=== PATIENT | female | born 1935 | race Caucasian/White ===

== ENCOUNTER 2023-12-09 12:53 | Outpatient (OUT) | payer SELFPAY | END 2023-12-09 12:54 | disposition home or self-care (01) | LOC: PST 12:53 | PROVIDERS: Visit Provider Ophthalmology | DX: Z01.818 Encounter for other preprocedural examination (principal); H25.812 Combined forms of age-related cataract, left eye ==

== ENCOUNTER 2023-12-11 06:23 | Day surgery (SDC) | payer MEDICARE, OTHER, SELFPAY ==
--- NOTE | 2023-12-10 | HP_ITS ---
PREOPERATIVE HISTORY AND PHYSICAL Date:? 12/10/2023 HISTORY:? The patient is an 88-year-old female with complaints of declining vision out of her left eye.? She claims that this has been ongoing over the last year, described as moderate in severity and causative in nature.? She states it is worsening with headlights and street lights at night time creating glare and halos.? She also describes her distance vision as blurred and difficulty seeing road signs.? PAST OCULAR HISTORY:? 1.? History of macular degeneration bilaterally.? 2.? History of retinal detachment and repair. 3.? Status post cataract extraction with intraocular lens placement for the right eye 2015. PAST MEDICAL HISTORY: 1.? Hypertension. 2.? Chronic kidney disease. 3.? Hypercholesterolemia.? 4.? Cardiac surgery. SOCIAL HISTORY:? Denies tobacco, alcohol or recreational drug abuse.? SYSTEMIC MEDICATIONS:? Include zinc sulfate, ubiquinol, lisinopril, cholecalciferol, ascorbic acid, allopurinol, bumetanide, digoxin, amiodarone, diltiazem. ALLERGIES:? To iodine, statins, amlodipine and penicillins. REVIEW OF SYSTEMS:? No pertinent positives. PHYSICAL EXAM:? GENERAL:? She is awake, alert and oriented x3, well developed, well nourished, in no acute distress.? HEART:? Regular rate and rhythm. LUNGS:? Clear bilaterally. ABDOMEN:? Soft, non-tender, non-distended. EXTREMITIES:? No pitting edema. OPHTHALMIC EXAM:? Revealed a visual acuity of 20/40 -1 in the right eye, and < > (unclear) is at 3 feet in the left eye.?? Pupils motility, muscle balance, confrontational visual marquze within normal limits bilaterally.? Pressures were 16 bilaterally.? Slit lamp exam revealed blepharitis with a severe decrease in tear film bilaterally.? Conjunctiva, cornea, anterior chamber and iris were within normal limits bilaterally.? Lens status demonstrated well centered posterior chamber intraocular lens in the right eye, and 2+ nuclear sclerosis, 3+ cortical changes, 1+ PSC in the left eye. FUNDUS EXAM:? Revealed a good view with good dilation bilaterally.? Optic discs, vessels, periphery and vitreous were within normal limits bilaterally.? The macula demonstrated RTE mottling and geographic atrophy, much worse in the left eye than that of the right eye.? ASSESSMENT AND PLAN:? Visually significant cataract, left eye.? After risks, benefits, alternatives, as well as expectations were delivered to the patient, she elected to go forward with cataract removal.? She understands the risks include but not limited to infection, bleeding, loss of vision, loss of the eye itself.? Secondly, she understands postoperatively she is likely to require spectacle correction for best visual acuity.? Finally, a complete ophthalmic exam was performed and she shows atrophic macular degeneration, that she understands, at this time, is the predominant limiting factor to her acuity.? She understands even with cataract removal surgery, she will still be left with a substantial moderate visual decline because of this existence.? However, she understands with the benefit of the cataract removal can improve vision to some degree, and therefore, she wishes to proceed. After understanding all the risks as well as expectations, she elected to go forward with procedure as listed above and will be doing so in the near future. MARIZOL
--- NOTE | 2023-12-11 | OP_ITS ---
OP Note OPERATION DATE: ??12/11/2023 SURGEON:? Dipak Morrow M.D. PREOPERATIVE DIAGNOSIS:? Nuclear sclerotic cataract left eye POSTOPERATIVE DIAGNOSIS:? Nuclear sclerotic cataract left eye. PROCEDURE NAME:? Cataract extraction with intraocular lens placement for the left eye. ANESTHESIA:? Topical ESTIMATED BLOOD LOSS:? Zero. COMPLICATIONS:? None. PROCEDURE:? The patient was brought to the Operating Room in supine position.? After proper identification, the left eye was prepped and draped in a sterile ophthalmic fashion.? A paracentesis was created at the 5 o'clock position.? Approximately 1 cc of unpreserved Xylocaine was injected into the anterior chamber followed by Amvisc Plus.? Using a 2.6 mm Keratome blade, a clear corneal incision was created at the 3 o'clock limbus.? A cystotome was then used to begin a curvilinear capsulorrhexis that was continued for 360 degrees with the Utrata forceps.? BSS on a 26 gauge cannula was injected beneath the anterior capsule to hydrodissect as well as hydrodelineate the lens.? After ensuring mobility, phacoemulsification was performed in a [id number]-type fashion.? After all nuclear material had been removed from the eye, IA was introduced and all residual cortical material was cleaned up.? Additional Amvisc Plus was injected into the posterior bag and a lens model MX60, 17.5 diopters was injected and dialed into position.? After ensuring centration, IA was re- introduced into the anterior chamber and all residual Amvisc Plus was removed from the eye.? BSS on a 30 gauge cannula was then injected into the stroma of both the clear corneal incision as well as paracentesis to hydrate the wounds.? Additional BSS was injected into the anterior chamber to pressurize the eye at approximately 20 to 22 mmHg by finger tension.? 0.1 cc of antibiotic was used to wash out the anterior chamber, maintaining the pressure as above.? Weck-Ana sponges were used to check the wounds to be watertight.? One drop of apraclonidine and one drop of prednisolone acetate were placed into the eye and a shield was placed over top. The patient was sent to the postoperative area in satisfactory condition to follow up the following day for postoperative care. MARIZOL
--- OUTSIDE RECORDS SUMMARY | 2023-12-11 06:29 | XMS_ITS | CCD ---
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 Representative Name Role Phone DR EJ SIMON Primary Care Unavailable ALLYSON, DR JOYCE Cherry Attending Unavaila ble DEBENEDETTI, DR JOYCE Cherry Consulting Unavaila ble DEBENEDETTI, DR JOYCE Cherry Admitting Unavaila ble ElizabethloEj rojas DO Primary Care Provider ALEIDA WILKES Attending Unavailable EJ SIMON Referring Unavailable EJ SIMON Primary Care Unavailable MILLA AVENDANO Referring Unavailable EJ SIMON Primary Care Unavailable CARMEN FRASER Attending Unavailable EJ SIMON Referring Unavailable EJ SIMON Primary Care Unavailable ALEIDA WILKES Attending Unavailable ALEIDA WILKES Referring Unavailable EJ SIMON Primary Care Unavailable OBINNA BERNARD Attending Unavailable FABRIZIO NEWBY Referring Unavailable Allergies Allergy Classification Reported Allergen(s) Allergy Type Date of Onset Reaction(s) Facility (8 sources) amLODIPine; Translations: [AMLODIPINE] Drug Allergy 1 [facility] (8 sources) atorvastatin; Translations: [ATORVASTATIN] Drug Allergy 1 [facility] Work Phone: (8 sources) Contrast media; Translations: [DYE] [facility] reactions [facility] (8 sources) HMG-CoA reductase inhibitor; Translations: [TIXKGOY-NWK-BJ A REDUCTASE INHIBITORS] Propensity to adverse reactions to drug [facility] sources[facility] Iodine; Translations: [IODINE] Drug Allergy 1 [facility] (8 sources) Penicillins; Translations: [PENICILLINS] Propensity to adverse reactions to drug 1 Hives, Swelling [facility] (8 sources) rosuvastatin; Translations: [ROSUVASTATIN] [facility] (8 sources) Spironolactone; Translations: [SPIRONOLACTONE ] Drug Allergy 1 [facility] Work Phone: Medications Current Medications Medication Drug Class(es) Dates Sig (Normalized) Sig (Original) acetaminophen 500 mg / diphenhydrAMINE hydrochloride 25 mg oral tablet (6 sources) Histamine-1 Receptor Antagonist take 1 tablet by mouth once daily as needed for sleep diphenhydrAMINE-a cetaminophen (TYLENOL PM) 25-500 mg tablet Take 1 tablet by mouth nightly as needed for sleep. 0 Active allopurinol 100 mg oral tablet (6 sources) Xanthine Oxidase Inhibitor Start: 06-10-2023 take 1 tablet by mouth once daily allopurinoL (ZYLOPRIM) 100 mg tablet Take 1 tablet by mouth once daily 90 tablet 3 06/10/2023 Active amiodarone hydrochloride 200 mg oral tablet (6 sources) Antiarrhythmic Start: 02-05-2023 take 0.5 tablet by mouth in the morning amiodarone (PACERONE) 200 mg tablet Indications: Longstanding persistent atrial fibrillation (CMS-HCC) Take 0.5 tablets (100 mg total) by mouth in the morning. 45 tablet 3 02/05/2023 Active apixaban 2.5 mg oral tablet (6 sources) Factor Xa Inhibitor Start: 07-12-2022 take 1 tablet by mouth in the morning, then take 1 tablet by mouth at bedtime apixaban (ELIQUIS) 2.5 mg tablet Indications: Longstanding persistent atrial fibrillation (CMS-HCC) Take 1 tablet (2.5 mg total) by mouth in the morning and 1 tablet (2.5 mg total) before bedtime. 180 tablet 3 07/12/2022 Active ascorbic acid 250 mg chewable tablet (6 sources) Vitamin C ascorbic acid, vitamin C, 250 mg tablet,chewable Chew and swallow daily. 0 Active bempedoic acid 180 mg / ezetimibe 10 mg oral tablet (6 sources) Dietary Cholesterol Absorption Inhibitor Start: 04-03-2023 take 1 tablet by mouth once daily bempedoic acid-ezetimibe (NEXLIZET) 180-10 mg tablet TAKE 1 TABLET BY MOUTH EVERY DAY 90 tablet 3 04/03/2023 Active bumetanide 2 mg oral tablet (6 sources) Loop Diuretic Start: 04-24-2023 take 1 tablet by mouth at bedtime bumetanide (BUMEX) 2 mg tablet Indications: Heart failure with preserved left ventricular function (HFpEF) ([facility]) TAKE 1 TABLET BY MOUTH IN THE MORNING AND AT BEDTIME 180 tablet 2 04/24/2023 Active cholecalciferol 0.05 mg oral capsule (6 sources) Vitamin D take 1 capsule by mouth in the morning cholecalciferol, vitamin D3, 2,000 units capsule Take 1 capsule (2,000 Units total) by mouth in the morning. 0 Active dapagliflozin 10 mg oral tablet (6 sources) Sodium-Glucose Cotransporter 2 Inhibitor Start: 08-26-2022 take 1 tablet by mouth in the morning dapagliflozin (FARXIGA) 10 mg tablet Indications: Type 2 diabetes mellitus with stage 3b chronic kidney disease, without long-term current use of insulin ([facility] [place]) Take 1 tablet (10 mg total) by mouth in the morning. 90 tablet 3 08/26/2022 Active digoxin 0.125 mg oral tablet (7 sources) Cardiac Glycoside Start: 07-22-2022 End: 09-23-2023 take 1 tablet by mouth every other day digoxin (LANOXIN) 125 mcg tablet Indications: Longstanding persistent atrial fibrillation ([facility] [place]) Take 1 tablet (125 mcg total) by mouth every other day. 45 tablet 0 09/23/2023 Active lactobacillus acidophilus [id number] unt / pectin 100 mg oral tablet (6 sources) take 1 tablet by mouth once daily at breakfast acidophilus-pecti n, citrus 25 million cell -100 mg tablet Take 1 tablet by mouth daily with breakfast. 0 Active lisinopril 5 mg oral tablet (6 sources) Angiotensin Converting Enzyme Inhibitor Start: 04-08-2023 take 1 tablet by mouth in the morning lisinopriL (PRINIVIL,ZESTRIL ) 5 mg tablet Take 1 tablet (5 mg total) by mouth in the morning. 90 tablet 3 04/08/2023 Active 24 hr metoprolol succinate 50 mg extended release oral tablet (6 sources) beta-Adrenergic Luna Start: 05-12-2023 take 1 tablet by mouth every twenty-four hours in the morning, then take 1 tablet by mouth at bedtime metoprolol succinate XL (TOPROL XL) 50 mg 24 hr tablet Indications: Heart failure with preserved left ventricular function (HFpEF) (CMS-HCC) , Longstanding persistent atrial fibrillation (CMS-HCC) , Nonrheumatic mitral valve regurgitation , Paroxysmal atrial fibrillation (CMS-HCC) , Chronic coronary artery disease , Essential hypertension , Atrial fibrillation (CMS-HCC) Take 1 tablet (50 mg total) by mouth in the morning and 1 tablet (50 mg total) before bedtime. 180 tablet 3 05/12/2023 Active multivitamin capsule (6 sources) take 1 tablet by mouth once daily multivitamin capsule Take 1 tablet by mouth daily. 0 Active nystatin [id number] unt/ml / triamcinolone acetonide 1 mg/ml topical cream (7 sources) Polyene Antifungal, Corticosteroid Start: 10-16-2022 End: 09-29-2023 nystatin-triamcin olone (MYCOLOG II) cream Indications: Yeast vaginitis Apply 1 Application topically in the morning and 1 Application at noon and 1 Application in the evening and 1 Application before bedtime. 60 g 0 09/29/2023 Active om 3/E/linol/ala/oleic/gl a/lip (OMEGA 3-6-9 ORAL) (6 sources) take 1 capsule by mouth once daily om 3/E/linol/ala/ole ic/gla/lip (OMEGA 3-6-9 ORAL) Take 1 capsule by mouth daily. 0 Active Oxygen (6 sources) oxygen Inhale 2 L/min once daily at bedtime. Connected to C-Pap 0 Active microencapsulated potassium chloride 20 meq extended release oral tablet (6 sources) Start: 11-25-2022 take 1 tablet by mouth once daily potassium chloride (KLOR-CON M 20) 20 MEQ CR tablet Take 1 tablet by mouth once daily 90 tablet 3 11/25/2022 Active sour horner allergenic extract (6 sources) Non-Standardized Food Allergenic Extract, Non-Standardized Plant Allergenic Extract sour horner extract (TART HORNER EXTRACT ORAL) Take by mouth daily. 0 Active ubiquinol 100 mg oral capsule (6 sources) take 1 capsule by mouth once daily coQ10, ubiquinol, 100 mg capsule Take 1 capsule by mouth daily. 0 Active vit C,Q-Uz-offvm-lutein-ze axan 250-90-40-1 mg capsule (6 sources) take 1 capsule by mouth once daily vit C,H-Yh-dxyjx-lute in-zeaxan 250-90-40-1 mg capsule Take 1 capsule by mouth daily. 0 Active zinc sulfate 220 mg oral capsule (6 sources) zinc sulfate (ZINCATE) 50 mg zinc (220 mg) capsule Take by mouth daily. 0 Active Problems Active Problems Problem Classification Problem Date Documented Da te Episodic/Chronic Cardiac dysrhythmias (16 sources) Longstanding persistent atrial fibrillation; Translations: [Longstanding persistent atrial fibrillation] Onset: 09-28-2020 Resolved: 10-22-2022 10-05-2022 Chronic Cardiac dysrhythmias (1 source) Palpitations Onset: 11-17-2023 Episodic Chronic kidney disease (12 sources) Chronic kidney disease stage 4; Translations: [Chronic kidney disease, stage 4 (severe)] Onset: 09-27-2020 Resolved: 03-06-2023 11-22-2022 Chronic Chronic kidney disease (1 source) Chronic kidney disease; Translations: [Chronic kidney disease, stage 3b] Onset: 10-29-2023 Conditions associated with dizziness or vertigo (1 source) Dizziness Onset: 11-17-2023 Episodic Congestive heart failure; nonhypertensive (14 sources) Unspecified diastolic (congestive) heart failure; Translations: [Heart failure] Onset: 09-27-2020 Resolved: 08-27-2021 10-07-2022 Chronic Coronary atherosclerosis and other heart disease (13 sources) Coronary arteriosclerosis; Translations: [Atherosclerotic heart disease of [place] coronary artery without angina pectoris] Onset: 05-19-2013 10-03-2022 Chronic Diabetes mellitus with complications (6 sources) Type 2 diabetes mellitus; Translations: [Type 2 diabetes mellitus with diabetic chronic kidney disease] Onset: 05-19-2013 10-05-2022 Chronic Disorders of lipid metabolism (7 sources) Hyperlipidemia; Translations: [Hyperlipidemia, unspecified] Onset: 05-19-2013 01-15-2018 Chronic Diverticulosis and diverticulitis (12 sources) Diverticular disease; Translations: [Diverticulosis of intestine, part unspecified, without perforation or abscess without bleeding] Onset: 10-04-2022 10-03-2022 Chronic Essential hypertension (6 sources) Hypertensive disorder; Translations: [Essential (primary) hypertension] Onset: 12-05-2015 10-03-2022 Chronic Gout and other crystal arthropathies (6 sources) Gout; Translations: [Gout, unspecified] Onset: 10-12-2020 10-03-2022 Chronic Heart valve disorders (12 sources) Non-rheumatic mitral regurgitation ; Translations: [Nonrheumatic mitral (valve) insufficiency] Onset: 11-03-2020 Resolved: 08-27-2021 11-18-2022 Chronic Immunity disorders (6 sources) Sarcoidosis; Translations: [Sarcoidosis of other sites] Onset: 10-12-2020 10-03-2022 Chronic Mycoses (1 source) Candidiasis of vagina; Translations: [Yeast vaginitis] 09-29-2023 Episodic Nonspecific chest pain (1 source) Chest pain Onset: 11-17-2023 Episodic Other diseases of kidney and ureters (6 sources) Renal mass; Translations: [Other specified disorders of kidney and ureter] Onset: 10-30-2020 04-29-2022 Chronic Other lower respiratory disease (2 sources) Shortness of breath Onset: 11-03-2023 Episodic Other nervous system disorders (6 sources) Neuropathy; Translations: [Polyneuropathy, unspecified] Onset: 03-06-2023 03-06-2023 Chronic Pulmonary heart disease (6 sources) Pulmonary hypertension; Translations: [Pulmonary hypertension, unspecified] Onset: 10-13-2020 10-03-2022 Chronic Residual codes; unclassified (6 sources) Obstructive sleep apnea syndrome; Translations: [Obstructive sleep apnea (adult) (pediatric)] Onset: 10-12-2020 10-05-2022 Chronic Residual codes; unclassified (1 source) Obstructive sleep apnea (adult) (pediatric); Translations: [Obstructive sleep apnea (adult) (pediatric)] Onset: 11-03-2023 Chronic Residual codes; unclassified (1 source) Sleep apnea Onset: 11-03-2023 Chronic Respiratory failure; insufficiency; arrest (adult) (6 sources) Dependence on supplemental oxygen; Translations: [Dependence on supplemental oxygen] Onset: 10-12-2020 10-03-2022 Chronic Unclassified (1 source) Other persistent atrial fibrillation; Translations: [Other persistent atrial fibrillation] Onset: 11-03-2023 Unclassified (1 source) Longstanding persistent atrial fibrillation; Translations: [Longstanding persistent atrial fibrillation] Onset: 11-17-2023 Unclassified (1 source) Permanent atrial fibrillation; Translations: [Permanent atrial fibrillation] Onset: 11-17-2023 Past or Other Problems Problem Classification Problem Date Documented Date Episodic/Chronic Coronary atherosclerosis and other heart disease (7 sources) Aortocoronary bypass graft present; Translations: [Presence of aortocoronary bypass graft] Onset: 10-12-2020 10-03-2022 Episodic E Codes: Adverse effects of medical drugs (2 sources) Adverse effect of other antidysrhythmic drugs, initial encounter; Translations: [Adverse effect of other antidysrhythmic drugs, initial encounter] Onset: 07-24-2023 Episodic Hypertension with complications and secondary hypertension (10 sources) Hypertensive heart and chronic kidney disease with heart failure and stage 1 through stage 4 chronic kidney disease, or unspecified chronic kidney disease; Translations: [Hypertensive heart AND chronic kidney disease stage 5] Onset: 10-13-2020 Resolved: 10-16-2022 Chronic Mood disorders (6 sources) Mood disorders Onset: 03-06-2023 03-06-2023 Other aftercare (6 sources) Long-term current use of anticoagulant; 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] Onset: 10-12-2020 10-03-2022 Episodic Other lower respiratory disease (6 sources) Hypoxemia; Translations: [Hypoxemia] Onset: 09-27-2020 Resolved: 08-27-2021 08-27-2021 Episodic Other nervous system disorders (6 sources) Finding related to ability to move; Translations: [Other abnormalities of gait and mobility] Onset: 09-28-2020 10-03-2022 Episodic Other nutritional; endocrine; and metabolic disorders (6 sources) Body mass index 40+ - severely obese; Translations: [Body mass index (BMI) 45.0-49.9, adult] Onset: 10-21-2018 Resolved: 03-06-2023 03-06-2023 Chronic Other nutritional; endocrine; and metabolic disorders (6 sources) Severe obesity; Translations: [Morbid (severe) obesity due to excess calories] Onset: 07-24-2021 Resolved: 10-22-2022 10-22-2022 Chronic Residual codes; unclassified (6 sources) Localized edema; Translations: [Localized edema] Onset: 07-08-2018 07-08-2018 Episodic Residual codes; unclassified (6 sources) Other specified health status; Translations: [Other drug allergy] Onset: 10-22-2022 10-22-2022 Episodic Viral infection (6 sources) Herpes zoster; Translations: [Zoster without complications] Onset: 07-07-1986 Resolved: 10-03-2022 10-03-2022 Episodic Results Test Name Value Interpretation Reference Range Facility BASIC METABOLIC PANLon 10-28 Anion gap [Moles/Vol] 9 mmol/L Normal 5-15 [facility] Comment on above: Performed By: #### B CHELY, 76718-7, 2777-1, 2731-8, 80608-4, CBC, UPCR #### [facility] ([id number]) [address], [address] [place] [address] Calcium [Mass/Vol] 9.9 mg/dL Normal 8.5-10.5 [facility] Comment on above: Performed By: #### [place], [address]-6, 2777-1, 2731-8, 50394-3, CBC, UPCR #### [facility] ([id number]) [address], [address] [place] [address] Chloride [Moles/Vol] 97 mmol/L Low 98-109 [facility] Comment on above: Performed By: #### B CHELY, 89846-1, 2777-1, 2731-8, 89259-1, CBC, UPCR #### [facility] ([id number]) [address], [address] [place] [address] CO2 [Moles/Vol] 32 mmol/L Normal 22-32 [facility] Comment on above: Performed By: #### B CHELY, 48707-1, 2777-1, 2731-8, 59114-8, CBC, UPCR #### [facility] ([id number]) [address], [address] [place] [address] Creatinine [Mass/Vol] 1.65 mg/dL High 0.40-1.00 [facility] Comment on above: Result Comment: METH OD TRACEABLE TO IDMS STANDARD Performed By: #### B CHELY, 17326-7, 2776-1, 2731-8, 09886-6, CBC, UPCR #### [facility] ([id number]) [address], [facility] [address] [place] [address] GFR/1.73 sq M.predicted among non-blacks MDRD (S/P/Bld) [Vol rate/Area] 30 mL/min/{1.73_m2} Low >59 [facility] Comment on above: Result Comment: Reported eGFR is based on the CKD-EPI 2020 equation that does not use a race coefficient. Performed By: #### B CHELY, 69612-5, 2776-1, 2731-8, 04759-1, CBC, UPCR #### [facility] ([id number]) [address], [address] [place] [address] Glucose [Mass/Vol] 175 mg/dL High 65-99 [facility] Comment on above: Performed By: #### B CHELY, 94363-3, 2776-, 273-8, 50802-0, CBC, UPCR #### [facility] ([id number]) [address], [facility] [address] [place] [address] Potassium [Moles/Vol] 3.9 mmol/L Normal 3.5-5.0 [facility] Comment on above: Performed By: #### B CHELY, 06562-8, 2776-1, 2731-8, 53254-8, CBC, UPCR #### [facility] ([id number]) [address], [address] [place] [address] Sodium [Moles/Vol] 138 mmol/L Normal 134-146 [facility] Comment on above: Performed By: #### B CHELY, 33981-7, 2776-1, 2731-8, 50144-2, CBC, UPCR #### [facility] ([id number]) [address], [address] [place] [address] Urea nitrogen [Mass/Vol] 27 mg/dL Normal 5-27 [facility] Comment on above: Performed By: #### B CHELY, 28901-5, 2777-1, 2731-8, 11003-5, CBC, UPCR #### [facility] ([id number]) [address], [facility] [address] [place] [address] COMPLETE BLOOD COUNTon 10-28 Erythrocyte distribution width (RBC) [Ratio] 16.2 % High 11.5-15.0 [facility] Comment on above: Performed By: #### B CHELY, 41494-3, 2777-1, 2731-8, 62343-7, CBC, UPCR #### [facility] ([id number]) [address], [address] [place] [address] Hematocrit (Bld) [Volume fraction] 42.7 % Normal 35-47 [facility] Comment on above: Performed By: #### B CHELY, 12309-3, 7-1, 2731-8, 23192-0, CBC, UPCR #### [facility] ([id number]) [address] [place] [address] Hemoglobin (Bld) [Mass/Vol] 14.5 g/dL Normal 11.7-15.5 [facility] Comment on above: Performed By: #### [place], 72415-0, 2777-1, 2731-8, 43300-1, CBC, UPCR #### [facility] ([id number]) [address] [place] [address] MCH (RBC) [Entitic mass] 34.7 pg High 27-34 [facility] Comment on above: Performed By: #### B CHELY, 24569-5, 2777-1, 2731-8, 96032-5, CBC, UPCR #### [facility] ([id number]) [address], [address] [place] [address] MCHC (RBC) [Mass/Vol] 34.0 g/dL Normal 32-36 [facility] Comment on above: Performed By: #### B CHELY, 11733-2, 2777-1, 2731-8, 70750-5, CBC, UPCR #### [facility] ([id number]) [address], [facility] [address] [place] [address] MCV (RBC) [Entitic vol] 102 fL High 80-100 [facility] Comment on above: Performed By: #### B CHELY, 43974-9, 2777-1, 2731-8, 54220-7, CBC, UPCR #### [facility] ([id number]) [address], [facility] [address] [place] [address] Platelet mean volume (Bld) [Entitic vol] 9.5 fL Normal 7-12 [facility] Comment on above: Performed By: #### B CHELY, 12629-5, 2777-1, 2731-8, 77581-5, CBC, UPCR #### [facility] ([id number]) [address] [address] [place] [address] Platelets (Bld) [#/Vol] 166 10*3/uL Normal 150-450 [facility] Comment on above: Performed By: #### [place], 74246-1, 2777-1, 2731-8, 93579-3, CBC, UPCR #### [facility] ([id number]) [address], [address] [place] [address] RBC COUNT 4.18 X10E12/L Normal 3.80-5.20 [facility] Comment on above: Performed By: #### B CHELY, 59164-6, 2777-1, 2731-8, 88104-1, CBC, UPCR #### [facility] ([id number]) [address], [address] [place] [address] WBC (Bld) [#/Vol] 4.4 10*3/uL Normal 4.0-11.0 [facility] Comment on above: Performed By: #### B CHELY, 61641-8, 7-1, 1-8, 46923-4, CBC, UPCR #### [facility] ([id number]) [address], [address] [place] [address] MAGNESIUMon 10-29-2023 Magnesium [Mass/Vol] 2.4 mg/dL Normal 1.8-2.6 [facility] Comment on above: Performed By: #### B CHELY, 47280-6, 2776-1, 2730-8, 18983-6, CBC, UPCR #### [facility] ([id number]) [address], [address] [place] [address] PHOSPHORUSon 10-29-2023 Phosphate [Mass/Vol] 3.5 mg/dL Normal 2.4-4.9 [facility] Comment on above: Performed By: #### B CHELY, 78273-3, 2776-, 2730-8, 69474-9, CBC, UPCR #### [facility] ([id number]) [address], [address] [place] [address] PROTEIN CREAT RATIOon 2023 RANDOM URINE PROTEIN 4020 mg/L High <120 [facility] Comment on above: Performed By: #### B CHELY, 94284-1, 2776-1, 273-8, 20600-4, CBC, UPCR #### [facility] ([id number]) [address], [address] [place] [address] U/PRO/DIRECTOR SOFTWARE RATIO CALC 8.42 High <0.2 [facility] Comment on above: Result Comment: Neph rotic Syndrome is associated with ratios >3.5 Performed By: #### B CHELY, 76928-7, 2777-1, 2731-8, 62483-6, CBC, UPCR #### [facility] ([id number]) [address], [address] [place] [address] URINE CREATININE,RDM 47.72 mg/dL Normal [facility] Comment on above: Performed By: #### B MP, 11358-0, 2777-1, 2731-8, 64926-0, CBC, UPCR #### [facility] ([id number]) [address] [place] [address] Parathyrin.intact [Mass/Vol] on 10-29-2023 PTH INTACT 68 pg/mL Normal [facility] Comment on above: Performed By: #### B MP, 79907-3, 2777-1, 2731-8, 39937-8, CBC, UPCR #### [facility] ([id number]) [address] [place] [address] URINALYSISon 10-29-2023 Bilirubin Ql (U) Negative Normal NEG [facility] Comment on above: Performed By: #### U A #### [facility] ([id number]) [address] [place] [address] BLOOD/HGB Negative Normal NEG [facility] Comment on above: Performed By: #### U A #### [facility] ([id number]) [address] [place] [address] Color (U) YELLOW Normal YELLOW [facility] Comment on above: Performed By: #### U A #### [facility] ([id number]) [address] [place] [address] Glucose Ql (U) >1000 Abnormal NEG [facility] Comment on above: Performed By: #### U A #### [facility] ([id number]) [address] [place] [address] Ketones Ql (U) Negative Normal NEG [facility] Comment on above: Performed By: #### U A #### [facility] ([id number]) [address], [address] [place] [address] Leukocyte esterase Test strip Ql (U) Negative Normal NEG [facility] Comment on above: Result Comment: HIGH CONCENTRATIONS OF GLUCOSE MAY DECREASE THE REACTIVITY OF THE DIPSTICK LEUKOCYTE TEST PAD. Performed By: #### U A #### [facility] ([id number]) [address], [address] [place] [address] MUCOUS PRESENT Abnormal NONE [facility] Comment on above: Performed By: #### U A #### [facility] ([id number]) [address] [place] [address] Nitrite Ql (U) Negative Normal NEG [facility] Comment on above: Performed By: #### U A #### [facility] ([id number]) [address], [address] [place] [address] pH (U) 7.0 [pH] Normal 5.0-8.5 [facility] Comment on above: Performed By: #### U A #### [facility] ([id number]) [address], [address] [place] [address] Protein Ql (U) 300 mg/dL Abnormal NEG [facility] Comment on above: Performed By: #### U A #### [facility] ([id number]) [address], [address] [place] [address] R.B.CELLS 1 /hpf Normal 0-5 [facility] Comment on above: Performed By: #### U A #### [facility] ([id number]) [address], [address] [place] [address] Specific gravity (U) [Rel density] 1.019 Normal 1.003-1.035 [facility] [facility] Comment on above: Performed By: #### U A #### [facility] ([id number]) [address], [address] [place] [address] SQUAMOUS EPITHELIUM <1 Normal 0-5 [facility] Comment on above: Performed By: #### U A #### [facility] ([id number]) [address] [place] [address] TURBIDITY CLEAR Normal CLEAR [facility] Comment on above: Performed By: #### U A #### [facility] ([id number]) [address] [place] [address] Urobilinogen (U) [Mass/Vol] mg/dL Normal <1.1 [facility] Comment on above: Performed By: #### U A #### [facility] ([id number]) [address] [place] [address] W.B.CELLS 4 /hpf Normal 0-5 [facility] Comment on above: Performed By: #### U A #### [facility] ([id number]) [address] [place] [address] Vitamin D+Metabolites [Mass/ Vol]on 10-29-2023 VITAMIN D 25 HYD TOT 25.6 ng/mL Low 30-100 [facility] Comment on above: Result Comment: Vitamin D status 25 [place] Vitamin D Deficiency <20 ng/mL Insufficiency 20-29 ng/mL Sufficiency 30-100 ng/mL Toxicity >100 ng/mL NOTE: A pediatric reference range has not been established by the machine tank operator of this kit. The [place] [employer] recommends a Vitamin D level of = or >20ng/mL in infants and children. Performed By: #### [place], [address]-7, 2777-1, 2731-8, 04424-6, CBC, UPCR #### [facility] ([id number]) [address], [address] [place] [address] BNPon 10-31-2022 Natriuretic peptide B (Bld) [Mass/Vol] 2222.0 pg/mL Critically high <=1,800.0 [facility] Comment on above: Performed By: #### B MP, BNP #### [facility] [address] [place] [address] Dr. Alyson Galvez PROF CHEM 8 (BAS METB)on Anion gap [Moles/Vol] 10.5 mmol/L Normal [facility] Comment on above: Performed By: #### B MP, BNP #### [facility] [address] [place] [address] Dr. Alyson Galvez Calcium [Mass/Vol] 9.4 mg/dL Normal 8.5-10.1 [facility] Comment on above: Performed By: #### B MP, BNP #### [facility] [address] [place] [address] Dr. Alyson Galvez Chloride [Moles/Vol] 103 mmol/L Normal 98-107 [facility] Comment on above: Performed By: #### B MP, BNP #### [facility] [address] [place] [address] Dr. Alyson Gavlez CO2 [Moles/Vol] 33.2 mmol/L Critically high 21.0-32.0 [facility] Comment on above: Performed By: #### B MP, BNP #### [facility] [address] [place] [address] Dr. Alyson Galvez Creatinine [Mass/Vol] 1.46 mg/dL Critically high 0.55-1.02 [facility] Comment on above: Performed By: #### B MP, BNP #### [facility] [address] [place] [address] Dr. Alyson Galvez EGFR-AF ERITREAN 41 mL/min/1.73m2 Critically low >=60 [facility] Comment on above: Performed By: #### B MP, BNP #### [facility] [address] [address] [address] Alyson Galvez EGFR-NON AF ERITREAN 34 mL/min/1.73m2 Critically low >=60 [facility] Comment on above: Performed By: #### B MP, BNP #### [facility] [address] [address] [address] Alyson Galvez Glucose [Mass/Vol] 110 mg/dL Critically high 74-106 T [facility] Comment on above: Performed By: #### B MP, BNP #### [facility] [address] [place] [address] Dr. Alyson Galvez Potassium [Moles/Vol] 3.7 mmol/L Normal 3.5-5.1 [facility] Comment on above: Performed By: #### B MP, BNP #### [facility] [address] [place] [address] Dr. Alyson Galvez Sodium [Moles/Vol] 143 mmol/L Normal 136-145 [facility] Comment on above: Performed By: #### B MP, BNP #### [facility] [address] [address] [address] Alyson Galvez Urea nitrogen [Mass/Vol] 21.0 mg/dL Critically high 7.0-18.0 [facility] Comment on above: Performed By: #### B MP, BNP #### [facility] [address] [place] [address] Dr. Alyson Galvez Urea nitrogen/Creatinin e [Mass ratio] 14.4 mg/mg Normal [facility] Comment on above: Performed By: #### B MP, BNP #### [facility] [address] [place] [address] Dr. Alyson Galvez [facility]28[facility] ([facility] IVANA [id number]) 1935 F Date Time Provider Department 05/28/21 7:00 AM RESEARCH NURSE CARD INTERVENTION MNCATHMN During your visit today, we recorded the following information about you: Carina Ross RN 05/29/2021 5:48 PM Signed I spoke with Mrs. Hutchinson and let her know that after review by the Carmen Clasp Trial , she was a screen fail based on not meeting the inclusion/exclusion. . Dr. Velázquez spoke with her as well. Carina Ross RN Referring Provider: LEE VELÁZQUEZ [[id number]] Allergies As of Date: 05/28/2021 Noted Allergy Reaction CONTRAST DYE (IODINE) 03/15/2021 16 - Unknown Comments: Not allergy, want limited use due to CKD 3 PENICILLINS 03/15/2021 4 - Hives 7 - Swelling [id number] REDUCTASE INHIBIT*03/15/2021 17 - Myalgia Date Reviewed: 03/19/2021 Reviewed by: Yadira Palacios APRN.CLAIMS ANALYST - Fully Assessed Reason for Visit: Research [293] Cmt: IRB 19-241 [facility] II D F trial - Screen fail Primary Visit Diagnosis:IRB 19-241 [facility] IId II f Screen fail note [Z00.6] Prescriptions as of 05/29/2021 - clindamycin (CLEOCIN) 300 mg capsule Take 2 capsules (600 mg) 30-60 minutes prior to dental/GI/ procedures - allopurinol (ZYLOPRIM) 100 mg tablet Take 100 mg by mouth once daily. - PACERONE 200 mg tablet Take 200 mg by mouth once daily. - apixaban (ELIQUIS) 2.5 mg tab tab(s) Take 2.5 mg by mouth twice daily. - Ascorbic Acid 250 mg chew Take 250 mg by mouth once daily. - bumetanide (BUMEX) 2 mg tablet Take 4 mg by mouth twice daily. - Cholecalciferol, Vitamin D3, 50 mcg (2,000 unit) cap Take 2,000 Units by mouth once daily. - dapagliflozin (FARXIGA) 10 mg tablet Take 10 mg by mouth once daily. - ezetimibe (ZETIA) 10 mg tablet Take 10 mg by mouth once daily. - metoprolol succinate ER (TOPROL XL) 25 mg 24 hr tablet Take 25 mg by mouth once daily. - Multivitamin capsule Take 1 tablet by mouth once daily. - potassium chloride ER (K-DUR, KLOR-CON) 20 mEq tablet Take 20 mEq by mouth once daily. - coQ10, ubiquinol, 100 mg cap Take 1 capsule by mouth once daily. - zinc sulfate 220 (50) mg capsule Take 220 mg by mouth once daily. - vit C,S-Bq-ipvnb-lutein-ze axan (PRESERVISION AREDS-2) 250-90-40-1 mg Take 1 capsule by mouth once daily. - bempedoic acid (NEXLETOL) 180 mg tablet Take 180 mg by mouth once daily. - acetaminophen/diphenhy dramine (TYLENOL PM ORAL) Take 2 tablets by mouth as needed. - Acidophilus-Pectin, [place] 25 million cell -100 mg tab Take 1 tablet by mouth once daily. - fish oil/borage/flax/om3,6, 9 1 (OMEGA 3-6-9 ORAL) Take 1 capsule by mouth once daily. - sour horner extract (TART HORNER EXTRACT ORAL) Take 1 tablet by mouth once daily. - sodium chloride 0.9 %, flush, (BD POSIFLUSH) syringe Inject 2-10 mL intravenously as directed. For Echo procedure Facility-Administered Medications as of 05/29/2021 - sodium chloride 0.9 % (flush) 10 mL (BD POSIFLUSH) Problem List As Of Date 05/28/2021 Noted Resolved Mitral valve insufficiency [I34.0] 03/13/2021 IRB#19-241 [facility] IID Baselin [Z00.6] 05/14/2021 Visit Notes: >> Carina Ross RN FriMay 28, 2021 2:25 PM Status: Signed I spoke with Mrs. Hutchinson and let her know that after review by the Carmen Clasp Trial , she was a screen fail based on not meeting the inclusion/exclusion. . Dr. Velázquez spoke with her as well. Carina Ross RN Encounter Status:Closed by CARINA ROSS on 05/29/21 Normal [facility] APTTon 05-14-2021 aPTT Coag (Bld) [Time] 29.0 s Normal 23.0-32.4 [facility] Comment on above: Result Comment: Unfr actionated Heparin Therapeutic Ranges: Standard Heparin Nomogram: 53 to 78 seconds (anti-Xa level of 0.3 to 0.7 U/ml) Low Dose/ACS Nomogram: 49 to 67 seconds (anti-Xa level of 0.2 to 0.5 U/ml) Stroke Treatment Nomogram: 49 to 67 seconds (anti-Xa level of 0.2 to 0.5 U/ml) Note: The APTT therapeutic range has been determined for the current lot of laboratory APTT reagent in use throughout the [facility]. Performed By: #### C MP, PTT, CKCKMB, CBC #### [address] [place] [address] CBCon 05-14-2021 Absolute nRBC <0.01 Normal <0.01 [facility] Comment on above: Performed By: #### C MP, PTT, CKCKMB, CBC #### [place] [phone] Erythrocyte distribution width (RBC) [Ratio] 15.1 % High 11.5-15.0 [facility] Comment on above: Performed By: #### C MP, PTT, CKCKMB, CBC #### [place] [phone] Hematocrit (Bld) [Volume fraction] 44.1 % Normal 36.0-46.0 [facility] Comment on above: Performed By: #### C MP, PTT, CKCKMB, CBC #### [place] [phone] Hemoglobin (Bld) [Mass/Vol] 13.6 g/dL Normal 11.5-15.5 [facility] Comment on above: Performed By: #### C MP, PTT, CKCKMB, CBC #### [place] [phone] MCH 32.7 pG Normal 26.0-34.0 [facility] Comment on above: Performed By: #### C MP, PTT, CKCKMB, CBC #### [place] [address] MCHC (RBC) [Mass/Vol] 30.8 g/dL Normal 30.5-36.0 [facility] Comment on above: Performed By: #### C MP, PTT, CKCKMB, CBC #### [place] [address] MCV (RBC) [Entitic vol] 106.0 fL High 80.0-100.0 [facility] Comment on above: Performed By: #### C MP, PTT, CKCKMB, CBC #### [place] [address] Platelet mean volume (Bld) [Entitic vol] 10.7 fL Normal 9.0-12.7 [facility] Comment on above: Performed By: #### C MP, PTT, CKCKMB, CBC #### [place] [address] Platelets (Bld) [#/Vol] 236 10*3/uL Normal 150-400 [facility] Comment on above: Performed By: #### C MP, PTT, CKCKMB, CBC #### [place] [address] RBC (Bld) [#/Vol] 4.16 10*6/uL Normal 3.90-5.20 [facility] Comment on above: Performed By: #### C MP, PTT, CKCKMB, CBC #### [place] [address] WBC (Bld) [#/Vol] 6.06 10*3/uL Normal 3.70-11.00 [facility] Comment on above: Performed By: #### C MP, PTT, CKCKMB, CBC #### [address] [place], [place] [address] CK, Total and CKMBon 021 CK [Catalytic activity/Vol] 76 U/L Normal 42-196 [facility] Comment on above: Performed By: #### C MP, PTT, CKCKMB, CBC #### [facility] [address] [place], [place] [address] CK MB % CK MB % not reported with CK <100 U/L. Normal 0.0-4.0 [facility] Comment on above: Performed By: #### C MP, PTT, CKCKMB, CBC #### [facility] [address] [id number] MB 3.1 ng/mL Normal <4.4 [facility] Comment on above: Performed By: #### C MP, PTT, CKCKMB, CBC #### [facility] [address] [id number] CNNURSEon 05-14-2021 CNNURSE Nurse Visit (CATHMN) IVANA HUTCHINSON ([id number]) 1935 F Date Time Provider Department 05/14/21 1:00 PM RESEARCH NURSE CARD INTERVENTION MNCATHMN During your visit today, we recorded the following information about you: Temperature Pulse Respiration Blood pressure 98.9 degrees 120/minute 26/minute 167/75 Weight 105.8 kg Fabiola Moreno 07/23/2021 12:05 PM Addendum [id number] Carmen MAHMOOD II D PI: Scott Devine Study Visit: Baseline I met with the patient for the baseline visit for the Clasp II D Study. Reaffirmed that the patient still wishes to participate in the study and continues to consent to the study. Patient presented with the updated consent and changes reviewed regarding treatments with relation to Mitraclip and randomization arm of trial. Reconsented to the most recent version of the protocol (D.2) version date 2020. Has the patient had any changes in her health since the last study visit? No Medications and allergy lists updated and current. Has the patient had any outside hospitalizations/ER visits: No NIHSS 1a. Level of Consciousness: The fugitive investigator must choose a response if a full evaluation is prevented by such obstacles as an endotracheal tube, language barrier, orotracheal trauma/bandages. A 3 is scored only if the patient makes no movement (other than reflexive posturing) in response to noxious stimulation. 0 = Alert and Attentive 1b. LOC Questions: The patient is asked the month and his/her age. The answer must be correct - there is no partial credit for being close. Aphasic and stuporous patients who do not comprehend the questions will score 2. Patients unable to speak because of endotracheal intubation, orotracheal trauma, severe dysarthria from any cause, language barrier, or any other problem not secondary to aphasia are given a 1. It is important that only the initial answer be graded and that the examiner not help the patient with verbal or non-verbal cues. 0 = Correct age and month 1c. LOC Commands: The patient is asked to open and close the eyes and then to floral designer salesperson and release the non-paretic hand. Substitute another one step command if the hands cannot be used. Credit is given if an unequivocal attempt is made but not completed due to weakness. If the patient does not respond to command, the task should be demonstrated to him or her (pantomime), and the result scored (i.e., follows none, one or two commands). Patients with trauma, amputation, or other physical impediments should be given suitable one-step commands. Only the first attempt is scored. 0 = Alert and Attentive 2. Best Gaze: Only horizontal eye movements will be tested. Voluntary or reflexive (oculocephalic) eye movements will be scored, but caloric testing is not done. If the patient has a conjugate deviation of the eyes that can be overcome by voluntary or reflexive activity, the score will be 1. If a patient has an isolated peripheral nerve paresis (CN III, IV or ), score a 1. Gaze is testable in all aphasic patients. Patients with ocular trauma, bandages, pre-existing blindness, or other disorder of visual acuity or marquez should be tested with reflexive movements, and a choice made by the fugitive investigator. Establishing eye contact and then moving about the patient from side to side will occasionally clarify the presence of a partial gaze palsy. 0 = Normal 3. Visual: Visual marquez (upper and lower quadrants) are tested by confrontation, using finger counting or visual threat, as appropriate. Patients may be encouraged, but if they look at the side of the moving fingers appropriately, this can be scored as normal. If there is unilateral blindness or enucleation, visual marquez in the remaining eye are scored. Score 1 only if a clear-cut asymmetry, including quadrantanopia, is found. If patient is blind from any cause, score 3. Double simultaneous stimulation is performed at this point. If there is extinction, patient receives a 1, and the results are used to respond to item 11. 0 = Full 4. Facial Palsy: Ask - or use pantomime to encourage - the patient to show teeth or raise eyebrows and close eyes. Score symmetry of grimace in response to noxious stimuli in the poorly responsive or non-comprehending patient. If facial trauma/bandages, orotracheal tube, tape or other physical barriers obscure the face, these should be removed to the extent possible. 0 = Normal 5a. Motor Arm, Left: The limb is placed in the appropriate position: extend the arms (palms down) 90 degrees (if sitting) or 45 degrees (if supine). Drift is scored if the arm falls before 10 seconds. The aphasic patient is encouraged using urgency in the voice and pantomime, but not noxious stimulation. Each limb is tested in turn, beginning with the non-paretic arm. Only in the case of amputation or joint fusion at (more content not included)... Normal [facility] Comp Metabolic Panelon 05-14 Albumin [Mass/Vol] 3.9 g/dL Normal 3.9-4.9 [facility] Comment on above: Performed By: #### C MP, PTT, CKCKMB, CBC #### [facility] [address] [place], [place] [address] ALP [Catalytic activity/Vol] 88 U/L Normal 34-123 [facility] Comment on above: Performed By: #### C MP, PTT, CKCKMB, CBC #### [facility] [address] [place], [place] [address] ALT [Catalytic activity/Vol] 16 U/L Normal 7-38 [facility] Comment on above: Performed By: #### C MP, PTT, CKCKMB, CBC #### [facility] [address] [place], [place] [address] Anion gap [Moles/Vol] 9 mmol/L Normal 9-18 [facility] Comment on above: Performed By: #### C MP, PTT, CKCKMB, CBC #### [address] [address] [place] [address] AST [Catalytic activity/Vol] 26 U/L Normal 13-35 [facility] Comment on above: Performed By: #### C MP, PTT, CKCKMB, CBC #### [place] [address] Bilirubin [Mass/Vol] 0.3 mg/dL Normal 0.2-1.3 [facility] Comment on above: Performed By: #### C MP, PTT, CKCKMB, CBC #### [address] [place], [place] [address] Calcium [Mass/Vol] 9.8 mg/dL Normal 8.5-10.2 [facility] Comment on above: Performed By: #### C MP, PTT, CKCKMB, CBC #### [facility] [address] [place], [place] [address] Chloride [Moles/Vol] 101 mmol/L Normal 97-105 [facility] Comment on above: Performed By: #### C MP, PTT, CKCKMB, CBC #### [facility] [address] [place], [place] [address] CO2 [Moles/Vol] 31 mmol/L High 22-30 [facility] Comment on above: Performed By: #### C MP, PTT, CKCKMB, CBC #### [facility] [address] [place] [address] Creatinine [Mass/Vol] 1.59 mg/dL High 0.58-0.96 [facility] Comment on above: Performed By: #### C MP, PTT, CKCKMB, CBC #### [facility] [address] [place] [address] eGFR- Amer. 38 [facility] Comment on above: Performed By: #### C MP, PTT, CKCKMB, CBC #### [facility] [address] [place] [address] eGFR-All Other Races 31 . Normal [facility] Comment on above: Result Comment: eGFR (Estimated GFR) Units of measure: mL/min/1.73 meters squared eGFR is derived from the reexpressed MDRD Study equation using the following parameters: serum creatinine, age, gender and race. The creatinine assay has been calibrated to be traceable to IDMS. An eGFR <60 mL/min/1.73m2 for >3 months is consistent with chronic kidney disease. Refer to KDOQI guidelines for clinical interpretation. In patients with unstable renal function, e.g. those with acute kidney injury, the eGFR may not accurately reflect actual GFR. Performed By: #### C MP, PTT, CKCKMB, CBC #### [facility] [address] [place] [address] Glucose [Mass/Vol] 120 mg/dL High 74-99 [facility] Comment on above: Result Comment: The [place] [employer] (ADA) provides guidance for cutoff values for fasting glucose and random glucose. The ADA defines fasting as no caloric intake for at least 8 hours. Fasting plasma glucose results between 100 to 125 mg/dL indicate increased risk for diabetes (prediabetes). Fasting plasma glucose results greater than or equal to 126 mg/dL meet the criteria for diagnosis of diabetes. In the absence of unequivocal hyperglycemia, results should be confirmed by repeat testing. In a patient with classic symptoms of hyperglycemia or hyperglycemic crisis, random plasma glucose results greater than or equal to 200 mg/dL meet the criteria for diagnosis of diabetes. Reference: Standards of Medical Care in Diabetes 2016, [place] [employer]. Diabetes Care. 2016.39(Suppl 1). Performed By: #### C MP, PTT, CKCKMB, CBC #### [facility] [address] [place], [place] [address] Potassium [Moles/Vol] 4.3 mmol/L Normal 3.7-5.1 [facility] Comment on above: Performed By: #### C MP, PTT, CKCKMB, CBC #### [facility] [address] [place], [place] [address] Protein [Mass/Vol] 7.1 g/dL Normal 6.3-8.0 [facility] Comment on above: Performed By: #### C MP, PTT, CKCKMB, CBC #### [address] [place], [place] [address] Sodium [Moles/Vol] 141 mmol/L Normal 136-144 [facility] Comment on above: Performed By: #### C MP, PTT, CKCKMB, CBC #### [address] [place], [place] [address] Urea nitrogen [Mass/Vol] 22 mg/dL High 7-21 [facility] Comment on above: Performed By: #### C MP, PTT, CKCKMB, CBC #### [facility] [address] [place], [place] [address] COMPREHENSIVE METABOLIC PANE [facility] 05-11-2021 Albumin [Mass/Vol] 4.1 g/dL Normal 3.6-5.1 [facility] Comment on above: Performed By: #### 1 2241, 7850 #### [facility] [address], [address] [place] [phone] Senior Analyst Developer: Mil Singh MD Albumin/Globulin [Mass ratio] 1.5 {ratio} Normal 1.0-2.5 [facility] Comment on above: Performed By: #### 1 0231, 7600 #### [facility] of [address], [address] [place] [address] Senior Analyst Developer: Mil Singh MD ALP [Catalytic activity/Vol] 87 U/L Normal 37-153 [facility] Comment on above: Performed By: #### 1 0231, 7600 #### [facility] of [place] [address] Senior Analyst Developer: Mil Singh MD ALT [Catalytic activity/Vol] 12 U/L Normal 6-29 [facility] Comment on above: Performed By: #### 1 0231, 7600 #### [facility] of [place] [address] Senior Analyst Developer: Mil Singh MD AST [Catalytic activity/Vol] 19 U/L Normal 10-35 [facility] Comment on above: Performed By: #### 1 023, 7600 #### [facility] of [place] [address] Senior Analyst Developer: Mil Singh MD Bilirubin [Mass/Vol] 0.5 mg/dL Normal 0.2-1.2 [facility] Comment on above: Performed By: #### 1 023, 7600 #### [facility] of [place] [address] Senior Analyst Developer: Mil Singh MD Calcium [Mass/Vol] 9.4 mg/dL Normal 8.6-10.4 [facility] Comment on above: Performed By: #### 1 0231, 7600 #### [facility] of [place] [address] Senior Analyst Developer: Mil Singh MD Chloride [Moles/Vol] 98 mmol/L Normal 98-110 [facility] Comment on above: Performed By: #### 1 0231, 7600 #### [facility] of [place] [address] Senior Analyst Developer: Mil Singh MD CO2 [Moles/Vol] 34 mmol/L High 20-32 [facility] Comment on above: Performed By: #### 1 230, 7600 #### [facility] [place] [address] Senior Analyst Developer: Mil Singh MD Creatinine [Mass/Vol] 1.53 mg/dL High 0.60-0.88 [facility] Comment on above: Result Comment: For patients >49 years of age, the reference limit for Creatinine is approximately 13% higher for people identified as -Sudanese. Performed By: #### 1 230, 7600 #### [facility] [address], [address] [place] [address] Senior Analyst Developer: Mil Singh MD eGFR NON-AFR. ERITREAN 31 mL/min/1.73m2 Low > OR = 60 [facility] Comment on above: Performed By: #### 1 230, 7600 #### [facility] [place] [address] Senior Analyst Developer: Mil Singh MD GFR/1.73 sq M.predicted among blacks MDRD (S/P/Bld) [Vol rate/Area] 36 mL/min/{1.73_m2} Low > OR = 60 [facility] Comment on above: Performed By: #### 1 230, 7600 #### [facility] [place] [address] Senior Analyst Developer: Mil Singh MD Globulin (S) [Mass/Vol] 2.8 g/dL Normal 1.9-3.7 [facility] Comment on above: Performed By: #### 1 230, 7600 #### [facility] [place] [address] Senior Analyst Developer: Mil Singh MD Glucose [Mass/Vol] 126 mg/dL Normal 65-139 [facility] Comment on above: Result Comment: Non-fasting reference interval For someone without known diabetes, a glucose value >125 mg/dL indicates that they may have diabetes and this should be confirmed with a follow-up test. Performed By: #### 1 230, 7600 #### [facility] of [address], [address] [place] [address] Senior Analyst Developer: Mil Singh MD Potassium [Moles/Vol] 3.9 mmol/L Normal 3.5-5.3 [facility] Comment on above: Performed By: #### 1 0231, 7600 #### [facility] [address], [address] [place] [address] Senior Analyst Developer: Mil Singh MD Protein [Mass/Vol] 6.9 g/dL Normal 6.1-8.1 [facility] Comment on above: Performed By: #### 1 0231, 7600 #### [facility] [address], [address] [place] [address] Senior Analyst Developer: Mil Singh MD Sodium [Moles/Vol] 142 mmol/L Normal 135-146 [facility] Comment on above: Performed By: #### 1 0231, 7600 #### [facility] [address], [address] [place] [address] Senior Analyst Developer: Mil Singh MD Urea nitrogen [Mass/Vol] 19 mg/dL Normal 7-25 [facility] Comment on above: Performed By: #### 1 0231, 7600 #### [facility] of [place] [address] Senior Analyst Developer: Mil Singh MD Urea nitrogen/Creatinin e [Mass ratio] 12 mg/mg Normal 6-22 [facility] Comment on above: Performed By: #### 1 0231, 7600 #### [facility] of [place] [address] Senior Analyst Developer: Mil Singh MD LIPID PANEL, [facility] [place] 0 Cholesterol [Mass/Vol] 215 mg/dL High <200 [facility] Comment on above: Order Comment: FASTI NG:NO FASTING: NO Performed By: #### 1 0231, 7600 #### [facility] of [address], [address] [place] [address] Senior Analyst Developer: Mil Singh MD Cholesterol in HDL [Mass/Vol] 37 mg/dL Low > OR = 50 [facility] Comment on above: Order Comment: FASTI NG:NO FASTING: NO Performed By: #### 1 023, 7600 #### [facility] [address], [address] [place] [address] Senior Analyst Developer: Mil Singh MD Cholesterol.total/ Cholesterol in HDL [Mass ratio] 5.8 {ratio} High <5.0 [facility] Comment on above: Order Comment: FASTI NG:NO FASTING: NO Performed By: #### 1 023, 7600 #### [facility] [address], [address] [place] [address] Senior Analyst Developer: Mil Singh MD LDL-CHOLESTEROL Normal [facility] Comment on above: Order Comment: FASTI NG:NO FASTING: NO Result Comment: LDL cholesterol not calculated. Triglyceride levels greater than 400 mg/dL invalidate calculated LDL results. Reference range: <100 Desirable range <100 mg/dL for primary prevention; <70 mg/dL for patients with CHD or diabetic patients with > or = 2 CHD risk factors. LDL-C is now calculated using the Justo-Gabrielle calculation, which is a validated novel method providing better accuracy than the Friedewald equation in the estimation of LDL-C. Justo SS et al. GELY. 2013;310(19): 6476-3904 (http://education.[employer].CleanScapes/faq/PJJ792) Performed By: #### 1 230, 7599 #### [facility] [address], [address] [place] [address] Senior Analyst Developer: Mil Singh MD NON HDL CHOLESTEROL 178 mg/dL (calc) High <130 [facility] Comment on above: Order Comment: FASTI NG:NO FASTING: NO Result Comment: For patients with diabetes plus 1 major ASCVD risk factor, treating to a non-HDL-C goal of <100 mg/dL (LDL-C of <70 mg/dL) is considered a therapeutic option. Performed By: #### 1 023, 0 #### [facility] [address], [address] [place] [address] Senior Analyst Developer: Mil Singh MD Triglyceride [Mass/Vol] 780 mg/dL High <150 [facility] Comment on above: Order Comment: FASTI NG:NO FASTING: NO Result Comment: If a non-fasting specimen was collected, consider repeat triglyceride testing on a fasting specimen if clinically indicated. Olga et al. J. of Clin. Lipidol. 2015;9:129-169. There is increased risk of pancreatitis when the triglyceride concentration is very high (> or = 500 mg/dL, especially if > or = 1000 mg/dL). Olga et al. J. of Clin. Lipidol. 2015;9:129-169. Performed By: #### 1 0231, 7600 #### [facility] [address], [address] [place] [address] Senior Analyst Developer: Mil Singh MD CNNURSEon 04-25-2021 CNNURSE Nurse Visit (CATHMN) IVANA HUTCHINSON ([id number]) 1935 F Date Time Provider Department 04/25/21 7:00 AM RESEARCH NURSE CARD INTERVENTION MNCATHMN During your visit today, we recorded the following information about you: Carina Ross RN 04/26/2021 11:49 AM Signed I spoke with Ms Hutchinson and discussed the IRB 19-241 [facility] II D F research trial and any questions she had. She will call me in a few days after reviewing the trial with her family. Referring Provider: SCOTT DEVINE [953] Allergies As of Date: 04/25/2021 Noted Allergy Reaction CONTRAST DYE (IODINE) 03/15/2021 16 - Unknown Comments: Not allergy, want limited use due to CKD 3 PENICILLINS 03/15/2021 4 - Hives 7 - Swelling [id number] REDUCTASE INHIBIT*03/15/2021 17 - Myalgia Date Reviewed: 03/19/2021 Reviewed by: Yadira Palacios APRN.CLAIMS ANALYST - Fully Assessed Reason for Visit: Informed Consent [920] Cmt: IRB 19-241 [facility] II D consent process Primary Visit Diagnosis:Examination of participant in clinical trial [Z00.6] Prescriptions as of 04/26/2021 - clindamycin (CLEOCIN) 300 mg capsule Take 2 capsules (600 mg) 30-60 minutes prior to dental/GI/ procedures - allopurinol (ZYLOPRIM) 100 mg tablet Take 100 mg by mouth once daily. - PACERONE 200 mg tablet Take 200 mg by mouth once daily. - apixaban (ELIQUIS) 2.5 mg tab tab(s) Take 2.5 mg by mouth twice daily. - Ascorbic Acid 250 mg chew Take 250 mg by mouth once daily. - bumetanide (BUMEX) 2 mg tablet Take 4 mg by mouth twice daily. - Cholecalciferol, Vitamin D3, 50 mcg (2,000 unit) cap Take 2,000 Units by mouth once daily. - dapagliflozin (FARXIGA) 10 mg tablet Take 10 mg by mouth once daily. - ezetimibe (ZETIA) 10 mg tablet Take 10 mg by mouth once daily. - metoprolol succinate ER (TOPROL XL) 25 mg 24 hr tablet Take 25 mg by mouth once daily. - Multivitamin capsule Take 1 tablet by mouth once daily. - potassium chloride ER (K-DUR, KLOR-CON) 20 mEq tablet Take 20 mEq by mouth once daily. - coQ10, ubiquinol, 100 mg cap Take 1 capsule by mouth once daily. - zinc sulfate 220 (50) mg capsule Take 220 mg by mouth once daily. - vit C,B-Jm-vweeg-lutein-ze axan (PRESERVISION AREDS-2) 250-90-40-1 mg Take 1 capsule by mouth once daily. - bempedoic acid (NEXLETOL) 180 mg tablet Take 180 mg by mouth once daily. - acetaminophen/diphenhy dramine (TYLENOL PM ORAL) Take 2 tablets by mouth as needed. - Acidophilus-Pectin, [place] 25 million cell -100 mg tab Take 1 tablet by mouth once daily. - fish oil/borage/flax/om3,6, 9 1 (OMEGA 3-6-9 ORAL) Take 1 capsule by mouth once daily. - sour horner extract (TART HORNER EXTRACT ORAL) Take 1 tablet by mouth once daily. - sodium chloride 0.9 %, flush, (BD POSIFLUSH) syringe Inject 2-10 mL intravenously as directed. For Echo procedure Facility-Administered Medications as of 04/26/2021 - sodium chloride 0.9 % (flush) 10 mL (BD POSIFLUSH) Problem List As Of Date 04/25/2021 Noted Resolved Mitral valve insufficiency [I34.0] 03/13/2021 Visit Notes: >> Carina Ross RN FriApr 25, 2021 11:47 AM Status: Signed I spoke with Ms Hutchinson and discussed the IRB 37-677 [facility] II D F research trial and any questions she had. She will call me in a few days after reviewing the trial with her family. Encounter Status:Closed by CARINA ROSS on 04/26/21 [facility] 04-18-2021 CNPN Telephone (CATHMN) IVANA HUTCHINSON ([id number]) 1935 F Date Time Provider Department 04/18/21 LEE VELÁZQUEZ During your visit today, we recorded the following information about you: ZEUS Colmenares 04/18/2021 3:27 PM Signed Pt will be having dental work done and needs antibiotics before hand needs to have Augmentin XR sent to her pharmacy. Pt is having a couple teeth extracted. Allergies As of Date: 04/18/2021 Noted Allergy Reaction CONTRAST DYE (IODINE) 03/15/2021 16 - Unknown Comments: Not allergy, want limited use due to CKD 3 PENICILLINS 03/15/2021 4 - Hives 7 - Swelling [id number] REDUCTASE INHIBIT*03/15/2021 17 - Myalgia Date Reviewed: 03/19/2021 Reviewed by: Yadira Palacios APRN.CLAIMS ANALYST - Fully Assessed Reason for Visit: Patient Update [1234] Order(s):clindamycin (CLEOCIN) 300 mg capsuleTake 2 capsules (600 mg) 30-60 minutes prior to dental/GI/ proceduresDisp: 2 capsuleRfl: 3 Prescriptions as of 04/18/2021 - clindamycin (CLEOCIN) 300 mg capsule Take 2 capsules (600 mg) 30-60 minutes prior to dental/GI/ procedures - allopurinol (ZYLOPRIM) 100 mg tablet Take 100 mg by mouth once daily. - PACERONE 200 mg tablet Take 200 mg by mouth once daily. - apixaban (ELIQUIS) 2.5 mg tab tab(s) Take 2.5 mg by mouth twice daily. - Ascorbic Acid 250 mg chew Take 250 mg by mouth once daily. - bumetanide (BUMEX) 2 mg tablet Take 4 mg by mouth twice daily. - Cholecalciferol, Vitamin D3, 50 mcg (2,000 unit) cap Take 2,000 Units by mouth once daily. - dapagliflozin (FARXIGA) 10 mg tablet Take 10 mg by mouth once daily. - ezetimibe (ZETIA) 10 mg tablet Take 10 mg by mouth once daily. - metoprolol succinate ER (TOPROL XL) 25 mg 24 hr tablet Take 25 mg by mouth once daily. - Multivitamin capsule Take 1 tablet by mouth once daily. - potassium chloride ER (K-DUR, KLOR-CON) 20 mEq tablet Take 20 mEq by mouth once daily. - coQ10, ubiquinol, 100 mg cap Take 1 capsule by mouth once daily. - zinc sulfate 220 (50) mg capsule Take 220 mg by mouth once daily. - vit C,Q-Qw-vrive-lutein-ze axan (PRESERVISION AREDS-2) 250-90-40-1 mg Take 1 capsule by mouth once daily. - bempedoic acid (NEXLETOL) 180 mg tablet Take 180 mg by mouth once daily. - acetaminophen/diphenhy dramine (TYLENOL PM ORAL) Take 2 tablets by mouth as needed. - Acidophilus-Pectin, [place] 25 million cell -100 mg tab Take 1 tablet by mouth once daily. - fish oil/borage/flax/om3,6, 9 1 (OMEGA 3-6-9 ORAL) Take 1 capsule by mouth once daily. - sour horner extract (TART HORNER EXTRACT ORAL) Take 1 tablet by mouth once daily. - sodium chloride 0.9 %, flush, (BD POSIFLUSH) syringe Inject 2-10 mL intravenously as directed. For Echo procedure Facility-Administered Medications as of 04/18/2021 - sodium chloride 0.9 % (flush) 10 mL (BD POSIFLUSH) Problem List As Of Date 04/18/2021 Noted Resolved Mitral valve insufficiency [I34.0] 03/13/2021 Prescriptions ordered this encounter Disp Refills Start End CLINDAMYCIN HCL 300 MG CAPSULE 2 ca* 3 04/18/2021 Sig: Take 2 capsules (600 mg) 30-60 minutes prior to dental/GI/ procedures Encounter Status:Closed by SANTI MASSEY on 04/18/21 [facility] Brenda 04-12-2021 MELISSAN Telephone (KATHLEEN) IVANA HUTCHINSON ([id number]) 1935 F Date Time Provider Department 04/12/21 LEE VELÁZQUEZ During your visit today, we recorded the following information about you: ZEUS Colmenares 04/12/2021 4:32 PM Signed Pt called to check the status of the mitral clip procedure. Will forward clinic team Allergies As of Date: 04/12/2021 Noted Allergy Reaction CONTRAST DYE (IODINE) 03/15/2021 16 - Unknown Comments: Not allergy, want limited use due to CKD 3 PENICILLINS 03/15/2021 4 - Hives 7 - Swelling [id number]-[id number]-QQO REDUCTASE INHIBIT*03/15/2021 17 - Myalgia Date Reviewed: 03/19/2021 Reviewed by: Yadira Palacios APRN.CLAIMS ANALYST - Fully Assessed Reason for Visit: Patient Update [2494] Patient Question [9467] Prescriptions as of 04/12/2021 - allopurinol (ZYLOPRIM) 100 mg tablet Take 100 mg by mouth once daily. - PACERONE 200 mg tablet Take 200 mg by mouth once daily. - apixaban (ELIQUIS) 2.5 mg tab tab(s) Take 2.5 mg by mouth twice daily. - Ascorbic Acid 250 mg chew Take 250 mg by mouth once daily. - bumetanide (BUMEX) 2 mg tablet Take 4 mg by mouth twice daily. - Cholecalciferol, Vitamin D3, 50 mcg (2,000 unit) cap Take 2,000 Units by mouth once daily. - dapagliflozin (FARXIGA) 10 mg tablet Take 10 mg by mouth once daily. - ezetimibe (ZETIA) 10 mg tablet Take 10 mg by mouth once daily. - metoprolol succinate ER (TOPROL XL) 25 mg 24 hr tablet Take 25 mg by mouth once daily. - Multivitamin capsule Take 1 tablet by mouth once daily. - potassium chloride ER (K-DUR, KLOR-CON) 20 mEq tablet Take 20 mEq by mouth once daily. - coQ10, ubiquinol, 100 mg cap Take 1 capsule by mouth once daily. - zinc sulfate 220 (50) mg capsule Take 220 mg by mouth once daily. - vit C,Q-Dv-jujtn-lutein-ze axan (PRESERVISION AREDS-2) 250-90-40-1 mg Take 1 capsule by mouth once daily. - bempedoic acid (NEXLETOL) 180 mg tablet Take 180 mg by mouth once daily. - acetaminophen/diphenhy dramine (TYLENOL PM ORAL) Take 2 tablets by mouth as needed. - Acidophilus-Pectin, [place] 25 million cell -100 mg tab Take 1 tablet by mouth once daily. - fish oil/borage/flax/om3,6, 9 1 (OMEGA 3-6-9 ORAL) Take 1 capsule by mouth once daily. - sour horner extract (TART HORNER EXTRACT ORAL) Take 1 tablet by mouth once daily. - sodium chloride 0.9 %, flush, (BD POSIFLUSH) syringe Inject 2-10 mL intravenously as directed. For Echo procedure Facility-Administered Medications as of 04/12/2021 - sodium chloride 0.9 % (flush) 10 mL (BD POSIFLUSH) Problem List As Of Date 04/12/2021 Noted Resolved Mitral valve insufficiency [I34.0] 03/13/2021 Encounter Status:Closed by JOSHUA FERMIN on 04/12/21 Normal [facility] Type and Screenon 04-02-2021 ABO/RH(D) Negative Normal [facility] Comment on above: Performed By: #### C MP, PTT, CKCKMB, CBC #### [facility] [address] [place], [place] [address] Brenda 04-01-2021 MELISSAN Telephone (CATLMN) IVANA HUTCHINSON ([id number]) 1935 F Date Time Provider Department 04/01/21 BILL KONG During your visit today, we recorded the following information about you: Kassi Whitehead RN 04/01/2021 11:36 AM Signed CARDIOVASCULAR LAB INSTRUCTIONS: Readiness to Learn: Cognitive Ability: Alert and oriented Motivation To Learn: Interested Family/Significant Other Support: Unable to assess - Family not present Instruction Provided To: Patient Patient Learns Best By: Verbal Instruction Factors Affecting Learning: None Physical Limitations Affecting Learning: None Learning Response: Procedure: Left Heart Diagnostic Pre procedure education topics: Arrival time/NPO Status/Medications/Tra paulino Instructions/Restricti ons/Covid 19 precautions. Patient/Family Response Evaluation: Verbalizes understanding Follow Up Plan and Medication: As directed by physician Instruction/Supplement al Material Given: Cardiac catheterization instructions, procedure information, hospital information, hotel information. Instructed By Kassi Whitehead RN. In Department of CARDIOLOGY. Allergies As of Date: 04/01/2021 Noted Allergy Reaction CONTRAST DYE (IODINE) 03/15/2021 16 - Unknown Comments: Not allergy, want limited use due to CKD 3 PENICILLINS 03/15/2021 4 - Hives 7 - Swelling [id number]-TIE-[id number] REDUCTASE INHIBIT*03/15/2021 17 - Myalgia Date Reviewed: 03/19/2021 Reviewed by: Yadira Palacios APRN.CLAIMS ANALYST - Fully Assessed Reason for Visit: Patient Education [91] Prescriptions as of 04/01/2021 - allopurinol (ZYLOPRIM) 100 mg tablet Take 100 mg by mouth once daily. - PACERONE 200 mg tablet Take 200 mg by mouth once daily. - apixaban (ELIQUIS) 2.5 mg tab tab(s) Take 2.5 mg by mouth twice daily. - Ascorbic Acid 250 mg chew Take 250 mg by mouth once daily. - bumetanide (BUMEX) 2 mg tablet Take 4 mg by mouth twice daily. - Cholecalciferol, Vitamin D3, 50 mcg (2,000 unit) cap Take 2,000 Units by mouth once daily. - dapagliflozin (FARXIGA) 10 mg tablet Take 10 mg by mouth once daily. - ezetimibe (ZETIA) 10 mg tablet Take 10 mg by mouth once daily. - metoprolol succinate ER (TOPROL XL) 25 mg 24 hr tablet Take 25 mg by mouth once daily. - Multivitamin capsule Take 1 tablet by mouth once daily. - potassium chloride ER (K-DUR, KLOR-CON) 20 mEq tablet Take 20 mEq by mouth once daily. - coQ10, ubiquinol, 100 mg cap Take 1 capsule by mouth once daily. - zinc sulfate 220 (50) mg capsule Take 220 mg by mouth once daily. - vit C,P-Bq-blzfq-lutein-ze axan (PRESERVISION AREDS-2) 250-90-40-1 mg Take 1 capsule by mouth once daily. - bempedoic acid (NEXLETOL) 180 mg tablet Take 180 mg by mouth once daily. - acetaminophen/diphenhy dramine (TYLENOL PM ORAL) Take 2 tablets by mouth as needed. - Acidophilus-Pectin, [place] 25 million cell -100 mg tab Take 1 tablet by mouth once daily. - fish oil/borage/flax/om3,6, 9 1 (OMEGA 3-6-9 ORAL) Take 1 capsule by mouth once daily. - sour horner extract (TART HORNER EXTRACT ORAL) Take 1 tablet by mouth once daily. - sodium chloride 0.9 %, flush, (BD POSIFLUSH) syringe Inject 2-10 mL intravenously as directed. For Echo procedure Facility-Administered Medications as of 04/01/2021 - sodium chloride 0.9 % (flush) 10 mL (BD POSIFLUSH) Problem List As Of Date 04/01/2021 Noted Resolved Mitral valve insufficiency [I34.0] 03/13/2021 Encounter Status:Closed by KASSI WHITEHEAD RN on 04/01/21 [facility] CNOVon 03-20-2021 CNOV Office Visit (CATHMN ) IVANA HUTCHINSON ([id number]) 1935 F Date Time Provider Department 03/20/21 1:00 PM [facility] CATHMN During your visit today, we recorded the following information about you: Thony Fowler APRN.CNP 03/20/2021 3:38 PM Signed [facility] Department of Cardiovascular Medicine SECTION OF INTERVENTIONAL CARDIOLOGY OUTPATIENT VISIT DATE March 20, 2021 OUTPATIENT VISIT TYPE ESTABLISHED PRIMARY CARE PHYSICIAN: Ej Simon MD ([facility]) [address] [place] [address] REFERRING PHYSICIAN: Thony Fowler [address] [address] CHIEF COMPLAINT: Patient presents with: Valvular Heart Disease HISTORY OF PRESENT ILLNESS: Ms. Hutchinson is an 85 F from [place], [place] who presents today for evaluation related to TMVR and consideration for [facility] (Tendyne) or [facility] (M3) trials. PMH significant for MVP, severe MR, CAD (s/p CABG x 2012), DM II, CKD III, HTN, HLD, chronic diastolic heart failure, long-standing persistent afib (eliquis), and RA. Per Dr. Velázquez's evaluation: Based on the above anatomy, we are unable to clip both origins of MR as this would result in significant mitral valve stenosis and is prohibitive. As such, I would like to analyze her anatomically for a transcatheter mitral valve replacement using either the Tendyne or M3 prosthetics, as this would certainly be a better result overall for the valve. If these are not anatomically feasible, we can discuss further whether she would like to proceed with a MitraClip just to try to fix the lateral leak in the hopes that this would provide some functional benefit. She endorses [place] and fatigue. She denies chest pain, PND, orthopnea, palpitations, edema, light headedness and syncope. PAST CARDIAC HISTORY: See HPI PAST MEDICAL HISTORY Diagnosis Date - A-fib ([facility]) - Arthritis - CAD (coronary artery disease) - CHF (congestive heart failure) ([facility]) - CKD (chronic kidney disease) stage 3, GFR 30-59 ml/min ([facility]) - DM2 (diabetes mellitus, type 2) ([facility]) - HLD (hyperlipidemia) 1979 - HTN (hypertension) 1979 - Mitral regurgitation - Renal mass - Rheumatoid arthritis ([facility]) - Sarcoidosis 1986 Pulmonary - Sleep apnea CPAP PAST SURGICAL HISTORY Procedure Laterality Date - APPENDECTOMY 1967 with tubal ligation - CABG (4) VEIN GRAFTS AND ARTERIAL GRAFT(S) 2012 - LIGATE FALLOPIAN TUBE 1967 - PAST SURGICAL HISTORY OF Heel spur surgery - TONGUE SURGERY HX - TONSILLECTOMY HX SOCIAL HISTORY Social History Tobacco Use - Smoking status: Never Smoker - Smokeless tobacco: Never Used Substance Use Topics - Alcohol use: Not Currently - Drug use: Never FAMILY HISTORY Problem Relation Age of Onset - Hypertension Mother - Cancer Mother - Hypertension Father - Heart Attack Father 60 - Cancer Father - Cancer Sister - Hypertension Sister - COPD Sister - Hypertension Sister - other (liver cirrhosis) Brother ALLERGIES: ALLERGIES Allergen Reactions - Contrast Dye [Iodin* Unknown Not allergy, want limited use due to CKD 3 - Penicillins Hives, Swelling - Bekdmhi-Lok-Vek Red* Myalgia MEDICATIONS: iv contrast (will be provided with radiology test) CT Cardiac - No IV access, insert saline lock prior to the sedation, infusion, injection for imaging exam. Discontinue saline lock post exam. If Pt. has a central line or IVAD, may access for administration according to line specific nursing protocol. Once exam is complete flush line and de-access according to line specific nursing protocol in the CT contrast administration guidelines link. allopurinol (ZYLOPRIM) 100 mg tablet Take 100 mg by mouth once daily. PACERONE 200 mg tablet Take 200 mg by mouth once daily. apixaban (ELIQUIS) 2.5 mg tab tab(s) Take 2.5 mg by mouth twice daily. Ascorbic Acid 250 mg chew Take 250 mg by mouth once daily. bumetanide (BUMEX) 2 mg tablet Take 4 mg by mouth twice daily. Cholecalciferol, Vitamin D3, 50 mcg (2,000 unit) cap Take 2,000 Units by mouth once daily. dapagliflozin (FARXIGA) 10 mg tablet Take 10 mg by mouth once daily. ezetimibe (ZETIA) 10 mg tablet Take 10 mg by mouth once daily. metoprolol succinate ER (TOPROL XL) 25 mg 24 hr tablet Take 25 mg by mouth once daily. Multivitamin capsule Take 1 tablet by mouth once daily. potassium chloride ER (K-DUR, KLOR-CON) 20 mEq tablet Take 20 mEq by mouth once daily. coQ10, ubiquinol, 100 mg cap Take 1 capsule by mouth once daily. zinc sulfate 220 (50) mg capsule Take 220 mg by mouth once daily. vit C,V-Eo-gjvtr-lutein-ze axan (PRESERVISION AREDS-2) 250-90-40-1 mg Take 1 capsule by mouth once daily. bempedoic acid (NEXLETOL) 180 mg tablet Take 180 mg by mouth once daily. acetaminophen/diphenhy joshua (more content not included)... Normal [facility] CT CHEST CARDIAC WO IVCONon 03-20-2021 CT CHEST CARDIAC WO IVCON * * *Final Report* * * DATE OF EXAM: Mar 20 2021 1:57PM [facility] 2055 - CT CHEST CARDIAC WO IVCON / PROCEDURE REASON: Nonrheumatic mitral valve regurgitation * * * * Physician Interpretation * * * * Examination: CT of the chest dated 03/20/2021 1:57 PM Comparison: None History: 85 years old Female with mitral regurgitation, congestive heart failure, atrial fibrillation, and prior history of CABG, who is here for evaluation of percutaneous mitral valve versus cardiothoracic surgery. Technique: Multi-detector CT technology was employed (Siemens Definition Flash dual source scanner ). Axial, sequential imaging with prospective gating was performed of the chest without intravenous administration of contrast material at the request of the referring physician. CT Dose-Length Product (DLP): [address] Dose Reduction Employed: Automated exposure control(AEC) and iterative recon For optimization of anatomic evaluation, advanced off-line postprocessing (including thin and thick MIPs, thin and thick MPRs, and curved MPRs) were performed on a dedicated stand-alone workstation under the direct supervision of the interpreting physician. RESULT: Potential study limitations: None. CHEST: The chest wall is remarkable for prior median sternotomy. There is no significant adenopathy noted in the axillae, mediastinum, and helen. The main pulmonary artery is dilated, measuring 4.1 cm, suggestive of the presence of pulmonary hypertension. The pericardium is normal.. Lung windows reveal no acute abnormalities. There is a 4 mm noncalcified pulmonary nodule in the right upper lobe (series 3, image 102). There is a 6 mm noncalcified pulmonary nodule in the major fissure on the left (image 131), likely representing intrafissural lymph node. There is a calcified pulmonary nodule in left lower lobe There is no pulmonary parenchymal mass, infiltrate, or pleural effusion. The cardiac chamber sizes appear normal, except for mild left atrial enlargement. There is mild posterior mitral annular calcification. The coronary arteries have normal origins and courses. There are moderate coronary calcifications identified, though this study was not optimized for coronary artery evaluation. There is an aortocoronary bypass graft to the right coronary artery, an aortocoronary bypass graft to the diagonal branch and OM branch. There is a SANCHEZ- LAD bypass graft. Aortic valve morphology cannot be assessed on this noncontrast examination. There are mild leaflet calcifications. The thoracic aorta is normal in course, caliber, and contour, except for mild ectasia of the mid ascending aorta, measuring 3.8 cm.. There is no definite acute aortic pathology, such as dissection, intramural hematoma, or contained rupture, though assessment is limited without intravenous contrast administration. The arch vessel branching pattern is normal. There is mild calcification of the aortic arch and descending thoracic aorta. PROXIMITY OF THE CARDIOVASCULAR STRUCTURES TO THE STERNUM: The left brachiocephalic vein lies in 6 mm to the posterior aspect of the manubrium at the level of the superior most sternal suture wire The SANCHEZ-LAD bypass graft lies 8mm from the left lateral aspect of the sternum. The remainder of the cardiac and vascular structures lie a safe distance from the sternum. The limited images of the upper abdomen reveal no abnormalities of the visualized organs, except for focal calcifications spleen.. IMPRESSION: 1. The thoracic aorta is normal, except for mild ectasia of the mid ascending aorta, measuring 3.8 cm.. There is no definite acute aortic pathology. 2. Proximity of the cardiovascular structures to the sternum: As outlined below 3. S/p CABG 4. Mild left atrial enlargement. 5. Dilated main pulmonary artery, measuring 4.1 cm. 6. Small pulmonary nodules. Acuity: Incidental Finding: Solid: <6 mm (solitary or multiple) Routing Code: N/A Recommendation: No imaging follow-up is recommended Time Frame: N/A Comments: If there are risk factors for lung malignancy, a follow-up chest CT exam could be obtained in 12 months Jet Mechanic: SHAMAR Transcribe Date/Time: Mar 20 2021 4:18P Dictated by : TIM LEAHY MD This examination was interpreted and the report reviewed and electronically signed by: TIM LEAHY MD on Mar 20 2021 4:57PM EST [id number] Normal [facility] Comp Metabolic Panelon 03-20 Albumin [Mass/Vol] 3.9 g/dL Normal 3.9-4.9 [facility] Comment on above: Performed By: #### C BC, CMP, NTBNP, PT #### [facility] [employer] [address] [place], [place] [address] ALP [Catalytic activity/Vol] 88 U/L Normal 34-123 [facility] Comment on above: Performed By: #### C BC, CMP, NTBNP, PT #### [facility] [employer] [address] [place], [place] [address] ALT [Catalytic activity/Vol] 15 U/L Normal 7-38 [facility] Comment on above: Performed By: #### C BC, CMP, NTBNP, PT #### [facility] [employer] [address] [place], [place] [address] Anion gap [Moles/Vol] 12 mmol/L Normal 9-18 [facility] Comment on above: Performed By: #### C BC, CMP, NTBNP, PT #### [facility] [employer] [address] [place], [place] [address] AST [Catalytic activity/Vol] 31 U/L Normal 13-35 [facility] Comment on above: Performed By: #### C BC, CMP, NTBNP, PT #### [facility] [address] [place], [place] [address] Bilirubin [Mass/Vol] 0.3 mg/dL Normal 0.2-1.3 [facility] Comment on above: Performed By: #### C BC, CMP, NTBNP, PT #### [facility] [address] [place], [place] [address] Calcium [Mass/Vol] 10.2 mg/dL Normal 8.5-10.2 [facility] Comment on above: Performed By: #### C BC, CMP, NTBNP, PT #### [address] [place], [place] [address] Chloride [Moles/Vol] 99 mmol/L Normal 97-105 [facility] Comment on above: Performed By: #### C BC, CMP, NTBNP, PT #### [address] [place], [place] [address] CO2 [Moles/Vol] 32 mmol/L High 22-30 [facility] Comment on above: Performed By: #### C BC, CMP, NTBNP, PT #### [facility] [address] [place], [place] [address] Creatinine [Mass/Vol] 1.72 mg/dL High 0.58-0.96 [facility] Comment on above: Performed By: #### C BC, CMP, NTBNP, PT #### [facility] [address] [place], [place] [address] eGFR- Amer. 34 Normal [facility] Comment on above: Performed By: #### C BC, CMP, NTBNP, PT #### [facility] [address] [place], [place] [address] eGFR-All Other Races 28 . Normal [facility] Comment on above: Result Comment: eGFR (Estimated GFR) Units of measure: mL/min/1.73 meters squared eGFR is derived from the reexpressed MDRD Study equation using the following parameters: serum creatinine, age, gender and race. The creatinine assay has been calibrated to be traceable to IDMS. An eGFR <60 mL/min/1.73m2 for >3 months is consistent with chronic kidney disease. Refer to KDOQI guidelines for clinical interpretation. In patients with unstable renal function, e.g. those with acute kidney injury, the eGFR may not accurately reflect actual GFR. Performed By: #### C GALINA GIL, NTBNP, PT #### [facility] [employer] [address] [place], [place] [id number] Glucose [Mass/Vol] 115 mg/dL High 74-99 [facility] Comment on above: Result Comment: The [place] [employer] (ADA) provides guidance for cutoff values for fasting glucose and random glucose. The ADA defines fasting as no caloric intake for at least 8 hours. Fasting plasma glucose results between 100 to 125 mg/dL indicate increased risk for diabetes (prediabetes). Fasting plasma glucose results greater than or equal to 126 mg/dL meet the criteria for diagnosis of diabetes. In the absence of unequivocal hyperglycemia, results should be confirmed by repeat testing. In a patient with classic symptoms of hyperglycemia or hyperglycemic crisis, random plasma glucose results greater than or equal to 200 mg/dL meet the criteria for diagnosis of diabetes. Reference: Standards of Medical Care in Diabetes 2016, [place] [employer]. Diabetes Care. 2016.39(Suppl 1). Performed By: #### C GALINA GIL, NTBNP, PT #### [facility] [employer] [address] [place], [place] [address] Potassium [Moles/Vol] 4.1 mmol/L Normal 3.7-5.1 [facility] Comment on above: Performed By: #### C GALINA GIL, NTBNP, PT #### [facility] [employer] [address] [place], [place] [address] Protein [Mass/Vol] 7.0 g/dL Normal 6.3-8.0 [facility] Comment on above: Performed By: #### C GALINA GIL, NTBNP, PT #### [facility] [address] [place], [place] [id number] Sodium [Moles/Vol] 143 mmol/L Normal 136-144 [facility] Comment on above: Performed By: #### C BC, CMP, NTBNP, PT #### [facility] [address] [place], [place] [id number] Urea nitrogen [Mass/Vol] 26 mg/dL High 7-21 [facility] Comment on above: Performed By: #### C BC, CMP, NTBNP, PT #### [facility] [address] [place], [place] [id number] MRI CARD MORPH FUNC WO IVCON on 03-20-2021 MRI CARD MORPH FUNC WO IVCON * * *Final Report* * * DATE OF EXAM: Mar 20 2021 10:56AM [facility] 0702 - MRI CARD MORPH FUNC WO IVCON / PROCEDURE REASON: multiple diagnoses * * * * Physician Interpretation * * * * Cardiovascular MRI: 03/20/2021 10:56 AM Comparison: None Clinical History: 85 years old Female with history of coronary artery disease status post four-vessel CABG, presenting with mitral regurgitation. Indication: This study is performed to assess for myocardial viability and damage, as well as to quantitate left ventricular and valvular function. Technique: [employer] 3.0 Tati MRI scanner. * Turbo spin echo and gradient echo imaging for anatomic definition. * Dynamic cine imaging (SSFP) for cardiac chamber, wall-motion, and valvular analysis. * Flow quantification sequences for hemodynamics. Potential study limitations: None RESULT: The chest wall is remarkable for prior median sternotomy. The mediastinum appears normal. Shotty mediastinal adenopathies. This study was not optimized to assess the lungs however, limited imaging reveals no gross abnormalities. The pericardium is unremarkable. Aortocoronary bypass grafts are not visualized in the study. The pulmonary arteries appear ectatic (main PA: 4.0 cm), which can represent pulmonary hypertension. The thoracic aorta appears normal in course, caliber, and contour. There is no acute aortic pathology. The arch vessel branching pattern is normal . All of the arch branch vessels appear widely patent in their proximal portions. CARDIAC CHAMBERS: The cardiac chambers demonstrate normal atrioventricular and ventriculoarterial concordance, as well as normal systemic and pulmonary venous return. The cardiac chamber sizes are normal, aside from mild biatrial enlargement. Left Ventricle: The left ventricle is normal in size and shape, and has normal function. Quantitative left ventricular functional values are as follows: EDV = 110 cc (normal 88-168 cc); EDVi = 57 cc/m2 (normal 57-92 cc/m2). ESV = 52 cc (normal 23-60 cc); ESVi = 26 cc/m2 (normal 15-34 cc/m2). Stroke volume = 60 cc (normal 58-114 cc); SVi = 30 cc/m2 (normal 38-63 cc/m2). LVEF = 54 % (normal 55-75%). Cardiac Output = 4.5 l/min.; Cardiac Index = 2.3 l/min/m2. LV mass = 92 gm (normal 72-144 cc); LVMi = 47 gm/m2 (normal 48-77 gm/m2). Right Ventricle: The right ventricle is normal in size and shape, and has normal function. Quantitative right ventricular functional values are as follows: EDV = 102 cc (normal 113-213 cc); EDVi = 52 cc/m2 (normal 60-106 cc/m2). ESV = 49 cc (normal 27-86 cc); ESVi = 25 cc/m2 (normal 14-43 cc/m2). Stroke volume = 54 cc (normal 72-140 cc); SVi = 27 cc/m2 (normal 38-70 cc/m2). RVEF = 53 % (normal 53-78%). VALVES: The aortic valve is trileaflet with restricted opening. There is trace aortic regurgitation . Flow quantification through the ascending aorta: Forward volume: 51 cc/beat Reverse volume: 3 cc/beat Net forward volume: 48 cc/beat Aortic regurgitant fraction: 5% Trileaflet pulmonic valve with unrestricted opening. Flow quantification through the pulmonary artery: Forward volume: 55 cc/beat Reverse volume: 1 cc/beat Net forward volume: 54 cc/beat Pulmonic regurgitant fraction: 1% The mitral valve has unrestricted opening. There is mild mitral regurgitation . Integrating LV volumetric and aortic flow quantification data reveals: Quantitative mitral regurgitant volume: 9 cc/beat Quantitative mitral regurgitant fraction: 15% The tricuspid valve is structurally unremarkable. There is trace tricuspid regurgitation on qualitative assessment. Limited imaging through the upper abdomen reveals no abnormalities of the visualized organs. . IMPRESSION: 1. Normal left ventricular size (LVEDVi 57 mL/m2) and normal systolic function (LVEF 54%). 2. Normal right ventricular size (RVEDVi 52 mL/m2) and normal systolic function (RVEF 53%). 3. Mild mitral regurgitation (RF 15%). 4. Mild biatrial dilation. The pulmonary arteries appear ectatic (main PA: 4.0 cm), which can represent pulmonary hypertension. Jet Mechanic: PSCB Transcribe Date/Time: Mar 20 2021 1:15P Dictated by : JESU KU MD This examination was interpreted and the report reviewed and electronically signed by: AFUA RAMON MD on Mar 20 2021 6:13PM EST [id number] Normal [facility] MRI CARDIAC VELOCITY FLOW MA Sascha 03-20-2021 MRI CARDIAC VELOCITY FLOW MAP * * *Final Report* * * DATE OF EXAM: Mar 20 2021 10:56AM [facility] 0704 - MRI CARDIAC VELOCITY FLOW MAP / PROCEDURE REASON: multiple diagnoses * * * * Physician Interpretation * * * * Cardiovascular MRI: 03/20/2021 10:56 AM Comparison: None Clinical History: 85 years old Female with history of coronary artery disease status post four-vessel CABG, presenting with mitral regurgitation. Indication: This study is performed to assess for myocardial viability and damage, as well as to quantitate left ventricular and valvular function. Technique: [employer] 3.0 Tati MRI scanner. * Turbo spin echo and gradient echo imaging for anatomic definition. * Dynamic cine imaging (SSFP) for cardiac chamber, wall-motion, and valvular analysis. * Flow quantification sequences for hemodynamics. Potential study limitations: None RESULT: The chest wall is remarkable for prior median sternotomy. The mediastinum appears normal. Shotty mediastinal adenopathies. This study was not optimized to assess the lungs however, limited imaging reveals no gross abnormalities. The pericardium is unremarkable. Aortocoronary bypass grafts are not visualized in the study. The pulmonary arteries appear ectatic (main PA: 4.0 cm), which can represent pulmonary hypertension. The thoracic aorta appears normal in course, caliber, and contour. There is no acute aortic pathology. The arch vessel branching pattern is normal . All of the arch branch vessels appear widely patent in their proximal portions. CARDIAC CHAMBERS: The cardiac chambers demonstrate normal atrioventricular and ventriculoarterial concordance, as well as normal systemic and pulmonary venous return. The cardiac chamber sizes are normal, aside from mild biatrial enlargement. Left Ventricle: The left ventricle is normal in size and shape, and has normal function. Quantitative left ventricular functional values are as follows: EDV = 110 cc (normal 88-168 cc); EDVi = 57 cc/m2 (normal 57-92 cc/m2). ESV = 52 cc (normal 23-60 cc); ESVi = 26 cc/m2 (normal 15-34 cc/m2). Stroke volume = 60 cc (normal 58-114 cc); SVi = 30 cc/m2 (normal 38-63 cc/m2). LVEF = 54 % (normal 55-75%). Cardiac Output = 4.5 l/min.; Cardiac Index = 2.3 l/min/m2. LV mass = 92 gm (normal 72-144 cc); LVMi = 47 gm/m2 (normal 48-77 gm/m2). Right Ventricle: The right ventricle is normal in size and shape, and has normal function. Quantitative right ventricular functional values are as follows: EDV = 102 cc (normal 113-213 cc); EDVi = 52 cc/m2 (normal 60-106 cc/m2). ESV = 49 cc (normal 27-86 cc); ESVi = 25 cc/m2 (normal 14-43 cc/m2). Stroke volume = 54 cc (normal 72-140 cc); SVi = 27 cc/m2 (normal 38-70 cc/m2). RVEF = 53 % (normal 53-78%). VALVES: The aortic valve is trileaflet with restricted opening. There is trace aortic regurgitation . Flow quantification through the ascending aorta: Forward volume: 51 cc/beat Reverse volume: 3 cc/beat Net forward volume: 48 cc/beat Aortic regurgitant fraction: 5% Trileaflet pulmonic valve with unrestricted opening. Flow quantification through the pulmonary artery: Forward volume: 55 cc/beat Reverse volume: 1 cc/beat Net forward volume: 54 cc/beat Pulmonic regurgitant fraction: 1% The mitral valve has unrestricted opening. There is mild mitral regurgitation . Integrating LV volumetric and aortic flow quantification data reveals: Quantitative mitral regurgitant volume: 9 cc/beat Quantitative mitral regurgitant fraction: 15% The tricuspid valve is structurally unremarkable. There is trace tricuspid regurgitation on qualitative assessment. Limited imaging through the upper abdomen reveals no abnormalities of the visualized organs. . IMPRESSION: 1. Normal left ventricular size (LVEDVi 57 mL/m2) and normal systolic function (LVEF 54%). 2. Normal right ventricular size (RVEDVi 52 mL/m2) and normal systolic function (RVEF 53%). 3. Mild mitral regurgitation (RF 15%). 4. Mild biatrial dilation. The pulmonary arteries appear ectatic (main PA: 4.0 cm), which can represent pulmonary hypertension. Jet Mechanic: SHAMAR Transcribe Date/Time: Mar 20 2021 1:15P Dictated by : JESU KU MD This examination was interpreted and the report reviewed and electronically signed by: AFUA RAMON MD on Mar 20 2021 6:13PM EST [id number] Normal [facility] CBCon 03-15-2021 Absolute nRBC <0.01 Normal <0.01 [facility] Comment on above: Performed By: #### C JEFFERY CMP, NTBNP, PT #### [facility] [employer] [address] [place], [place] [address] Erythrocyte distribution width (RBC) [Ratio] 15.0 % Normal 11.5-15.0 [facility] Comment on above: Performed By: #### C JEFFERY, CMP, NTBNP, PT #### [facility] [employer] [address] [place], [place] [address] Hematocrit (Bld) [Volume fraction] 43.9 % Normal 36.0-46.0 [facility] Comment on above: Performed By: #### C BC, CMP, NTBNP, PT #### [facility] [employer] [address] [place], [place] [address] Hemoglobin (Bld) [Mass/Vol] 14.3 g/dL Normal 11.5-15.5 [facility] Comment on above: Performed By: #### C BC, CMP, NTBNP, PT #### [address] [place] [address] MCH 34.3 pG High 26.0-34.0 [facility] Comment on above: Performed By: #### C BC, CMP, NTBNP, PT #### [address] [place] [address] MCHC (RBC) [Mass/Vol] 32.6 g/dL Normal 30.5-36.0 [facility] Comment on above: Performed By: #### C BC, CMP, NTBNP, PT #### [place] [phone] MCV (RBC) [Entitic vol] 105.3 fL High 80.0-100.0 [facility] Comment on above: Performed By: #### C BC, CMP, NTBNP, PT #### [place] [address] Platelet mean volume (Bld) [Entitic vol] 10.4 fL Normal 9.0-12.7 [facility] Comment on above: Performed By: #### C BC, CMP, NTBNP, PT #### [place] [address] Platelets (Bld) [#/Vol] 239 10*3/uL Normal 150-400 [facility] Comment on above: Performed By: #### C BC, CMP, NTBNP, PT #### [place] [address] RBC (Bld) [#/Vol] 4.17 10*6/uL Normal 3.90-5.20 [facility] Comment on above: Performed By: #### C BC, CMP, NTBNP, PT #### [place] [address] WBC (Bld) [#/Vol] 5.90 10*3/uL Normal 3.70-11.00 [facility] Comment on above: Performed By: #### C BC, CMP, NTBNP, PT #### [facility] [address] [place], [place] [id number] CNOVon 03-15-2021 CNOV Office Visit (CAFLMN ) IVANA HUTCHINSON ([id number]) 1935 F Date Time Provider Department 03/15/21 2:30 PM TRANSESOPHAGEAL ECHO CARD MAINCAFLMN During your visit today, we recorded the following information about you: Cornel Felix RN 03/15/2021 5:10 PM Signed AMBULATORY PATIENT EDUCATION TOPIC: FUAD Procedure READINESS TO LEARN COGNITIVE ABILITY: Alert and oriented MOTIVATION TO LEARN: Interested FAMILY SUPPORT: High - Very involved in pt care INSTRUCTION PROVIDED TO: Patient PATIENT LEARNS BEST BY: Individual Instruction Verbal Instruction FACTORS AFFECTING LEARNING: None PHYSICAL LIMITATIONS AFFECTING LEARNING: None LEARNING RESPONSE DIAGNOSIS: Mitral Regurgitation METHOD OF INSTRUCTION: Individual instruction Verbal instruction PATIENT / FAMILY RESPONSE: Verbalizes understanding of: POST-OPERATIVE INSTRUCTIONS-Correct actions to take to reduce postoperative complications PRE-OPERATIVE INSTRUCTIONS-Correct action to take to follow pre-operative instructions FOLLOW-UP PLAN: Complete - No need for follow-up SUPPLEMENTAL MATERIAL: Post FUAD instructions given REFERRAL (RECOMMENDATION): None Electronically Signed By Cornel Felix RN In Department: CARDIOLOGY Referring Provider: THONY FOWLER [[id number]] Allergies As of Date: 03/15/2021 Noted Allergy Reaction CONTRAST DYE (IODINE) 03/15/2021 16 - Unknown Comments: Not allergy, want limited use due to CKD 3 PENICILLINS 03/15/2021 4 - Hives 7 - Swelling [id number] REDUCTASE INHIBIT*03/15/2021 17 - Myalgia Date Reviewed: 03/15/2021 Reviewed by: Tyra Ely RN - Fully Assessed Reason for Visit: Patient Education [91] Cmt: Transesophageal Echocardiogram Visit Diagnoses:Nonrheumatic mitral valve regurgitation [I34.0] Shortness of breath [R06.02] Order(s):ECHO TRANSESOPHAGEAL [[id number]] Order #: [id number]: 1 Prescriptions as of 03/15/2021 - allopurinol (ZYLOPRIM) 100 mg tablet Take 100 mg by mouth once daily. - PACERONE 200 mg tablet Take 200 mg by mouth once daily. - apixaban (ELIQUIS) 2.5 mg tab tab(s) Take 2.5 mg by mouth twice daily. - Ascorbic Acid 250 mg chew Take 250 mg by mouth once daily. - bumetanide (BUMEX) 2 mg tablet Take 4 mg by mouth twice daily. - Cholecalciferol, Vitamin D3, 50 mcg (2,000 unit) cap Take 2,000 Units by mouth once daily. - dapagliflozin (FARXIGA) 10 mg tablet Take 10 mg by mouth once daily. - ezetimibe (ZETIA) 10 mg tablet Take 10 mg by mouth once daily. - metoprolol succinate ER (TOPROL XL) 25 mg 24 hr tablet Take 25 mg by mouth once daily. - Multivitamin capsule Take 1 tablet by mouth once daily. - potassium chloride ER (K-DUR, KLOR-CON) 20 mEq tablet Take 20 mEq by mouth once daily. - coQ10, ubiquinol, 100 mg cap Take 1 capsule by mouth once daily. - zinc sulfate 220 (50) mg capsule Take 220 mg by mouth once daily. - vit C,T-Ui-qynzy-lutein-ze axan (PRESERVISION AREDS-2) 250-90-40-1 mg Take 1 capsule by mouth once daily. - bempedoic acid (NEXLETOL) 180 mg tablet Take 180 mg by mouth once daily. - acetaminophen/diphenhy dramine (TYLENOL PM ORAL) Take 2 tablets by mouth as needed. - Acidophilus-Pectin, [place] 25 million cell -100 mg tab Take 1 tablet by mouth once daily. - fish oil/borage/flax/om3,6, 9 1 (OMEGA 3-6-9 ORAL) Take 1 capsule by mouth once daily. - sour horner extract (TART HORNER EXTRACT ORAL) Take 1 tablet by mouth once daily. - sodium chloride 0.9 %, flush, (BD POSIFLUSH) syringe Inject 2-10 mL intravenously as directed. For Echo procedure Facility-Administered Medications as of 03/15/2021 - sodium chloride 0.9 % (flush) 10 mL (BD POSIFLUSH) Problem List As Of Date 03/15/2021 Noted Resolved Mitral valve insufficiency [I34.0] 03/13/2021 Encounter Status:Closed by CORNEL FELIX on 03/15/21 Normal [facility] CNOV Office Visit (PERVMN ) IVANA HUTCHINSON ([id number]) 1935 F Date Time Provider Department 03/15/21 12:30 PM [employer] ADD ONS PERVMN During your visit today, we recorded the following information about you: Referring Provider: THONY FOWLER [[id number]] Allergies As of Date: 03/15/2021 Noted Allergy Reaction CONTRAST DYE (IODINE) 03/15/2021 16 - Unknown Comments: Not allergy, want limited use due to CKD 3 PENICILLINS 03/15/2021 4 - Hives 7 - Swelling [id number] REDUCTASE INHIBIT*03/15/2021 17 - Myalgia Date Reviewed: 03/15/2021 Reviewed by: Tyra Ely RN - Fully Assessed Reason for Visit: IV Medication Administration [149] Cmt: ECHO with definity Visit Diagnoses:Nonrheumatic mitral valve regurgitation [I34.0] Shortness of breath [R06.02] Order(s):ECHO [[id number]] Order #: [id number]. #:[id number] ty: 1 LVEF TRANSTHORACIC ECHO [[id number]] Order #: [id number]. #:[id number] CFQty: 1 Prescriptions as of 03/16/2021 - allopurinol (ZYLOPRIM) 100 mg tablet Take 100 mg by mouth once daily. - PACERONE 200 mg tablet Take 200 mg by mouth once daily. - apixaban (ELIQUIS) 2.5 mg tab tab(s) Take 2.5 mg by mouth twice daily. - Ascorbic Acid 250 mg chew Take 250 mg by mouth once daily. - bumetanide (BUMEX) 2 mg tablet Take 4 mg by mouth twice daily. - Cholecalciferol, Vitamin D3, 50 mcg (2,000 unit) cap Take 2,000 Units by mouth once daily. - dapagliflozin (FARXIGA) 10 mg tablet Take 10 mg by mouth once daily. - ezetimibe (ZETIA) 10 mg tablet Take 10 mg by mouth once daily. - metoprolol succinate ER (TOPROL XL) 25 mg 24 hr tablet Take 25 mg by mouth once daily. - Multivitamin capsule Take 1 tablet by mouth once daily. - potassium chloride ER (K-DUR, KLOR-CON) 20 mEq tablet Take 20 mEq by mouth once daily. - coQ10, ubiquinol, 100 mg cap Take 1 capsule by mouth once daily. - zinc sulfate 220 (50) mg capsule Take 220 mg by mouth once daily. - vit C,N-It-pmjqp-lutein-ze axan (PRESERVISION AREDS-2) 250-90-40-1 mg Take 1 capsule by mouth once daily. - bempedoic acid (NEXLETOL) 180 mg tablet Take 180 mg by mouth once daily. - acetaminophen/diphenhy dramine (TYLENOL PM ORAL) Take 2 tablets by mouth as needed. - Acidophilus-Pectin, [place] 25 million cell -100 mg tab Take 1 tablet by mouth once daily. - fish oil/borage/flax/om3,6, 9 1 (OMEGA 3-6-9 ORAL) Take 1 capsule by mouth once daily. - sour horner extract (TART HORNER EXTRACT ORAL) Take 1 tablet by mouth once daily. - sodium chloride 0.9 %, flush, (BD POSIFLUSH) syringe Inject 2-10 mL intravenously as directed. For Echo procedure Facility-Administered Medications as of 03/16/2021 - sodium chloride 0.9 % (flush) 10 mL (BD POSIFLUSH) Problem List As Of Date 03/15/2021 Noted Resolved Mitral valve insufficiency [I34.0] 03/13/2021 Encounter Status:Closed by QUANG LEARY on 03/16/21 [facility] CNOV Office Visit (CATHMN ) IVANA HUTCHINSON ([id number]) 1935 F Date Time Provider Department 03/15/21 9:45 AM LEE VELÁZQUEZ CATHMN During your visit today, we recorded the following information about you: Pulse Respiration Blood pressure Weight 91/minute 16/minute 144/92 105 kg Height 1.524 m Valentine Escobedo 03/16/2021 3:51 PM Signed [facility] Hicsk Department of Cardiovascular Medicine SECTION OF INTERVENTIONAL CARDIOLOGY OUTPATIENT VISIT DATE March 13, 2021 OUTPATIENT VISIT TYPE NEW PRIMARY CARE PHYSICIAN: To use this Smartlink, specify the provider ID whose address you want to display, e.g., .PROVADDR[1 (where 1 is the provider ID). REFERRING PHYSICIAN: SELF CHIEF COMPLAINT: No chief complaint on file. HISTORY OF PRESENT ILLNESS: Ms. Hutchinson is a 85 year old female who presents today re severe MR. NURSING INTAKE: PMHx: Mitral regurgitation AFib Renal mass CHF CKD 3 HTN HLD CAD s/p CABG DM2 Ms. Hutchinson is a 85 year old female [place], [place] who presents today for a TMVR evaluation. She is scheduled for a coronary angiogram on 03/16/2021. She states that she was recently hospitalized in October newly diagnosed with CHF and atrial fibrillation. She stated that during this hospitalization, she was diagnosed with severe mitral regurgitation. She stated that she has had symptoms of exertional dyspnea that started about 2 years ago and has progressed. She states she experiences SOB with minimal exertion and walking short distances. She denies chest pain and discomfort. She states she experiences palpations. She stats that she has been experiencing lower extremity edema, with the L leg more severe. 03/03/2020 OSH Echo (Syngo): - ?Left Ventricle: There is mild concentric increased wall thickness/hypertrophy. - ?Left Ventricle: Systolic function is normal with an ejection fraction of 60-65%. - ?Left Ventricle: No segmental wall motion abnormalities. - ?Left Atrium: Left atrium is moderately dilated. Left atrium volume index is moderately increased. The left atrial volume index is 47.8 mL/m2. - ?Right Ventricle: Normal systolic excursion velocity by TDI (>9.5 cm/s). - ?Right Atrium: Right atrium is mildly dilated. The?right atrial area is 23.4 cm2. - ?Aortic Valve: There is mild regurgitation. There is no evidence of aortic valve stenosis. 09/28/2020 OSH Echo (Syngo): - ?Atrial fibrillation/flutter rhythm with controlled ventricular response. - ?Normal LV size with marked concentric hypertrophy and normal systolic function and no segmental wall motion abnormalities - ?Biatrial enlargement - ?Aortic sclerosis with mild stenosis - ?Mitral regurgitation, krwf-fr-vwvlalia - ?Tricuspid regurgitation, moderate - ?Pulmonary hypertension, moderate - ?Dilated IVC 2020 OSH FUAD (Syngo): - ?Left Ventricle: There is mild concentric increased wall thickness/hypertrophy. - ?Left Ventricle: Systolic function is normal with an ejection fraction of 55-60%. - ?Left Atrium: Left atrial appendage is enlarged and multi lobed, however no clot is present. - ?Left Atrium: The left atrial appendage emptying velocity is decreased. - ?Right Ventricle: Systolic function is severely reduced. - ?Aortic Valve: The aortic valve is trileaflet. The leaflets exhibit normal excursion. There is sclerosis. - ?Mitral Valve: The lateral segment (A1) of the anterior leaflet is prolapsed. - ?Mitral Valve: There is moderate to severe regurgitation with a posteriorly directed jet. There is no evidence of mitral valve stenosis. - ?Tricuspid Valve: There is moderate regurgitation. There is no evidence of tricuspid valve stenosis. 12/12/2020 OSH FUAD (Syngo): - ?Left?Ventricle: Systolic function is normal. - ?Mitral?Valve: There is severe regurgitation. There is no evidence of mitral valve stenosis. Peak and mean gradients are 6.0 mmHg and 3.0 mmHg. MR VTI ?cm 239.00 MV mean gradient ?mmHg 3.00 MV mean gradient ?mmHg 3.00 MV mean gradient ?mmHg 2.00 MV mean gradient ?mmHg 3.00 MR max paulino ?cm/s 700.00 MV Peak E Paulino ?cm/s 116.00 MV peak gradient ?mmHg 5.00 MV regurgitant volume ?cm3 17.00 MV VTI ?cm 22.00 MR PISRosalinda EROA ?cm2 0.07 09/28/2020 Lipid Panel Chol 227 Trig 200 HDL 34 vLDL 40 LDL 153 10/03/2020 BNP 85 11/01/2020 OSH Labs: PAST MEDICAL HISTORY Diagnosis Date - A-fib (HCC) - Arthritis - CAD (coronary artery disease) - CHF (congestive heart failure) (HCC) - CKD (chronic kidney disease) stage 3, GFR 30-59 ml/min (HCC) - DM2 (diabetes mellitus, type 2) (HCC) - HLD (hyperlipidemia) 1979 - HTN (hypertension) 1979 - Mitral regurgitation - Renal mass - Rheumatoid arthritis (HCC) - Sarcoidosis 1986 Pulmonary - Sleep apnea CPAP PAST SURGICAL HISTORY Procedure Laterality Date - APPENDECTOMY 1967 with tu (more content not included)... Normal [facility] Comp Metabolic Panelon 03-15 Albumin [Mass/Vol] 4.1 g/dL Normal 3.9-4.9 [facility] Comment on above: Performed By: #### C BC, CMP, NTBNP, PT #### [facility] [employer] [address] [place], [place] [address] ALP [Catalytic activity/Vol] 90 U/L Normal 34-123 [facility] Comment on above: Performed By: #### C BC, CMP, NTBNP, PT #### [facility] [employer] [address] [place], [place] [id number] ALT [Catalytic activity/Vol] 16 U/L Normal 7-38 [facility] Comment on above: Performed By: #### C BC, CMP, NTBNP, PT #### [facility] [employer] [address] [place], [place] [address] Anion gap [Moles/Vol] 13 mmol/L Normal 9-18 [facility] Comment on above: Performed By: #### C BC, CMP, NTBNP, PT #### [facility] [address] [place] [address] AST [Catalytic activity/Vol] 27 U/L Normal 13-35 [facility] Comment on above: Performed By: #### C BC, CMP, NTBNP, PT #### [facility] [address] [place] [address] Bilirubin [Mass/Vol] 0.4 mg/dL Normal 0.2-1.3 [facility] Comment on above: Performed By: #### C BC, CMP, NTBNP, PT #### [facility] [address] [place] [address] Calcium [Mass/Vol] 10.2 mg/dL Normal 8.5-10.2 [facility] Comment on above: Performed By: #### C BC, CMP, NTBNP, PT #### [facility] [address] [place] [address] Chloride [Moles/Vol] 100 mmol/L Normal 97-105 [facility] Comment on above: Performed By: #### C BC, CMP, NTBNP, PT #### [facility] [address] [place], [place] [address] CO2 [Moles/Vol] 30 mmol/L Normal 22-30 [facility] Comment on above: Performed By: #### C BC, CMP, NTBNP, PT #### [facility] [address] [place], [place] [address] Creatinine [Mass/Vol] 1.82 mg/dL High 0.58-0.96 [facility] Comment on above: Performed By: #### C BC, CMP, NTBNP, PT #### [facility] [address] [place], [place] [address] eGFR- Amer. 32 Normal [facility] Comment on above: Performed By: #### C GALINA GIL NTBNP, PT #### [facility] [employer] [address] [place] [id number] eGFR-All Other Races 27 . Normal [facility] Comment on above: Result Comment: eGFR (Estimated GFR) Units of measure: mL/min/1.73 meters squared eGFR is derived from the reexpressed MDRD Study equation using the following parameters: serum creatinine, age, gender and race. The creatinine assay has been calibrated to be traceable to IDMS. An eGFR <60 mL/min/1.73m2 for >3 months is consistent with chronic kidney disease. Refer to KDOQI guidelines for clinical interpretation. In patients with unstable renal function, e.g. those with acute kidney injury, the eGFR may not accurately reflect actual GFR. Performed By: #### C GALINA GIL NTBNP, PT #### [facility] [address] [place] [id number] Glucose [Mass/Vol] 113 mg/dL High 74-99 [facility] Comment on above: Result Comment: The [place] [employer] (ADA) provides guidance for cutoff values for fasting glucose and random glucose. The ADA defines fasting as no caloric intake for at least 8 hours. Fasting plasma glucose results between 100 to 125 mg/dL indicate increased risk for diabetes (prediabetes). Fasting plasma glucose results greater than or equal to 126 mg/dL meet the criteria for diagnosis of diabetes. In the absence of unequivocal hyperglycemia, results should be confirmed by repeat testing. In a patient with classic symptoms of hyperglycemia or hyperglycemic crisis, random plasma glucose results greater than or equal to 200 mg/dL meet the criteria for diagnosis of diabetes. Reference: Standards of Medical Care in Diabetes 2016, [place] [employer]. Diabetes Care. 2016.39(Suppl 1). Performed By: #### C GALINA GIL NTBNP, PT #### [facility] [address] [place], [place] [address] Potassium [Moles/Vol] 4.0 mmol/L Normal 3.7-5.1 [facility] Comment on above: Performed By: #### C GALINA GIL NTBNP, PT #### [facility] [address] [place], [place] [phone] Protein [Mass/Vol] 7.4 g/dL Normal 6.3-8.0 [facility] Comment on above: Performed By: #### C BC, CMP, NTBNP, PT #### [facility] [address] [place], [place] [address] Sodium [Moles/Vol] 143 mmol/L Normal 136-144 [facility] Comment on above: Performed By: #### C BC, CMP, NTBNP, PT #### [place] [address] [place] [address] Urea nitrogen [Mass/Vol] 25 mg/dL High 7-21 [facility] Comment on above: Performed By: #### C BC, CMP, NTBNP, PT #### [place] [address] [place] [address] NT Pro BNPon 03-15-2021 PRO B Natr Peptide 711 pg/mL High <450 [facility] Comment on above: Performed By: #### C BC, CMP, NTBNP, PT #### [facility] [address] [place] [id number] Protimeon 03-15-2021 PT INR 1.1 Normal 0.9-1.3 [facility] Comment on above: Result Comment: Kacie min K Antagonist (VKA) Therapeutic Range: INR 2 to 3 (Target INR of 2.5) Note: For patients treated with VKA drugs, such as warfarin, the [place] [employer] 2012 Guideline recommends a therapeutic INR range of 2 to 3 (target INR of 2.5). This recommendation includes high-risk patients with antiphospholipid syndrome with previous arterial or venous thromboembolism, current-generation mechanical or bioprosthetic aortic heart valve replacement. Note: Patients with mechanical aortic valve replacement and additional risk factors for thromboembolic events (atrial fibrillation, previous thromboembolism, LV dysfunction, hypercoagulable conditions) or an older generation mechanical AVR (i.e., ball in-Cage) or any mechanical MVR should have a INR therapeutic range of 2.5 to 3.5 (target INR of 3). Olesya GH, et al. Chest 2012, 141:7S-47S Thiago RA, et al. [facility] 2017, 70: 252-289 Performed By: #### C BC, CMP, NTBNP, PT #### [facility] [employer] [address] [place], [place] [address] PT Sec 11.3 sec Normal 9.7-13.0 [facility] Comment on above: Performed By: #### C BC, CMP, NTBNP, PT #### [facility] [employer] [address] [place], [place] [address] XR CHEST 2V FRONTAL/LATon XR CHEST 2V FRONTAL/LAT * * *Final Report* * * DATE OF EXAM: Mar 15 2021 12:24PM JIX [id number] - XR CHEST 2V FRONTAL/LAT / PROCEDURE REASON: multiple diagnoses * * * * Physician Interpretation * * * * EXAMINATION: CHEST RADIOGRAPH (2 VIEW FRONTAL and LATERAL) CLINICAL HISTORY: Nonrheumatic mitral valve regurgitation Shortness of breath MQ: [id number] EXAM DATE/TIME: 03/15/2021 12:24 PM COMPARISON: No relevant prior studies available. RESULT: Lines, tubes, and devices: None. Lungs and pleura: No consolidation. No lung mass. Linear atelectasis in both lung bases. No pleural effusion. No pneumothorax. Cardiomediastinal silhouette: The cardiomediastinal silhouette is mildly enlarged. Multiple mediastinal surgical clips, which could be from prior cardiovascular surgery such as CABG. Bones and soft tissues: Status post median sternotomy with normally aligned sternal wires. Degenerative changes in the spine. IMPRESSION: No acute radiographic abnormality. Jet Mechanic: PSCB Transcribe Date/Time: Mar 15 2021 1:47P Dictated by : DESTINY FOOTE MD This examination was interpreted and the report reviewed and electronically signed by: DESTINY FOOTE MD on Mar 15 2021 1:48PM EST [id number] Normal [facility] CNPNon 01-22-2021 CNPN Telephone (CATHMN) IVANA HUTCHINSON ([id number]) 1935 F Date Time Provider Department 01/22/21 INTERVENTIONAL CLINICIAN CATHSHEELA During your visit today, we recorded the following information about you: Hill Arguello 01/22/2021 10:33 AM Signed 2020 FUAD 03/02/2020 Echocardiogram 10/04/2020 Venous ultrasound Studies downloaded in [employer] ([employer]And) As of Date: 01/22/2021 (Not on File) Date Reviewed: Never Reviewed Reason for Visit: Received Outside Medical Records [[id number]] Cmt: 12/12/2020 FUAD and 09/27/2020 Echocardiogram in [employer] Problem List As Of Date: 01/22/2021 (None) Encounter Status:Closed by HILL TAYLOR on 01/22/21 Normal [facility] CNCOon 01-19-2021 CNCO Letter Text [facility] CNPNon 01-17-2021 CNPN Telephone (CATHMN) IVANA HUTCHINSON ([id number]) 1935 F Date Time Provider Department 01/17/21 INTERVENTIONAL CLINICIAN CATHSHEELA During your visit today, we recorded the following information about you: Allergies As of Date: 01/17/2021 (Not on File) Date Reviewed: Never Reviewed Reason for Visit: Received Outside Medical Records [[id number]] Cmt: Records scanned in [employer] Problem List As Of Date: 01/17/2021 (None) Encounter Status:Closed by HILL TAYLOR on 01/17/21 Normal [facility] CNPN Telephone (CATHMN) IVANA HUTCHINSON ([id number]) 1935 F Date Time Provider Department 01/17/21 INTERVENTIONAL CLINICIAN CATHMN During your visit today, we recorded the following information about you: Allergies As of Date: 01/17/2021 (Not on File) Date Reviewed: Never Reviewed Reason for Visit: Request Outside Medical Records [[id number]] Cmt: Records available in Care Everywhere Problem List As Of Date: 01/17/2021 (None) Encounter Status:Closed by HILL TAYLOR on 01/17/21 Normal [facility] US-ECHO FUAD W/ 3D RECON INDE PENDENT WORKSTATION IMPORTon 12-12-2020 US-ECHO FUAD W/ 3D RECON INDEPENDENT WORKSTATION IMPORT Images were obtained outside of [facility] [id number] Normal [facility] US-ECHO FUAD W/ 3D RECON INDE PENDENT WORKSTATION IMPORTon 2020 US-ECHO FUAD W/ 3D RECON INDEPENDENT WORKSTATION IMPORT Images were obtained outside of [facility] [id number] Normal [facility] US-VASC VENOUS DUPLEX LOWER BILATERAL IMPORTon 10-04-2020 US-VASC VENOUS DUPLEX LOWER BILATERAL IMPORT Images were obtained outside of [facility] [id number] Normal [facility] US-ECHO COMPLETE WO CONTRAST IMPORTon 09-27-2020 US-ECHO COMPLETE WO CONTRAST IMPORT Images were obtained outside of [facility] [id number] Normal [facility] Encounters Encounter Date Encounter Type Care Provider Facility Start: 11-24-2023 End: 11-24-2023 ambulatory OBINNA BERNARD Not Available Start: 11-17-2023 End: 11-17-2023 ambulatory CARMEN FRASER [facility] Start: 11-03-2023 End: 11-03-2023 ambulatory ALEIDA WILKES [facility] Start: 10-29-2023 End: 10-30-2023 ambulatory MILLA AVENDANO [facility] Start: 09-29-2023 Refill Yumiko Hasmukh [facility] - [facility] Comment on above: Yeast vaginitis Start: 09-25-2023 Telephone encounter Louise Wallace REPAIR CLERK [facility] Start: 09-23-2023 Refill [facility] Comment on above: Med Refill Start: 09-03-2023 Orders Only Ej rojas DO Work Phone: [facility] - [facility] Start: 08-12-2023 Telephone encounter Kaleb Torres PHN [facility] Start: 07-24-2023 End: 07-25-2023 ambulatory ALEIDA WILKES [facility] Start: 07-02-2023 Orders Only Ej rojas DO Work Phone: [facility] - [facility] Start: 10-31-2022 End: 10-31-[address] EJ SIMON Facility:H1 Procedures Date Procedure Procedure Detail Performing Clinician Start: 11-17-2023 Follow-up visit Follow-up CARMEN FRASER Start: 11-03-2023 Follow-up visit Follow-up ALEIDA WILKES Start: 03-06-2023 Adult depression screening assessment Ej Simon DO Work Phone: Start: 04-02-2021 Antibody screen Comment on above: Performed By: #### C MP, PTT, CKCKMB, CBC #### [facility] [address] [place], [place] [address] Start: 05-19-2013 History of coronary artery bypass grafting History of coronary artery bypass surgery Ej Simon DO Work Phone: Plan of Treatment Date Care Activity Detail Author Start: 12-26-2024 DTaP,Tdap and Td Vac cines (2 - Td or Tdap) DTaP,Tdap and Td Vaccines (2 - Td or Tdap) [facility] Start: 05-12-2024 Adult BMI Screening Adult BMI Screen ing [facility] Start: 05-12-2024 Tobacco Screening Tobacco Screening [facility] Start: 03-06-2024 Depression Screening Depression Scre ening [facility] Start: 03-06-2024 Fall Risk Screening Fall Risk Screen ing [facility] Start: 12-03-2023 Administration of varicella zoster vaccine Zoster (Shingles) Vaccine (2 of 3) [facility] Comment on above: Postponed from 06/29 (Insurance / Financial) Start: 11-17-2023 End: 11-17-2023 Patient encounter procedure 11/17/2023 2:45 PM EDT Office Visit [facility] [address] [place] [phone] Krishna Murphy MD [address] [place] [address] [facility] Start: 11-06-2023 End: 11-06-2023 Patient encounter procedure 11/06/2023 4:00 PM EDT Office Visit N [facility] [address] [place] [phone] Milla Avendano MD [address] [place] [phone] PHN [facility] Start: 11-03-2023 End: 11-03-2023 Patient encounter procedure 11/03/2023 11:30 AM EDT Office Visit [facility] [address] [place] [phone] Aleida Wilkes MD [address] [place] [address] [facility] Start: 10-11-1953 Adult BMI Follow Up Plan Adult BMI Follow Up Plan [facility] Start: 1935 Medicare Annual Well ness Visit Medicare Annual Wellness Visit [facility] Immunizations Immunization Date Immunization Notes Care Provider Fa cility 06-07-2022 Influenza, High-dose , Quadrivalent Ej Furlong DO Work Phone: [facility] 04-25-2021 Influenza, High-dose , Quadrivalent Ej Furlong DO Work Phone: [facility] 08-25-2020 COVID-19, mRNA, LNP- S, PF, 30mcg/0.3mL Dose Ej Furlong DO Work Phone: [facility] 08-22-2020 COVID-19, mRNA, LNP- S, PF, 30mcg/0.3mL Dose Ej Furlong DO Work Phone: [facility] 08-01-2020 COVID-19, mRNA, LNP- S, PF, 30mcg/0.3mL Dose Ej Furlong DO Work Phone: [facility] 04-23-2019 Seasonal, quadrivale nt, recombinant, injectable influenza vaccine, preservative free Ej Furlong DO Work Phone: [facility] 04-07-2019 influenza, injectabl e, quadrivalent, contains preservative Ej Furlong DO Work Phone: [facility] 05-14-2016 influenza, high dose seasonal, preservative-free Ej Furlong DO Work Phone: [facility] 06-05-2015 pneumococcal conjuga te vaccine, 13 valent Ej Furlong DO Work Phone: [facility] 12-26-2014 tetanus toxoid, redu dyan diphtheria toxoid, and acellular pertussis vaccine, adsorbed Ej Furlong DO Work Phone: [facility] 05-04-2012 zoster vaccine, live Ej Simon DO Work Phone: [facility] 05-04-2012 zoster vaccine, unspecified formulation Ej Simon DO Work Phone: [facility] 01-29-2005 pneumococcal polysaccharide vaccine, 23 valent Ej Simon DO Work Phone: [facility] Payers Date Payer Category Payer Unknown [employer] [place] [employer] - GENERIC [id number] 2018-Present [phone] [address] [place] [address] [id number] 2002 Medicare MEDICARE MEDICAR E PART A & B [id number] 2002-Present [phone] [address] [place] [address] [id number] 1959 Medicare [id number] 1959 Unknown [id number] 1935 Unknown [id number] 1935 Unknown [id number] 1935 Unknown [id number] 1935 Unknown [id number] 1935 Unknown [id number] 1935 Unknown [id number] Social History Date Type Detail Facility Start: 06-14-2022 Tobacco smoking stat us NHIS Never smoked tobacco [facility] Start: 06-14-2022 Tobacco use and exposure Smoke less tobacco non-user [facility] Start: 05-12-2023 Alcohol intake 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 No [facility] Are you now , , , , never or living with a partner? [facility] How often to you hav e a drink containing alcohol? Never [facility] How many standard dr inks containing alcohol do you have on a typical day? Patient does not drink [facility] Do you feel stress - tense, restless, nervous, or anxious, or unable to sleep at night because your mind is troubled all the time - these days [OSQ] Not at all [facility] Start: 1935 Sex Assigned At Not on file P [facility] Goals Date Patient Goal Desired Activity /State Personal health goal Comment on above: Formatting of this n ote might be different from the original. Evaluation of progress towards goal: Home with family support and HHC with possible new O2 order. Clinical Notes 01-29-2021 to 09-29-2023 Telephone Encounter - Yumiok Noe CMA - 09/29/2023 1:21 PM EDTTelephone Encounter - Yumiko Noe CMA - 09/29/2023 1:21 PM EDTTelephone Encounter - Louise Wallace CMA - 09/25/2023 1:19 PM EDT Note Date & Type Note Facility 09-29-2023 Miscellaneous Notes Pt is at daughters so she needs it sent over there documented in this encounter [facility] 09-29-2023 Telephone encounter Note Pt is at daughters so she needs it sent [facility] [facility] 09-25-2023 Miscellaneous Notes Pt called and was wondering if it is okay to cut the ElIQUIS 5 MG TAB that she had left over from along time ago to use just in case she runs out of the current script. Yes I called her and let her know. documented in this encounter [facility] 09-25-2023 Telephone encounter Note Pt called and was wondering if it is okay to cut the ElIQUIS 5 MG TAB that she had left over from along time ago to use just in case she runs out of the current script. [facility] 09-25-2023 Telephone encounter Note Yes [facility] 09-25-2023 Telephone encounter Note I called her and let her know. [facility] 08-12-2023 Miscellaneous Notes Pt called to schedule f/u with [facility] in [place]. Scheduled first available and pt reminded to get labs 10 days prior to appt. documented in this encounter [facility] 08-12-2023 Telephone encounter Note Pt called to schedule f/u with [facility] in [place]. Scheduled first available and pt reminded to get labs 10 days prior to appt. [facility] 05-25-2021 Note HNO ID: [id number] Author: Thony Fowler APRN.CNP Service: ? Author Type: Nurse Practitioner Type: Progress Notes Filed: 05/25/2021 10:10 AM Note Text: Multidisciplinary Cardiac Team Review TRANSCATHETER MITRAL and TRICUSPID THERAPIES (TMTT) The below documentation is based on a mitral / tricuspid valve team discussion amongst the multidisciplinary team Members present: Attendees: Dr. Devine, Dr. Velázquez, Dr. Amaral, Dr. Denis, Dr. Parsons, Dr. Winchester, Dr. Moseley, Dr. Barrera, Dr. Edward, Dr. Morgan, Dr. Whaley, Dr. Krause, Dr. Tarango, Dr. Arriaga, Dr. Nuno, Dr. Renteria, Roverto Fowler CNP, Dale Ross RN. PATIENT NAME: Ivana Hutchinson DATE: May 25, 2021 Presenting Physician: Dr. Velázquez Evaluated by CTS: Dr. Gamble (04/03/2021) Primary Reason for Presentation: MR Discussion / recommendations: After review and discussion of patient presentation, the following thoughts / recommendations were made. 1. FUAD reviewed. 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 MRI reviewed, 2-3 + MR per Joao. Patient turned down for CLASP. 2. Medical manage/GDMT. This abstract and interpretation of the conversations amongst the mitral / tricuspid MDT members has been completed by: Thony Fowler APRN.CNP [facility] 05-14-2021 Note HNO ID: [id number] Author: Fabiola Moreno Service: ? Author Type: ? Type: Progress Notes Filed: 07/23/2021 12:05 PM Note Text: [id number] Carmen CLASP II D PI: Scott Devine Study Visit: Baseline I met with the patient for the baseline visit for the Clasp II D Study. Reaffirmed that the patient still wishes to participate in the study and continues to consent to the study. Patient presented with the updated consent and changes reviewed regarding treatments with relation to Mitraclip and randomization arm of trial. Reconsented to the most recent version of the protocol (D.2) version date 2020. Has the patient had any changes in her health since the last study visit? No Medications and allergy lists updated and current. Has the patient had any outside hospitalizations/ER visits: No NIHSS 1a. Level of Consciousness: The fugitive investigator must choose a response if a full evaluation is prevented by such obstacles as an endotracheal tube, language barrier, orotracheal trauma/bandages. A 3 is scored only if the patient makes no movement (other than reflexive posturing) in response to noxious stimulation. 0 = Alert and Attentive 1b. LOC Questions: The patient is asked the month and his/her age. The answer must be correct - there is no partial credit for being close. Aphasic and stuporous patients who do not comprehend the questions will score 2. Patients unable to speak because of endotracheal intubation, orotracheal trauma, severe dysarthria from any cause, language barrier, or any other problem not secondary to aphasia are given a 1. It is important that only the initial answer be graded and that the examiner not help the patient with verbal or non-verbal cues. 0 = Correct age and month 1c. LOC Commands: The patient is asked to open and close the eyes and then to floral designer salesperson and release the non-paretic hand. Substitute another one step command if the hands cannot be used. Credit is given if an unequivocal attempt is made but not completed due to weakness. If the patient does not respond to command, the task should be demonstrated to him or her (pantomime), and the result scored (i.e., follows none, one or two commands). Patients with trauma, amputation, or other physical impediments should be given suitable one-step commands. Only the first attempt is scored. 0 = Alert and Attentive 2. Best Gaze: Only horizontal eye movements will be tested. Voluntary or reflexive (oculocephalic) eye movements will be scored, but caloric testing is not done. If the patient has a conjugate deviation of the eyes that can be overcome by voluntary or reflexive activity, the score will be 1. If a patient has an isolated peripheral nerve paresis (CN III, IV or ), score a 1. Gaze is testable in all aphasic patients. Patients with ocular trauma, bandages, pre-existing blindness, or other disorder of visual acuity or marquez should be tested with reflexive movements, and a choice made by the fugitive investigator. Establishing eye contact and then moving about the patient from side to side will occasionally clarify the presence of a partial gaze palsy. 0 = Normal 3. Visual: Visual marquez (upper and lower quadrants) are tested by confrontation, using finger counting or visual threat, as appropriate. Patients may be encouraged, but if they look at the side of the moving fingers appropriately, this can be scored as normal. If there is unilateral blindness or enucleation, visual marquez in the remaining eye are scored. Score 1 only if a clear-cut asymmetry, including quadrantanopia, is found. If patient is blind from any cause, score 3. Double simultaneous stimulation is performed at this point. If there is extinction, patient receives a 1, and the results are used to respond to item 11. 0 = Full 4. Facial Palsy: Ask - or use pantomime to encourage - the patient to show teeth or raise eyebrows and close eyes. Score symmetry of grimace in response to noxious stimuli in the poorly responsive or non-comprehending patient. If facial trauma/bandages, orotracheal tube, tape or other physical barriers obscure the face, these should be removed to the extent possible. 0 = Normal 5a. Motor Arm, Left: The limb is placed in the appropriate position: extend the arms (palms down) 90 degrees (if sitting) or 45 degrees (if supine). Drift is scored if the arm falls before 10 seconds. The aphasic patient is encouraged using urgency in the voice and pantomime, but not noxious stimulation. Each limb is tested in turn, beginning with the non-paretic arm. Only in the case of amputation or joint fusion at the shoulder, the examiner should record the score as untestable (UN), and clearly write the explanation for this choice. 0 = No drift (10 sec) 5b. Motor Arm, Right: The limb is placed in the appropriate position: extend the arms (palms down) 90 degrees (if sitting) or 45 degrees (if supine). Drift is sco (more content not included)... [facility] 04-05-2021 Note HNO ID: [id number] Author: Kavin Gamble MD Service: ? Author Type: Physician Type: Progress Notes Filed: 04/05/2021 5:26 AM Note Text: CHART COPY DO NOT DISCARD Patient Type: Consult Visit to determine Surgery: Yes PCP: Ej Simon MD ([facility]) [address] [place] [address] Referring Physician:: Lee Velázquez [address] [facility] [address] HPI: Ms. Ivana Hutchinson is a 85 year old female seen in consultation at the request of Lee Velázquez for opinion regarding treatment options for mitral regurgitation, s/p CABG. She is currently symptomatic and complains of shortness of breath The Echocardiogram reveals severe MR, 2+TR. Cath shows patent SANCHEZ. Based on my evaluation she is a high risk for cardiac surgery. Impression: Mitral regurgitation. Plan:would recommend catheter based treatment of MR. I spent 30 minutes in this visit, with more than 50% of the time devoted to patient counseling. These findings will be communicated back to the requesting physician via electronic medical record Kavin Gamble MD [facility] 03-23-2021 Note HNO ID: [id number] Author: Kerri Gonzalez APRN.CNP Service: ? Author Type: Nurse Practitioner Type: Progress Notes Filed: 03/23/2021 8:56 AM Note Text: Multidisciplinary Cardiac Team Review TRANSCATHETER MITRAL and TRICUSPID THERAPIES (TMTT) The below documentation is based on a mitral / tricuspid valve team discussion amongst the multidisciplinary team Members present: Dr. Devine, Dr. Velázquez, Dr. Gamble, Dr. Bassett, Dr. Parsons, Dr. Denis, Dr. Barrera, Dr. Amaral, Dr. Arriaga, Dr. Ramon, Dr. Winchester, Dr. Roberts, Dr Tarango, Dr. Edward, Dr. Edmond, Rizwana Gonzalez CNP, Roverto Ann CNP, Juana Angeles RN, Raegan Eubanks RN, Raegan Evans RN., Delmi Moreno PATIENT NAME: Ivana Hutchinson DATE: March 23, [address] Velázquez Evaluated by CTS: Dr. Gamble Primary Reason for Presentation: MR Discussion / recommendations: After review and discussion of patient presentation, the following thoughts / recommendations were made. 1. FUAD images were reviewed. 2. [facility] This abstract and interpretation of the conversations amongst the mitral / tricuspid MDT members has been completed by: Kerri Gonzalez APRN.CNP [facility] 03-20-2021 Note HNO ID: [id number] Author: FELISA Rush Service: ? Author Type: Clinical Auto Appraiser Type: Progress Notes Filed: 03/20/2021 2:02 PM Note Text: Radiology Service Progress Note PATIENT NAME: Ivana Hutchinson DATE OF SERVICE: March 20, 2021 TIME: 2:02 PM PATIENT IDENTITY VERIFICATION COMPLETED USING TWO (2) IDENTIFIERS: Name and Date of confirmed by patient verbally. FALL SCREENING: Has the patient had 2 falls in the last year or 1 fall with injury or currently using an Ambulatory Assistive Device (Walker, Cane, Wheelchair, Crutches, etc.)? No PATIENT GENDER DATA: Female. status: : No status: NO. PATIENT RELEVANT IMPLANT DATA REVIEWED: Yes RADIOLOGY DEPARTMENT: CT; Exam(s) Completed: Cardiac PERIPHERAL IV DATA: Not applicable SIGNED BY: FELISA Rush March 20, 2021 2:02 PM [facility] 03-20-2021 Note HNO ID: [id number] Author: Thony Fowler APRN.CNP Service: ? Author Type: Nurse Practitioner Type: Progress Notes Filed: 03/20/2021 3:38 PM Note Text: [facility] Department of Cardiovascular Medicine SECTION OF INTERVENTIONAL CARDIOLOGY OUTPATIENT VISIT DATE March 20, 2021 OUTPATIENT VISIT TYPE ESTABLISHED PRIMARY CARE PHYSICIAN: Ej Simon MD ([facility]) [address] [place] [address] REFERRING PHYSICIAN: Thony Fowler [address] [facility] [address] CHIEF COMPLAINT: Patient presents with: Valvular Heart Disease HISTORY OF PRESENT ILLNESS: Ms. Hutchinson is an 85 F from [place], [place] who presents today for evaluation related to TMVR and consideration for [facility] (Tendyne) or ENCIRCLE (M3) trials. PMH significant for MVP, severe MR, CAD (s/p CABG x 4 2012), DM II, CKD III, HTN, HLD, chronic diastolic heart failure, long-standing persistent afib (eliquis), and RA. Per Dr. Velázquez's evaluation: Based on the above anatomy, we are unable to clip both origins of MR as this would result in significant mitral valve stenosis and is prohibitive. As such, I would like to analyze her anatomically for a transcatheter mitral valve replacement using either the Tendyne or M3 prosthetics, as this would certainly be a better result overall for the valve. If these are not anatomically feasible, we can discuss further whether she would like to proceed with a MitraClip just to try to fix the lateral leak in the hopes that this would provide some functional benefit. She endorses [place] and fatigue. She denies chest pain, PND, orthopnea, palpitations, edema, light headedness and syncope. PAST CARDIAC HISTORY: See HPI PAST MEDICAL HISTORY Diagnosis Date - A-fib ([facility]) - Arthritis - CAD (coronary artery disease) - CHF (congestive heart failure) ([facility]) - CKD (chronic kidney disease) stage 3, GFR 30-59 ml/min ([facility]) - DM2 (diabetes mellitus, type 2) ([facility]) - HLD (hyperlipidemia) 1979 - HTN (hypertension) 1979 - Mitral regurgitation - Renal mass - Rheumatoid arthritis ([facility]) - Sarcoidosis 1986 Pulmonary - Sleep apnea CPAP PAST SURGICAL HISTORY Procedure Laterality Date - APPENDECTOMY 1967 with tubal ligation - CABG (4) VEIN GRAFTS AND ARTERIAL GRAFT(S) 2012 - LIGATE FALLOPIAN TUBE 1967 - PAST SURGICAL HISTORY OF Heel spur surgery - TONGUE SURGERY HX - TONSILLECTOMY HX SOCIAL HISTORY Social History Tobacco Use - Smoking status: Never Smoker - Smokeless tobacco: Never Used Substance Use Topics - Alcohol use: Not Currently - Drug use: Never FAMILY HISTORY Problem Relation Age of Onset - Hypertension Mother - Cancer Mother - Hypertension Father - Heart Attack Father 60 - Cancer Father - Cancer Sister - Hypertension Sister - COPD Sister - Hypertension Sister - other (liver cirrhosis) Brother ALLERGIES: ALLERGIES Allergen Reactions - Contrast Dye [Iodin* Unknown Not allergy, want limited use due to CKD 3 - Penicillins Hives, Swelling - Kzexqsn-Hhg-Pyt Red* Myalgia MEDICATIONS: iv contrast (will be provided with radiology test) CT Cardiac - No IV access, insert saline lock prior to the sedation, infusion, injection for imaging exam. Discontinue saline lock post exam. If Pt. has a central line or IVAD, may access for administration according to line specific nursing protocol. Once exam is complete flush line and de-access according to line specific nursing protocol in the CT contrast administration guidelines link. allopurinol (ZYLOPRIM) 100 mg tablet Take 100 mg by mouth once daily. PACERONE 200 mg tablet Take 200 mg by mouth once daily. apixaban (ELIQUIS) 2.5 mg tab tab(s) Take 2.5 mg by mouth twice daily. Ascorbic Acid 250 mg chew Take 250 mg by mouth once daily. bumetanide (BUMEX) 2 mg tablet Take 4 mg by mouth twice daily. Cholecalciferol, Vitamin D3, 50 mcg (2,000 unit) cap Take 2,000 Units by mouth once daily. dapagliflozin (FARXIGA) 10 mg tablet Take 10 mg by mouth once daily. ezetimibe (ZETIA) 10 mg tablet Take 10 mg by mouth once daily. metoprolol succinate ER (TOPROL XL) 25 mg 24 hr tablet Take 25 mg by mouth once daily. Multivitamin capsule Take 1 tablet by mouth once daily. potassium chloride ER (K-DUR, KLOR-CON) 20 mEq tablet Take 20 mEq by mouth once daily. coQ10, ubiquinol, 100 mg cap Take 1 capsule by mouth once daily. zinc sulfate 220 (50) mg capsule Take 220 mg by mouth once daily. vit C,E-La-vcwmi-lutein-zeaxan (PRESERVISION AREDS-2) 250-90-40-1 mg Take 1 capsule by mouth once daily. bempedoic acid (NEXLETOL) 180 mg tablet Take 180 mg by mouth once daily. acetaminophen/diphenhydramine (TYLENOL PM ORAL) Take 2 tablets by mouth as needed. Acidophilus-Pectin, [place] 25 million cell -100 mg tab Take 1 tablet by mouth once daily. fish oil/borage/flax/om3,6,9 (more content not included)... [facility] 03-20-2021 Note HNO ID: [id number] Author: Tiki Knowles RRT Service: ? Author Type: Registered Resp Therapist Type: Procedures Filed: 03/20/2021 1:00 PM Note Text: RESPIRATORY THERAPY SIX MINUTE WALK TEST OXIMETRY REPORT Six Minute Walk Test for This Encounter Oxygen Device Liters FIO2 SpO2% HR Activity Feet Speed (MPH) Flag R/A 95 73 Resting R/A 91 125 Six Minute Walk 780 1.5 R/A 98 95 Recovery 1 minute post R/A 99 90 Recovery 2 minute post R/A 99 82 Recovery 3 minute post General Information Height Weight Smoking Status Pulse Oximetry Site Oximeter Pre Blood Pressure Post Blood Pressure Total Time Spent (min) 150.4 cm (4' 11.21 ) 104.8 kg (231 lb) Never Forehead Masimo 160/85 182/77 30 _ Distance Walked (meters) Distance Walked (feet) Female Predicted Walk Distance (feet) Female Lower Limit of Normal (feet) Female % Predicted Total Duration Of The Stops (seconds) 237.74 780 868.44 412.44 89.8 41 _ Lowest SpO2 During 6 Minute Walk Pre-Cassia Dyspnea Rating Pre-Cassia Fatigue Rating Post Cassia Dyspnea Rating Post Cassia Fatigue Rating O2 Supply Carrier Walking Assistance/Device 90 % 0 0 5 3 3 Wheel Walker Six Minute Walk Trend (Previous Encounters) None SIGNATURE: Tiki Knowles RRT PATIENT NAME: Ivana Hutchinson DATE: March 20, 2021 TIME: 12:23 PM _ Comments: Repeat BP: 164/84 The patient completed the six minute walk test with 4 stops. Total Duration Of The Stops (seconds): 41. The patient required Room Air to complete the test. The distance the patient walked in six minutes is within the predicted normal range. This is the first time patient takes the six minute walk test. The patient perceived their dyspnea during the six minute walk test to be 5-Severe on the modified Cassia scale. The patient perceived their fatigue during the six minute walk test to be 3-Moderate on the modified Cassia scale. I have reviewed the findings and made appropriate revisions as needed. SIGNATURE: Gary Mao MD PATIENT NAME: Ivana Hutchinson DATE: March 20, 2021 TIME: 1:00 PM [facility] 03-20-2021 Note Procedure ([facility]) IVANA HUTCHINSON ([id number]) 1935 F Date Time Provider Department 03/20/21 12:15 PM PULM [facility] J-1 [facility] During your visit today, we recorded the following information about you: Weight Height 104.8 kg 1.504 m Tiki Knowles RRT 03/20/2021 12:24 PM Cosign Needed RESPIRATORY THERAPY SIX MINUTE WALK TEST OXIMETRY REPORT Six Minute Walk Test for This Encounter Oxygen Device Liters FIO2 SpO2% HR Activity Feet Speed (MPH) Flag R/A 95 73 Resting R/A 91 125 Six Minute Walk 780 1.5 R/A 98 95 Recovery 1 minute post R/A 99 90 Recovery 2 minute post R/A 99 82 Recovery 3 minute post General Information Height Weight Smoking Status Pulse Oximetry Site Oximeter Pre Blood Pressure Post Blood Pressure Total Time Spent (min) 150.4 cm (4' 11.21 ) 104.8 kg (231 lb) Never Forehead Masimo 160/85 182/77 30 _ Distance Walked (meters) Distance Walked (feet) Female Predicted Walk Distance (feet) Female Lower Limit of Normal (feet) Female % Predicted Total Duration Of The Stops (seconds) 237.74 780 868.44 412.44 89.8 41 _ Lowest SpO2 During 6 Minute Walk Pre-Cassia Dyspnea Rating Pre-Cassia Fatigue Rating Post Cassia Dyspnea Rating Post Casisa Fatigue Rating O2 Supply Carrier Walking Assistance/Device 90 % 0 0 5 3 ? 3 Wheel Walker Six Minute Walk Trend (Previous Encounters) None SIGNATURE: Tiki Knowles RRT PATIENT NAME: Ivana Hutchinson DATE: March 20, 2021 TIME: 12:23 PM _ Comments: Repeat BP: 164/84 Referring Provider: THONY FOWLER [[id number]] Allergies As of Date: 03/20/2021 Noted Allergy Reaction CONTRAST DYE (IODINE) 03/15/2021 16 - Unknown Comments: Not allergy, want limited use due to CKD 3 PENICILLINS 03/15/2021 4 - Hives 7 - Swelling [id number] REDUCTASE INHIBIT*03/15/2021 17 - Myalgia Date Reviewed: 03/19/2021 Reviewed by: Yadira Palacios APRN.CLAIMS ANALYST - Fully Assessed Reason for Visit: Spirometry [191] Primary Visit Diagnosis:Nonrheumatic mitral valve regurgitation [I34.0] Other Visit Diagnosis:Shortness of breath [R06.02] Order(s):SIX MINUTE WALK [[id number]] Order #: [id number]: 1 Prescriptions as of 03/20/2021 - iv contrast (will be provided with radiology test) CT Cardiac - No IV access, insert saline lock prior to the sedation, infusion, injection for imaging exam. Discontinue saline lock post exam. If Pt. has a central line or IVAD, may access for administration according to line specific nursing protocol. Once exam is complete flush line and de-access according to line specific nursing protocol in the CT contrast administration guidelines link. - allopurinol (ZYLOPRIM) 100 mg tablet Take 100 mg by mouth once daily. - PACERONE 200 mg tablet Take 200 mg by mouth once daily. - apixaban (ELIQUIS) 2.5 mg tab tab(s) Take 2.5 mg by mouth twice daily. - Ascorbic Acid 250 mg chew Take 250 mg by mouth once daily. - bumetanide (BUMEX) 2 mg tablet Take 4 mg by mouth twice daily. - Cholecalciferol, Vitamin D3, 50 mcg (2,000 unit) cap Take 2,000 Units by mouth once daily. - dapagliflozin (FARXIGA) 10 mg tablet Take 10 mg by mouth once daily. - ezetimibe (ZETIA) 10 mg tablet Take 10 mg by mouth once daily. - metoprolol succinate ER (TOPROL XL) 25 mg 24 hr tablet Take 25 mg by mouth once daily. - Multivitamin capsule Take 1 tablet by mouth once daily. - potassium chloride ER (K-DUR, KLOR-CON) 20 mEq tablet Take 20 mEq by mouth once daily. - coQ10, ubiquinol, 100 mg cap Take 1 capsule by mouth once daily. - zinc sulfate 220 (50) mg capsule Take 220 mg by mouth once daily. - vit C,B-Ys-wudef-lutein-zeaxan (PRESERVISION AREDS-2) 250-90-40-1 mg Take 1 capsule by mouth once daily. - bempedoic acid (NEXLETOL) 180 mg tablet Take 180 mg by mouth once daily. - acetaminophen/diphenhydramine (TYLENOL PM ORAL) Take 2 tablets by mouth as needed. - Acidophilus-Pectin, [place] 25 million cell -100 mg tab Take 1 tablet by mouth once daily. - fish oil/borage/flax/om3,6,9 1 (OMEGA 3-6-9 ORAL) Take 1 capsule by mouth once daily. - sour horner extract (TART HORNER EXTRACT ORAL) Take 1 tablet by mouth once daily. - sodium chloride 0.9 %, flush, (BD POSIFLUSH) syringe Inject 2-10 mL intravenously as directed. For Echo procedure Facility-Administered Medications as of 03/20/2021 - sodium chloride 0.9 % (flush) 10 mL (BD POSIFLUSH) Problem List As Of Date 03/20/2021 Noted Resolved Mitral valve insufficiency [I34.0] 03/13/2021 Encounter Status:Closed by TIKI KNOWLES on 03/20/21 [facility] 03-20-2021 Note HNO ID: [id number] Author: Ladonna Curran RT(R) Service: Radiology Author Type: Technologist Type: Progress Notes Filed: 03/20/2021 10:57 AM Note Text: Radiology Service Progress Note PATIENT NAME: Ivana Hutchinson DATE OF SERVICE: March 20, 2021 TIME: 10:57 AM PATIENT IDENTITY VERIFICATION COMPLETED USING TWO (2) IDENTIFIERS: Name and Date of confirmed by patient verbally and Name and Date of confirmed by identification band. FALL SCREENING: Has the patient had 2 falls in the last year or 1 fall with injury or currently using an Ambulatory Assistive Device (Walker, Cane, Wheelchair, Crutches, etc.)? No PATIENT GENDER DATA: Female. status: : No status: NO. PATIENT RELEVANT IMPLANT DATA REVIEWED: Yes RADIOLOGY DEPARTMENT: MR; Exam(s) Completed: Cardiac: Cardiac PERIPHERAL IV DATA: Not applicable. No contrast given. SIGNED BY: Ladonna Curran, RT(R) March 20, 2021 10:57 AM [facility] 03-16-2021 Note HNO ID: [id number] Author: Thony Ann RN Service: ? Author Type: Registered Nurse Type: Progress Notes Filed: 03/16/2021 4:18 PM Note Text: Per Dr. juarez's email: She is functionally limited by the mitral valve but also by significant obesity. The degree to which mitral therapy will help is unclear based on these two different factors, but is likely to help somewhat.As below, mitraclip is not anatomically ideal. She?s having a CT scan later today that we can analyze for tendyne and M3.She is currently scheduled for a coronary angiogram with me tomorrow. Given our CKD as well as history of bypass grafts, I?d like to postpone this for at least two weeks and we should also get the operative report from her bypass so that we know what grafts she has (surgery was at [facility]). Also, she is hoping it is possible to coordinate the MRI and PFTs for when she comes back for the cath. If it is possible to do those in the morning and then the cath in the afternoon with me, or someone else, I am fine with that. PFTs ordered, operative note obtained, will coordinated with scheduling to arrange tests. Thony Ann, SWAPNIL Hand Bobbin Cleaner [facility] 03-16-2021 Note Patient Outreach ([place] [facility]) IVANA HUTCHINSON ([id number]) 1935 F Date Time Provider Department 03/16/21 THONY ANN During your visit today, we recorded the following information about you: Thony Ann RN 03/16/2021 4:[address] juarez's email: She is functionally limited by the mitral valve but also by significant obesity. The degree to which mitral therapy will help is unclear based on these two different factors, but is likely to help somewhat.As below, mitraclip is not anatomically ideal. She?s having a CT scan later today that we can analyze for tendyne and M3.She is currently scheduled for a coronary angiogram with me tomorrow. Given our CKD as well as history of bypass grafts, I?d like to postpone this for at least two weeks and we should also get the operative report from her bypass so that we know what grafts she has (surgery was at [facility]). Also, she is hoping it is possible to coordinate the MRI and PFTs for when she comes back for the cath. If it is possible to do those in the morning and then the cath in the afternoon with me, or someone else, I am fine with that. PFTs ordered, operative note obtained, will coordinated with scheduling to arrange tests. Thony Ann, SWAPNIL Hand Bobbin Cleaner Allergies As of Date: 03/16/2021 Noted Allergy Reaction CONTRAST DYE (IODINE) 03/15/2021 16 - Unknown Comments: Not allergy, want limited use due to CKD 3 PENICILLINS 03/15/2021 4 - Hives 7 - Swelling [id number] REDUCTASE INHIBIT*03/15/2021 17 - Myalgia Date Reviewed: 03/15/2021 Reviewed by: Tyra Ely RN - Fully Assessed Primary Visit Diagnosis:Severe mitral regurgitation [I34.0] Order(s):SPIROMETRY BASELINE ONLY [] Order #: [id number]: 1 FUTURE LUNG DIFFUSION CAPACITY (DLCO) [[id number]] Order #: [id number]: 1 FUTURE Prescriptions as of 03/16/2021 - allopurinol (ZYLOPRIM) 100 mg tablet Take 100 mg by mouth once daily. - PACERONE 200 mg tablet Take 200 mg by mouth once daily. - apixaban (ELIQUIS) 2.5 mg tab tab(s) Take 2.5 mg by mouth twice daily. - Ascorbic Acid 250 mg chew Take 250 mg by mouth once daily. - bumetanide (BUMEX) 2 mg tablet Take 4 mg by mouth twice daily. - Cholecalciferol, Vitamin D3, 50 mcg (2,000 unit) cap Take 2,000 Units by mouth once daily. - dapagliflozin (FARXIGA) 10 mg tablet Take 10 mg by mouth once daily. - ezetimibe (ZETIA) 10 mg tablet Take 10 mg by mouth once daily. - metoprolol succinate ER (TOPROL XL) 25 mg 24 hr tablet Take 25 mg by mouth once daily. - Multivitamin capsule Take 1 tablet by mouth once daily. - potassium chloride ER (K-DUR, KLOR-CON) 20 mEq tablet Take 20 mEq by mouth once daily. - coQ10, ubiquinol, 100 mg cap Take 1 capsule by mouth once daily. - zinc sulfate 220 (50) mg capsule Take 220 mg by mouth once daily. - vit C,O-Xk-yoizm-lutein-zeaxan (PRESERVISION AREDS-2) 250-90-40-1 mg Take 1 capsule by mouth once daily. - bempedoic acid (NEXLETOL) 180 mg tablet Take 180 mg by mouth once daily. - acetaminophen/diphenhydramine (TYLENOL PM ORAL) Take 2 tablets by mouth as needed. - Acidophilus-Pectin, [place] 25 million cell -100 mg tab Take 1 tablet by mouth once daily. - fish oil/borage/flax/om3,6,9 1 (OMEGA 3-6-9 ORAL) Take 1 capsule by mouth once daily. - sour horner extract (TART HORNER EXTRACT ORAL) Take 1 tablet by mouth once daily. - sodium chloride 0.9 %, flush, (BD POSIFLUSH) syringe Inject 2-10 mL intravenously as directed. For Echo procedure Facility-Administered Medications as of 03/16/2021 - sodium chloride 0.9 % (flush) 10 mL (BD POSIFLUSH) Problem List As Of Date 03/16/2021 Noted Resolved Mitral valve insufficiency [I34.0] 03/13/2021 Encounter Status:Closed by THONY ANN on 03/16/21 [facility] 03-15-2021 Note HNO ID: [id number] Author: Cornel Felix RN Service: ? Author Type: Registered Nurse Type: Progress Notes Filed: 03/15/2021 5:10 PM Note Text: AMBULATORY PATIENT EDUCATION TOPIC: FUAD Procedure READINESS TO LEARN COGNITIVE ABILITY: Alert and oriented MOTIVATION TO LEARN: Interested FAMILY SUPPORT: High - Very involved in pt care INSTRUCTION PROVIDED TO: Patient PATIENT LEARNS BEST BY: Individual Instruction Verbal Instruction FACTORS AFFECTING LEARNING: None PHYSICAL LIMITATIONS AFFECTING LEARNING: None LEARNING RESPONSE DIAGNOSIS: Mitral Regurgitation METHOD OF INSTRUCTION: Individual instruction Verbal instruction PATIENT / FAMILY RESPONSE: Verbalizes understanding of: POST-OPERATIVE INSTRUCTIONS-Correct actions to take to reduce postoperative complications PRE-OPERATIVE INSTRUCTIONS-Correct action to take to follow pre-operative instructions FOLLOW-UP PLAN: Complete - No need for follow-up SUPPLEMENTAL MATERIAL: Post FUAD instructions given REFERRAL (RECOMMENDATION): None Electronically Signed By Cornel Felix RN In Department: CARDIOLOGY [facility] 03-15-2021 Note HNO ID: [id number] Author: Tyra Ely RN Service: ? Author Type: Registered Nurse Type: Progress Notes Filed: 03/15/2021 2:32 PM Note Text: Radiology Service Progress Note DATE OF SERVICE: March 15, 2021 TIME: 2:16 PM PATIENT WEIGHT: 231LBS PATIENT IDENTITY VERIFICATION COMPLETED USING TWO (2) STANDARD IDENTIFIERS: Name and Date of confirmed by patient verbally and Name and Date of confirmed by identification band. FALL SCREENING: Has the patient had 2 falls in the last year or 1 fall with injury or currently using an Ambulatory Assistive Device (Walker, Cane, Wheelchair, Crutches, etc.)? No PATIENT GENDER DATA: Female. status: : No status: NO. ALLERGIES: Reviewed and unchanged CONTRAST ALLERGY: No EXAM: CT -CONTRAST INDUCED NEPHROPATHY RISK FACTORS: Patient age > 60 years, Diabetic: Yes. Current medication(s): None. Patient currently has insulin pump?: No., Known Chronic Kidney Disease (CKD) and Congestive Heart Failure (CHF) CREATININE: No results found for: CREAT, EGFROTH, EGFRAA P.O.C.T. RESULTS: POC done: Yes, See Lab Tab March 15, 2021 TREATMENT: Dr. Amaral notified. and GFR 27, test canceled, IV left in for FUAD IV SITE: Ambulatory: A peripheral IV was started in the Left antecubital site with a Angio cath: 20 gauge. and A Saline lock was inserted per protocol IV SITE APPEARANCE: Clean,Dry and Intact SIGNATURE: Tyra Ely RN PATIENT NAME: Ivana Hutchinson DATE: March 15, 2021 TIME: 2:16 PM [facility] 03-15-2021 Note HNO ID: [id number] Author: RT Jack(Shira) Service: Radiology Author Type: Technologist Type: Progress Notes Filed: 03/15/2021 12:27 PM Note Text: Radiology Service Progress Note PATIENT NAME: Ivana Hutchinson DATE OF SERVICE: March 15, 2021 TIME: 12:27 PM PATIENT IDENTITY VERIFICATION COMPLETED USING TWO (2) IDENTIFIERS: Name and Date of confirmed by patient verbally. FALL SCREENING: Has the patient had 2 falls in the last year or 1 fall with injury or currently using an Ambulatory Assistive Device (Walker, Cane, Wheelchair, Crutches, etc.)? No PATIENT GENDER DATA: Female. status: : No status: NO. PATIENT RELEVANT IMPLANT DATA REVIEWED: Not Applicable RADIOLOGY DEPARTMENT: General X-ray: Exam(s) Completed: Chest X-Ray PERIPHERAL IV DATA: Not applicable SIGNED BY: RT Jack(R) March 15, 2021 12:27 PM [facility] 03-15-2021 Note HNO ID: [id number] Author: Valentine Escobedo Service: ? Author Type: ? Type: Progress Notes Filed: 03/16/2021 3:51 PM Note Text: [facility] Department of Cardiovascular Medicine SECTION OF INTERVENTIONAL CARDIOLOGY OUTPATIENT VISIT DATE March 13, 2021 OUTPATIENT VISIT TYPE NEW PRIMARY CARE PHYSICIAN: To use this Smartlink, specify the provider ID whose address you want to display, e.g., .PROVADDR[1 (where 1 is the provider ID). REFERRING PHYSICIAN: SELF CHIEF COMPLAINT: No chief complaint on file. HISTORY OF PRESENT ILLNESS: Ms. Hutchinson is a 85 year old female who presents today re severe MR. NURSING INTAKE: PMHx: Mitral regurgitation AFib Renal mass CHF CKD 3 HTN HLD CAD s/p CABG DM2 Ms. Hutchinson is a 85 year old female [place], [place] who presents today for a TMVR evaluation. She is scheduled for a coronary angiogram on 03/16/2021. She states that she was recently hospitalized in October newly diagnosed with CHF and atrial fibrillation. She stated that during this hospitalization, she was diagnosed with severe mitral regurgitation. She stated that she has had symptoms of exertional dyspnea that started about 2 years ago and has progressed. She states she experiences SOB with minimal exertion and walking short distances. She denies chest pain and discomfort. She states she experiences palpations. She stats that she has been experiencing lower extremity edema, with the L leg more severe. 03/03/2020 OSH Echo (Syngo): - ?Left Ventricle: There is mild concentric increased wall thickness/hypertrophy. - ?Left Ventricle: Systolic function is normal with an ejection fraction of 60-65%. - ?Left Ventricle: No segmental wall motion abnormalities. - ?Left Atrium: Left atrium is moderately dilated. Left atrium volume index is moderately increased. The left atrial volume index is 47.8 mL/m2. - ?Right Ventricle: Normal systolic excursion velocity by TDI (>9.5 cm/s). - ?Right Atrium: Right atrium is mildly dilated. The?right atrial area is 23.4 cm2. - ?Aortic Valve: There is mild regurgitation. There is no evidence of aortic valve stenosis. 09/28/2020 OSH Echo (Syngo): - ?Atrial fibrillation/flutter rhythm with controlled ventricular response. - ?Normal LV size with marked concentric hypertrophy and normal systolic function and no segmental wall motion abnormalities - ?Biatrial enlargement - ?Aortic sclerosis with mild stenosis - ?Mitral regurgitation, [id number] - ?Tricuspid regurgitation, moderate - ?Pulmonary hypertension, moderate - ?Dilated IVC 2020 OSH FUAD (Syngo): - ?Left Ventricle: There is mild concentric increased wall thickness/hypertrophy. - ?Left Ventricle: Systolic function is normal with an ejection fraction of 55-60%. - ?Left Atrium: Left atrial appendage is enlarged and multi lobed, however no clot is present. - ?Left Atrium: The left atrial appendage emptying velocity is decreased. - ?Right Ventricle: Systolic function is severely reduced. - ?Aortic Valve: The aortic valve is trileaflet. The leaflets exhibit normal excursion. There is sclerosis. - ?Mitral Valve: The lateral segment (A1) of the anterior leaflet is prolapsed. - ?Mitral Valve: There is moderate to severe regurgitation with a posteriorly directed jet. There is no evidence of mitral valve stenosis. - ?Tricuspid Valve: There is moderate regurgitation. There is no evidence of tricuspid valve stenosis. 12/12/2020 OSH FUAD (Syngo): - ?Left?Ventricle: Systolic function is normal. - ?Mitral?Valve: There is severe regurgitation. There is no evidence of mitral valve stenosis. Peak and mean gradients are 6.0 mmHg and 3.0 mmHg. MR VTI ?cm 239.00 MV mean gradient ?mmHg 3.00 MV mean gradient ?mmHg 3.00 MV mean gradient ?mmHg 2.00 MV mean gradient ?mmHg 3.00 MR max paulino ?cm/s 700.00 MV Peak E Paulino ?cm/s 116.00 MV peak gradient ?mmHg 5.00 MV regurgitant volume ?cm3 17.00 MV VTI ?cm 22.00 MR PISA EROA ?cm2 0.07 09/28/2020 Lipid Panel Chol 227 Trig 200 HDL 34 vLDL 40 LDL 153 10/03/2020 BNP 85 11/01/2020 OSH Labs: PAST MEDICAL HISTORY Diagnosis Date - A-fib ([facility]) - Arthritis - CAD (coronary artery disease) - CHF (congestive heart failure) ([facility]) - CKD (chronic kidney disease) stage 3, GFR 30-59 ml/min ([facility]) - DM2 (diabetes mellitus, type 2) ([facility]) - HLD (hyperlipidemia) 1979 - HTN (hypertension) 1979 - Mitral regurgitation - Renal mass - Rheumatoid arthritis ([facility]) - Sarcoidosis 1986 Pulmonary - Sleep apnea CPAP PAST SURGICAL HISTORY Procedure Laterality Date - APPENDECTOMY 1967 with tubal ligation - CABG (4) VEIN GRAFTS AND ARTERIAL GRAFT(S) 2012 - LIGATE FALLOPIAN TUBE 1967 - PAST SURGICAL HISTORY OF Heel spur surgery - TONGUE SURGERY HX - TONSILLECTOMY HX SOCIAL HISTORY Social History Tobacco Use - Smoking status: Never Smoker - Smokeless tobacco: Never (more content not included)... [facility] 03-13-2021 Note HNO ID: [id number] Author: Marivel Loyola APRN.HEAD SULFIDE OPERATOR Service: ? Author Type: Nurse Specialist Type: Progress Notes Filed: 03/13/2021 10:43 AM Note Text: [facility] 01-29-2021 Note HNO ID: [id number] Author: Thony Fowler APRN.CLAIMS ANALYST Service: ? Author Type: Nurse Practitioner Type: Progress Notes Filed: 01/29/2021 4:49 PM Note Text: STRUCTURAL REVIEW FORM Pt. Name: Ivana Hutchinson Referred by: Self referral [facility] in [facility] have been reviewed. Severe MR. Request has been sent to the data visualization developer who will arrange an appointment schedule. A transcatheter therapies packet and schedule will be mailed to patient's home address in ~ 2-4 weeks. PLEASE NOTE: Appointment schedule being sent to the patient will be for CONSULTATION AND TESTING.All studies will be reviewed by the multidisciplinary valve team members and any recommended transcatheter therapies will be schedule at a later date. Scheduling Notes: 85 F from [facility] significant for MVP, severe MR, CAD (s/p CABG x 4 2012), DM II, CKD III, HTN, HLD, chronic diastolic heart failure, long-standing persistent afib (eliquis), and RA. Ms. Hutchinson has been evaluated by [facility]'s structural team who felt that her posterior leaflet is too short for MitraClip and are recommending redo OHS. The patient is hesitant to move forward with surgery, so she is being referred to [facility] for a second opinion. Per Dr. Velázquez's email She has 2 MR jets, both of which are reasonably significant. One is on the lateral side of A2/P2 (larger one) and the other is on the medial side of A2/P2 (smaller one). Clipping both effectively will likely give her MS and this is prohibitive. Whether we can clip just the lateral one and have a decent result is unclear from this FUAD. She also has a creatinine of 1.37, so could be okay for TMVR. Should come here for repeat FUAD and CT and go from there. GFR: 37 Contrast Allergy: N/A (not allergic, listed as an allergy in places because local career information specialist wants her to avoid IV dye whenever possible) A/C: Eliquis. Instructed to stop taking three days prior to [facility]. OS ECHO 2020: Left Ventricle: There is mild concentric increased wall thickness/hypertrophy. - Left Ventricle: Systolic function is normal with an ejection fraction of 55-60%. - Left Atrium: Left atrial appendage is enlarged and multi lobed, however no clot is present. - Left Atrium: The left atrial appendage emptying velocity is decreased. - Right Ventricle: Systolic function is severely reduced. - Aortic Valve: The aortic valve is trileaflet. The leaflets exhibit normal excursion. There is sclerosis. - Mitral Valve: The lateral segment (A1) of the anterior leaflet is prolapsed. - Mitral Valve: There is moderate to severe regurgitation with a posteriorly directed jet. There is no evidence of mitral valve stenosis. - Tricuspid Valve: There is moderate regurgitation. There is no evidence of tricuspid valve stenosis. OSH FUAD 12/12/2020: Left?Ventricle: Systolic function is normal. - Mitral?Valve: There is severe regurgitation. There is no evidence of mitral valve stenosis. Peak and mean gradients are 6.0 mmHg and 3.0 mmHg. Diagnosis: Mitral Regurg / TMVR/ MV Clip DAY ONE: Please schedule NEW consult with Dr. Velázquez March 15 at 10:30 a.m The following testing on same day as appointment with physician: LAB/CXR/EKG ECHO desk J3-5 FUAD CTA chest DAY TWO: Please schedule cardiac catheterization with an 6Th Grade Teacher ONLY (Dr. Donis, Dr. Parsons, Dr. Kong, Dr. Velázquez, Dr. Devine, Dr. Luna, Dr. Cunningham, Dr. Colin, Dr. Abdul, and Dr. Perkins) On [facility] instructed to stop taking three days prior to [facility]. DAY THREE: Please schedule in-person or virtual visit with cardiac surgeon: Dr. Prescott / Dr. Gamble / Dr. Reeves / Dr. Bassett / Dr. Lopez Appt Note: SMVR vs TMVR Eval Please schedule 6 MWT at Desk J3-5 Cardiac MRI [facility] Please communicate appointment schedule to patient / patient family member Please include dental clearance form with the appointment packet Thank You Thony Fowler APRN.CLAIMS ANALYST [facility] Evaluation note Diagnosis Longstanding persistent atrial fibrillation ([facility]) [facility] Yeast vaginitis [facility] in [facility] filedocumented in this encounter [facility] filedocumented in this encounter [facility] filedocumented in this encounter [facility] filedocumented in this encounter [facility] Summary Purpose Family History No Family History Records FoundNo Family History Records FoundNo Family History Records FoundNo Family History Records FoundNo Family History Records FoundNo Family History Records Found Advance Directives No Advanced Directives Records FoundLatest Code Status on File Code Status Date Activated Date Inactivated Comments Full Code 10/05/2022 12:29 PM 10/08/2022 8:27 PM Code Status History Code Status Date Activated Date Inactivated Comments Full Code 09/28/2020 11:03 AM 10/12/2020 7:47 PM Full Code 09/26/2020 3:13 PM 09/28/2020 10:16 AM Additional Source Comments INFORMATION SOURCE (unrecogn ized section and content) DATE CREATED AUTHOR 05/12/2021 [facility] DATE CREATED AUTHOR AUTHOR'S ORGANIZ ATION 08/09/2021 [facility] DATE CREATED AUTHOR AUTHOR'S ORGANIZ ATION 11/03/2022 [facility] DATE CREATED AUTHOR AUTHOR'S ORGANIZ ATION 11/04/2023 [facility] DATE CREATED AUTHOR AUTHOR'S ORGANIZ ATION 11/19/[address] [facility] DATE CREATED AUTHOR AUTHOR'S ORGANIZ ATION 11/26/2023 [facility] dical Specialists EPIC Care Teams (unrecognized sec tion and content) [employer] Sales Representative Relationship Specialty Start Date End Date Ej Simon DO [address] [place] [address] PCP - General Family Medicine 10/04/22 [employer] Sales Representative Relationship Specialty Start Date End Date Ej Simon DO [address], [address] [place] [address] PCP - General Family Medicine 10/04/22 [employer] Sales Representative Relationship Specialty Start Date End Date Ej Simon DO [address], [address] [address] PCP - General Family Medicine 10/04/22 [employer] Sales Representative Relationship Specialty Start Date End Date Ej Simon DO [address], [place] [address] PCP - General Family Medicine 10/04/22 [employer] Sales Representative Relationship Specialty Start Date End Date Ej Simon DO [address] [place] [address] PCP - General Family Medicine 10/04/22 [employer] Sales Representative Relationship Specialty Start Date End Date Ej Simon DO [address], [place] [address] PCP - General Family Medicine 10/04/22 Reason for Visit (unrecogniz ed section and content) Reason Onset Date Comments Med Refill 09/23/2023 Reason Onset Date Comments Med Refill 09/29/2023 FOR RECORDS PERTAINING TO PATIENTS WHO ARE OR HAVE BEEN ENROLLED IN A CHEMICAL DEPENDENCY/SUBSTANCEABUSE PROGRAM, SOME INFORMATION MAY BE OMITTED. This clinical summary was aggregated from multiple sources. Caution should be exercised in using it in the provision of clinical care. This summary normalizes information from multiple sources, and as a consequence, information in this document may materially change the coding, format and clinical context of patient data. In addition, data may be omitted in some cases. CLINICAL DECISIONS SHOULD BE BASED ON THE PRIMARY CLINICAL RECORDS. [employer] [facility]. provides no warranty or guarantee of the accuracy or completeness of information in this document.
[2023-12-11 06:49] VITALS: BP 147/77; PULSE 81; TEMP 36.6; O2SAT 91
[2023-12-11] MEDS: TROPICAMIDE 1% OP SOL 300 DROP/15 ML BOTTLE OP ×4 (06:53→07:28)
[2023-12-11] MEDS: PHENYLEPHRINE HCL 2.5% OP SOL 40 DROP/2 ML BOTTLE OP ×4 (06:53→07:27)
[2023-12-11] MEDS: CYCLOPENTOLATE HCL 1% OP SOL 40 DROP/2 ML BOTTLE OP ×4 (06:53→07:27)
[2023-12-11] MEDS: BESIFLOXACIN HCL 100 DROP DROPS.SUSP OP ×4 (06:54→07:28)
[2023-12-11] MEDS: DIAZEPAM 5 MG TABLET PO (07:00)
[2023-12-11 08:08] VITALS: BP 163/72; PULSE 60; O2SAT 91
[2023-12-11] MEDS: APRACLONIDINE HCL 0.5% SOL 100 DROP/5 ML BOTTLE OP (08:10)
[2023-12-11] MEDS: HYALURONATE SODIUM 16 MG/ML SYRINGE OP (08:10)
[2023-12-11] MEDS: LIDOCAINE HCL 1% PF 20 MG/2 ML VIAL INJ (08:11)
[2023-12-11] MEDS: PHENYLEPHRINE/KETOROLAC 1-0.3% ML VIAL 4 ML IRR (08:11)
[2023-12-11] MEDS: BETADINE POVIDONE-IODINE 5% OP SOL 30 ML BOTTLE OP (08:11)
[2023-12-11] MEDS: LIDOCAINE 2% JELLY 10 ML TOPICAL (08:11)
[2023-12-11] MEDS: PREDNISOLONE ACETATE OP 1% SUSP 100 DROPS/5 ML 1 DROP OP (08:12)
[2023-12-11] MEDS: PROPARACAINE HCL 0.5% 300 DROP/15 ML BOTTLE OP (08:12)
[2023-12-11] MEDS: TETRACAINE HCL 0.5% OP SOL 80 DROP/4 ML BOTTLE OP (08:12)
[2023-12-11 08:13] VITALS: BP 177/84; PULSE 75; O2SAT 95
== END 2023-12-11 08:29 | disposition home or self-care (01) ==
LOC: SURGOUT 06:27
PROVIDERS: PCP Family Medicine; Visit Provider Ophthalmology
PROC: (CPT 66984; principal; 2023-12-11 07:55)
DX: H25.12 Age-related nuclear cataract, left eye (principal)
CPT/HCPCS: 66984; V2630

== ENCOUNTER 2024-11-25 17:32 | Emergency (ER) | payer MEDICARE, OTHER, SELFPAY ==
--- OUTSIDE RECORDS SUMMARY | 2024-11-15 13:20 | XMS_ITS ---
Author Organization OHIP Care Team Providers Care Hygiene Assistant Name Role Phone MILLA AVENDANO Referring Unavailable FURLONG, ARACELI G Primary Care Unavailable CHRISTOPH EASLEY Attending Unavailable FURLONG, ARACELI G Referring Unavailable FURLONG, ARACELI G Primary Care Unavailable FURLONG, ARACELI G Attending Unavailable FURLONG, ARACELI G Referring Unavailable FURLONG, ARACELI G Primary Care Unavailable FURLONG, ARACELI G Referring Unavailable FURLONG, ARACELI G Primary Care Unavailable MICI, JENNIFER Attending Unavailable FURLONG, ARACELI G Referring Unavailable FURLONG, ARACELI G Primary Care Unavailable KIRBY DUTTA Referring Unavailable FURLONG, ARACELI G Primary Care Unavailable MICI, JENNIFER Attending Unavailable MICI, JENNIFER Referring Unavailable FURLONG, ARACELI G Primary Care Unavailable BRENNA WILKES Attending Unavailable BRENNA WILKES Referring Unavailable FURLONG, ARACELI G Primary Care Unavailable FURLONG, ARACELI G Attending Unavailable FURLONG, ARACELI G Referring Unavailable FURLONG, ARACELI G Primary Care Unavailable BRENNA WILKES Attending Unavailable FURLONG, ARACELI G Referring Unavailable FURLONG, ARACELI G Primary Care Unavailable Purpose PROBLEMS DATE TYPE CONDITION / CODE ATTENDING STATUS [facility] Unknown Obstructive slee p apnea (adult) (pediatric) / G47.33(ICD-10) [facility]/15/2024 Unknown Sleep Apnea / FREETEXT(AOF) BRENNA WILKES [facility] 11/11/2024 Unknown Diabetes / FREETEXT(AOF) SO SIMON [facility] 11/11/2024 Unknown Other persistent atrial fibrillation / I48.19(ICD-10) BRENNA WILKES [facility] 11/11/2024 Unknown Adverse effect o f other antidysrhythmic drugs, initial encounter / T46.2X5A(ICD-10) BRENNA WILKES [facility] 11/22/2022 Unknown Chronic kidney d isease, stage 4 (severe) / N18.4(ICD-10) ALFRED ARACELI Chad [facility] 10/05/2022 Unknown 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) CHRISTOPH EASLEY [facility] 02/24/2024 Unknown Follow-up / FREETEXT(AOF) CHRISTOPH EASLEY [facility] 02/24/2024 Unknown Coronary Artery Disease / FREETEXT(AOF) TRACEE CHRISTOPH Theo [facility] 02/24/2024 Unknown Atrial Fibrillat ion / FREETEXT(AOF) CHRISTOPH EASLEY [facility] 02/24/2024 Unknown Dizziness / FREETEXT(AOF) CHRISTOPH EASLEY Active [facility] 02/24/2024 Unknown Shortness of Merari ath / FREETEXT(AOF) CHRISTOPH EASLEY Active [facility] 02/24/2024 Unknown Palpitations / FREETEXT(AOF) CHRISTOPH EASLEY Active [facility] 02/02/2024 Unknown Chronic kidney d juice, stage 3b / N18.32(ICD-10) NA Active [facility] PROCEDURES No Procedure Records Found VITAL SIGNS No Vital Signs Records Found RESULTS COMPLETE BLOOD COUNT Collected: 10/28/2024 2:00 PM Status: COMPLETED Source: [facility] TYPE CODE TESTS RESULT OUT OF RANGE REFERENCE UNITS LAB WBC(LOINC) WBC COUNT 4.6 4.0-11.0 X10E9/L LAB RBC(LOINC) RBC COUNT 4.16 3.80-5.20 X10E12/L LAB HGB(LOINC) HEMOGLOBIN 13.8 11.7-15.5 g/dL LAB HCT(LOINC) HEMATOCRIT 41.4 35-47 % LAB MCV(LOINC) MCV 99 80-100 fL LAB MCH(LOINC) MCH 33.2 27-34 pg LAB MCHC(LOINC) MCHC 33.4 32-36 g/dL LAB RDW(LOINC) RDW 16.3 High 11.5-15.0 % LAB PLTC(LOINC) PLATELET COUNT 168 150-450 X10E9 /L LAB MPV(LOINC) MPV 9.0 7-12 fL Performed By: #### 35574-9, 73156-4, UPCR, BMP, CBC, 2731-8, 2777-1 #### [facility] ([id number]) [address] [address] [facility], [address] [place] [address] BASIC METABOLIC PANL Collected: 10/28/2024 2:00 PM Status: COMPLETED Source: [facility] TYPE CODE TESTS RESULT OUT OF RANGE REFERENCE UNITS LAB NA(LOINC) SODIUM 142 134-146 mmol/L LAB K(LOINC) POTASSIUM 4.2 3.5-5.0 mmol/L LAB CL(LOINC) CHLORIDE 101 98-109 mmol/L LAB CO2(LOINC) CARBON DIOXIDE 30 22-32 mmol/L LAB AGAP(LOINC) ANION GAP 11 5-15 mmol/L LAB BUN(LOINC) BLOOD UREA NITROGEN 36 High 5-27 mg/dL LAB CRET(LOINC) CREATININE 1.52 High 0.40-1.00 mg/dL Result Comment: METHOD TRACE ABLE TO IDMS STANDARD LAB GLU(LOINC) GLUCOSE 173 High 65-99 mg/dL LAB CA(LOINC) CALCIUM 10.0 8.5-10.5 mg/dL LAB EGFR(LOINC) eGFR (CKD-EPI) NON-RACE DEPENDENT 33 Low >59 ml/min/1. 73sq.m Result Comment: Reported eGFR is based on the CKD-EPI 2020 equation that does not use a race coefficient. Performed By: #### 97438-6, 21919-5, UPCR, BMP, CBC, 2731-8, 2777-1 #### [facility] ([id number]) [address] [place] [address], [address] [address] MAGNESIUM Collected: 10/28/2024 2:00 PM S tatus: COMPLETED Source: [facility] TYPE CODE TESTS RESULT OUT OF RANGE REFERENCE UNITS LAB MG(LOINC) MAGNESIUM 2.3 1.8-2.6 mg/dL Performed By: #### 08421-8, 88128-9, UPCR, BMP, CBC, 2731-8, 2777-1 #### [facility] ([id number]) [address] [place] [address], [address] [address] PHOSPHORUS Collected: 10/28/2024 2:00 PM S tatus: COMPLETED Source: [facility] TYPE CODE TESTS RESULT OUT OF RANGE REFERENCE UNITS LAB PHOS(LOINC) PHOSPHORUS 3.1 2.4-4.9 mg/dL Performed By: #### 60136-9, 74109-9, UPCR, BMP, CBC, 2731-8, 2777-1 #### [facility] ([id number]) [address] [place] [address], [address] [address] PROTEIN CREAT RATIO Collected: 10/28/2024 2:00 PM Status: COMPLETED Source: [facility] TYPE CODE TESTS RESULT OUT OF RANGE REFERENCE UNITS LAB UCRR(LOINC) URINE CREATININE,RDM 38.40 mg/dL LAB UTPR(LOINC) RANDOM URINE PROTEIN 1640 High <120 mg/L LAB UPCRC(LOINC) U/PRO/DEVELOPMENT EXPERT RATIO CALC 4.27 High <0.2 Result Comment: Nephrotic Sy ndrome is associated with ratios >3.5 Performed By: #### 21423-2, 60727-4, UPCR, BMP, CBC, 2731-8, 2777-1 #### [facility] ([id number]) [address], [address] [place] [address] PTH INTACT Collected: 10/28/2024 2:00 PM S tatus: COMPLETED Source: [facility] TYPE CODE TESTS RESULT OUT OF RANGE REFERENCE UNITS LAB PTH(LOINC) PTH INTACT 76 12-88 pg/mL Performed By: #### 44462-7, 79715-0, UPCR, BMP, CBC, 2731-8, 2777-1 #### [facility] ([id number]) [address], [address] [place] [address] VITAMIN D 25 HYD TOT Collected: 10/28/2024 2:00 PM Status: COMPLETED Source: [facility] TYPE CODE TESTS RESULT OUT OF RANGE REFERENCE UNITS LAB VITD(LOINC) VITAMIN D 25 HYD TOT 41.8 30-100 ng/mL Result Comment: Vitamin D status 25 [place] Vitamin D Deficiency <20 ng/mL Insufficiency 20-29 ng/mL Sufficiency 30-100 ng/mL Toxicity >100 ng/mL NOTE: A pediatric reference range has not been established by the can vacuum tester of this kit. The [place] recommends a Vitamin D level of = or >20ng/mL in infants and children. Performed By: #### 73618-4, 62783-8, UPCR, BMP, CBC, 2731-8, 2777-1 #### [facility] ([id number]) [address] [place] [address], [address] [place] [address] URINALYSIS Collected: 2:00 PM Status: COMPLETED Source: [facility] TYPE CODE TESTS RESULT OUT OF RANGE REFERENCE UNITS LAB COLP(LOINC) COLOR YELLOW YELLOW LAB TURB(LOINC) TURBIDITY CLEAR CLEAR LAB SPGR(LOINC) SPECIFIC GRAVITY 1.013 1.003-1.035 LAB NITR(LOINC) NITRITE Negative (qualifier value) NEG LAB PHUR(LOINC) PH,URINE 6.5 5.0-8.5 LAB LEST(LOINC) LEUKOCYTE ESTERASE Negative (qualifier value) NEG Result Comment: HIGH CONCENT RATIONS OF GLUCOSE MAY DECREASE THE REACTIVITY OF THE DIPSTICK LEUKOCYTE TEST PAD. LAB PRU(LOINC) PROTEIN 200 Abnormal NEG mg/dL LAB GLUR(LOINC) GLUCOSE (URINE) >1000 Abnormal NEG mg/ dL LAB KET(LOINC) KETONES (URINE) Negative (qualifier value) NEG mg/dL LAB UROB(LOINC) UROBILINOGEN <1.1 <1.1 eu/dL LAB BILEU(LOINC) BILIRUBIN (URINE) Negative (qualifier value) NEG LAB BLUR(LOINC) BLOOD/HGB Negative (qualifier value) NEG LAB RBCU(LOINC) R.B.CELLS 1 0-5 /hpf LAB WBCU(LOINC) W.B.CELLS 4 0-5 /hpf Performed By: #### UA #### [facility] ([id number]) [address] [place] [address], [facility] [address] [place] [address] COMPREHENSIVE METABOLIC PANEL Collected: 2023 5:40 PM Status: COMPLETED Source: [facility] TYPE CODE TESTS RESULT OUT OF RANGE REFERENCE UNITS LAB NA(LOINC) SODIUM 141 134-146 mmol/L LAB K(LOINC) POTASSIUM 4.1 3.5-5.0 mmol/L LAB CL(LOINC) CHLORIDE 101 98-109 mmol/L LAB CO2(LOINC) CARBON DIOXIDE 31 22-32 mmol/L LAB AGAP(LOINC) ANION GAP 9 5-15 mmol/L LAB BUN(LOINC) BLOOD UREA NITROGEN 31 High 5-27 mg/dL LAB CRET(LOINC) CREATININE 1.61 High 0.40-1.00 mg/dL Result Comment: METHOD TRACE ABLE TO IDMS STANDARD LAB GLU(LOINC) GLUCOSE 168 High 65-99 mg/dL LAB CA(LOINC) CALCIUM 10.2 8.5-10.5 mg/dL LAB TP(LOINC) TOTAL PROTEIN 7.1 6.0-8.0 g/dL LAB ALB(LOINC) ALBUMIN 4.0 3.2-5.3 g/dL LAB ALK(LOINC) ALKALINE PHOSPHATASE 51 39-130 U/L LAB AST(LOINC) AST 22 0-41 U/L LAB ALT1(LOINC) ALT 10 0-31 U/L LAB TBIL(LOINC) BILIRUBIN,TOTAL 0.6 0.3-1.2 mg/d L LAB EGFR(LOINC) eGFR (CKD-EPI) NON-RACE DEPENDENT 31 Low >59 ml/min/1 .73sq.m Result Comment: Reported eGFR is based on the CKD-EPI 2020 equation that does not use a race coefficient. Performed By: #### CMP, 2433 1-1, HA1C #### [facility] ([id number]) [address] [place] [address], [address] [place] [address] LIPID PROFILE Collected: 06/15/2024 5:40 PM Status: COMPLETED Source: [facility] TYPE CODE TESTS RESULT OUT OF RANGE REFERENCE UNITS LAB CHOL(LOINC) CHOLESTEROL 203 High 150-200 mg/dL LAB TRIG(LOINC) TRIGLYCERIDE 384 High 27-150 mg/dL LAB HDL(LOINC) HDL CHOLESTEROL 31 Low >39 mg/dL Result Comment: HDL <40 mg/dL - High Risk HDL > or = 40mg/dL- Desirable HDL >60 mg/dL - Negative Risk LAB VLDL(LOINC) VERY LOW LIPOPROTEIN 77 High 0-30 mg/dL LAB LDL(LOINC) LDL (CALC) 95 <130 mg/dL Result Comment: LDL <100 mg/dL - Desirable LDL >160 mg/dL - High Risk LAB CHDL(LOINC) CHOLESTEROL:HDL 6.5 High 1.0-5.0 Performed By: #### GALINA, 2433 1-1, MARZENA1C #### [facility] ([id number]) [address] [place] [address], [address] [place] [address] HGB A1C (GLYCO-HGB) Collected: 06/15/2024 5:40 PM Status: COMPLETED Source: [facility] TYPE CODE TESTS RESULT OUT OF RANGE REFERENCE UNITS LAB HBA1C(LOINC) HEMOGLOBIN A1C 9.7 High 4.4-5.6 % Result Comment: NOTE ADA Guidelines Result HgbA1c Normal : less than 5.7 % Prediabetes : 5.7 % to 6.4 % Diabetes : > 6.4 % Use with caution in patients with abnormal hemoglobin variants as the half-life of red blood cells and in vivo glycation rates are affected. LAB EAG(LOINC) AVERAGE GLUCOSE 232 mg/dL Performed By: #### GALINA, 2433 1-1, MARZENA1C #### [facility] ([id number]) [address] [place] [address], [address] [place] [address] URINALYSIS Collected: 5:49 PM Status: COMPLETED Source: [facility] TYPE CODE TESTS RESULT OUT OF RANGE REFERENCE UNITS LAB COLP(LOINC) COLOR YELLOW YELLOW LAB TURB(LOINC) TURBIDITY CLEAR CLEAR LAB SPGR(LOINC) SPECIFIC GRAVITY 1.007 1.003-1.035 LAB NITR(LOINC) NITRITE Negative (qualifier value) NEG LAB PHUR(LOINC) PH,URINE 6.0 5.0-8.5 LAB LEST(LOINC) LEUKOCYTE ESTERASE Negative (qualifier value) NEG Result Comment: HIGH CONCENT RATIONS OF GLUCOSE MAY DECREASE THE REACTIVITY OF THE DIPSTICK LEUKOCYTE TEST PAD. LAB PRU(LOINC) PROTEIN 50 Abnormal NEG mg/dL LAB GLUR(LOINC) GLUCOSE (URINE) >1000 Abnormal NEG mg/ dL LAB KET(LOINC) KETONES (URINE) Negative (qualifier value) NEG mg/dL LAB UROB(LOINC) UROBILINOGEN <1.1 <1.1 eu/dL LAB BILEU(LOINC) BILIRUBIN (URINE) Negative (qualifier value) NEG LAB BLUR(LOINC) BLOOD/HGB Negative (qualifier value) NEG LAB MUCU(LOINC) MUCOUS PRESENT Abnormal NONE LAB RBCU(LOINC) R.B.CELLS <1 0-5 /hpf LAB WBCU(LOINC) W.B.CELLS 0 0-5 /hpf Performed By: #### UA #### [facility] ([id number]) [address] [place] [address], [address] [place] [address] PROTEIN CREAT RATIO Collected: 02/02/2024 5:49 PM Status: COMPLETED Source: [facility] TYPE CODE TESTS RESULT OUT OF RANGE REFERENCE UNITS LAB UCRR(LOINC) URINE CREATININE,RDM 14.39 mg/dL LAB UTPR(LOINC) RANDOM URINE PROTEIN 620 High <120 mg/L LAB UPCRC(LOINC) U/PRO/DEVELOPMENT EXPERT RATIO CALC 4.31 High <0.2 Result Comment: Nephrotic Sy ndrome is associated with ratios >3.5 Performed By: #### UPCR #### [facility] ([id number]) [address] [place] [address], [address] [place] [address] COMPLETE BLOOD COUNT Collected: 02/02/2024 5:41 PM Status: COMPLETED Source: [facility] TYPE CODE TESTS RESULT OUT OF RANGE REFERENCE UNITS LAB WBC(LOINC) WBC COUNT 4.2 4.0-11.0 X10E9/L LAB RBC(LOINC) RBC COUNT 4.15 3.80-5.20 X10E12/L LAB HGB(LOINC) HEMOGLOBIN 14.1 11.7-15.5 g/dL LAB HCT(LOINC) HEMATOCRIT 41.7 35-47 % LAB MCV(LOINC) MCV 101 High 80-100 fL LAB MCH(LOINC) MCH 34.1 High 27-34 pg LAB MCHC(LOINC) MCHC 33.9 32-36 g/dL LAB RDW(LOINC) RDW 15.6 High 11.5-15.0 % LAB PLTC(LOINC) PLATELET COUNT 186 150-450 X10E9 /L LAB MPV(LOINC) MPV 9.3 7-12 fL Performed By: #### RAJWINDER, 2777 -1, 83054-6, KAREN, 8 #### [facility] ([id number]) [address], [address] [place] [address] BASIC METABOLIC PANL Collected: 02/02/2024 5:41 PM Status: COMPLETED Source: [facility] TYPE CODE TESTS RESULT OUT OF RANGE REFERENCE UNITS LAB NA(LOINC) SODIUM 141 134-146 mmol/L LAB K(LOINC) POTASSIUM 4.1 3.5-5.0 mmol/L LAB CL(LOINC) CHLORIDE 100 98-109 mmol/L LAB CO2(LOINC) CARBON DIOXIDE 29 22-32 mmol/L LAB AGAP(LOINC) ANION GAP 12 5-15 mmol/L LAB BUN(LOINC) BLOOD UREA NITROGEN 26 5-27 mg/dL LAB CRET(LOINC) CREATININE 1.58 High 0.40-1.00 mg/dL Result Comment: METHOD TRACE ABLE TO IDMS STANDARD LAB GLU(LOINC) GLUCOSE 220 High 65-99 mg/dL LAB CA(LOINC) CALCIUM 9.9 8.5-10.5 mg/dL LAB EGFR(LOINC) eGFR (CKD-EPI) NON-RACE DEPENDENT 32 Low >59 ml/min/1. 73sq.m Result Comment: Reported eGFR is based on the CKD-EPI 2020 equation that does not use a race coefficient. Performed By: #### RAJWINDER, 2777 -1, 43603-4, KAREN, 8 #### [facility] ([id number]) [address] [facility], [address] [place] [address] MAGNESIUM Collected: 02/02/2024 5:41 PM S tatus: COMPLETED Source: [facility] TYPE CODE TESTS RESULT OUT OF RANGE REFERENCE UNITS LAB MG(LOINC) MAGNESIUM 2.3 1.8-2.6 mg/dL Performed By: #### RAJWINDER, 2777 -1, 02790-7, KAREN, 2731-02 #### [facility] ([id number]) [address] [place] [address], [address] [place] [address] PHOSPHORUS Collected: 02/02/2024 5:41 PM S tatus: COMPLETED Source: [facility] TYPE CODE TESTS RESULT OUT OF RANGE REFERENCE UNITS LAB PHOS(LOINC) PHOSPHORUS 3.4 2.4-4.9 mg/dL Performed By: #### RAJWINDER, 2777 -1, 77126-8, BMP, 2731-8 #### [facility] ([id number]) [address] [place] [address], [address] [place] [address] PTH INTACT Collected: 02/02/2024 5:41 PM S tatus: COMPLETED Source: [facility] TYPE CODE TESTS RESULT OUT OF RANGE REFERENCE UNITS LAB PTH(LOINC) PTH INTACT 108 High 12-88 pg/mL Performed By: #### RAJWINDER, 2777 -1, 77263-9, BMP, 2731-8 #### [facility] ([id number]) [address] [place] [address], [address] [place] [address] ALLERGIES DATE TYPE / CODE NAME / CODE REACTION SEVERITY SOURCE 03/15/2021 Drug Class/657866 003(SNOMED CT) PENICILLINS Hives [facility] 03/15/2021 DRUG INGREDI~Food /361118846(S NOMED CT) IODINE [facility] 03/15/2021 Drug Class~NON-CB ORD/81835421 3(SNOMED CT) PENICILLINS Hives~Swelling [facility] 09/28/2020 DRUG INGREDI~NON- CBORD/059109 003(SNOMED CT) ATORVASTATIN [facility] 09/28/2020 DRUG INGREDI~NON- CBORD/186564 003(SNOMED CT) ROSUVASTATIN [facility] 09/27/2020 Drug Class~NON-CB ORD/15460848 3(SNOMED CT) [id number] REDUCTASE INHIBITORS [facility] 09/27/2020 DRUG INGREDI~NON- CBORD/331547 003(SNOMED CT) SPIRONOLACTONE [facility] 09/27/2020 DRUG INGREDI~NON- CBORD/988178 003(SNOMED CT) AMLODIPINE [facility] 04/15/2018 DRUG INGREDI~Envi michael~NON-CBOR D/670410949( SNOMED CT) DYE [facility] ENCOUNTERS ADMIT/DISCHARGE ACCOUNT NUMBER ADMITTING ENCOUNTER CLASS LOCATION SOURCE 11/15/2024/ 5 [id number] Ambulatory Buildin A [facility] 11/11/2024/ 5 [id number] Ambulatory Buildin 91 [facility] 11/11/2024/ 5 [id number] Ambulatory Building:PFM _PF [facility] 11/04/2024/ 5 [id number] Ambulatory Building:PFM _CV [facility] 10/28/2024/ 5 [id number] Ambulatory Building:PFM _LAB [facility] 09/13/2024/ 5 [id number] Ambulatory Buildin 4 [facility] 06/15/2024/ 4 [id number] Ambulatory Building:PTH _PML [facility] 06/15/2024/ 4 [id number] Ambulatory Buildin 91 [facility] 02/24/2024/ 4 [id number] Ambulatory Buildin 4 [facility] 02/02/2024/ 4 [id number] Ambulatory Building:PF _LAB [facility] FUNCTIONAL STATUS No Functional Status Records Found EQUIPMENT No Equipment Records Found PAYERS ENCOUNTER GUARANTOR PAYER SUBSCRIBER SOURCE 11/15/2024 SILVINO NAVARRETE: [id number] [address]Krg: () Primary Insurance:MEDICARE PART A & BPolicy Number: [id number] Date:2002-10-05 SILVINO NAVARRETE: [id number] [address] [place] [address] [facility] 11/15/2024 Secondary Insurance:[employer]ANS[employer] CLAIMS PROCCESSINGPolicy Number: [id number] Date:2018-07-07 SILVINO NAVARRETE: [id number] [address] [place] [address] [facility] 11/11/2024 SILVINO NAVARRETE: [address], [place] [address]Skh: (HP) Primary Insurance:MEDICARE PART A & BPolicy Number: [id number] Date:2002-10-05 SILVINO NAVARRETE: [id number] [address] [place] [address] [facility] 11/11/2024 Secondary Insurance:[employer] CLAIMS PROCCESSINGPolicy Number: [id number] Date:2018-07-07 SILVINO NAVARRETE: [id number] [address] [place] [address] [facility] 11/11/2024 SILVINO NAVARRETE: [address], [place] [address]Lcy: (HP) Primary Insurance:MEDICARE PART A & BPolicy Number: [id number] Date:2002-10-05 SILVINO NAVARRETE: [id number] [address] [place] [address] [facility] 11/11/2024 Secondary Insurance:[employer] CLAIMS PROCCESSINGPolicy Number: [id number] Date:2018-07-07 SILVINO NAVARRETE: [id number] [address] [place] [address] [facility] 11/04/2024 SILVINO NAVARRETE: [address], [place] [address]Msb: (HP) Primary Insurance:MEDICARE PART A & BPolicy Number: [id number] Date:2002-10-05 SILVINO DOWB: [id number] [address] [place] [address] [facility] 11/04/2024 Secondary Insurance:[employer] CLAIMS PROCCESSINGPolicy Number: [id number] Date:2018-07-07 SILVINO DOWB: [id number] [address] [place] [address] [facility] 10/28/2024 SILVINO JOHNSONDOB: [address], [place] [address]Pxf: (HP) Primary Insurance:MEDICARE PART A & BPolicy Number: [id number] Date:2002-10-05 SILVINO DOWB: [id number] [address] [place] [address] [facility] 10/28/2024 Secondary Insurance:[employer] CLAIMS PROCCESSINGPolicy Number: [id number] Date:2018-07-07 SILVINO DOWB: [id number] [address] [place] [address] [facility] 09/13/2024 SILVINO DOWB: [address], [place] [address]Sjf: (HP) Primary Insurance:MEDICARE PART A & BPolicy Number: [id number] Date:2002-10-05 SILVINO DOWB: [id number] [address] [place] [address] [facility] 09/13/2024 Secondary Insurance:[employer] CLAIMS PROCCESSINGPolicy Number: [id number] Date:2018-07-07 SILVINO DOWB: [id number] [address] [place] [address] [facility] 06/15/2024 SILVINO DOWB: [address], [place] [address]Mlq: (HP) Primary Insurance:MEDICARE PART A & BPolicy Number: [id number] Date:2002-10-05 SILVINO NAVARRETE: [id number] [address] [place] [address] [facility] 06/15/2024 Secondary Insurance:TRANSAMERICAPo licy Number: [id number] Date:2018-07-07 SILVINO NAVARRETE: [id number] [address] [place] [address] [facility] 06/15/2024 SILVINO DOWB: [address], [place] [address]Qox: (HP) Primary Insurance:MEDICARE PART A & BPolicy Number: [id number] Date:2002-10-05 SILVINO NAVARRETE: [id number] [address] [place] [address] [facility] Ambulatory [facility] 06/15/2024 Secondary Insurance:TRANSAMERICAPo licy Number: [id number] Date:2018-07-07 SILVINO DOWB: [id number] [address] [place] [address] [facility] 02/24/2024 SILVINO NAVARRETE: [address], [place] [address]Qvd: (HP) Primary Insurance:MEDICARE PART A & BPolicy Number: [id number] Date:2002-10-05 SILVINO NAVARRETE: [id number] [address] [place] [address] [facility] 02/24/2024 Secondary Insurance:TRANSAMERICAPo licy Number: [id number] Date:2018-07-07 SILVINO NAVARRETE: [id number] [address] [place] [address] [facility] 02/02/2024 SILVINO NAVARRETE: [address] [address]Bhf: () Primary Insurance:MEDICARE PART A & BPolicy Number: [id number] Date:2002-10-05 SILVINO AUSTIN LANDON: [id number] [address] [address]Arp: () [facility] 02/02/2024 Secondary Insurance:TRANSAMERICAPo licy Number: [id number] Date:2018-07-07 SILVINO DOWB: [id number] [address] [address]Tkv: () [facility] SOCIAL HISTORY No Social History Records Found FAMILY HISTORY No Family History Records Found ADVANCE DIRECTIVES No Advanced Directives Records Found INFORMATION SOURCE DATE CREATED AUTHOR AUTHOR'S STIVEN ENGLISH 11/25/2024 MANI
[2024-11-25 17:47] VITALS: BP 177/96; PULSE 64; TEMP 36.6; O2SAT 90; BMI 39.3
--- NOTE | 2024-11-25 17:50 | XR_ITS ---
[address] [address] Patient Name: SILVINO JOHNSON MRN: [id number] date: 1935 Sex: F Assigned Patient Location: ER Current Patient Location: ER Accession/Order Number: [id number] Exam Date: 11/25/2024 18:39 Report Date: 11/25/2024 18:40 At the request of: SEHRI SCOTT Procedure: XR foot LT min 3V 3 views left foot plain film COMPARISON:None HISTORY: Left foot pain for one day ACUTE FINDINGS: None DEGENERATIVE CHANGE: Calcaneal spur. Mild degeneration. SOFT TISSUE FINDINGS: Soft tissue swelling. No subcutaneous air. No radiodense foreign body. JOINT EFFUSION: None POSTOP CHANGES: None BONE MINERALIZATION: Adequate XR/XR foot LT min 3V IMPRESSION: Diffuse soft tissue swelling. No subcutaneous air. Degenerative change. Impression dictated by: Adolfo Zimmer M.D. 11/25/2024 6:40 PM Dictation Location: [place] [employer] Electronically authenticated by: [id number] Y Date: 11/25/2024 18:40
--- NOTE | 2024-11-25 17:50 | US_ITS ---
The [place] [id number] Patient Name: SILVINO JOHNSON MRN: [id number] date: 1935 Sex: F Assigned Patient Location: ER Current Patient Location: ER Accession/Order Number: [id number] Exam Date: 11/25/2024 19:17 Report Date: 11/25/2024 19:19 At the request of: SHERI SCOTT Procedure: US venous doppler LE LT Venous Doppler ultrasound of the left lower extremity HISTORY: Left lower leg pain for one day. Pain and swelling. Patient on blood thinner. No DVT identified. Normal compressibility identified. Normal waveform the venous structures present. Ankle edema present. Evaluate limited by edema and patient body habitus. US/US venous doppler LE LT IMPRESSION: No DVT of the left lower extremity. Impression dictated by: Adolfo Zimmer M.D. 11/25/2024 7:19 PM Dictation Location: [place] [address] Electronically authenticated by: [id number] Y Date: 11/25/2024 19:19
--- NOTE | 2024-11-25 17:55 | ED.GENADUL1 ---
HPI HPI - General Adult General Chief complaint: Extremity Problem, Nontraumatic Stated complaint: LEFT LOWER EXTREMITY PAIN Time Seen by Provider: 11/25/24 17:49 Source: patient Mode of arrival: Wheelchair Limitations: no limitations History of Present Illness HPI narrative: 89 year old female presents to the ED for left foot swelling, pain, erythema. Onset was this morning. The discomfort and erythema extend to her medial ankle, lower leg. Denies fever, chills, injury. She has peripheral neuropathy, a-fib. States she has chronic SOB that is unchanged. Denies pain when sitting. The pain is worse with ambulation and palpation. Most of the pain is to the top of the foot. Related Data Home Medications ?Medication ?Instructions ?Recorded ?Confirmed allopurinol 100 mg tablet 100 mg PO DAILY 12/09/23 12/11/23 apixaban 2.5 mg tablet (Eliquis) 2.5 mg PO BID 12/09/23 12/11/23 ascorbic acid (vitamin C) 250 mg 250 mg PO DAILY 12/09/23 12/11/23 tablet (Vitamin C) bempedoic acid 180 mg-ezetimibe 10 1 tab PO DAILY 12/09/23 12/11/23 mg tablet (Nexlizet) bumetanide 2 mg tablet 2 mg PO BID 12/09/23 12/09/23 cholecalciferol (vitamin D3) 50 2,000 unit PO DAILY 12/09/23 12/11/23 mcg (2,000 unit) tablet coenzyme Q10 100 mg capsule 100 mg PO DAILY 12/09/23 12/11/23 (CoQ-10) dapagliflozin propanediol 10 mg 10 mg PO QAM 12/09/23 12/11/23 tablet (Farxiga) digoxin 125 mcg (0.125 mg) tablet 125 mcg PO .every other day afib 12/09/23 12/11/23 (Digitek) diltiazem HCl 180 mg 180 mg PO QAM 12/09/23 12/11/23 capsule,extended release 24 hr (Cardizem CD) lisinopril 10 mg tablet 10 mg PO DAILY 12/09/23 12/11/23 metoprolol tartrate 50 mg tablet 50 mg PO BID 12/09/23 12/11/23 (Lopressor) mlpzomqq-jks-xmvq-FA-Ca carb-vit K 1 tab PO DAILY 12/09/23 12/11/23 18 mg iron-400 mcg-500 mg tablet (One-A-Day Womens Formula) omega 0-lpt-qoc-fish oil 1,000 mg 1 cap PO BID 12/09/23 12/11/23 (120 mg-180 mg) capsule (Fish Oil) potassium chloride 20 mEq 20 meq PO DAILY 12/09/23 12/11/23 tablet,extended release (K-Tab) vit cap PO BID 12/09/23 C,E,zinc,Ir-ztstu-5-lutein-zeaxanthin 250 mg-2.5 mg-0.5 mg capsule zinc 50 mg tablet 50 mg PO DAILY 12/09/23 12/11/23 Previous Rx's ?Medication ?Instructions ?Recorded doxycycline monohydrate 100 mg 100 mg PO BID 10 days #20 caps 11/25/24 capsule Allergies Allergy/AdvReac Type Severity Reaction Status Date / Time amlodipine Allergy Unknown Unknown Verified 11/25/24 17:54 iodine Allergy Unknown Unknown Verified 11/25/24 17:54 Penicillins Allergy Unknown Rash Verified 12/11/23 07:24 Isptjsk-SID-IpK Reductase Allergy Unknown Muscle Pain Verified 11/25/24 17:54 Inhibitor Opioid HPI Opioid Management Most Recent Opioid Data: Last Pain Scale 6 Today, 17:54 Review of Systems ROS Constitutional Denies: fever or chills Ears, nose, mouth, and throat Denies: neck pain Cardiovascular Denies: chest pain Respiratory Reports: shortness of breath (chronic) Musculoskeletal Reports: extremity pain and extremity swelling; Denies: back pain Integumentary/Breast Reports: redness and skin tenderness Neurological Reports: numbness in extremities (chronic); Denies: headache, weakness in extremities or dizziness [facility] Medical History (Updated 11/25/24 @ 19:29 by Mer Monge) Coronary atherosclerosis of bypass graft ?I25.810 - Atherosclerosis of coronary artery bypass graft(s) without angina pectoris (ICD-10) Heel spur ?M77.30 - Calcaneal spur, unspecified foot (ICD-10) Hyperlipemia ?E78.5 - Hyperlipidemia, unspecified (ICD-10) Congestive heart failure ?I50.9 - Heart failure, unspecified (ICD-10) Gout ?M10.9 - Gout, unspecified (ICD-10) Afib ?I48.91 - Unspecified atrial fibrillation (ICD-10) Hypertension ?I10 - Essential (primary) hypertension (ICD-10) Surgical History (Updated 12/11/23 @ 07:20 by Renee Trimble) Hx of foot surgery ?Z98.890 - Other specified postprocedural states (ICD-10) History of right cataract extraction ?Z98.41 - Cataract extraction status, right eye (ICD-10) History of quadruple bypass ?Z95.1 - Presence of aortocoronary bypass graft (ICD-10) History of appendectomy ?Z90.49 - Acquired absence of other specified parts of digestive tract (ICD-10) H/O tubal ligation ?Z98.51 - Tubal ligation status (ICD-10) Family History (Updated 12/09/23 @ 11:21 by Val Luo) Father Family history of CHF (congestive heart failure) Family history of cancer Mother Family history of CHF (congestive heart failure) Family history of diabetes mellitus Family history of cancer Leukemia Breast cancer Skin cancer Sister Breast cancer Social History (Updated 12/09/23 @ 11:42 by Val Luo) Within the past year, how often did you have a drink containing alcohol: never Score interpretation: A score less than 3 is consistent with normal alcohol consumption. 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 Highest level of school completed/degree received: Bachelor's degree Little interest or pleasure in doing things: not at all Feeling down, depressed, or hopeless: not at all Exam Constitutional Vital Signs, click to edit/add: Last Vital Signs Temp 98 F 11/25/24 17:47 Pulse 71 11/25/24 19:37 Resp 20 11/25/24 19:37 BP 169/90 H 11/25/24 19:37 Pulse Ox 97 11/25/24 19:37 O2 Del Method Nasal Cannula 11/25/24 19:37 O2 Flow Rate 2 11/25/24 19:37 Common normals: no apparent distress and oriented x3 General appearance: cooperative; not ill appearing HENMT Common normals: external ears normal and moist oral mucous membranes Eye Common normals: conjunctivae normal and no scleral icterus Neck & C-Spine Common normals: supple Chest Chest: symmetrical chest wall rise Respiratory Common normals: normal respiratory effort Effort & inspection: able to speak in complete sentences and symmetric chest movement Cardio Common normals: regular rate Rhythm: abnormal rhythm Extremity Other: Tenderness to left distal foot. Mild erythema and swelling to the top of the foot. Mild erythema to left medial ankle and lower leg. Pedal pulses palpable. No obvious deformity. No wound noted. Neuro Common normals: oriented x3 and moves all extremities Sensorium/orientation: awake and alert Speech: speech normal Course Vital Signs Vital signs: Vital Signs Temperature 98 F 11/25/24 17:47 Pulse Rate 64 11/25/24 17:47 Respiratory Rate 18 11/25/24 17:47 Blood Pressure 177/96 H 11/25/24 17:47 Pulse Oximetry 90 L 11/25/24 17:47 Oxygen Delivery Method Room Air 11/25/24 17:47 Temperature 98 F 11/25/24 17:47 Pulse Rate 71 11/25/24 19:37 Respiratory Rate 20 11/25/24 19:37 Blood Pressure 169/90 H 11/25/24 19:37 Pulse Oximetry 97 11/25/24 19:37 Oxygen Delivery Method Nasal Cannula 11/25/24 19:37 Oxygen Delivery Flow Rate 2 11/25/24 19:37 Medical Decision Making MDM Narrative Medical decision making narrative: WBC count was unremarkable. Venous Doppler was negative for DVT. X-ray of the foot was negative for acute findings. Findings were discussed with the patient and her family. She will be treated for cellulitis. A prescription was provided for doxycycline. Follow up with pcp for a recheck, further evaluation and treatment. Return precautions were discussed. Medical Records Medical records reviewed: Yes I reviewed the patient's medical records Lab Data Lab results reviewed: Yes I reviewed the patient's lab results Labs: Lab Results 11/25/24 Range/Units 18:04 WBC 6.3 (4.0-11.0) 10^3/uL RBC 4.13 L (4.20-5.40) 10^6/uL Hgb 13.8 (12.0-16.0) g/dL Hct 42.5 (36.0-48.0) % MCV 102.9 H (81.0-99.0) fL MCH 33.4 (26.7-34.0) pg MCHC 32.5 (29.9-35.2) g/dL RDW 15.1 H (11.0-15.0) % Plt Count 188 (150-450) 10^3/uL MPV 10.3 (9.5-13.5) fL Neut % (Auto) 61.4 (43.0-75.0) % Lymph % (Auto) 24.8 (20.5-60.0) % [place] % (Auto) 10.1 (1.7-12.0) % Eos % (Auto) 2.6 (0.9-7.0) % Baso % (Auto) 0.5 (0.2-2.0) % Neut # (Auto) 3.9 (1.4-6.5) 10^3/uL Lymph # (Auto) 1.6 (1.2-3.8) 10^3/uL [place] # (Auto) 0.6 (0.3-0.8) 10^3/uL Eos # (Auto) 0.2 (0.0-0.7) 10^3/uL Baso # (Auto) 0.0 (0.0-0.1) 10^3/uL Abs Immat Gran (auto) 0.04 H (0.00-0.03) 10^3/uL Imm/Tot Granulo (auto) 0.6 H (0.0-0.5) % ESR 72 H (<=30) mm/hr Sodium 144 (136-145) mmol/L Potassium 4.2 (3.5-5.1) mmol/L Chloride 104 (98-107) mmol/L Carbon Dioxide 32.5 H (21.0-32.0) mmol/L Anion Gap 11.7 BUN 31.0 H (7.0-18.0) mg/dL Creatinine 1.56 H (0.55-1.02) mg/dL Est GFR ( Amer) 38 L (>=60 mL/min/1.73m^2) Est GFR (Non-Af Amer) 31 L (>=60 mL/min/1.73m^2) BUN/Creatinine Ratio 19.9 Glucose 188 H (74-106) mg/dL Calcium 9.5 (8.5-10.1) mg/dL Imaging Data XR: Attestation: I have reviewed the pertinent imaging results. Radiologist's impression: ITS Impressions Foot X-Ray 11/25/24 17:50 IMPRESSION: Diffuse soft tissue swelling. No subcutaneous air. Degenerative change. Impression dictated by: Adolfo Zimmer M.D. 11/25/2024 6:40 PM Dictation Location: [place] Electronically authenticated by: [id number] Y Date: 11/25/2024 18:40 Venous Doppler Study 11/25/24 17:50 IMPRESSION: No DVT of the left lower extremity. Impression dictated by: Adolfo Zimmer M.D. 11/25/2024 7:19 PM Dictation Location: [place] Electronically authenticated by: [id number] Y Date: 11/25/2024 19:19 Discharge Plan Discharge Chief Complaint: Extremity Problem, Nontraumatic Clinical Impression: Cellulitis, Foot pain, left Patient Disposition: Home, Self-Care Time of Disposition Decision: 19:29 Condition: Good Mode of Transportation: Private Vehicle Prescriptions / Home Meds: New doxycycline monohydrate 100 mg capsule 100 mg PO BID 10 Days Qty: 20 0RF No Action allopurinol 100 mg tablet 100 mg PO DAILY Eliquis 2.5 mg tablet 2.5 mg PO BID ascorbic acid (vitamin C) [Vitamin C] 250 mg tablet 250 mg PO DAILY bumetanide 2 mg tablet 2 mg PO BID cholecalciferol (vitamin D3) 50 mcg (2,000 unit) tablet 2,000 unit PO DAILY coenzyme Q10 [CoQ-10] 100 mg capsule 100 mg PO DAILY dapagliflozin propanediol [Farxiga] 10 mg tablet 10 mg PO QAM digoxin [Digitek] 125 mcg (0.125 mg) tablet 125 mcg PO .every other day lisinopril 10 mg tablet 10 mg PO DAILY metoprolol tartrate [Lopressor] 50 mg tablet 50 mg PO BID One-A-Day Womens Formula 18 mg iron-400 mcg-500 mg tablet 1 tab PO DAILY Nexlizet 180-10 mg tablet 1 tab PO DAILY omega 5-fmq-ihg-fish oil [Fish Oil] 1,000 mg (120 mg-180 mg) capsule 1 cap PO BID potassium chloride [K-Tab] 20 mEq tablet extended release 20 meq PO DAILY vit C,E,Zn,Vr-tvevg5-vsd-zeax 250-2.5-0.5 mg capsule PO BID zinc 50 mg tablet 50 mg PO DAILY diltiazem HCl [Cardizem CD] 180 mg capsule,extended release 24hr 180 mg PO QAM Print Language: Thai Instructions: Cellulitis (ED), Arthralgia (ED) Additional Instructions: Return to the ER for worsening symptoms. Referrals: ARACELI SIMON [Primary Care Provider, Family Practice] - 1 week Discharge Date/Time: 11/25/24 20:11
[2024-11-25 17:56] VITALS: O2SAT 90
[2024-11-25 18:12] LABS: Basophils Percent Auto 0.5 % (0.2-2.0); Eosinophils Absolute Auto 0.2 10^3/uL (0.0-0.7); Eosinophils Percent Auto 2.6 % (0.9-7.0); Hematocrit 42.5 % (36.0-48.0); Hemoglobin 13.8 g/dL (12.0-16.0); Immature Granulocytes Abs Auto 0.04 10^3/uL (0.00-0.03); Immature Granulocytes Pct Auto 0.6 % (0.0-0.5); Lymphocytes Absolute Auto 1.6 10^3/uL (1.2-3.8); Lymphocytes Percent Auto 24.8 % (20.5-60.0); Mean Corpuscular HGB Conc 32.5 g/dL (29.9-35.2); Mean Corpuscular Hemoglobin 33.4 pg (26.7-34.0); Mean Corpuscular Volume 102.9 fL (81.0-99.0); Mean Platelet Volume 10.3 fL (9.5-13.5); Monocytes Absolute Auto 0.6 10^3/uL (0.3-0.8); Monocytes Percent Auto 10.1 % (1.7-12.0); Neutrophils Absolute Auto 3.9 10^3/uL (1.4-6.5); Neutrophils Percent Auto 61.4 % (43.0-75.0); Platelet Count 188 10^3/uL (150-450); Red Blood Count 4.13 10^6/uL (4.20-5.40); Red Cell Distribution Width 15.1 % (11.0-15.0); White Blood Count 6.3 10^3/uL (4.0-11.0)
[2024-11-25 18:17] LABS: Erythrocyte Sedimentation Rate 72 mm/hr (<=30)
[2024-11-25 18:19] LABS: Anion Gap 11.7; BUN Creatinine Ratio 19.9; Calcium 9.5 mg/dL (8.5-10.1); Carbon Dioxide 32.5 mmol/L (21.0-32.0); Chloride 104 mmol/L (98-107); Estimated GFR (African America 38 (>=60 mL/min/1.73m^2); Estimated GFR (Non-African Ame 31 (>=60 mL/min/1.73m^2); Glucose 188 mg/dL (74-106); Potassium 4.2 mmol/L (3.5-5.1); Sodium 144 mmol/L (136-145)
[2024-11-25 18:23] VITALS: O2SAT 94
[2024-11-25 19:37] VITALS: BP 169/90; PULSE 71; O2SAT 97
[2024-11-25] MEDS: DOXYCYCLINE MONOHYDRATE 100 MG CAPSULE PO ×2 (19:50→20:06)
== END 2024-11-25 20:11 | disposition home or self-care (01) ==
PROVIDERS: Nurse Practitioner Family; Emergency Provider Emergency Medicine; PCP Family Medicine
DX: L03.116 Cellulitis of left lower limb (principal); M79.672 Pain in left foot; I48.91 Unspecified atrial fibrillation; G62.9 Polyneuropathy, unspecified; R06.02 Shortness of breath; Z95.1 Presence of aortocoronary bypass graft; Z98.51 Tubal ligation status; Z90.49 Acquired absence of other specified parts of digestive tract
CPT/HCPCS: 36415; 73630; 80048; 85025; 85652; 93971; 99285

== ENCOUNTER 2025-06-05 11:01 | Emergency (ER) | payer MEDICARE, OTHER, SELFPAY ==
[2025-06-05] VITALS (22 sets, daily range): BP systolic 185–241; BP diastolic 101–131; PULSE 70–97; TEMP 36.7; O2SAT 91–97; BMI 38.7
--- NOTE | 2025-06-05 11:12 | ECG_ITS ---
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 Measurements Intervals [place] Rate: 72 P: -[id number] TN: -[id number] QRS: 55 QRSD: 88 T: 56 QT: 362 QTc: 386 Interpretive Statements 1210 Atrial fibrillation 9140 abnormal rhythm ECG No previous ECG available for comparison Electronically Signed On 06-05-2025 11:17:46 EST by RONALDO ESPINOZA M.D.
--- NOTE | 2025-06-05 11:12 | CT_ITS ---
The [address] [address] Patient Name: SILVINO JOHNSON MRN: [id number] date: 1935 Sex: F Assigned Patient Location: ED.MAIN Current Patient Location: Accession/Order Number: [id number] Exam Date: 06/05/2025 13:03 Report Date: 06/05/2025 13:26 At the request of: ANUPAMA ENG MD Procedure: CT cervical spine wo con CT cervical spine wo con 06/05/2025 1:10 PM SIGN AND SYMPTOMS: ^Atraumatic pain TECHNIQUE: Multi detector CT axial slices of the cervical spine were obtained without IV contrast. Volumetric acquisition sagittal, coronal, and 3-D reconstructions were performed and reviewed. CT was performed with one or more of the following dose reduction techniques: Automated exposure control, adjustment of the mA and/or kV according to patient size, or use of iterative reconstruction technique. COMPARISON: None. FINDINGS: There is preservation of the vertebral body heights. There is mild disc height loss at C6-C7.. No fractures or dislocations are seen. 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 There is 2 mm of anterolisthesis of C4 upon C5. There is 3 mm of retrolisthesis of C5 upon C6. There is 3 mm of retrolisthesis of C6 upon C7. There is 4 mm of anterolisthesis of C7 upon T1 Facet hypertrophy is present throughout. The craniocervical junction is within normal limits. Degenerative changes are noted in the atlantoaxial joint. There is facet hypertrophy throughout. The prevertebral soft tissues are within normal limits. The paraspinous soft tissues are within normal limits. The lung apices are unremarkable. Calcified plaque is noted in the carotid bifurcations. Calcified plaque is noted in the aortic arch. CT/CT cervical spine wo con IMPRESSION: No acute bony injury. 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 There is 2 mm of anterolisthesis of C4 upon C5. There is 3 mm of retrolisthesis of C5 upon C6. There is 3 mm of retrolisthesis of C6 upon C7. There is 4 mm of anterolisthesis of C7 upon T1. Facet hypertrophy is present throughout. Impression dictated by: Shaquille Gonsales M.D. 06/05/2025 1:26 PM Dictation Location: [place] [address] Electronically authenticated by: [id number] Y Date: 06/05/2025 13:26
--- NOTE | 2025-06-05 11:13 | ED.GENADUL1 ---
HPI HPI - General Adult General Chief complaint: Neck Pain/Injury Stated complaint: SOB Time Seen by Provider: 06/05/25 11:08 History of Present Illness HPI narrative: 89-year-old female presents for neck pain. It was this way when she woke today. She had no pain in her neck yesterday and did not do anything out of the ordinary. There was no injury or unusual activity. It hurts more to turn her head. No chest pain or shortness of breath. She states she has a history of arthritis. Related Data Home Medications ?Medication ?Instructions ?Recorded ?Confirmed allopurinol 100 mg tablet 100 mg PO DAILY 12/09/23 06/05/25 apixaban 2.5 mg tablet (Eliquis) 2.5 mg PO BID 12/09/23 06/05/25 ascorbic acid (vitamin C) 250 mg 250 mg PO DAILY 12/09/23 12/11/23 tablet (Vitamin C) bumetanide 2 mg tablet 2 mg PO BID 12/09/23 06/05/25 cholecalciferol (vitamin D3) 50 2,000 unit PO DAILY 12/09/23 06/05/25 mcg (2,000 unit) tablet coenzyme Q10 100 mg capsule 100 mg PO DAILY 12/09/23 06/05/25 (CoQ-10) dapagliflozin propanediol 10 mg 10 mg PO QAM 12/09/23 06/05/25 tablet (Farxiga) digoxin 125 mcg (0.125 mg) tablet 125 mcg PO .every other day afib 12/09/23 06/05/25 (Digitek) diltiazem HCl 180 mg 180 mg PO QAM 12/09/23 06/05/25 capsule,extended release 24 hr (Cardizem CD) lisinopril 10 mg tablet 10 mg PO DAILY 12/09/23 06/05/25 metoprolol tartrate 50 mg tablet 50 mg PO BID 12/09/23 06/05/25 (Lopressor) lvusgykx-fsv-tvwj-FA-Ca carb-vit K 1 tab PO DAILY 12/09/23 06/05/25 18 mg iron-400 mcg-500 mg tablet (One-A-Day Womens Formula) potassium chloride 20 mEq 20 meq PO DAILY 12/09/23 06/05/25 tablet,extended release (K-Tab) vit cap PO BID 12/09/23 C,E,zinc,Ah-uusjg-2-lutein-zeaxanthin 250 mg-2.5 mg-0.5 mg capsule zinc 50 mg tablet 50 mg PO DAILY 12/09/23 06/05/25 Previous Rx's ?Medication ?Instructions ?Recorded acetaminophen 300 mg-codeine 30 mg 1 tab PO Q6H PRN pain 5 days #20 06/05/25 tablet tabs methocarbamol 500 mg tablet 500 mg PO Q8H PRN pain #20 tabs 06/05/25 Allergies Allergy/AdvReac Type Severity Reaction Status Date / Time amlodipine Allergy Unknown Unknown Verified 06/05/25 11:17 iodine Allergy Unknown Unknown Verified 06/05/25 11:17 Penicillins Allergy Unknown Rash Verified 06/05/25 11:17 Gajjgzh-NUN-HxW Reductase Allergy Unknown Muscle Pain Verified 06/05/25 11:17 Inhibitor Opioid HPI Opioid Management Most Recent Opioid Data: Last Pain Scale 10 Today, 12:35 Last MAR Pain Assessment Today, 12:35 Review of Systems ROS Narrative A ten point review of systems is negative except as noted above. [facility] Medical History (Updated 06/05/25 @ 14:05 by Vivek Delgado MD) Neck pain ?M54.2 - Cervicalgia (ICD-10) Atrial fibrillation ?I48.91 - Unspecified atrial fibrillation (ICD-10) Coronary atherosclerosis of bypass graft ?I25.810 - Atherosclerosis of coronary artery bypass graft(s) without angina pectoris (ICD-10) Heel spur ?M77.30 - Calcaneal spur, unspecified foot (ICD-10) Hyperlipemia ?E78.5 - Hyperlipidemia, unspecified (ICD-10) Congestive heart failure ?I50.9 - Heart failure, unspecified (ICD-10) Gout ?M10.9 - Gout, unspecified (ICD-10) Afib ?I48.91 - Unspecified atrial fibrillation (ICD-10) Hypertension ?I10 - Essential (primary) hypertension (ICD-10) Surgical History (Updated 12/11/23 @ 07:20 by Renee Trimble) Hx of foot surgery ?Z98.890 - Other specified postprocedural states (ICD-10) History of right cataract extraction ?Z98.41 - Cataract extraction status, right eye (ICD-10) History of quadruple bypass ?Z95.1 - Presence of aortocoronary bypass graft (ICD-10) History of appendectomy ?Z90.49 - Acquired absence of other specified parts of digestive tract (ICD-10) H/O tubal ligation ?Z98.51 - Tubal ligation status (ICD-10) Family History (Updated 12/09/23 @ 11:21 by Val Luo) Father Family history of CHF (congestive heart failure) Family history of cancer Mother Family history of CHF (congestive heart failure) Family history of diabetes mellitus Family history of cancer Leukemia Breast cancer Skin cancer Sister Breast cancer Social History (Updated 12/09/23 @ 11:42 by Val Luo) Within the past year, how often did you have a drink containing alcohol: never Score interpretation: A score less than 3 is consistent with normal alcohol consumption. 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 Head:Normocephalic, atraumatic Eye: Normal conjunctiva, no drainage Ears, Nose, Mouth, and Throat: oral mucosa is moist. Nares patent. Cardiovascular: Irregularly irregular Respiratory:Patient is in no distress, no accessory muscle use, lungs are clear to auscultation, no wheezing, rales or rhonchi Back: Examination shows no erythema bruise or rash. She has no focal area of tenderness to palpation GI: Soft and nontender Musculoskeletal: The patient has no evidence of calf tenderness, no pitting edema, symmetrical pulses noted bilaterally Neurological:A&O, normal speech Psychiatric:Cooperative Constitutional Vital Signs, click to edit/add: Last Vital Signs Temp 98.0 F 06/05/25 11:20 Pulse 73 06/05/25 13:30 Resp 32 H 06/05/25 13:30 BP 198/111 H 06/05/25 13:30 Pulse Ox 96 06/05/25 13:30 O2 Del Method Room Air 06/05/25 11:27 Course Vital Signs Vital signs: Vital Signs Pulse Rate 73 06/05/25 11:14 Respiratory Rate 15 06/05/25 11:14 Pulse Oximetry 95 06/05/25 11:14 Temperature 98.0 F 06/05/25 11:20 Pulse Rate 73 06/05/25 13:30 Respiratory Rate 32 H 06/05/25 13:30 Blood Pressure 198/111 H 06/05/25 13:30 Pulse Oximetry 96 06/05/25 13:30 Oxygen Delivery Method Room Air 06/05/25 11:27 Medical Decision Making MDM Narrative Medical decision making narrative: CT scan shows significant arthritis. She was given IV morphine and Robaxin and is able to be discharged home. She was also given IV hydralazine because of elevated blood pressure. She had not taken her blood pressure medications yet today. Findings are discussed thoroughly with the patient and her family and the patient is discharged home. Treatment diagnosis and follow-up were discussed thoroughly. Differential Diagnosis Differential Diagnosis: Cervical arthritis, herniated disc, muscle strain, torticollis Imaging Data CT C-spine: Radiologist's impression: ITS Impressions Cervical Spine CT 06/05/25 11:12 IMPRESSION: No acute bony injury. 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 There is 2 mm of anterolisthesis of C4 upon C5. There is 3 mm of retrolisthesis of C5 upon C6. There is 3 mm of retrolisthesis of C6 upon C7. There is 4 mm of anterolisthesis of C7 upon T1. Facet hypertrophy is present throughout. Impression dictated by: Shaquille Gonsales M.D. 06/05/2025 1:26 PM Dictation Location: [place] [address] Electronically authenticated by: [id number] Y Date: 06/05/2025 13:26 ECG Data Attestation: I personally reviewed and interpreted this ECG as follows: (EKG my interpretation shows atrial fibrillation with a rate of 72 and no acute change) Discharge Plan Discharge Chief Complaint: Neck Pain/Injury Clinical Impression: Neck pain, Cervical arthritis Patient Disposition: Home, Self-Care Time of Disposition Decision: 14:05 Condition: Good Mode of Transportation: Private Vehicle Prescriptions / Home Meds: New acetaminophen-codeine 300-30 mg tablet 1 tab PO Q6H PRN (Reason: pain) 5 Days Qty: 20 0RF methocarbamol 500 mg tablet 500 mg PO Q8H PRN (Reason: pain) Qty: 20 0RF No Action allopurinol 100 mg tablet 100 mg PO DAILY Eliquis 2.5 mg tablet 2.5 mg PO BID ascorbic acid (vitamin C) [Vitamin C] 250 mg tablet 250 mg PO DAILY bumetanide 2 mg tablet 2 mg PO BID cholecalciferol (vitamin D3) 50 mcg (2,000 unit) tablet 2,000 unit PO DAILY coenzyme Q10 [CoQ-10] 100 mg capsule 100 mg PO DAILY dapagliflozin propanediol [Farxiga] 10 mg tablet 10 mg PO QAM digoxin [Digitek] 125 mcg (0.125 mg) tablet 125 mcg PO .every other day lisinopril 10 mg tablet 10 mg PO DAILY metoprolol tartrate [Lopressor] 50 mg tablet 50 mg PO BID One-A-Day Womens Formula 18 mg iron-400 mcg-500 mg tablet 1 tab PO DAILY potassium chloride [K-Tab] 20 mEq tablet extended release 20 meq PO DAILY vit C,E,Zn,Av-zmqly8-met-zeax 250-2.5-0.5 mg capsule PO BID zinc 50 mg tablet 50 mg PO DAILY diltiazem HCl [Cardizem CD] 180 mg capsule,extended release 24hr 180 mg PO QAM Print Language: Kinyarwanda Instructions: Osteoarthritis (ED), Acute Neck Pain (ED) Referrals: ARACELI SIMON [Primary Care Provider, Family Practice] - 1 week
--- OUTSIDE RECORDS SUMMARY | 2025-06-05 11:23 | XMS_ITS | CCD ---
Author Organization [facility] Inform ion Partnership [facility] CliniSyde Care Team Providers Care Quality Control Representative Name Role Phone DR EJ SIMON Primary Care Unavailable ALLYSON, DR JOYCE Cherry Attending Unavaila ble DEBENEDETTI, DR JOYCE Cherry Consulting Unavaila ble DEBENEDETTI, DR JOYCE Cherry Admitting Unavaila ble FurloEj rojas DO Primary Care Provider [phone] Ej Simon DO Primary Care Provider EJ SIMON Referring Unavailable ELIZABETHLONG, EJ Bonilla Primary Care Unavailable ELIZABETHLONG, EJ Bonilla Referring Unavailable FURLONG, EJ Bonilla Primary Care Unavailable Elizabethlong Ej LUCAS Primary Care Provider JOE MILLS Attending Unavailable JOE MILLS Attending Unavailable MICIJENNIFER Attending Unavailable ELIZABETHLONGEJ Referring Unavailable FURLONG, EJ Bonilla Primary Care Unavailable ALESHA DUTTA Referring Unavailable ELIZABETHLONG, EJ Bonilla Primary Care Unavailable MICJENNIFER [place] Attending Unavailable MICIJENNIFER Referring Unavailable FURLONG, EJ Bonilla Primary Care Unavailable ALEIDA WILKES Attending Unavailable ALEIDA WILKES Referring Unavailable FURLONG, EJ Bonilla Primary Care Unavailable MANSOOR TORO Attending Unavailable ELIZABETHLONG, EJ Bonilla Referring Unavailable FURLONG, EJ Bonilla Primary Care Unavailable Furlong Ej MONTES Primary Care Provider Renee Hills APRN Attending Provider EJ SIMON Attending Unavailable ELIZABETHLOBOB, EJ Bonilla Referring Unavailable FURLONG, EJ Bonilla Primary Care Unavailable ELIZABETHLONG, EJ Bonilla Attending Unavailable FURLONG, EJ Bonilla Referring Unavailable FURLONG, EJ Bonilla Primary Care Unavailable KATRIN, ALEIDA E Attending Unavailable FURLONG, EJ G Referring Unavailable FURLONG, EJ G Primary Care Unavailable FURLONG, EJ G Attending Unavailable FURLONG, EJ G Referring Unavailable FURLONG, EJ G Primary Care Unavailable FURLONG, EJ G Attending Unavailable FURLONG, EJ G Referring Unavailable FURLONG, EJ G Primary Care Unavailable Furlong DOEj Primary Care Provider [phone] Allergies Allergy ClassificationReported Allergen(s)Allergy TypeDate of OnsetReaction(s) Facility (20 sources)amLODIPine; Translations: [AMLODIPINE]Drug Nadbpdg89-88-0208 [facility] (20 sources)atorvastatin; Translations: [ATORVASTATIN]Drug Cmtvful21-84-3830 [facility] Work Phone: (20 sources)Contrast media; Translations: [DYE]Propensity to adverse reactions to ouey81-07-2846[facility]hyUh[facility]rm [facility] (20 sources)HMG-CoA reductase inhibitor; Translations: [AHTWHIS-NCF-FMK REDUCTASE INHIBITORS]Propensity to adverse reactions to khtj23-01-2390ZxtNxozld[address] [place] [address] (20 sources)Iodine; Translations: [IODINE]Drug Yabdicf37-74-0327JiycofnTgjPokmyp Health System (14 sources)Penicillins; Translations: [PENICILLINS]Propensity to adverse reactions to gdee43-96-8720[facility]ntSent[facility] (20 sources)rosuvastatin; Translations: [ROSUVASTATIN]Drug Efbvzjh83-77-1347 [facility] (20 sources)Spironolactone; Translations: [SPIRONOLACTONE]Drug Yyjgsnl49-13-8472 [facility] Work Phone: (20 sources)PenicillinsPropensity to adverse reactions to dqwz55-67-8448TknunSentara Leigh Hospital (5 sources)HMG-CoA reductase inhibitorDrug Skhxpwsqisf89-49-5539[facility] (5 sources)PenicillinsDrug Eqnvzoezsch39-34-7090CaqqbGundersen [facility] Medications Current Medications MedicationDrug Class(es)DatesSig (Normalized)Sig (Original)acetaminophen 500 mg / diphenhydrAMINE hydrochloride 25 mg oral tablet (20 sources)Histamine-1 Receptor Antagonisttake 1 tablet by mouth once daily as needed for sleepdiphenhydrAMINE-acetaminophen (TYLENOL PM) 25-500 mg tablet Take 1 tablet by mouth nightly as needed for sleep. Activetake 25-500 mg by mouth once as neededdiphenhydrAMINE-acetaminophen (Tylenol PM) 25-500 MG per tablet Take 1 tablet by mouth as needed atbedtime Activeallopurinol 100 mg oral tablet (20 sources)Xanthine Oxidase InhibitorStart: 22-53-6651bsqd 1 tablet by mouth once dailyallopurinoL (ZYLOPRIM) 100 mg tablet Take 1 tablet by mouth once daily 90 tablet 3 05/12/2025 ActiveStart: 06-10-2023 End: 10-95-6443dmzp 1 tablet by mouth once dailyallopurinoL (ZYLOPRIM) 100 mg tablet Take 1 tablet by mouth once daily 90 tablet 3 05/24/2024 05/12/2025 Discontinuedapixaban 2.5 mg oral tablet (20 sources)Factor Xa InhibitorStart: 02-21-2025 End: 66-12-5265imue 1 tablet by mouth in the morning, then take 1 tablet by mouth at bedtimeapixaban (ELIQUIS) 2.5 mg tablet Indications: Longstanding persistent atrial fibrillation (CMS-HCC)Take 1 tablet (2.5 mg total) by mouth in the morning and 1 tablet (2.5 mg total) before bedtime. 180 tablet 3 05/02/2025 ActiveStart: 11-14-2024 End: 87-12-7882inps 0.5 tablet by mouth in the morning, then take 0.5 tablet by mouth at bedtimeapixaban (ELIQUIS) 5 mg tablet Take 0.5 tablets (2.5 mg total) by mouth in the morning and 0.5 tablets (2.5 mg total) before bedtime. 56 tablet 12/03/2024 02/21/2025 Discontinued (Dose adjustment)Start: 05-11-2024 End: 26-04-1478fmfr 1 tablet by mouth in the morning, then take 1 tablet by mouth at bedtimeapixaban (ELIQUIS) 2.5 mg tablet Indications: Longstanding persistent atrial fibrillation (CMS-HCC)Take 1 tablet (2.5 mg total) by mouth in the morning and 1 tablet (2.5 mg total) before bedtime. 180 tablet 3 05/11/2024 02/18/2025 Discontinued (Reorder)ascorbic acid 250 mg chewable tablet (20 sources)Vitamin Cascorbic acid, vitamin C, 250 mg tablet,chewable Chew 1 tablet and swallow in the morning. Activeascorbic acid 113 mg / copper gluconate 0.4 mg / docosahexaenoic acid 87.5 mg / eicosapentaenoic acid 163 mg / lutein 2.5 mg / tocopherol acetate 100 unt / zeaxanthin 0.5 mg / zinc oxide 17.4 mg oralcapsule (5 sources)Vitamin Ctake 1 capsule by mouth in the morningMultiple Vitamins- Minerals (PreserVision AREDS 2) capsule Take 1 capsule by mouth in the morning. Activebempedoic acid 180 mg / ezetimibe 10 mg oral tablet (20 sources)Dietary Cholesterol Absorption InhibitorStart: 04-03-2023 End: 58-04-1438smye 1 tablet by mouth once dailyNexlizet 180-10 MG tablet Take 1 tablet by mouth Daily 04/03/2023 Activebumetanide 1 mg oral tablet (20 sources)Loop DiureticStart: 06-15-2024 End: 09-00-9727woyp 2 tablets by mouth twice dailybumetanide (BUMEX) 1 mg tablet Take 2 tablets (2 mg total) by mouth 2 (two) times a day. 360 tablet3 10/29/2024 ActiveStart: 77-41-4390ehalgxsnhd (Bumex) 2 MG tablet 04/24/2023 Activecholecalciferol 0.05 mg oral capsule (20 sources)Vitamin Dtake 1 capsule by mouth in the morningcholecalciferol, vitamin D3, 2,000 units capsule Take 1 capsule (2,000 Units total) by mouth in themorning. Activedapagliflozin 10 mg oral tablet (20 sources)Sodium-Glucose Cotransporter 2 InhibitorStart: 77-79-7278uyzf 1 tablet by mouth in the morningdapagliflozin propanediol (FARXIGA) 10 mg tablet Indications: Type 2 diabetes mellitus with stage 3b chronic kidney disease, without long-term current use of insulin ([facility]) Take 1 tablet (10 mg total) by mouth in the morning. 90 tablet 3 04/05/2025 ActiveStart: 04-05-2025 End: 87-06-0429mtol 2 tablets by mouth in the morningdapagliflozin propanediol (FARXIGA) 5 mg tablet Take 2 tablets (10 mg total) by mouth in the morning for 7 days. 14 tablet 04/05/2025 04/12/2025 ActiveStart: 07-19-2024 End: 79-24-1846ptsy 1 tablet by mouth in the morningdapagliflozin propanediol (FARXIGA) 10 mg tablet Indications: Type 2 diabetes mellitus with stage 3b chronic kidney disease, without long-term current use of insulin (CMS-HCC) Take 1 tablet (10 mg total) by mouth in the morning. 90 tablet 3 03/23/2025 Active Start: 54-87-3277vnvf 1 tablet by mouth in the morningdapagliflozin (FARXIGA) 10 mg tablet Indications: Type 2 diabetes mellitus with stage 3b chronic kidney disease, without long-term current use of insulin (CMS-HCC) Take 1 tablet (10 mg total) by mouth in the morning. 90 tablet 3 08/26/2022 ActiveDapagliflozin Propanediol (FARXIGA PO) Take by mouth Activedigoxin 0.125 mg oral tablet (20 sources)Cardiac GlycosideStart: 06-90-5706Eazyuvh 125 mcg (0.125 mg) tablet Active PO March 24, 2025 12:00am Complies with drug therapyStart: 09-23-2023 End: 52-66-4540axik 1 tablet by mouth every other daydigoxin (LANOXIN) 125 mcg tablet Indications: Longstanding persistent atrial fibrillation (CMS-HCC)TAKE 1 TABLET BY MOUTH EVERY OTHER DAY 45 tablet 2 01/14/2025 Uzbvnl25 hr dilTIAZem hydrochloride 180 mg extended release oral capsule (20 sources)Calcium Channel BlockerStart: 11-17-2023 End: 81-66-4194oodj 1 capsule by mouth every twenty-four hours in the morning dilTIAZem CD (CARDIZEM CD) 180 mg 24 hr capsule Indications: Permanent atrial fibrillation (CMS-HCC) Take 1 capsule by mouth in the morning 90 capsule 3 11/05/2024 Activedoxycycline monohydrate 100 mg oral capsule (15 sources)Tetracycline-class DrugStart: 14-33-9403sbki 1 capsule by mouth twice dailydoxycycline (MONODOX) 100 mg capsule TAKE 1 CAPSULE BY MOUTH TWICE DAILY FOR 10 DAYS 11/26/2024 Active1 ml evolocumab 140 mg/ml auto-injector (20 sources)PCSK9 InhibitorStart: 50-31-5564Aimhehjxry (Repatha Sureclick) 140 mg/mL pen injector Active MG SUBCUT March 24, 2025 12:00amComplies with drug therapyStart: 27-35-3300mhprshoraa (REPATHA SURECLICK) 140 mg/mL pen injector Indications: Coronary artery disease involving [place] coronary artery of [place] heart without angina pectoris , Statin intolerance , Mixed hyperli pidemia Inject 140 mg under the skin every 14 (fourteen) days. 2 mL 5 01/13/2025 ActiveStart: 10-27-2024 End: 92-24-5000elofxnldvc (REPATHA SURECLICK) 140 mg/mL pen injector Inject 140 mg under the skin every 14 (fourteen) days. 2 mL 5 10/27/2024 12/03/2024 Discontinued (Cost of medication)Start: 07-22-2024 End: 16-28-2428hrzjhaviae (REPATHA SURECLICK) 140 mg/mL pen injector Indications: Atherosclerosis of [place] coronary artery of [place] heart without angina pectoris , Mixed hyperlipidemia , Type 2 diabetes mellitus with stage 3b chronic kidney disease, without long-term current use of insulin ([facility] Inject 140 mg under the skin every 14 (fourteen) days for 2 doses. 2 mL 5 07/22/2024 08/06/2024 Activehydrocortisone 25 mg/ml topical cream (1 source)CorticosteroidStart: 36-73-0506Qsugaxhunxkrvt 2.5 % cream Active APPLIC TOPICAL March 24, 2025 12:00am Complies with drug therapy ketoconazole 20 mg/ml topical cream (1 source)Azole AntifungalStart: 33-23-9972Sikgkoyesniz 2 % cream Active APPLIC TOPICAL March 24, 2025 12:00am Complies with drug therapylactobacillus acidophilus [id number] unt / pectin 100 mg oral tablet (20 sources)take 1 tablet by mouth once daily at breakfastacidophilus-pectin, citrus 25 million cell -100 mg tablet Take 1 tablet by mouth daily with breakfas t. Activelisinopril 10 mg oral tablet (20 sources)Angiotensin Converting Enzyme InhibitorStart: 11-25-2023 End: 54-27-3955vvmk 1 tablet by mouth in the morninglisinopriL (PRINIVIL,ZESTRIL) 10 mg tablet TAKE 1 TABLET BY MOUTH IN THE MORNING 90 tablet 2 11/05/2024 Activemeclizine hydrochloride 12.5 mg oral tablet (20 sources)AntiemeticStart: 27-44-8895npyr 1 tablet by mouth three times daily as needed for dizzinessmeclizine (ANTIVERT) 12.5 mg tablet Take 1 tablet (12.5 mg total) by mouth 3 (three) times a day asneeded for dizziness. 90 tablet 1 06/15/2024 Imipvw59 hr metoprolol succinate 50 mg extended release oral tablet (20 sources)beta-Adrenergic BlockerStart: 67-29-8222ohjc 1 tablet by mouth twice daily at bedtimemetoprolol succinate XL (TOPROL XL) 50 mg 24 hr tablet Indications: Heart failure with preserved left ventricular function (HFpEF) (CMS-HCC) , Longstanding persistent atrial fibrillation (CMS-HCC) , Nonrheumatic mitral valve regurgitation , Paroxysmal atrial fibrillation (CMS-HCC) , Chronic coronary artery disease , Essential hypertension , Atrial fibrillation (CMS- HCC) TAKE 1 TABLET BY MOUTH TWICE DAILY (IN THE MORNING AND AT BEDTIME) 180 tablet 3 04/01/2025 ActiveStart: 04-14-2024 End: 32-49-0765tvwb 1 tablet by mouth every twenty-four hours in the morning, then take 1 tablet by mouth at bedtimemetoprolol succinate XL (TOPROL XL) 50 mg 24 hr tablet Indications: Heart failure with preserved left ventricular function (HFpEF) (CMS-HCC) , Longstanding persistent atrial fibrillation (CMS-HCC) , N onrheumatic mitral valve regurgitation , Paroxysmal atrial fibrillation (CMS- HCC) , Chronic coronary artery disease , Essential hypertension , Atrial fibrillation (CMS-HCC) TAKE 1 TABLET BY MOUTH IN THE MORNING AND 1 AT BEDTIME 180 tablet 2 04/14/2024 04/01/2025 DiscontinuedMultiple Vitamin (multivitamin) capsule (5 sources)take 1 tablet by mouth in the morningMultiple Vitamin (multivitamin) capsule Take 1 tablet by mouth in the morning. Activemultivitamin capsule (20 sources)take 1 tablet by mouth in the morningmultivitamin capsule Take 1 tablet by mouth in the morning. Activetake 1 tablet by mouth once daily multivitamin capsule Take 1 tablet by mouth daily. Activenystatin 071116 unt/ml / triamcinolone acetonide 1 mg/ml topical cream (20 sources)Polyene Antifungal, CorticosteroidStart: 27-91-7060obbopyyj- triamcinolone (Mycolog II) cream Apply 1 Application topically in the morning and 1 Application at noon and 1 Application in the evening and 1 Application before bedtime. 09/29/2023 ActiveStart: 09-29-2023 End: 22-51-9126mowaozui-triamcinolone (MYCOLOG II) cream Indications: Yeast vaginitis Apply 1 Application topically in the morning and 1 Application at noon and 1 Application in the evening and 1 Application beforebedtime. 60 g 09/29/2023 12/03/2024 Discontinued (Therapy completed)om 3/E/linol/ala/oleic/gla/lip (OMEGA 3-6-9 ORAL) (20 sources)take 1 capsule by mouth once daily in the morningom 3/E/linol/ala/oleic/gla/lip (OMEGA 3-6-9 ORAL) Take 1 capsule by mouth in the morning. Activetake 1 capsule by mouth once dailyom 3/E/linol/ala/oleic/gla/lip (OMEGA 3-6-9 ORAL) Take 1 capsule by mouth daily. ActiveOmega 3-6-9 Fatty Acids (OMEGA 3-6-9 COMPLEX PO) (4 sources)[place] 3-6-9 Fatty Acids (OMEGA 3-6-9 COMPLEX PO) Take by mouth Active Oxygen (20 sources)oxygen Inhale 2 L/min once daily at bedtime. Connected to C-Pap Activemicroencapsulated potassium chloride 20 meq extended release oral tablet (20 sources)Start: 23-51-3400ihsl 1 tablet by mouth in the morningpotassium chloride (KLOR-CON M 20) 20 MEQ CR tablet Take 1 tablet (20 mEq total) by mouth in the morning. 90 tablet 3 05/12/2025 ActiveStart: 95-33-3299nntf 1 tablet by mouth in the morningpotassium chloride (KLOR-CON M 20) 20 MEQ CR tablet Take 1 tablet (20 mEq total) by mouth in the morning. 90 tablet 3 05/12/2025 Active Start: 63-87-6883Yakkvrqam Chloride 20 mEq tablet,ER particles/crystals Active MEQ PO March 24, 2025 12:00am Complies with drug therapyStart: 11-07-2023 End: 72-33-3717ttwj 1 tablet by mouth once dailypotassium chloride (KLOR-CON M20) 20 MEQ CR tablet Take 1 tablet by mouth once daily 90 tablet 3 04/13/2024 05/12/2025 Discontinuedsour horner allergenic extract (20 sources)Non-Standardized Food Allergenic Extract, Non-Standardized Plant Allergenic Extracttake 1 tablet by mouth in the morningsour horner extract (TART HORNER EXTRACT ORAL) Take 1 tablet by mouth in the morning. ActiveTART HORNER PO (4 sources)TART HORNER PO Take by mouth Activeubiquinol 100 mg oral capsule (20 sources)take 1 capsule by mouth in the bytsktprfN01, ubiquinol, 100 mg capsule Take 1 capsule by mouth in the morning. Activevit C,G-Jh-qfnmv-lutein-zeaxan 250-90-40-1 mg capsule (20 sources)take 1 capsule by mouth in the morningvit C,Y-Ap-yntla-lutein-zeaxan 250-90-40-1 mg capsule Take 1 capsule by mouth in the morning. Activetake 1 capsule by mouth once dailyvit C,V-Ss-lfcrt-lutein-zeaxan 250-90-40-1 mg capsule Take 1 capsule by mouth daily. Activezinc sulfate 220 mg oral capsule (20 sources)take 1 capsule by mouth in the morningzinc sulfate (ZINCATE) 50 mg zinc (220 mg) capsule Take 1 capsule (50 mg total) by mouth in the morning. Activetake 1 capsule by mouth in the morningzinc sulfate (Zincate) 220 (50 Zn) MG capsule Take by mouth in the morning. Activezinc sulfate (Zincate) 220 (50 Zn) MG capsule Take by mouth Daily Active Completed/Discontinued Medications MedicationDrug Class(es)DatesSig (Normalized)Sig (Original)amiodarone hydrochloride 200 mg oral tablet (3 sources)AntiarrhythmicStart: 10-07-2023 End: 31-77-6555zwgg 0.5 tablet by mouth in the morningamiodarone (Pacerone) 200 MG tablet TAKE 1/2 (ONE-HALF) TABLET BY MOUTH IN THE MORNING 10/07/2023 Discontinued (Discontinued by another clinician)semaglutide (OZEMPIC) 0.25 mg or 0.5 mg (2 mg/3 mL) pen injector (20 sources)Start: 11-11-2024 End: 45-46-7376avuacgpjbaz (OZEMPIC) 0.25 mg or 0.5 mg (2 mg/3 mL) pen injector Indications: Type 2 diabetes mellitus with stage 4 chronic kidney disease, without long-term current use of insulin ([facility]) Inject 0.5 mg under the skin once a week. 3 mL 2 11/11/2024 12/03/2024 Discontinued (Cost of medication) Start: 32-68-5845lewlasadqep (OZEMPIC) 0.25 mg or 0.5 mg (2 mg/3 mL) pen injector Indications: Type 2 diabetes mellitus with stage 4 chronic kidney disease, without long-term current use of insulin ([facility]) Inject 0.5 mg under the skin once a week. 3 mL 2 11/11/2024 ActiveStart: 07-13-2024 End: 87-11-4866hyxxsj 0.5 mg by subcutaneous injection every weeksemaglutide (OZEMPIC) 0.25 mg or 0.5 mg (2 mg/3 mL) pen injector Inject 0.5 mg under the skin once a week. 3 mL 2 07/13/2024 11/11/2024 Discontinued (Reorder)Start: 75-69-7701qnchrh 0.5 mg by subcutaneous injection every weeksemaglutide (OZEMPIC) 0.25 mg or 0.5 mg (2 mg/3 mL) pen injector Inject 0.5 mg under the skin once a week. 3 mL 2 07/13/2024 ActiveStart: 07-12-2024 End: 04-84-2843xgidxt 0.5 mg by subcutaneous injection every weeksemaglutide (OZEMPIC) 0.25 mg or 0.5 mg (2 mg/3 mL) pen injector Inject 0.5 mg under the skin once a week. 3 mL 2 07/12/2024 07/13/2024 Discontinued (Reorder)Start: 65-90-5564heoivr 0.5 mg by subcutaneous injection every weeksemaglutide (OZEMPIC) 0.25 mg or 0.5 mg (2 mg/3 mL) pen injector Inject 0.5 mg under the skin once a week. 3 mL 2 07/12/2024 Active Problems Active Problems Problem ClassificationProblemDateDocumented DateEpisodic/ChronicCardiac dysrhythmias (20 sources)Permanent atrial fibrillation; Translations: [Permanent atrial fibrillation]Onset: 09-28-2020 Resolved: 256233-27-5811OryulviEoasomqv (5 sources)Age-related nuclear cataract of left eye; Translations: [Age-related nuclear cataract, left eye]Onset: 923005-19-9568YydlrfpAhtatqd kidney disease (20 sources)Chronic kidney disease stage 4; Translations: [Chronic kidney disease, stage 4 (severe)]Onset: 09-27-2020 Resolved: 290028-11-2724AsgogrhJbiakbe kidney disease (1 source)Chronic kidney disease; Translations: [Chronic kidney disease, stage 3b]Onset: 19-26-2014Qctbvhsdgi heart failure; nonhypertensive (20 sources)Unspecified diastolic (congestive) heart failure; Translations: [Heart failure]Onset: 09-27-2020 Resolved: 460665-02-0285FologdsEbfyqpqt atherosclerosis and other heart disease (20 sources)Coronary arteriosclerosis; Translations: [Atherosclerotic heart disease of [place] coronary artery without angina pectoris]Onset: 05-19-2013 44-00-2636EonfvxfFqmibjrt mellitus with complications (20 sources)Chronic kidney disease due to type 2 diabetes mellitus; Translations: [Type 2 diabetes mellitus with diabetic chronic kidney disease] Onset: 841385-70-1557VpuitvsDwgkntmk mellitus without complication (2 sources)Type 2 diabetes mellitus; Translations: [Diabetes mellitus]Onset: 030501-78-9547KkgiscpKghihjavy of lipid metabolism (20 sources)Hyperlipidemia; Translations: [Hyperlipidemia, unspecified]Onset: 603786-30-6158UuvxeuoMqschlplqwxrmp and diverticulitis (20 sources)Diverticular disease; Translations: [Diverticulosis of intestine, part unspecified, without perforation or abscess without bleeding]Onset: 297732-07-7670DdffqnuOgypdoeib hypertension (20 sources)Hypertensive disorder; Translations: [Essential (primary) hypertension]Onset: 294480-09-8930VxnsczmZfis and other crystal arthropathies (20 sources)Gout; Translations: [Gout, unspecified]Onset: ChronicHeart valve disorders (20 sources)Non-rheumatic mitral regurgitation ; Translations: [Nonrheumatic mitral (valve) insufficiency]Onset: 11-03-2020 Resolved: 653864-14-9429OkjtaplOndpaiwo disorders (20 sources)Sarcoidosis; Translations: [Sarcoidosis of other sites]Onset: 855533-10-6175TbitovuRgubsup (3 sources)Onychomycosis; Translations: [Tinea unguium]39-15-3620FrbhnhqfQkfg wounds of extremities (1 source)Laceration of finger of left hand; Translations: [Laceration without foreign body of unspecified finger without damage to nail, initial encounter] 73-12-3384XtrpthdeImta wounds of head; neck; and trunk (2 sources)Laceration - injury; Translations: [Open wound(s) (multiple) of unspecified site(s), without mention of complication]50-16-7271BhjiydlwGsrdt diseases of kidney and ureters (20 sources)Renal mass; Translations: [Other specified disorders of kidney and ureter]Onset: 858246-99-9052KrfmiwnHocxv nervous system disorders (20 sources)Neuropathy; Translations: [Polyneuropathy, unspecified]Onset: 220998-74-2754TzbpavgGbvjs nutritional; endocrine; and metabolic disorders (20 sources)Morbid obesity; Translations: [Morbid (severe) obesity due to excess calories]Onset: 827740-68-8918ClhfycmEoffu nutritional; endocrine; and metabolic disorders (1 source)Morbid (severe) obesity due to excess calories; Translations: [Morbid (severe) obesity due to excess calories]Onset: 83-98-7269FnjucfoMdway skin disorders (3 sources)Dystrophia unguium; Translations: [Nail dystrophy]30-92-6311Izskvowx Pulmonary heart disease (20 sources)Pulmonary hypertension; Translations: [Pulmonary hypertension, unspecified]Onset: 969187-77-1404RiwqrmhSankwasc codes; unclassified (20 sources)Obstructive sleep apnea syndrome; Translations: [Obstructive sleep apnea (adult) (pediatric)]Onset: 759893-84-2822OpbraizRncgsitu codes; unclassified (2 sources)Obstructive sleep apnea (adult) (pediatric); Translations: [Obstructive sleep apnea (adult) (pediatric)]Onset: 79-24-6287SxeeummMqwdjmbv codes; unclassified (1 source)Sleep apneaOnset: 75-08-5288XlfckiyOhfbgklpnqk failure; insufficiency; arrest (adult) (20 sources)Dependence on supplemental oxygen; Translations: [Dependence on supplemental oxygen]Onset: 662362-36-5544WohkykqGjmmsem detachments; defects; vascular occlusion; and retinopathy (5 sources)Nonexudative age-related macular degeneration; Translations: [Nonexudative age-related macular degeneration, bilateral, advanced atrophic with subfoveal involvement]Onset: 068473-59-9018TjlericSqjt and subcutaneous tissue infections (1 source)Cellulitis of left foot; Translations: [Cellulitis of left lower limb] 71-73-9859JcjtiiilEkpccxmxjpk injury; contusion (1 source)Contusion of left lesser toe; Translations: [Contusion of left lesser toe(s) without damage to nail, initial encounter]60-82-0965OswzmzcqCartjicrmakt (1 source)Other persistent atrial fibrillation; Translations: [Other persistent atrial fibrillation]Onset: 50-73-3484Qjeztsvaisst (1 source)Permanent atrial fibrillation; Translations: [Permanent atrial fibrillation]Onset: 13-85-9102Qovgzxowmgcz (1 source)sugar?Onset: 06-15-2024 Past or Other Problems Problem ClassificationProblemDateDocumented DateEpisodic/ChronicCardiac dysrhythmias (1 source)PalpitationsOnset: 10-22-4351MbcdclemBhqjvlnlgt associated with dizziness or vertigo (1 source)DizzinessOnset: 37-44-6346PsygeowdCmtoqoqt atherosclerosis and other heart disease (20 sources)Aortocoronary bypass graft present; Translations: [Presence of aortocoronary bypass graft]Onset: 013960-88-5780AfcgbgdzV Codes: Adverse effects of medical drugs (1 source)Adverse effect of other antidysrhythmic drugs, initial encounter; Translations: [Adverse effect of other antidysrhythmic drugs, initial encounter] Onset: 39-19-9375YzcitopxPrmbkaubjdwh with complications and secondary hypertension (20 sources)Hypertensive heart and chronic kidney disease with heart failure and stage 1 through stage 4 chronic kidney disease, or unspecified chronic kidney disease; Translations: [Hypertensive heart AND chronic kidney disease stage 5] Onset: 10-13-2020 Resolved: 16-22-3863NxaknxjUtmd disorders (20 sources)Mood disordersOnset: 03-06-2023 Resolved: Other aftercare (20 sources)Long-term current use of anticoagulant; Translations: [FPC (current) use of anticoagulants]Onset: 593913-87-5929SrxhaahuEjnlg lower respiratory disease (20 sources)Hypoxemia; Translations: [Hypoxemia]Onset: 09-27-2020 Resolved: 624557-30-1994EragappuJucdi lower respiratory disease (2 sources)Shortness of breathOnset: 79-36-8939XywkkjdqDwrbc nervous system disorders (20 sources)Finding related to ability to move; Translations: [Other abnormalities of gait and mobility]Onset: 562040-44-5096IrohwhulBnkzo nutritional; endocrine; and metabolic disorders (20 sources)Body mass index 40+ - severely obese; Translations: [Body mass index (BMI) 45.0-49.9, adult]Onset: 10-21-2018 Resolved: 008634-09-9312UfbybhuRfxci nutritional; endocrine; and metabolic disorders (20 sources)Severe obesity; Translations: [Class 3 severe obesity due to excess calories without serious comorbidity in adult]Onset: 07-24-2021 Resolved: 980348-03-8759XmyeckfJldtwhxb codes; unclassified (20 sources)Localized edema; Translations: [Localized edema]Onset: 07-08-2018 17-59-2683ZvmkoxwoAjdwglkq codes; unclassified (20 sources)Other specified health status; Translations: [Other drug allergy] Onset: 369096-73-1476JyflfnszRdcdh infection (20 sources)Herpes zoster; Translations: [Zoster without complications]Onset: 07-07-1986 Resolved: 258330-80-9561Tnscojfj Results Test NameValueInterpretationReference RangeFacilityPOMA Hemoglobin A1con 60-67-5408FcF9k (Bld) [Mass fraction]7.9 %Abnormal4 - 7 %[facility] Interpretation and review of laboratory resultsAbnoalSSM Health St. Mary's Hospital SystemPOCT EKGon 72-58-3221DuiNiaqsrUniversity Hospitals Geneva Medical CenterPOMA Hemoglobin A1con 89-78-2410UvX1i (Bld) [Mass fraction]8 %Abnormal4 - 7 % [facility] SystemInterpretation and review of laboratory resultsAbnoSt. Clair HospitalBASIC METABOLIC PANLon 10-28-2024 Anion gap [Moles/Vol]11 mmol/LNormal5-15Sum[facility] CampusComment on above:Performed By: #### KAREN PURDY, , 2776-, UPCR, 2731-8, 33225-6 #### [facility] ([id number]) [address], [address] [place], [place] [address]Dgorynv [Mass/Vol]10.0 mg/dLNormal8.5-10.5PMorrow County HospitalComment on above:Performed By: #### CBC, BMP, 19252-5, 2776-, UPCR, 2731-8, 29850-2 #### [facility] ([id number]) [address] [facility], [address] [place], [place] [address]Lflrqfhz [Moles/Vol]101 mmol/ORtqreh25-059XuuKysijtSumma Health Akron CampusComment on above:Performed By: #### CBC, BMP, , 2776-07, UPCR, 2731-8, 35513-2 #### [facility] ([id number]) [address], [address] [place], [place] [address]KP4 [Moles/Vol]30 mmol/MVjswko81-09JxtIkvkcxMorrow County Hospital Comment on above:Performed By: #### RAJWINDER, BMP, , 2776-07, UPCR, 2730-8, 25959-8 #### [facility] ([id number]) [address] [place], [place] [address]Wgvjlejqem [Mass/Vol]1.52 mg/dLHigh0.40-1.00Sum[facility] CampusComment on above:Result Comment: METHOD TRACEABLE TO IDMS STANDARD Performed By: #### RAJWINDER, KAREN, , 2776-07, UPCR, 2731-8, 49753-0 #### [facility] ([id number]) [address] [address] [place], [place] [address]KPN/1.73 sq M.predicted among non-blacks MDRD (S/P/Bld) [Vol rate/Area]33 mL/min/{1.73_m2}Low>59Sum[facility] CampusComment on above: Result Comment: Reported eGFR is based on the CKD-EPI 2020 equation that does not use a race coefficient.Performed By: #### RAJWINDER, KAREN, , 2776-07, UPCR, 273-8, 94844-8 #### [facility] ([id number]) [address], [address] [place], [place] [address]Hduiimm [Mass/Vol]173 mg/uTXlzh15-14YezEuxcxvSumma Health Akron Campus Comment on above:Performed By: #### RAJWINDER, BMP, , 2776-, UPCR, 2731-8, 31390-7 #### [facility] ([id number]) [address] [address] [place], [place] [address]Lqfzwjrwe [Moles/Vol]4.2 mmol/LNormal3.5-5.0ProBaptist Saint Anthony'S HospitalComment on above:Performed By: #### CBC, BMP, , 2776-, UPCR, 2731-8, 83236-7 #### [facility] ([id number]) [address], [facility] [address] [place] [address]Bagdot [Moles/Vol]142 mmol/LVxmrsz120-832VgxTmcpup [facility]remont HospitalComment on above:Performed By: #### CBC, BMP, , 2776-, UPCR, 2731-8, 43468-5 #### [facility] ([id number]) [address], [facility] [address] [place] [address]Gqhc nitrogen [Mass/Vol]36 mg/dLHigh5-27Sum[facility] CampusComment on above:Performed By: #### CBC, BMP, , 2776-07, UPCR, 273-8, 85206-0 #### [facility] ([id number]) [address] [address] [place] [address]WPQZBSAR BLOOD COUNTon 60-28-4275Xlfbaxfiely distribution width (RBC) [Ratio]16.3 %High11.5-15.0Sum[facility] CampusComment on above: Performed By: #### CBC, BMP, , 2776-07, UPCR, 273-8, 73146-8 #### [facility] ([id number]) [address], [facility] [address] [place] [address]Rvluxmzgcp (Bld) [Volume fraction]41.4 %Kevpvz39-05MyhUtndwnBaptist Saint Anthony'S HospitalComment on above:Performed By: #### CBC, BMP, , 2776-, UPCR, 2731-8, 04821-5 #### [facility] ([id number]) [address], [facility] [address] [place] [address]Rrniiaqnay (Bld) [Mass/Vol]13.8 g/vFHlqhva05.7-15.5PMorrow County HospitalComment on above:Performed By: #### CBC, BMP, 77883-2, 2777-1, UPCR, 2731-8, 41475-2 #### [facility] ([id number]) [address], [address] [place], [place] [address]IFD (RBC) [Entitic mass]33.2 yuGcvmhq07-35LjaRqlkueBaptist Saint Anthony'S HospitalComment on above:Performed By: #### CBC, BMP, 39697-8, 7-1, UPCR, 2731-8, 87866-1 #### [facility] ([id number]) [address], [address] [place], [place] [address]WBUB (RBC) [Mass/Vol]33.4 g/kCZjluyt53-02CcfBbtfflBaptist Saint Anthony'S HospitalComment on above:Performed By: #### CBC, BMP, 35391-6, 2776-1, UPCR, 2731-8, 15165-8 #### [facility] ([id number]) [address], [address] [place], [place] [address]LOJ (RBC) [Entitic vol]99 pNVpqbyb47-104EkwSaipam [facility]ont HospitalComment on above:Performed By: #### CBC, BMP, 80271-1, 7-1, UPCR, 2731-8, 38808-6 #### [facility] ([id number]) [address], [address] [place], [place] [address]Eerposct mean volume (Bld) [Entitic vol]9.0 fLNormal7-12 [facility] CampusComment on above:Performed By: #### CBC, BMP, 86735-4, 2777-1, UPCR, 2731-8, 03414-0 #### [facility] ([id number]) [address], [address] [place], [place] [address]Biqabbdus (Bld) [#/Vol]168 10*3/iETlgyud914-318FmqCymrxs [facility] HospitalComment on above:Performed By: #### CBC, BMP, 50288-7, 2777-1, UPCR, 2731-8, 55832-8 #### [facility] ([id number]) [address], [address] [place] [address]ISK COUNT4.16 X10E12/LNormal3.80-5.20ProBaptist Saint Anthony'S Hospital Comment on above:Performed By: #### CBC, BMP, 84985-1, 2777-1, UPCR, 2731-8, 38866-0 #### [facility] ([id number]) [address], [address] [place] [address]ZKG (Bld) [#/Vol]4.6 10*3/uLNormal4.0-11.0ProBaptist Saint Anthony'S HospitalComment on above:Performed By: #### CBC, BMP, 62045-0, 2777-1, UPCR, 2731-8, 00302-7 #### [facility] ([id number]) [address], [address] [place], [place] [address]SGDWWRBZEnd 00-25-1158Fytxdkyvs [Mass/Vol]2.3 mg/dLNormal1.8-2.6 ProMSharp [facility]ula Vista Medical CenterComment on above:Performed By: #### CBC, BMP, 24865-7, 2777-1, UPCR, 2731-8, 74716-6 #### [facility] ([id number]) [address], [address] [place], [place] [address]WATRSKULBFsu 38-05-8976Bfglsoigs [Mass/Vol]3.1 mg/dLNormal 2.4-4.9ProBaptist Saint Anthony'S HospitalComment on above:Performed By: #### CBC, BMP, 86285-1, 2777-1, UPCR, 2731-8, 60431-9 #### [facility] ([id number]) [address], [address] [place], [place] [address]GRTKZHR CREAT RATIOon 33-90-2159IECQDA URINE UAEOQOP0485 mg/L High<120ProBaptist Saint Anthony'S HospitalComment on above:Performed By: #### CBC, BMP, 80296-7, 2777-1, UPCR, 2731-8, 99122-8 #### [facility] ([id number]) [address], [address] [place], [place] [address]P/PRO/PNEUMATIC JACKETER RATIO CALC4.27High<0.2PMorrow County Hospital Comment on above:Result Comment: Nephrotic Syndrome is associated with ratios >3.5Performed By: #### CBC, BMP, 07898-6, 2777-1, UPCR, 2731-8, 10673-6 #### [facility] ([id number]) [address] [address]VLZYE CREATININE,RDM38.40 mg/dLNormalSumma Health Akron Campus Comment on above:Performed By: #### CBC, BMP, 91262-4, 2777-1, UPCR, 2731-8, 36613-3 #### [facility] ([id number]) [address] [facility] [address] [place] [address]Oraaijjnah.intact [Mass/Vol]on 51-99-9432KLU IKEYCT34 pg/mL Grgwao35-77EdiQvxohqSumma Health Akron CampusComment on above:Performed By: #### CBC, BMP, 84429-0, 2777-1, UPCR, 2731-8, 44536-7 #### [facility] ([id number]) [address] [address]HJSBULQXHHxp 43-81-9349Livkmtdyj Ql (U)NegativeNormalNEG ProMSharp [facility] Vista Medical CenterComment on above:Performed By: #### UA #### [facility] ([id number]) [address] [place], [place] [address]UXEJQ/HGBNegativeNormalNEGSumma Health Akron CampusComdeckerville community hospital on above:Performed By: #### UA #### [facility] ([id number]) [address], [address] [place], [place] [address]Xpseu (U)YELLOWNormalYELLOWProBaptist Saint Anthony'S HospitalComment on above:Performed By: #### UA #### [facility] ([id number]) [address], [address] [place], [place] [address]Mridais Ql (U)>1000AbnormalNEGSumma Health Akron CampusComdeckerville community hospital on above:Performed By: #### UA #### [facility] ([id number]) [address], [address] [place], [place] [address]Rgualpg Ql (U)NegativeNoformerly vidant duplin hospitalNEGSumma Health [facility] CampusComdeckerville community hospital on above:Performed By: #### UA #### [facility] ([id number]) [address], [address] [place], [place] [address]Qcmhjxwuh esterase Test strip Ql (U)NegativeNormalNEGSumma Health Akron CampusComdeckerville community hospital on above:Result Comment: HIGH CONCENTRATIONS OF GLUCOSE MAY DECREASE THE REACTIVITY OF THE DIPSTICK LEUKOCYTE TEST PAD.Performed By: #### UA #### [facility] ([id number]) [address], [address] [place], [place] [address]Ojctcmm Ql (U)NegativeNormalNEGProBaptist Saint Anthony'S HospitalComdeckerville community hospital on above:Performed By: #### UA #### [facility] ([id number]) [address], [address] [place], [place] [address]iK (U)6.5 [pH]Normal5.0-8.5PMorrow County HospitalComdeckerville community hospital on above:Performed By: #### UA #### [facility] ([id number]) [address], [address] [place], [place] [address]Lfvfvww Ql (U)200 mg/dLAbnormalNEGSumma Health [facility]ron Campus Comment on above:Performed By: #### UA #### [facility] ([id number]) [address], [address] [place], [place] [address]T.B.CELLS1 /hpfNormal0-5PMorrow County HospitalComment on above:Performed By: #### UA #### [facility] ([id number]) [address], [address] [place], [place] [address]Bchnqvpt gravity (U) [Rel density]1.337Kjybjg0.003-1.035 [facility] Medical CenterComment on above:Performed By: #### UA #### [facility] ([id number]) [address], [address] [place], [place] [address]GWGKFJKNJKPGJOGdcxewKMMSBIdrJmdqec [facility] HospitalComment on above:Performed By: #### UA #### [facility] ([id number]) [address], [address] [place], [place] [address]Iyidahaeamtx (U) [Mass/Vol]mg/dLNormal<1.1PMorrow County HospitalComment on above:Performed By: #### UA #### [facility] ([id number]) [address], [address] [place], [place] [address]C.B.CELLS4 /hpfNormal0-5PMorrow County HospitalComment on above:Performed By: #### UA #### [facility] ([id number]) [address], [address] [place], [place] [address]Xcupiae D+Metabolites [Mass/Vol]on 41-00-5215NEQPZMS D 25 HYD TOT41.8 ng/dSGaprpt43-051XzmWkmjzdSumma Health Akron CampusComment on above:Result Comment: Vitamin D status 25 [place] Vitamin D Deficiency <20 ng/mL Insufficiency 20-29 ng/mL Sufficiency 30-100 ng/mL Toxicity >100 ng/mL NOTE: A pediatric reference range has not been established by the chocolate temperer of this kit. The [place] [employer] recommends a Vitamin D level of = or >20ng/mL in infants and children.Performed By: #### CBC, BMP, 89956-5, 2777-1, UPCR, 2731-8, 99348-4 #### [facility] ([id number]) [address], [address] [place], [place] [address]QXRKOHYQQRUJK METABOLIC PANELon 59-90-3097Kdegkvk [Mass/Vol]4.0 g/dLNormal3.2-5.3ProMedica [facility] HospitalComment on above:Performed By: #### GALINA, 88865-0, HA1C #### [facility] ([id number]) [address], [address] [place], [place] [address]ZFF [Catalytic activity/Vol]51 U/ZQycjyl59-151QufMrxkso [place] HospitalComment on above:Performed By: #### GALINA, 47720-5, HA1C #### [facility] ([id number]) [address], [address] [place], [place] [address]MAX [Catalytic activity/Vol]10 U/LNormal0-31ProMedBaylor Scott & White Medical Center – Budaedo HospitalComment on above:Performed By: #### GALINA, 24725-3, HA1C #### [facility] ([id number]) [address], [address] [place], [place] [address]Mjepo gap [Moles/Vol]9 mmol/LNormal5-15ProCleveland Clinic South Pointe Hospitalca [place] [facility] Comment on above:Performed By: #### GALINA, 53418-0, HA1C #### [facility] ([id number]) [address], [address] [place], [place] [address]IBL [Catalytic activity/Vol]22 U/LNormal0-41ProMedica [place] HospitalComment on above:Performed By: #### GALINA, 44475-0, HA1C #### [facility] ([id number]) [address], [address] [place], [place] [address]Dxyhptdgt [Mass/Vol]0.6 mg/dLNormal0.3-1.2ProMedica [place] HospitalComment on above:Performed By: #### GALINA, 42981-1, HA1C #### [facility] ([id number]) [address], [address] [place], [place] [address]Tnjesdm [Mass/Vol]10.2 mg/dLNormal8.5-10.5PWadsworth-Rittman Hospital HospitalComment on above:Performed By: #### GALINA, 20110-8, HA1C #### [facility] ([id number]) [address], [address] [place], [place] [address]Yblejdcc [Moles/Vol]101 mmol/ISdnyzh13-986ZefPcalqc [place] HospitalComment on above:Performed By: #### GALINA, 43577-2, HA1C #### [facility] ([id number]) [address], [address] [place], [place] [address]MK5 [Moles/Vol]31 mmol/NWunesz72-09VqoPhteia [facility] Comment on above:Performed By: #### GALINA, 21838-4, HA1C #### [facility] ([id number]) [address] [place], [place] [address]Twjmzqweuq [Mass/Vol]1.61 mg/dLHigh0.40-1.00ProEast [facility] Walker HospitalComment on above:Result Comment: METHOD TRACEABLE TO IDMS STANDARD Performed By: #### GALINA, 59776-7, HA1C #### [facility] ([id number]) [address], [address] [place], [place] [address]BPS/1.73 sq M.predicted among non-blacks MDRD (S/P/Bld) [Vol rate/Area]31 mL/min/{1.73_m2}Low>59ProNorwalk Memorial Hospital HospitalComment on above: Result Comment: Reported eGFR is based on the CKD-EPI 1 equation that does not use a race coefficient.Performed By: #### GALINA, 58044-6, MARZENA1C #### [facility] ([id number]) [address], [address] [place], [place] [address]Xqjmosw [Mass/Vol]168 mg/eASwqj14-94BzvOwyyijMercy Health Clermont Hospital Comment on above:Performed By: #### GALINA, 48095-7, HA1C #### [facility] ([id number]) [address], [address] [place], [place] [address]Mjgeokdkc [Moles/Vol]4.1 mmol/LNormal3.5-5.0ProMercy Health Clermont HospitalComment on above:Performed By: #### GALINA, 48539-3, MARZENA1C #### [facility] ([id number]) [address], [address] [place], [place] [address]Cercbqq [Mass/Vol]7.1 g/dLNormal6.0-8.0[facility] Comment on above:Performed By: #### GALNIA, 36484-0, HA1C #### [facility] ([id number]) [address], [address] [place], [place] [address]Sktrvg [Moles/Vol]141 mmol/PEnjvsg273-047RfmEbpsbf [place] HospitalComment on above:Performed By: #### GALINA, 60726-0, HA1C #### [facility] ([id number]) [address], [address] [place], [place] [address]Pzjz nitrogen [Mass/Vol]31 mg/dLHigh5-27ProMercy Health Clermont HospitalComment on above:Performed By: #### GALINA, 93801-3, HA1C #### [facility] ([id number]) [address], [address] [place], [place] [address]ASB A1C (GLYCO-HGB)on 62-30-0486Bchkntb [Mass/Vol]232 mg/dL NormalProMercy Health Clermont HospitalComment on above:Performed By: ###Emanuel MOJICA, 42293-5, ROSIE #### [facility] ([id number]) [address], [address] [place], [place] [address]NgZ9g (Bld) [Mass fraction]9.7 %High4.4-5.6ProNorwalk Memorial Hospital HospitalComment on above:Result Comment: NOTE ADA Guidelines Result HgbA1c Normal : less than 5.7 % Prediabetes : 5.7 % to 6.4 % Diabetes : > 6.4 % Use with caution in patients with abnormal hemoglobin variants as the half-life of red blood cells and in vivo glycation rates are affected.Performed By: #### GALINA, 45723-8, ROSIE #### [facility] ([id number]) [address], [address] [place], [place] [address]Lpuyy 1996 panelon 28-11-7747Arhfluuzbjl [Mass/Vol]203 mg/dLHigh 150-200ProMercy Health Clermont HospitalComment on above:Performed By: #### GALINA, 79654- 1, ROSIE #### [facility] ([id number]) [address], [facility] [address] [place], [place] [address]Nhnmnffiglz in HDL [Mass/Vol]31 mg/dLLow>39ProNorwalk [facility] Hospital HospitalComment on above:Result Comment: HDL <40 mg/dL - High Risk HDL > or = 40mg/dL- Desirable HDL >60 mg/dL - Negative Risk Performed By: #### GALINA, 42615-7, ROSIE #### [facility] ([id number]) [address], [facility] [address] [place], [place] [address]Dpkhaxbzvhu in LDL [Mass/Vol]95 mg/dLNormal<130ProMercy Health Clermont HospitalComment on above:Result Comment: LDL <100 mg/dL - Desirable LDL >160 mg/dL - High Risk Performed By: #### GALINA, 84709-1, HA1C #### [facility] ([id number]) [address], [address] [place], [place] [address]Pudhwbzwcco in VLDL [Mass/Vol]77 mg/dLHigh0-30ProMercy Health Clermont HospitalComment on above:Performed By: #### GALINA, 65436-5, HA1C #### [facility] ([id number]) [address], [address] [place], [place] [address]IEKHTRASFUG:HDL6.5High1.0-5.0ProNor[facility] HospitalComment on above:Performed By: #### GALINA, 45881-6, HA1C #### [facility] ([id number]) [address], [address] [place], [place] [address]Vtfdcgfhanfg [Mass/Vol]384 mg/bUUscr29-700EazRntidxMercy Health Clermont HospitalComment on above:Performed By: #### GALINA, 38356-8, HA1C #### [facility] ([id number]) [address], [address] [place], [place] [address]YPOro 96-23-7926Hvgxpugicnl peptide B (Bld) [Mass/Vol]2222.0 pg/mLCritically high<=1,800.0The [facility] HospitalComment on above:Performed By: #### BMP, BNP #### [facility] [address] [place] [address] Dr. Alyson GalvezPROF CHEM 8 (BAS METB)on 04-73-7674Kxaay gap [Moles/Vol]10.5 mmol/LNormalThe [facility] HospitalComment on above:Performed By: #### BMP, BNP #### [facility] [address] [place] [address] Dr. Alyson GalvezCalcium [Mass/Vol]9.4 mg/dLNormal8.5-10.1[facility] Comment on above:Performed By: #### BMP, BNP #### [facility] [address] [place] [address] Dr. Alyson GalvezChloride [Moles/Vol]103 mmol/NVkeexf19-448Lsu [facility] Comment on above:Performed By: #### BMP, BNP #### [facility] [address] [place] [address] Dr. Alyson GalvezCO2 [Moles/Vol]33.2 mmol/LCritically high21.0-32.0The [facility] HospitalComment on above:Performed By: #### BMP, BNP #### [facility] [address] [place] [address] Dr. Alyson GalvezCreatinine [Mass/Vol]1.46 mg/dLCritically high0.55-1.02The [facility] HospitalComment on above:Performed By: #### BMP, BNP #### [facility] [address] [place] [address] Dr. Alyson CavanaughGFR-AF SGTRHWHK49 mL/min/1.17n2Wwephrpnyq low>=60The [facility]Comment on above:Performed By: #### BMP, BNP #### [facility] [address] [place] [address] Dr. Alyson CavanaughGFR-NON AF [id number] mL/min/1.40i3Wjogbvavtx low>=60The [facility]Comment on above:Performed By: #### BMP, BNP #### [facility] [address] [place] [address] Dr. Alyson GalvezGlucose [Mass/Vol]110 mg/dLCritically aleq49-332Cmx [facility] HospitalComment on above:Performed By: #### BMP, BNP #### [facility] [address] [place] [address] Dr. Alyson GalvezPotassium [Moles/Vol]3.7 mmol/LNormal3.5-5.1[facility] Comment on above:Performed By: #### BMP, BNP #### [facility] [address] [address] [address] Alyson GalvezSodium [Moles/Vol]143 mmol/SKobung071-806Nut [facility] Comment on above:Performed By: #### BMP, BNP #### [facility] [address] [address] [address] Alyson GalvezUrea nitrogen [Mass/Vol]21.0 mg/dLCritically high7.0-18.0The [facility] HospitalComment on above:Performed By: #### BMP, BNP #### [facility] [address] [place] [address] Dr. Alyson Davis nitrogen/Creatinine [Mass ratio]14.4 mg/mgNormalThe [facility] HospitalComment on above:Performed By: #### BMP, BNP #### [facility] [address] [place] [address] Dr. Alyson Hernandez [id number] Visit (CATHMN) IVANA HUTCHINSON ([id number]) 1935 F Date Time Provider Department 05/28/21 [...] Carina Ross RN Referring Provider: LEE VELÁZQUEZ [[id number]] Allergies As of Date: 05/28/2021 Noted Allergy Reaction CONTRAST DYE (IODINE) 03/15/2021 16 - Unknown Comments: Not allergy, want limited use due to CKD 3 PENICILLINS 03/15/2021 4 - Hives 7 - Swelling [id number] REDUCTASE INHIBIT*03/15/2021 17 - Myalgia Date Reviewed: 03/19/2021 Reviewed by: Yadira Palacios APRN.HEARING THERAPY DIRECTOR - Fully Assessed Reason for Visit: Research [[id number]] Cmt: [facility] II D F trial - Screen fail Primary Visit [facility] [Z00.6] [...] mg by mouth once daily. - vit C,A-Nk-oqkkj-lutein-zeaxan (PRESERVISION AREDS-2) 250-90-40-1 mg Take 1 capsule by mouth once daily. - bempedoic acid (NEXLETOL) 180 mg tablet Take 180 mg by mouth once daily. - acetaminophen/diphenhydramine (TYLENOL PM ORAL) Take 2 tablets by mouth as needed. - Acidophilus-Pectin, [place] 25 million cell -100 mg tab Take [...] 05/14/2021 Visit Notes: >> Carina Ross RN Mon May 28, 2021 2:25 PM Status: Signed I spoke with Mrs. Hutchinson and let her know that after review by the Carmen Clasp Trial , she was a screen fail based on not meeting the inclusion/exclusion. . Dr. Velázquez spoke with her as well. Carina Ross RN Encounter Status:Closed by CARINA ROSS on 05/29/21NormalCParkview Health Bryan Hospital [id number] Coag (Bld) [Time]29.0 fKlmysa44.0-32.4CChildren's Hospital of [facility] on above:Result Comment: Unfractionated Heparin Therapeutic Ranges: Standard Heparin Nomogram: 53 to 78 seconds (anti-Xa level of 0.3 to 0.7 U/ml) Low Dose/ACS Nomogram: 49 to 67 seconds (anti-Xa level of 0.2 to 0.5 U/ml) Stroke Treatment Nomogram: 49 to 67 seconds (anti-Xa level of 0.2 to 0.5 U/ml) Note: The APTT therapeutic range has been determined for the current lot of laboratory APTT reagentin use throughout the [facility]. Performed By: #### CMP, PTT, CKCKMB, CBC #### [place] [address] [place] [address] WXXrh 89-99-3723Rusjvxzz nRBC<0.01Normal<0.01[facility] on above:Performed By: #### CMP, PTT, CKCKMB, CBC #### [place] [phone] distribution width (RBC) [Ratio]15.1 %High11.5-15.0 [facility] on above:Performed By: #### CMP, PTT, CKCKMB, CBC #### [place] [phone] (Bld) [Volume fraction]44.1 %Aisssq37.0-46.0[facility] on above:Performed By: #### CMP, PTT, CKCKMB, CBC #### [place] [phone] (Bld) [Mass/Vol]13.6 g/qVRomldk16.5-15.5CChildren's Hospital of [facility] on above:Performed By: #### CMP, PTT, CKCKMB, CBC #### [place] [phone] pNZrgnol56.0-34.0[facility] on above: Performed By: #### CMP, PTT, CKCKMB, CBC #### [place] [phone] (RBC) [Mass/Vol]30.8 g/fRIamwbj56.5-36.0[facility] on above:Performed By: #### CMP, PTT, CKCKMB, CBC #### [place] [phone] (RBC) [Entitic vol]106.0 xJNlqn86.0-100.0[facility] on above:Performed By: #### CMP, PTT, CKCKMB, CBC #### [place] [address] Kcgsnero mean volume (Bld) [Entitic vol]10.7 fLNormal9.0-12.7 [facility] on above:Performed By: #### CMP, PTT, CKCKMB, CBC #### [place] [address] Yrfcomgej (Bld) [#/Vol]236 10*3/zGDzxjta521-647FvqzbojqcKeenan Private Hospital on above:Performed By: #### CMP, PTT, CKCKMB, CBC #### [place] [address] MMH (Bld) [#/Vol]4.16 10*6/uLNormal3.90-5.20[facility] on above:Performed By: #### CMP, PTT, CKCKMB, CBC #### [place] [address] THS (Bld) [#/Vol]6.06 10*3/uLNormal3.70-11.00[facility] on above:Performed By: #### CMP, PTT, CKCKMB, CBC #### [place] [address] GG, Total and CKMBon 67-83-9159LV [Catalytic activity/Vol]76 U/L Afojrj61-781JldlncmrqKeenan Private Hospital on above:Performed By: #### CMP, PTT, CKCKMB, CBC #### [place] [address] SK MB %CK MB % not reported with CK <100 U/L.Normal0.0-4.0[facility] on above:Performed By: #### CMP, PTT, CKCKMB, CBC #### [facility] [address] [place], [place] [address] XS2.1 ng/mLNormal<4.4CChildren's Hospital of Columbus on above: Performed By: #### CMP, PTT, CKCKMB, CBC #### [facility] [address] [place], [place] [address] SRFMCFMys 74-41-3461OLOSOOHYfnpa Visit (CATHMN) IVANA HUTCHINSON ([id number]) 1935 F Date Time Provider Department 05/14/21 1:00 PM RESEARCH NURSE CARD INTERVENTION MNCATHMN During your visit today, we recorded the following information about you: Temperature Pulse Respiration Blood pressure 98.9 degrees 120/minute 26/minute 167/75 Weight 105.8 kg Fabiola Trevinovert 07/23/2021 12:05 PM Addendum [id number] Carmen CLASP II D PI: Scott Devine [...] No NIHSS 1a. Level of Consciousness: The vice investigator must choose a response if a [...] and close the eyes and then to camp coordinator and release the non-paretic hand. Substitute another [...] movements, and a choice made by the vice investigator. Establishing eye contact and then moving [...] or joint fusion at (more content not included)...NormalMercy Health St. [facility] Metabolic Panelon 97-07-1934Gmuaqvk [Mass/Vol]3.9 g/dLNormal3.9-4.9CChildren's Hospital of [facility] on above:Performed By: #### CMP, PTT, CKCKMB, CBC #### [facility] [employer] [address] [place], [place] [address] DXR [Catalytic activity/Vol]88 U/KXdylxt36-606VwwbzsctzKeenan Private Hospital on above:Performed By: #### CMP, PTT, CKCKMB, CBC #### [facility] [employer] [address] [place], [place] [address] DLT [Catalytic activity/Vol]16 U/LNormal7-38[facility] on above:Performed By: #### CMP, PTT, CKCKMB, CBC #### [facility] [employer] [address] [place] [address] Uuoeb gap [Moles/Vol]9 mmol/LNormal9-18[facility] Comment on above:Performed By: #### CMP, PTT, CKCKMB, CBC #### [place] [address] [place] [address] ZLD [Catalytic activity/Vol]26 U/IFcbdpv45-01YlimpezffOhiohealth Grove City Methodist HospitalComment on above:Performed By: #### CMP, PTT, CKCKMB, CBC #### [place] [address] [place] [address] Ffbxtixjm [Mass/Vol]0.3 mg/dLNormal0.2-1.3CTuscarawas Hospital Comment on above:Performed By: #### CMP, PTT, CKCKMB, CBC #### [place] [address] Xrsvuho [Mass/Vol]9.8 mg/dLNormal8.5-10.2CTuscarawas Hospital Comment on above:Performed By: #### CMP, PTT, CKCKMB, CBC #### [place] [address] Wvorawkz [Moles/Vol]101 mmol/TAtaymr65-379SpvpkqchsOhiohealth Grove City Methodist Hospital Comment on above:Performed By: #### CMP, PTT, CKCKMB, CBC #### [place] [address] VW9 [Moles/Vol]31 mmol/IWwqz63-95FrgrbacdjOhiohealth Grove City Methodist HospitalComdeckerville community hospital on above:Performed By: #### CMP, PTT, CKCKMB, CBC #### [place] [address] Qwzezjgdnw [Mass/Vol]1.59 mg/dLHigh0.58-0.96[facility] HospitalComdeckerville community hospital on above:Performed By: #### CMP, PTT, CKCKMB, CBC #### [address], [place] [address] [phone]- Amer.38NormalCTuscarawas HospitalComment on above:Performed By: #### CMP, PTT, CKCKMB, CBC #### [facility] [address] [place], [place] [address] [phone]-All Other Races31 .NormalOhiohealth Grove City Methodist HospitalComdeckerville community hospital on above:Result Comment: eGFR (Estimated GFR) Units of measure: [...] the eGFR may not accurately reflect actual GFR.Performed By: #### CMP, PTT, CKCKMB, CBC #### [facility] [address] [place], [place] [id number] [phone] [Mass/Vol]120 mg/eHSqfh72-36IuavqbafbOhiohealth Grove City Methodist Hospital Comment on above:Result Comment: The [place] Diabetes Association (ADA) provides guidance for cutoff [...] Standards of Medical Care in Diabetes 2016, [place] [employer] Association. Diabetes Care. 2016.39(Suppl 1).Performed By: #### CMP, PTT, CKCKMB, CBC #### [facility] [address] [place], [place] [address] [phone] [Moles/Vol]4.3 mmol/LNormal3.7-5.1CTuscarawas HospitalComment on above:Performed By: #### CMP, PTT, CKCKMB, CBC #### [facility] [address] [place], [place] [address] Rvxmrti [Mass/Vol]7.1 g/dLNormal6.3-8.0[facility] Comment on above:Performed By: #### CMP, PTT, CKCKMB, CBC #### [place] [address] [place], [place] [address] Cenkci [Moles/Vol]141 mmol/JWlcncs365-138CljpbpwonOhiohealth Grove City Methodist Hospital Comment on above:Performed By: #### CMP, PTT, CKCKMB, CBC #### [place] [address] [place], [place] [address] Dizt nitrogen [Mass/Vol]22 mg/dLHigh7-21[facility] Comment on above:Performed By: #### CMP, PTT, CKCKMB, CBC #### [place] [address] [place], [place] [address] QZVKUSVTMSPHU METABOLIC PANELon 32-27-3187Yvldozf [Mass/Vol]4.1 g/dL Normal3.6-5.1Quest DiagnosticsComment on above:Performed By: #### 64181, 7600 #### [facility] [address] [address] Pants Presser Automatic: Mil Singh MDAlbumin/Globulin [Mass ratio]1.5 {ratio}Normal 1.0-2.5Quest DiagnosticsComment on above:Performed By: #### 45174, 7600 #### [facility] [address] [address] Pants Press[employer] Automatic: Mil Singh MDALP [Catalytic activity/Vol]87 U/PMahvkf98-461 [facility] DiagnosticsComment on above:Performed By: #### 84841, 7600 #### [facility] [place] [id number] Pants Press[employer] Automatic: Mil Singh MDALT [Catalytic activity/Vol]12 U/LNormal6-29 [facility] DiagnosticsComment on above:Performed By: #### 79188, 7600 #### [facility] of [place] [address] Pants Presser Automatic: Mil Singh MDAST [Catalytic activity/Vol]19 U/CIsagmc21-47 [facility] DiagnosticsComment on above:Performed By: #### 09282, 7600 #### [facility] of [place] [address] Pants Presser Automatic: Mil Singh MDBilirubin [Mass/Vol]0.5 mg/dLNormal0.2-1.2 [facility] DiagnosticsComment on above:Performed By: #### 45636, 7600 #### [facility] of [place] [address] Pants Presser Automatic: Mil Singh MDCalcium [Mass/Vol]9.4 mg/dLNormal8.6-10.4Quest DiagnosticsComment on above:Performed By: #### 36833, 7600 #### [facility] of [place] [address] Pants Presser Automatic: Mil Singh MDChloride [Moles/Vol]98 mmol/PQyvwmf90-574Trwyg DiagnosticsComment on above:Performed By: #### 04664, 7600 #### [facility] of [place] [address] Pants Presser Automatic: Mil Singh MDCO2 [Moles/Vol]34 mmol/NIzvl22-15Xluln DiagnosticsComment on above:Performed By: #### 23111, 7600 #### [facility] of [place] [address] Pants Presser Automatic: Mil Singh MDCreatinine [Mass/Vol]1.53 mg/dLHigh0.60-0.88 [facility] DiagnosticsComment on above:Result Comment: For patients >49 years of age, the reference limit for Creatinine is approximately 13% higher for people identified as -Grenadian.Performed By: #### 36857, 7600 #### [facility] [place] [address] Pants Presser Automatic: Mil Singh MDeGFR NON-AFR. PLUQEUVL74 mL/min/1.20l5Gko> OR = 60Quest DiagnosticsComment on above:Performed By: #### 19486, 7600 #### [facility] [address], [address] [place] [address] Pants Presser Automatic: Mil Singh MDGFR/1.73 sq M.predicted among blacks MDRD (S/P/Bld) [Vol rate/Area]36 mL/min/{1.73_m2}Low> OR = 60Quest DiagnosticsComment on above:Performed By: #### 62308, 7600 #### [facility] [address], [address] [place] [address] Pants Presser Automatic: Mil Singh MDGlobulin (S) [Mass/Vol]2.8 g/dLNormal1.9-3.7 [facility] DiagnosticsComment on above:Performed By: #### 56447, 7600 #### [facility] [place] [address] Pants Presser Automatic: Mil Singh MDGlucose [Mass/Vol]126 mg/sVEsvfin34-511Lezbl DiagnosticsComment on above:Result Comment: Non-fasting reference interval For someone without known diabetes, a glucose value >125 mg/dL indicates that they may have diabetes and this should be confirmed with a follow-up test.Performed By: #### 15438, 7600 #### [facility] [place] [address] Pants Presser Automatic: Mil Singh MDPotassium [Moles/Vol]3.9 mmol/LNormal3.5-5.3 Quest DiagnosticsComment on above:Performed By: #### 49054, 7600 #### [facility] of [address], [address] [place] [address] Pants Presser Automatic: Mil Singh MDProtein [Mass/Vol]6.9 g/dLNormal6.1-8.1Quest DiagnosticsComment on above:Performed By: #### 71579, 7600 #### [facility] of [address], [address] [place] [address] Pants Presser Automatic: Mil Singh MDSodium [Moles/Vol]142 mmol/UTxcozp016-468Nvqzj DiagnosticsComment on above:Performed By: #### 33685, 7600 #### [facility] of [address], [address] [place] [address] Pants Presser Automatic: Mil Singh MDUrea nitrogen [Mass/Vol]19 mg/dLNormal7-25 [facility] DiagnosticsComment on above:Performed By: #### 59751, 7600 #### [facility] of [address], [address] [place] [address] Pants Presser Automatic: Mil Singh MDUrea nitrogen/Creatinine [Mass ratio]12 mg/mg Normal6-22Quest DiagnosticsComment on above:Performed By: #### 58247, 7600 #### [facility] of [address], [address] [place] [address] Pants Presser Automatic: Mil Singh MDLIPID PANEL, STANDARD 27-40-4416Hhevfuowbzb [Mass/Vol]215 mg/dLHigh<200Quest DiagnosticsComment on above:Order Comment: FASTING:NO FASTING: NOPerformed By: #### 13212, 7600 #### [facility] of [address], [address] [place] [address] Pants Presser Automatic: Mil Singh MDCholesterol in HDL [Mass/Vol]37 mg/dLLow> OR = 50Quest DiagnosticsComment on above:Order Comment: FASTING:NO FASTING: NOPerformed By: #### 57568, 7600 #### [facility] of [address], [address] [place] [address] Pants Presser Automatic: Mil Beltransterol.total/Cholesterol in HDL [Mass ratio]5.8 {ratio}High<5.0Quest DiagnosticsComment on above:Order Comment: FASTING:NO FASTING: NOPerformed By: #### 52825, 7600 #### [facility] [address], [address] Pants Presser Automatic: Mil Singh MDLDL-CHOLESTEROLNormalQuest DiagnosticsComment on above:Order Comment: FASTING:NO FASTING: NOResult Comment: LDL cholesterol not calculated. Triglyceride levels greater than 400 mg/dL invalidate calculated LDL results. Reference range: <100 Desirable range <100 mg/dL for primary prevention; <70 mg/dL for patients with CHD or diabetic patients with > or = 2 CHD risk factors. LDL-C is now calculated using the Giuliana calculation, which is a validated novel method providing better accuracy than the Friedewald equation in the estimation of LDL-C. Justo SS et al. GELY. 2013;310(19): 1697-2193 (http://education.Zebit/faq/SWF156)Performed By: #### 06914, 1850 #### [facility] [address], [address] [place], [place] [address] Pants Presser Automatic: Mil BYRD HDL MQJZCFOMEBB866 mg/dL (calc)High<130 Quest DiagnosticsComment on above:Order Comment: FASTING:NO FASTING: NOResult Comment: For patients with diabetes plus 1 major ASCVD risk factor, treating to a non-HDL-C goal of <100 mg/dL (LDL-C of <70 mg/dL) is considered a therapeutic option.Performed By: #### 60502, 4850 #### [facility] [address], [address] [place], [place] [address] Pants Presser Automatic: Mil Singh MDTriglyceride [Mass/Vol]780 mg/dLHigh<150Quest DiagnosticsComment on above:Order Comment: FASTING:NO FASTING: NOResult Comment: If a non-fasting specimen was collected, consider repeat triglyceride testing on a fasting specimen if clinically indicated. Olga et al. J. of Clin. Lipidol. 2015;9:129-169. There is increased risk of pancreatitis when the triglyceride concentration is very high (> or = 500 mg/dL, especially if > or = 1000 mg/dL). Olga beyer al. J. of Clin. Lipidol. 2015;9:129-169.Performed By: #### 31990, 7600 #### [facility] [address], [address] [place] [address] Pants Presser Automatic: Mil Singh [facility] – GUYMONNARENDRACox [place] 29-33-4142PPNUBQTEuvkc Visit (CATHMN) IVANA HUTCHINSON ([id number]) 1935 F Date Time Provider Department 04/25/21 7:00 AM RESEARCH NURSE CARD INTERVENTION MNCATHMN During your visit today, we recorded the following information about you: Carina Ross RN 04/26/2021 11:49 AM Signed I spoke with Ms Hutchinson and discussed the IRB [facility] II D F research trial and any questions she had. She will call me in a few days after reviewing the trial with her family. Referring Provider: SCOTT DEVINE [[id number]] Allergies As of Date: 04/25/2021 Noted Allergy Reaction CONTRAST DYE (IODINE) 03/15/2021 16 - Unknown Comments: Not allergy, want limited use due to CKD 3 PENICILLINS 03/15/2021 4 - Hives 7 - Swelling PAYKTRM-PZE-TWA REDUCTASE INHIBIT*03/15/2021 17 - Myalgia Date Reviewed: 03/19/2021 Reviewed by: Yadira Palacios APRN.HEARING THERAPY DIRECTOR - Fully Assessed Reason for Visit: Informed Consent [920] Cmt: [facility] Primary Visit Diagnosis:Examination [...] mg by mouth once daily. - vit C,S-Px-ibcwi-lutein-zeaxan (PRESERVISION AREDS-2) 250-90-40-1 mg Take 1 capsule by mouth once daily. - bempedoic acid (NEXLETOL) 180 mg tablet Take 180 mg by mouth once daily. - acetaminophen/diphenhydramine (TYLENOL PM ORAL) Take 2 tablets by mouth as needed. - Acidophilus-Pectin, [place] 25 million cell -100 mg tab Take [...] with Ms Hutchinson and discussed the IRB 19-[facility] Clasp II D F research trial and any questions she had. She will call me in a few days after reviewing the trial with her family. Encounter Status:Closed by CARINA ROSS on 04/26/21NoMetroHealth Main Campus Medical Centeron [id number] (CATHMN) IVANA HUTCHINSON ([id number]) 1935 F Date Time Provider Department 04/18/21 [...] 03/15/2021 4 - Hives 7 - Swelling QXCEFPB-OWD-ZDF REDUCTASE INHIBIT*03/15/2021 17 - Myalgia Date Reviewed: 03/19/2021 Reviewed by: Yadira Palacios APRN.HEARING THERAPY DIRECTOR - Fully Assessed Reason for Visit: Patient [...] mg by mouth once daily. - vit C,D-Iu-dchvb-lutein-zeaxan (PRESERVISION AREDS-2) 250-90-40-1 mg Take 1 capsule by mouth once daily. - bempedoic acid (NEXLETOL) 180 mg tablet Take 180 mg by mouth once daily. - acetaminophen/diphenhydramine (TYLENOL PM ORAL) Take 2 tablets by mouth as needed. - Acidophilus-Pectin, [place] 25 million cell -100 mg tab Take [...] procedures Encounter Status:Closed by SANTI MASSEY on 04/18/21NoMetroHealth Main Campus Medical Centerdeonte [id number] (CATHMN) IVANA HUTCHINSON ([id number]) 1935 F Date Time Provider Department 04/12/21 [...] 03/15/2021 4 - Hives 7 - Swelling MZXXDQI-JJX-UAM REDUCTASE INHIBIT*03/15/2021 17 - Myalgia Date Reviewed: 03/19/2021 Reviewed by: Yadira Palacios APRN.HEARING THERAPY DIRECTOR - Fully Assessed Reason for Visit: Patient Update [4104] Patient Question [9526] Prescriptions as of 04/12/2021 - allopurinol (ZYLOPRIM) [...] mg by mouth once daily. - vit C,G-Tr-qfkpz-lutein-zeaxan (PRESERVISION AREDS-2) 250-90-40-1 mg Take 1 capsule by mouth once daily. - bempedoic acid (NEXLETOL) 180 mg tablet Take 180 mg by mouth once daily. - acetaminophen/diphenhydramine (TYLENOL PM ORAL) Take 2 tablets by mouth as needed. - Acidophilus-Pectin, [place] 25 million cell -100 mg tab Take [...] 03/13/2021 Encounter Status:Closed by JOSHUA FERMIN on 04/12/21NormalCleveland Ecu HealthType and Screenon 41-03-0962QWT/RH(D)NegativeNormalCTuscarawas HospitalComment on above:Performed By: #### CMP, PTT, CKCKMB, CBC #### [facility] [address] [place], [place] [address] OBRPfn [id number] (JAGDISH) IVANA HUTCHINSON ([id number]) 1935 F Date Time Provider Department 04/01/21 BILL KONG During your visit today, we recorded the following information about you: aKssi Whitehead RN 04/01/2021 11:36 AM Signed CARDIOVASCULAR LAB INSTRUCTIONS: Readiness to Learn: Cognitive Ability: Alert and oriented Motivation To Learn: Interested Family/Significant Other Support: Unable to assess - Family not present Instruction Provided To: Patient Patient Learns Best By: Verbal Instruction Factors Affecting Learning: None Physical Limitations Affecting Learning: None Learning Response: Procedure: Left Heart Diagnostic Pre procedure education topics: Arrival time/NPO Status/Medications/Travel Instructions/Restrictions/Covid 19 precautions. Patient/Family Response Evaluation: Verbalizes understanding Follow Up Plan and Medication: As directed by physician Instruction/Supplemental Material Given: Cardiac catheterization instructions, procedure information, hospital information, hotel information. Instructed By Kassi Whitehead RN. In Department of CARDIOLOGY. Allergies As of Date: 04/01/2021 Noted Allergy Reaction CONTRAST DYE (IODINE) 03/15/2021 16 - Unknown Comments: Not allergy, want limited use due to CKD 3 PENICILLINS 03/15/2021 4 - Hives 7 - Swelling IIATSZW-CGH-RBG REDUCTASE INHIBIT*03/15/2021 17 - Myalgia Date Reviewed: 03/19/2021 Reviewed by: Yadira Palacios APRN.HEARING THERAPY DIRECTOR - Fully Assessed Reason for Visit: Patient [...] mg by mouth once daily. - vit C,Y-Hp-nyvox-lutein-zeaxan (PRESERVISION AREDS-2) 250-90-40-1 mg Take 1 capsule by mouth once daily. - bempedoic acid (NEXLETOL) 180 mg tablet Take 180 mg by mouth once daily. - acetaminophen/diphenhydramine (TYLENOL PM ORAL) Take 2 tablets by mouth as needed. - Acidophilus-Pectin, [place] 25 million cell -100 mg tab Take [...] Encounter Status:Closed by KASSI WHITEHEAD RN on 04/01/21[facility] [id number] Visit (CATHMN) IVANA HUTCHINSON ([id number]) 1935 F Date Time Provider Department 03/20/21 1:00 PM [facility] CATHMN During your visit today, we recorded the following information about you: Thony Fowler APRN.HEARING THERAPY DIRECTOR 03/20/2021 3:38 PM Signed [facility] Department of Cardiovascular Medicine SECTION OF INTERVENTIONAL CARDIOLOGY OUTPATIENT VISIT DATE March 20, 2021 OUTPATIENT VISIT TYPE ESTABLISHED PRIMARY CARE PHYSICIAN: Ej Simon MD ([facility]) [address] [place] [address] REFERRING PHYSICIAN: Thony Fowler [address] Desk [address] [facility] [address] CHIEF COMPLAINT: Patient presents with: Valvular Heart Disease HISTORY OF PRESENT ILLNESS: Ms. Hutchinson is an 85 F from [place], [place] who presents today for evaluation related [...] PAST MEDICAL HISTORY Diagnosis Date - A-fib ([facility]) - Arthritis - CAD (coronary artery disease) - CHF (congestive heart failure) ([facility]) - CKD (chronic kidney disease) stage 3, GFR 30-59 ml/min ([facility]) - DM2 (diabetes mellitus, type 2) ([facility]) - HLD (hyperlipidemia) 1979 - HTN (hypertension) 1979 - Mitral regurgitation - Renal mass - Rheumatoid arthritis ([facility]) - Sarcoidosis 1986 Pulmonary - Sleep apnea [...] CKD 3 - Penicillins Hives, Swelling - Chgftdq-Dsj-Gsi Red* Myalgia MEDICATIONS: iv contrast (will be [...] 220 mg by mouth once daily. vit C,V-Jj-hxwug-lutein-zeaxan (PRESERVISION AREDS-2) 250-90-40-1 mg Take 1 capsule by mouth once daily. bempedoic acid (NEXLETOL) 180 mg tablet Take 180 mg by mouth once daily. acetaminophen/diphenhydra (more content not included)...NormalToledo [facility] CHEST CARDIAC WO IVCONon [id number] CHEST CARDIAC WO IVCON* * *Final Report* * * DATE OF EXAM: Mar 20 2021 1:57PM [facility] [facility] [place] CHEST CARDIAC WO IVCON [...] exam could be obtained in 12 months Datastage Developer: SHAMAR Transcribe Date/Time: Mar 20 2021 4:18P Dictated by : TIM LEAHY MD This examination was interpreted and the report reviewed and electronically signed by: TIM LEAHY MD on Mar 20 2021 4:57PM EST [id number] Health St. Anne Hospital Metabolic Panelon [id number] [Mass/Vol]3.9 g/dLNormal3.9-4.9CTuscarawas Hospital Comment on above:Performed By: #### CBC, CMP, NTBNP, PT #### [facility] [employer] [address] [place] [address] DZI [Catalytic activity/Vol]88 U/NJjjcqk28-607ZdmamsamhKeenan Private Hospital on above:Performed By: #### CBC, CMP, NTBNP, PT #### [facility] [employer] [address] [place] [phone] [Catalytic activity/Vol]15 U/LNormal7-38[facility] on above:Performed By: #### CBC, CMP, NTBNP, PT #### [facility] [employer] [address] [place] [address] Tvgvm gap [Moles/Vol]12 mmol/LNormal9-18[facility] Comment on above:Performed By: #### CBC, CMP, NTBNP, PT #### [facility] [employer] [address] [place] [place] [address] GJH [Catalytic activity/Vol]31 U/TRsolbq16-04TdgpzwaooKeenan Private Hospital on above:Performed By: #### CBC, CMP, NTBNP, PT #### [facility] [employer] [address] [place] [address] Moxuufzsc [Mass/Vol]0.3 mg/dLNormal0.2-1.3CTuscarawas Hospital Comment on above:Performed By: #### CBC, CMP, NTBNP, PT #### [place] [address] [place] [address] Zzvbvjz [Mass/Vol]10.2 mg/dLNormal8.5-10.2CTuscarawas Hospital Comment on above:Performed By: #### CBC, CMP, NTBNP, PT #### [place] [address] [place] [address] Qchnypfu [Moles/Vol]99 mmol/UPzeqow05-078EexjisnigOhiohealth Grove City Methodist Hospital Comment on above:Performed By: #### CBC, CMP, NTBNP, PT #### [place] [address] NP6 [Moles/Vol]32 mmol/ZPjic02-55QizetbgxtOhiohealth Grove City Methodist HospitalComment on above:Performed By: #### CBC, CMP, NTBNP, PT #### [place] [address] Rnozolltsr [Mass/Vol]1.72 mg/dLHigh0.58-0.96Ohiohealth Grove City Methodist HospitalComment on above:Performed By: #### CBC, CMP, NTBNP, PT #### [place] [address] zWWU- Amer.34NormalCTuscarawas HospitalComment on above:Performed By: #### CBC, CMP, NTBNP, PT #### [place] [address] kGMB-All Other Races28 .NormalOhiohealth Grove City Methodist HospitalComment on above:Result Comment: eGFR (Estimated GFR) Units of measure: [...] the eGFR may not accurately reflect actual GFR.Performed By: #### CBC, CMP, NTBNP, PT #### [facility] [employer] [address] [place], [place] [address] Hwzwgjz [Mass/Vol]115 mg/yJNvpj91-65UlrgnkbmrOhiohealth Grove City Methodist Hospital Comment on above:Result Comment: The [place] Diabetes Association (ADA) provides guidance for cutoff [...] Standards of Medical Care in Diabetes 2016, [place] [employer]. Diabetes Care. 2016.39(Suppl 1).Performed By: #### CBC, CMP, NTBNP, PT #### [facility] [employer] [address] [address] Rkhnxavkt [Moles/Vol]4.1 mmol/LNormal3.7-5.1CTuscarawas HospitalComment on above:Performed By: #### CBC, CMP, NTBNP, PT #### [facility] [employer] [address] [place], [place] [address] Tekgknt [Mass/Vol]7.0 g/dLNormal6.3-8.0[facility] Comment on above:Performed By: #### CBC, CMP, NTBNP, PT #### [facility] [employer] [address] [place], [place] [address] Pxpgck [Moles/Vol]143 mmol/RQtqtaw469-810KtncwhqstOhiohealth Grove City Methodist Hospital Comment on above:Performed By: #### CBC, CMP, NTBNP, PT #### [facility] [address] [place], [place] [address] Veio nitrogen [Mass/Vol]26 mg/dLHigh7-21[facility] Comment on above:Performed By: #### CBC, CMP, NTBNP, PT #### [facility] [address] [place], [place] [address] QQB CARD MORPH FUNC WO IVCONon 63-71-3838HTL CARD MORPH FUNC WO IVCON* * *Final Report* * * DATE OF EXAM: Mar 20 2021 10:56AM [facility] 0702 - MRI CARD MORPH JANNAC WO IVCON / PROCEDURE REASON: multiple diagnoses [...] left ventricular and valvular function. Technique: Niranjan Ingenia 3.0 Tati MRI scanner. * Turbo spin [...] 4.0 cm), which can represent pulmonary hypertension. Datastage Developer: PSCSumi Transcribe Date/Time: Mar 20 2021 1:15P Dictated by : JESU KU MD This examination was interpreted and the report reviewed and electronically signed by: AFUA RAMON MD on Mar 20 2021 6:13PM EST [id number] Grove City Methodist HospitalMR CARDIAC VELOCITY FLOW MAPon [id number] CARDIAC VELOCITY FLOW MAP* * *Final Report* * * DATE OF EXAM: Mar 20 2021 10:56AM [facility] 0704 - MRI CARDIAC VELOCITY FLOW MAP [...] left ventricular and valvular function. Technique: Niranjan EventBuilderia 3.0 Tati MRI scanner. * Turbo spin [...] 4.0 cm), which can represent pulmonary hypertension. Datastage Developer: SHAMAR Transcribe Date/Time: Mar 20 2021 1:15P Dictated by : JESU KU MD This examination was interpreted and the report reviewed and electronically signed by: AFUA RAMON MD on Mar 20 2021 6:13PM EST [id number] Grove City Methodist HospitalCBCon [id number] nRBC<0.01Normal<0.01[facility] on above:Performed By: #### CBC, CMP, NTBNP, PT #### [facility] [employer] [address] [address] Hrsmvfcwata distribution width (RBC) [Ratio]15.0 %Eruely28.5-15.0 [facility] on above:Performed By: #### CBC, CMP, NTBNP, PT #### [facility] [employer] [address] [address] Yzhuobnuqi (Bld) [Volume fraction]43.9 %Gitpyu60.0-46.0[facility] on above:Performed By: #### CBC, CMP, NTBNP, PT #### [facility] [employer] [address] [address] Vceyyayhdp (Bld) [Mass/Vol]14.3 g/mOXhshog54.5-15.5CChildren's Hospital of [facility] on above:Performed By: #### CBC, CMP, NTBNP, PT #### [place] [address] [place] [address] ADT56.3 dJZcsq39.0-34.0[facility] on above: Performed By: #### CBC, CMP, NTBNP, PT #### [place] [address] NXMV (RBC) [Mass/Vol]32.6 g/jLBhbuqm97.5-36.0[facility] on above:Performed By: #### CBC, CMP, NTBNP, PT #### [place] [address] KKO (RBC) [Entitic vol]105.3 aXLwzb79.0-100.0[facility] on above:Performed By: #### CBC, CMP, NTBNP, PT #### [place] [address] Cmlouchg mean volume (Bld) [Entitic vol]10.4 fLNormal9.0-12.7 [facility] on above:Performed By: #### CBC, CMP, NTBNP, PT #### [place] [address] Iaghfgolk (Bld) [#/Vol]239 10*3/vTGruwoc558-539LattrvwehKeenan Private Hospital on above:Performed By: #### CBC, CMP, NTBNP, PT #### [place] [address] CXS (Bld) [#/Vol]4.17 10*6/uLNormal3.90-5.20[facility] on above:Performed By: #### CBC, CMP, NTBNP, PT #### [place] [address] WMU (Bld) [#/Vol]5.90 10*3/uLNormal3.70-11.00Ohio[facility] Grove City Methodist HospitalComment on above:Performed By: #### CBC, CMP, NTBNP, PT #### [facility] [address] [place], [place] [address] EQMTew [id number] Visit (CAFLMN) IVANA HUTCHINSON ([id number]) 1935 F Date Time Provider Department 03/15/21 [...] In Department: CARDIOLOGY Referring Provider: THONY FOWLER [[id number]] Allergies As of Date: 03/15/2021 Noted Allergy Reaction CONTRAST DYE (IODINE) 03/15/2021 16 - Unknown Comments: Not allergy, want limited use due to CKD 3 PENICILLINS 03/15/2021 4 - Hives 7 - Swelling MLCNUTO-NXU-QBG REDUCTASE INHIBIT*03/15/2021 17 - Myalgia Date Reviewed: 03/15/2021 Reviewed by: Tyra Ely RN - Fully Assessed Reason for Visit: Patient Education [91] Cmt: Transesophageal Echocardiogram Visit Diagnoses:Nonrheumatic mitral valve regurgitation [I34.0] Shortness of breath [R06.02] Order(s):ECHO TRANSESOPHAGEAL [[id number]] Order #: [id number]: 1 Prescriptions as of 03/15/2021 - allopurinol [...] mg by mouth once daily. - vit C,T-Gl-hinik-lutein-zeaxan (PRESERVISION AREDS-2) 250-90-40-1 mg Take 1 capsule by mouth once daily. - bempedoic acid (NEXLETOL) 180 mg tablet Take 180 mg by mouth once daily. - acetaminophen/diphenhydramine (TYLENOL PM ORAL) Take 2 tablets by mouth as needed. - Acidophilus-Pectin, [place] 25 million cell -100 mg tab Take [...] 03/13/2021 Encounter Status:Closed by CORNEL FELIX on 03/15/21NoTwin City HospitalOVTanner Medical Center Carrolltonice Visit (PERVMN) IVANA HUTCHINSON ([id number]) 1935 F Date Time Provider Department 03/15/21 12:30 PM [employer] ADD ONS PERVMN During your visit today, we recorded the following information about you: Referring Provider: THONY FOWLER [[id number]] Allergies As of Date: 03/15/2021 Noted Allergy Reaction CONTRAST DYE (IODINE) 03/15/2021 16 - Unknown Comments: Not allergy, want limited use due to CKD 3 PENICILLINS 03/15/2021 4 - Hives 7 - Swelling ERBTFRT-MOE-TRH REDUCTASE INHIBIT*03/15/2021 17 - Myalgia Date Reviewed: 03/15/2021 Reviewed by: Tyra Ely RN - Fully Assessed Reason for Visit: IV Medication Administration [149] Cmt: ECHO with definity Visit Diagnoses:Nonrheumatic mitral valve regurgitation [I34.0] Shortness of breath [R06.02] Order(s):ECHO [[id number]] Order #: [id number]. #:[id number]: 1 LVEF TRANSTHORACIC ECHO [[id number]] Order #: [id number]. #:[id number]: 1 Prescriptions as of 03/16/2021 - allopurinol [...] mg by mouth once daily. - vit C,B-Pj-biics-lutein-zeaxan (PRESERVISION AREDS-2) 250-90-40-1 mg Take 1 capsule by mouth once daily. - bempedoic acid (NEXLETOL) 180 mg tablet Take 180 mg by mouth once daily. - acetaminophen/diphenhydramine (TYLENOL PM ORAL) Take 2 tablets by mouth as needed. - Acidophilus-Pectin, [place] 25 million cell -100 mg tab Take [...] 03/13/2021 Encounter Status:Closed by QUANG LEARY on 03/16/21[facility]ATH[facility] IVANA HUTCHINSON ([id number]) 1935 F Date Time Provider Department 03/15/21 9:45 AM LEE VELÁZQUEZ CATHMN During your visit today, we recorded the following information about you: Pulse Respiration Blood pressure Weight 91/minute 16/minute 144/92 105 kg Height 1.524 m Valnetine Escobedo 03/16/2021 3:51 PM Signed [facility] Department of Cardiovascular Medicine SECTION [...] Hutchinson is a 85 year old female rom [place], [place] who presents today for a TMVR [...] sclerosis with mild stenosis - ?Mitral regurgitation, ociv-zs-hmpwsixs - ?Tricuspid regurgitation, moderate - ?Pulmonary hypertension, [...] ?cm3 17.00 MV VTI ?cm 22.00 MR LINDA EROA ?cm2 0.07 09/28/2020 Lipid Panel Chol [...] APPENDECTOMY 1967 with tu (more content not included)...NormalMer[facility] Health [facility] Metabolic Panelon 50-54-9112Yxbcyle [Mass/Vol]4.1 g/dLNormal3.9-4.9CDayton Osteopathic Hospitalment on above:Performed By: #### CBC, CMP, NTBNP, PT #### [facility] [address] [place], [place] [address] IGH [Catalytic activity/Vol]90 U/NQowunc86-620PyjdetndqKeenan Private Hospital on above:Performed By: #### CBC, CMP, NTBNP, PT #### [facility] [address] [place], [place] [address] BTK [Catalytic activity/Vol]16 U/LNormal7-38[facility] on above:Performed By: #### CBC, CMP, NTBNP, PT #### [facility] [address] [place], [place] [address] Rluck gap [Moles/Vol]13 mmol/LNormal9-18[facility] Comment on above:Performed By: #### CBC, CMP, NTBNP, PT #### [place] [address] [place], [place] [address] YDQ [Catalytic activity/Vol]27 U/RXsyant17-12WlmdkksolOhiohealth Grove City Methodist HospitalComdeckerville community hospital on above:Performed By: #### CBC, CMP, NTBNP, PT #### [place] [address] [place] [address] Ymskfaddd [Mass/Vol]0.4 mg/dLNormal0.2-1.3CTuscarawas Hospital Comment on above:Performed By: #### CBC, CMP, NTBNP, PT #### [place] [address] Jcbifdg [Mass/Vol]10.2 mg/dLNormal8.5-10.2CTuscarawas Hospital Comment on above:Performed By: #### CBC, CMP, NTBNP, PT #### [place] [address] Gfnjzkro [Moles/Vol]100 mmol/BSirukw78-109DqbxsyizhOhiohealth Grove City Methodist Hospital Comment on above:Performed By: #### CBC, CMP, NTBNP, PT #### [place] [address] [place], [place] [address] ZF6 [Moles/Vol]30 mmol/VQkgnfg53-08EarutchmbOhiohealth Grove City Methodist HospitalComment on above:Performed By: #### CBC, CMP, NTBNP, PT #### [place] [address] [place], [place] [address] Ypbwhhlkvk [Mass/Vol]1.82 mg/dLHigh0.58-0.96[facility] HospitalComdeckerville community hospital on above:Performed By: #### CBC, CMP, NTBNP, PT #### [place] [address] [place], [place] [address] aCDI- Amer.32NormalCChildren's Hospital of Columbus on above:Performed By: #### CBC, CMP, NTBNP, PT #### [facility] [employer] [address] [place] [address] [phone]-All Other Races27 .NormalKeenan Private Hospital on above:Result Comment: eGFR (Estimated GFR) Units of measure: [...] the eGFR may not accurately reflect actual GFR.Performed By: #### CBC CMP, NTBNP, PT #### [facility] [employer] [address] [place], [place] [address] [phone] [Mass/Vol]113 mg/bNVluo91-91YadccaxbgOhiohealth Grove City Methodist Hospital Comment on above:Result Comment: The [place] Diabetes Association (ADA) provides guidance for cutoff [...] Standards of Medical Care in Diabetes 2016, [place] [employer]. Diabetes Care. 2016.39(Suppl 1).Performed By: #### CBC, CMP, NTBNP, PT #### [facility] [employer] [address] [place], [place] [address] [phone] [Moles/Vol]4.0 mmol/LNormal3.7-5.1CChildren's Hospital of Columbus on above:Performed By: #### CBC, CMP, NTBNP, PT #### [place] [address] [place] [address] Uctbndq [Mass/Vol]7.4 g/dLNormal6.3-8.0[facility] Comment on above:Performed By: #### CBC, CMP, NTBNP, PT #### [place] [address] Bxgxhl [Moles/Vol]143 mmol/DTukzkr060-808KbfhdfcmcOhiohealth Grove City Methodist Hospital Comment on above:Performed By: #### CBC, CMP, NTBNP, PT #### [place] [address] Ejcr nitrogen [Mass/Vol]25 mg/dLHigh7-21[facility] Comment on above:Performed By: #### CBC, CMP, NTBNP, PT #### [place] [address] MK Pro BNPon 67-13-0694YZC B Natr Ciowcmb103 pg/mLHigh<450Ohio[facility] Grove City Methodist HospitalComment on above:Performed By: #### CBC, CMP, NTBNP, PT #### [place] [address] Kptiwjhhv 74-98-8902SI INR1.9Cqptat7.9-1.3CTuscarawas Hospital Comment on above:Result Comment: Vitamin K Antagonist (VKA) Therapeutic Range: INR 2 to 3 (Target INR of 2.5) Note: For patients treated with VKA drugs, such as warfarin, the [place] [employer]icians 2012 Guideline recommends [...] Chest 2012, 141:7S-47S Thiago RA, et al. [facility] 2017, 70: 252-289Performed By: #### CBC, CMP, NTBNP, PT #### [facility] [address] [place], [place] [address] VB Sec11.3 secNormal9.7-13.0[facility] Methodist HospitalComment on above:Performed By: #### CBC, CMP, NTBNP, PT #### [facility] [employer] [address] [place], [place] [address] CR CHEST 2V FRONTAL/LATon 38-63-1183HQ CHEST 2V FRONTAL/LAT* * *Final Report* * * DATE OF [...] the spine. IMPRESSION: No acute radiographic abnormality. Datastage Developer: PSCB Transcribe Date/Time: Mar 15 2021 1:47P Dictated by : DESTINY FOOTE MD This examination was interpreted and the report reviewed and electronically signed by: DESTINY FOOTE MD on Mar 15 2021 1:48PM EST [id number] Grove City Methodist HospitalCNPNon 14-16-3823IYOP Telephone (CATHMN) IVANA HUTCHINSON ([id number]) 1935 F Date Time Provider Department 01/22/21 INTERVENTIONAL CLINICIAN CATHSHEELA During your visit today, we recorded the following information about you: Hill [place] [facility] 01/22/2021 10:33 AM Signed 2020 FUAD 03/02/2020 Echocardiogram 10/04/2020 Venous ultrasound Studies downloaded in [employer] As of Date: 01/22/2021 (Not on File) Date Reviewed: Never Reviewed Reason for Visit: Received Outside Medical Records [[id number]] Cmt: 12/12/2020 FUAD and 09/27/2020 Echocardiogram in [employer] Problem List As Of Date: 01/22/2021 (None) Encounter Status:Closed by KAMALJIT LalaHILL on 01/22/21[facility] HealthCNCOon 28-87-0086LLOBVixszv TextSumma Health CNPNon 48-20-2004WRMPBlwmoyhxy (CATHMN) IVANA HUTCHINSON ([id number]) 1935 F Date Time Provider Department 01/17/21 INTERVENTIONAL CLINICIAN KATHLEEN During your visit today, we recorded the following information about you: Allergies As of Date: 01/17/2021 (Not on File) Date Reviewed: Never Reviewed Reason for Visit: Received Outside Medical Records [3576] Cmt: Records scanned in [employer] Problem List As Of Date: 01/17/2021 (None) Encounter Status:Closed by HILL TAYLOR on 01/17/21[facility] HealthCNPNTelephone (CATHMN) IVANA HUTCHINSON ([id number]) 1935 F Date Time Provider Department 01/17/21 INTERVENTIONAL CLINICIAN KATHLEEN During your visit today, we recorded the following information about you: Allergies As of Date: 01/17/2021 (Not on File) Date Reviewed: Never Reviewed Reason for Visit: Request Outside Medical Records [[id number]] Cmt: Records available in Care Everywhere Problem List As Of Date: 01/17/2021 (None) Encounter Status:Closed by HILL TAYLOR on 01/17/21[facility] HealthUS-ECHO FUAD W/ 3D RECON INDEPENDENT WORKSTATION IMPORTon 60-49-7300LC-ECHO FUAD W/ 3D RECON INDEPENDENT WORKSTATION IMPORTImages were obtained outside of [facility] [id number] Children's Hospital [facility] hamiltonUS-ECHO FUAD W/ 3D RECON INDEPENDENT WORKSTATION IMPORTon 16-81-8882VF-ECHO FUAD W/ 3D RECON INDEPENDENT WORKSTATION IMPORTImages were obtained outside of [facility] [id number] Memorial HospitalUS-VASC VENOUS DUPLEX LOWER BILATERAL IMPORTon 71-77-2048ZE-VASC VENOUS DUPLEX LOWER BILATERAL IMPORT Images were obtained outside of [facility] [id number] Private HospitalvelandUS-ECHO COMPLETE WO CONTRAST IMPORTon 35-07-6525DA-ECHO COMPLETE WO CONTRAST IMPORTImages were obtained outside of [facility] [id number] Memorial Hospital Vital Signs Date TimeVital SignValuePerforming HaifjcnmvYdvkkfod58-02-5563 13:38-0400Body posors873.4 cmDennis Furlong DO Work Phone: [facility]09-30-2025 13:38-0400Body mass index (BMI) [Ratio]39.68 kg/a5Ivgwum Furlong DO Work Phone: [facility]09-30-2025 13:38-0400Body igeloyxoalk09.2 [degF]Ej Furlong DO Work Phone: [facility]09-30-2025 13:38-0400Body .17 kgDennis Furlong DO Work Phone: [facility]09-30-2025 13:38-0400Diastolic blood jnnagcjb75 mm[Hg]Ej Furlong DO Work Phone: [facility]09-30-2025 13:38-0400Heart rate 79 /minDrikis Elizabethlong DO Work Phone: [facility]09-30-2025 13:38-0400 Respiratory rate20 /minDrikis Elizabethlong DO Work Phone: [facility]09-30-2025 13:38-5254LoL4% (BldA) [Mass fraction]96 %Ej Johnsonlong DO Work Phone: [facility]09-30-2025 13:38-0400Systolic blood mfpfiatw291 mm[Hg]Ej Furlong DO Work Phone: [facility]09-18-2025 13:39-0400Body qqrfom364.4 cmDennis Elizabethlong DO Work Phone: [facility]09-18-2025 13:39-0400 Body mass index (BMI) [Ratio]39.8 kg/m3Mliquu Elizabethlong DO Work Phone: [facility]09-18-2025 13:39-0400 Body fmofdklqbrk13.8 [degF]Ej Furlong DO Work Phone: [facility]09-18-2025 13:39-0400 Body .53 kgDenpayam Furlong DO Work Phone: [facility]09-18-2025 13:39-0400 Diastolic blood vzobmwjb62 mm[Hg]Ej Furlong DO Work Phone: [facility]09-18-2025 13:39-0400 Heart rate78 /minDrikis Furlong DO Work Phone: [facility]09-18-2025 13:39-0400 Respiratory rate19 /minDennis Furlong DO Work Phone: [facility]09-18-2025 13:39-0400 SaO2% (BldA) [Mass fraction]98 %Ej Johnsonlong DO Work Phone: [facility]09-18-2025 13:39-0400 Systolic blood riscbsna344 mm[Hg]Ej Johnsonlong DO Work Phone: [facility]09-15-2025 14:17-0400 Body zgysqk866.4 cmMansoor Toro MD Work Phone: [facility]09-15-2025 14:17-0400Body mass index (BMI) [Ratio]40.04 kg/a2BoqsiMansoor Toro MD Work Phone: [facility] [employer] Vlzqch27-13-5302 14:17-0400Body ynqjtj18.99 kgMansoor Toro MD Work Phone: [facility]09-15-2025 14:17-0400Diastolic blood mm[Hg]Mansoor Toro MD Work Phone: [facility]09-15-2025 14:17-0400Heart rate 55 /minMansoor Toor MD Work Phone: [facility]09-15-2025 14:17-2385ZaY0% (BldA) [Mass fraction]94 %Mansoor Toro MD Work Phone: [facility]09-15-2025 14:17-0400Systolic blood jlewpltv543 mm[Hg]Mansoor Toro MD Work Phone: [facility]09-10-2025 14:37-0400Body xapvdz926.4 cmAnthony Rusher DPM Work Phone: [phone]09-10-2025 14:37-0400Body mass index (BMI) [Ratio]38.86 kg/d5Xuawoxb Rusher DPM Work Phone: [phone]09-10-2025 14:37-0400Body dgnhuh24.27 kgAnthony Rusher DPM Work Phone: [phone]06-10-2025 16:05-0400Body .4 cmAnthony Rusher DPM Work Phone: [phone] [address]06-10-2025 16:05-0400Body mass index (BMI) [Ratio]38.86 kg/j2Mhhezhj Rusher DPM Work Phone: [phone]06-10-2025 16:05-0400Body neyqyt49.27 kgAnthony Rusher DPM Work Phone: [phone])[address]58 [address]05-30-2025 09:46-0400Body arkbzf389.4 cmDennis Furlong DO Work Phone: [facility]05-30-2025 09:46-0400Body mass index (BMI) [Ratio]42.18 kg/o3Jweepy Furlong DO Work Phone: [facility]05-30-2025 09:46-0400Body mqpeikhwxkk00.39 [degF]Ej Furlong DO Work Phone: [facility]05-30-2025 09:46-0400Body osqtkh80.98 kgDennis Furlong DO Work Phone: [facility]05-30-2025 09:46-0400Diastolic blood sihofanz49 mm[Hg]Ej Furlong DO Work Phone: [facility]05-30-2025 09:46-0400Heart rate 72 /Justinais Furlong DO Work Phone: [facility]05-30-2025 09:46-0400 Respiratory rate20 /minDennis Furlong DO Work Phone: [facility]05-30-2025 09:46-5662GtK4% (BldA) [Mass fraction]95 %Ej Furlong DO Work Phone: [facility]05-30-2025 09:46-0400Systolic blood mm[Hg]Ej Leongng DO Work Phone: [facility]05-12-2025 13:31-0400Body ympvro022.4 cmAleida Wilkes MD Work Phone: [phone]05-12-2025 13:31-0400Body mass index (BMI) [Ratio]42.18 kg/d0AgbkkvaAleida Wilkes MD Work Phone: [facility]05-12-2025 13:31-0400Body wistkl15.98 kgAleida Wilkes MD Work Phone: [facility]05-12-2025 13:31-0400Diastolic blood onzmtypz07 mm[Hg]Aleida Wilkes MD Work Phone: [facility]05-12-2025 13:31-0400Heart rate 93 /minAleida Wilkes MD Work Phone: [facility]05-12-2025 13:31-4015BtP4% (BldA) [Mass fraction]93 %Aleida Wilkes MD Work Phone: [facility]05-12-2025 13:31-0400Systolic blood vwitiflc328 mm[Hg]Aleida Wilkes MD Work Phone: [facility] Tjrioz01-21-3876 16:25-0400Body ylmfbn223.4 cmDennis Furlong DO Work Phone: [facility] Jqpkxt78-64-3182 16:25-0400Body mass index (BMI) [Ratio]39.45 kg/x0Cmsuqz Furlong DO Work Phone: [facility] HospitalCapture[facility]05-08-2025 16:25-0400Body .39 [degF]Ejpayam Johnsonlong DO Work Phone: [facility] Cvplfg36-56-4492 16:25-0400Body bdkuxn06.63 kgDennis Furlong DO Work Phone: [facility] Wupkym86-17-9549 16:25-0400Diastolic blood vaybjssw22 mm[Hg]Ej Furlong DO Work Phone: [facility] [employer] [place]72-73-0952 16:25-0400Heart rate 83 /minDrikis Furlong DO Work Phone: [facility] Vchyep60-27-3969 16:25-0400 Respiratory rate20 /minDennis Furlong DO Work Phone: [facility] Cwkxkm60-28-8831 16:25-4550RrC5% (BldA) [Mass fraction]93 %Ej Furlong DO Work Phone: [facility] [employer] Kwufxt73-12-1549 16:25-0400Systolic blood tbkhyqik167 mm[Hg]Ej Johnsonlong DO Work Phone: [facility] Ybqygp54-92-5828 14:36-0400Body zxkoof922.4 Marlene Avendano MD Work Phone: [facility] Wqtyxt82-66-0103 14:36-0400Body mass index (BMI) [Ratio]39.45 kg/t1XffpuMilla Avendano MD Work Phone: [employer]05-01-2025 14:36-0400Body xflbri41.63 kgMilla Avendano MD Work Phone: [facility]05-01-2025 14:36-0400Diastolic blood tadcduqc17 mm[Hg]Milla Avendano MD Work Phone: [facility]05-01-2025 14:36-0400Heart rate 90 /minMilla Avendano MD Work Phone: [facility]05-01-2025 14:36-0400Systolic blood iarnmdns125 mm[Hg]Milla Avendano MD Work Phone: [facility]03-10-2025 13:23-0400Body emmnbd119.4 cmKelsi Mici PA-C Work Phone: [facility] Center[facility]03-10-2025 13:23-0400Body mass index (BMI) [Ratio]39.45 kg/y3Bemvv Mici PA-C Work Phone: [employer]03-10-2025 13:23-0400Body xgdyeu45.63 kgKelsi Mici PA-C Work Phone: [phone]03-10-2025 13:23-0400Diastolic blood igiziaer41 mm[Hg]Jennifer Mici PA-C Work Phone: [employer]03-10-2025 13:23-0400Heart rate 66 /minKelsi Mici PA-C Work Phone: [employer]03-10-2025 13:23-1024GeO7% (BldA) [Mass fraction]90 %Jennifer Mici PA-C Work Phone: [employer]03-10-2025 13:23-0400Systolic blood msjzyibc025 mm[Hg]Jennifer Mici PA-C Work Phone: [employer] Encounters Encounter DateEncounter TypeCare ProviderFacilityStart: 05-12-2025 End: 92-01-6516ZrfmikNeuvyuu R Oberneder [employer] THERAPY DIRECTOR Work Phone: [facility] Start: 05-02-2025 End: 92-50-6922Gdkvom Boyd Simon DO Work Phone: [facility] - Family MedicineComment on above:Longstanding persistent atrial fibrillation ([facility]) Start: 04-05-2025 End: 01-11-5773cslezudvvdPTHRQK [facility] Ambulatory PPGStart: 04-05-2025 End: 27-48-9141Dvrptz outpatient visit 25 minutesEj Chad Johnsonpipe DO Work Phone: [facility] - Family MedicineComment on above:Type 2 diabetes mellitus with stage 4 chronic kidney disease, without long-term current use of insulin ([facility]) (Primary Dx); Mixed hyperlipidemia; Obesity, morbid ([facility]); Permanent atrial fibrillation ([facility]-HCC)Start: 04-01-2025 End: 66-48-2867OraehiAloelqo Fischer [employer] THER[employer] DIRECTOR Work Phone: [facility] CardiologyComment on above:Med RefillStart: 03-31-2025 End: 37-46-7753Nsraeljlp encounterNicole Suzette [facility] CenterMed[facility] Medicine - Family MedicineStart: 03-24-2025 End: 45-12-9883socunizupfFzudsg Elizabethmarycarmenbob DO Work Phone: [facility] Work Phone: Start: 03-24-2025 End: 68-40-5003Blulpnd encounter procedurePaayana Hills [facility] Work Phone: Start: 03-23-2025 End: 85-64-1467Wqmorb Boyd Simon DO Work Phone: [facility] - Family MedicineComment on above:Type 2 diabetes mellitus with stage 3b chronic kidney disease, without long-term current use of insulin ([facility])Start: 03-22-2025 End: 21-27-6921Trmouzwzc encounterFabiola Suzette [facility] CenterMed[facility] Internal Medicine - Family MedicineStart: 03-21-2025 End: 77-12-7438Hemcuw outpatient visit 25 minutesMinh Barba MD Work Phone: [facility] CenterMedica [facility]icians CardiologyComment on above: Permanent atrial fibrillation ([facility]) (Primary Dx); Heart failure with preserved left ventricular function (HFpEF) ([facility])Start: 03-21-2025 End: 06-27-3769khrglcrqxvIELSL A DOLOhioHealth Grove City Methodist Hospitaltart: 03-16-2025 End: 10-59-5655Smxbwi outpatient visit 15 minutesJoe Mills DPM Work Phone: [facility]Fill[facility] PodiatryComment on above:Contusion of lesser toe of left foot without damage to nail, initial encounter (Primary Dx); Onychodystrophy; Onychomycosis; Diabetic polyneuropathy associated with type 2 diabetes mellitus (HCC)Start: 03-16-2025 End: 72-19-9499qcviwnwwefNPFREWV S RUSHERNot AvailableStart: 03-16-2025 End: 23-91-4882Phytrf flowsheetAnthabbi Mills DPM Work Phone: NOFill[facility] PodiatryStart: 03-16-2025 End: 06-97-9279Sxtcry Anup Mills DPM Work Phone: noFillmore [facility] Hospital PodiatryStart: 02-18-2025 End: 61-08-6849QdxfmuTwnxungt Johnson [facility] CenterMedica [facility] Internal Medicine - Family MedicineComment on above:Longstanding persistent atrial fibrillation ([facility])Start: 01-19-2025 End: 81-22-4306Ibiuqlieq encounterYarelis Spears [facility] CenterMed[facility] Internal Medicine - Family MedicineStart: 01-14-2025 End: 28-36-2223PqhuozUxgrryhKian CARDENAS Work Phone: [facility] CardiologyComment on above:Med RefillStart: 01-13-2025 End: 20-46-9296Chbmhy OnlyEj Chad Johnsonpipe DO Work Phone: [facility] - Family MedicineComment on above:Coronary artery disease involving [place] coronary artery of [place] heart without angina pectoris (Primary Dx); Statin intolerance; Mixed hyperlipidemiaStart: 12-14-2024 End: 15-35-1604Kuymvq outpatient new 30 minutesAnthony S Brunoher DPM Work Phone: noms PODIATRYComment on above:Diabetic polyneuropathy associated with type 2 diabetes mellitus (CMS/HCC) (Primary Dx); Onychodystrophy; OnychomycosisStart: 12-14-2024 End: 41-99-1925pmelwxzbeqRUGPBDI S RUSHERNot AvailableStart: 12-14-2024 End: 91-08-3592Vdnuvx flowsheetAnthony S Brunoher DPM Work Phone: noms PODIATRYStart: 12-14-2024 End: 93-39-4879Uhecqe flowsheetAnthony S Brunoher DPM Work Phone: noms PODIATRYStart: 12-10-2024 End: 22-13-8800Uvjzdwnvj encounterMekhurram Douglas RNProMedica Physicians Pulmonary/Sleep MedicineStart: 42-31-9336iqeuddzqxgGJNVVP G FURLONGHolmes County Joel [facility] Memorial Hospitalca [facility] HospitalStart: 12-03-2024 End: 51-96-6829Tuasna outpatient visit 25 minutesEj Simon DO Work Phone: [facility] - Family MedicineComment on above:Cellulitis of left foot (Primary Dx); Permanent atrial fibrillation ([facility]); Mixed hyperlipidemia; Type 2 diabetes mellitus with stage 4 chronic kidney disease, without long-term current use of insulin ([facility])Start: 12-03-2024 End: 79-54-7154bzhzavmpprHMITPZ G FURLONGHolmes County [facility] Hospitalca [facility] Ambulatory PPGStart: 11-17-2024 End: 36-84-9614Lrwtlpsza encounterLenka Theodore CMAProMedica Physicians Pulmonary/Sleep MedicineStart: 11-15-2024 End: 52-92-1417sdcctrklbtNFKALAF E WILLIAMSThe [facility] Start: 11-15-2024 End: 21-42-3608Zfsrry outpatient visit 25 minutesAleida Wilkes MD Work Phone: [facility] Pulmonary/Sleep MedicineComment on above:KELSY (obstructive sleep apnea) (Primary Dx)Start: 11-11-2024 End: 38-31-7563Xeebsh outpatient visit 25 minutesEj Simon DO Work Phone: [facility] - Family MedicineComment on above:Type 2 diabetes mellitus with stage 4 chronic kidney disease, without long-term current use of insulin ([facility]) (Primary Dx); Mixed hyperlipidemia; Permanent atrial fibrillation ([facility]); Heart failure with preserved left ventricular function (HFpEF) ([facility]); Stage 4 chronic kidney disease ([facility])Start: 11-11-2024 End: 04-83-5073mcaroqpuskUEEIMCSt. Elizabeth Regional Medical Center Ambulatory PPGStart: 11-11-2024 End: 86-38-5194qjryepprvoUITJUSO E WILLIAMSCincinnati Shriners Hospitaltart: 11-10-2024 End: 42-33-2872NolapuNngbwCristobal Avendano MD Work Phone: [facility] Start: 11-05-2024 End: 83-02-5580UchxxuOfbdiCristobal Avendano MD Work Phone: [facility] Start: 11-04-2024 End: 57-28-7940Bbafdh outpatient visit 25 minutesMilla Avendano MD Work Phone: [facility] Comment on above:Stage 3b chronic kidney disease (CKD) ([facility]) (Primary Dx) Start: 11-04-2024 End: 56-58-9342ypqeeqihimUPEEU MICIProMedMendocino State Hospitaltart: 10-29-2024 End: 29-08-4488FtbcvxBvknl [facility] Physicians CardiologyComment on above:Med RefillStart: 10-28-2024 End: 35-86-8160SabdoyOvcv L Monroe MD Work Phone: [facility] CardiologyComment on above:Med RefillStart: 10-27-2024 End: 17-28-0409Prsqxz Boyd Chad Simon DO Work Phone: [facility] - Family MedicineStart: 10-14-2024 End: 05-71-5270Wyiqzk Archana Jo Ann Keyonna [employer] THER[employer] DIRECTOR Work Phone: [facility] - Family MedicineStart: 10-04-2024 End: 35-81-8538Dyfmtf Boyd Chad Asha DO Work Phone: [facility] - Family MedicineStart: 09-28-2024 End: 54-29-1684Frnmnbdfc encounterFabiola Bradford [facility] CenterMedica [facility] Internal Medicine - Family MedicineStart: 09-17-2024 End: 57-82-7603Jekneglmp encounterLenka Theodore [facility] CenterMed[facility] Pulmonary/Sleep MedicineStart: 09-16-2024 End: 39-27-6415Pgeduzdqf encounterLenka Theodore [facility] CenterMed[facility] Pulmonary/Sleep MedicineStart: 09-13-2024 End: 44-79-9451Mgatyh outpatient visit 25 minutesEmagata Colon [employer] THER[employer]Y DIRECTOR Work Phone: [facility] CardiologyComment on above: Permanent atrial fibrillation (CMS-HCC) (Primary Dx); Coronary artery disease involving [place] coronary artery of [place] heart without angina pectoris; Primary hypertension; Nonrheumatic mitral valve regurgitation; Heart failure with preserved left ventricular function (HFpEF) (CMS-HCC); Presence of aortocoronary bypass graft; Atherosclerosis of [place] coronary artery of [place] heart without angina pectorisStart: 09-13-2024 End: 96-02-0000cvradizvnkYSDPWMarietta Memorial Hospitaltart: 09-10-2024 End: 46-77-0296Wlratvweh encounterPenny Mott CMAProMedica Physicians CardiologyStart: 07-22-2024 End: 84-23-8957Udpxxg Boyd Simon DO Work Phone: [facility] Medicine - Family MedicineComment on above:Atherosclerosis of [place] coronary artery of [place] heart without angina pectoris (Primary Dx); Mixed hyperlipidemia; Type 2 diabetes mellitus with stage 3b chronic kidney disease, without long-term current use of insulin ([facility])Start: 07-13-2024 End: 46-70-3977Zfuacx Boyd Simon DO Work Phone: [facility] - Family MedicineStart: 07-12-2024 End: 47-72-0458Gaopjh Boyd Simon DO Work Phone: [facility] MedicineStart: 06-15-2024 End: 00-88-4974iukohhvgozLUJOKC G FURLONGProMedica Cleveland HospitalStart: 06-15-2024 End: 61-64-3730efwppeysegDWPNWK G FURLONGProMedica [facility] Ambulatory PPGStart: 10-31-2022 End: 97-58-4630azmuailewhRY EJ SIMONFacility:H1 Procedures DateProcedureProcedure DetailPerforming ClinicianStart: 35-26-7075Zmfybbtvpg glycosylated l9qRkuvswEj Simon DO Work Phone: Start: 15-24-1453Oaqrf depression screening assessment Ej Simon DO Work Phone: Start: 66-81-5699Wkm routine ecg w/least 12 lds w/i&r Mansoor Toro MD Work Phone: Start: 45-45-7819Nzvay depression screening assessment Ej Simon DO Work Phone: Start: 97-29-1969Lhghixruqe glycosylated f8bCfvbizEj Simon DO Work Phone: Start: 99-31-6249Amsoj depression screening assessment Ej Simon DO Work Phone: Start: 24-26-9143Xpswsq-up visitFollow-upKELSI MICI Start: 28-25-5062Dnedc depression screening assessmentDenFonality DO Work Phone: Start: 20-94-4765Ubkjgdyz screenComment on above: Performed By: #### CMP, PTT, CKCKMB, CBC #### [facility] [address] [place] [id number] [phone]: 15-21-7560Gauasec of coronary artery bypass graftingHistory of coronary artery bypass surgeryDenpayam Simon DO Work Phone: Plan of Treatment DateCare ActivityDetailAuthorStart: 82-36-7381CSxH,Tdap and Td Vaccines (3 - Td or Tdap)DTaP,Tdap and Td Vaccines (3 - Td or Tdap)[facility] SystemStart: 47-80-1566Pzhyqzvqbf ScreeningDepression ScreeningProMedica Health SystemStart: 06-75-7994Xeaz Risk ScreeningFall Risk ScreeningProMedica Health SystemStart: 98-30-9712Pbgsjth ScreeningTobacco ScreeningProMedica Health SystemStart: 16-34-0148Gwxormv ScreeningTobacco ScreeningProMedica Health SystemStart: 34-42-7707Senkezjijt ScreeningDepression ScreeningProMedica Health SystemStart: 85-43-9028Sobh Risk ScreeningFall Risk ScreeningProMedica Health SystemStart: 95-26-2269Phfleqy ScreeningTobacco ScreeningProMedica Health SystemStart: 40-24-4045Elnwokj ScreeningTobacco ScreeningProMedica Health SystemStart: 57-14-8757Bmhrzummte ScreeningDepression ScreeningProMedica Health SystemStart: 56-07-1728Vpvs Risk ScreeningFall Risk ScreeningProMedica Health SystemStart: 35-99-3209Cmlwfiy ScreeningTobacco ScreeningProMedica Health SystemStart: 02-35-4263Jnhszml ScreeningTobacco ScreeningProMedica Health SystemStart: 10-31-2025 End: 55-19-9191Bngisus encounter qxmopnfbe70/27/2026 1:30 PM EDT Office Visit [facility] [address] [place] [address] Aleida Wilkes MD [address] [facility] [place] [address] [facility] Pulmonary/Sleep MedicineStart: 17-71-0240Fbjtrqv ScreeningTobacco Screening [facility] SystemStart: 08-08-2025 End: 78-80-4389Puzikep encounter qcqazhulo45/02/2026 2:00 PM EST Office Visit [facility] [address] [place] [address] Ej Simon DO [address], [place] [address] [facility] - Family MedicineStart: 06-20-2025 End: 35-13-8377Hqlqsfj encounter nlfuzsuki88/15/2025 4:15 PM EST Procedure Visit [facility] [address] [place] [address] Joe Mills DPM [address] [place] [address] NOMRizwana [facility] PodiatryStart: 27-56-5576Rscbnuz ScreeningTobacco ScreeningProCleveland Clinic South Pointe Hospitalca Health SystemStart: 05-03-2025 End: 99-65-9412Dnyqv metabolic 2000 panel - Serum or PlasmaBasic Metabolic Panel Lab Routine Stage 3b chronic kidney disease (CKD) ([facility]) Expected: 05/03/20 (Approximate), Expires: 11/01/2025[facility] Work Phone: Comment on above:Expected: 05/03/2025 (Approximate), Expires: 11/01/2025Start: 05-03-2025 End: 06-15-8270EEP panel - Blood by Automated countCBC without diff Lab Routine Stage 3b chronic kidney disease (CKD) ([facility]) Expected: 05/03/2025 (A pproximate), Expires: 11/01/2025[facility] SystemComment on above: Expected: 05/03/2025 (Approximate), Expires: 11/01/2025Start: 05-03-2025 End: 67-58-0018Fvfsqvvhg [Mass/volume] in Serum or PlasmaMagnesium Lab Routine Stage 3b chronic kidney disease (CKD) ([facility]) Expected: 05/03/2025 (Approxim ate), Expires: 11/01/2025[facility] SystemComment on above:Expected: 05/03/2025 (Approximate), Expires: 11/01/2025Start: 05-03-2025 End: 40-30-4461Uvvdjzieugx Hormone, intactParathyroid Hormone, intact Lab Routine Stage 3b chronic kidney disease (CKD) ([facility]) Expected: 05/03/2025 (Approximate), Expires: 11/01/2025[facility] SystemComment on above: Expected: 05/03/2025 (Approximate), Expires: 11/01/2025Start: 05-03-2025 End: 22-06-0840Jemhnquic [Mass/volume] in Serum or PlasmaPhosphorus Lab Routine Stage 3b chronic kidney disease (CKD) ([facility]) Expected: 05/03/2025 (Approxi mate), Expires: 11/01/2025[facility] SystemComment on above:Expected: 05/03/2025 (Approximate), Expires: 11/01/2025Start: 05-03-2025 End: 66-40-5686Isgyqye creat ratioProtein creat ratio Lab Routine Stage 3b chronic kidney disease (CKD) ([facility]) Expected: 05/03/2025 (Approximate), Expires: 11/01/2025[facility] SystemComment on above:Expected: 05/03/2025 (Approximate), Expires: 11/01/2025Start: 05-03-2025 End: 05-24-3593Xmlkqos D 25 hydroxyVitamin D 25 hydroxy Lab Routine Stage 3b chronic kidney disease (CKD) ([facility]) Expected: 05/03/2025 (Approximate), Expires: 11/01/2025ProAd[facility] SystemComment on above:Expected: 05/03/2025 (Approximate), Expires: 11/01/2025Start: 04-05-2025 End: 07-35-1533Xsyirrb encounter ozxqdydhs87/30/2025 1:30 PM EDT Office Visit [facility] [address] [place] [address] Ej Simon, [address], [place] [address] [facility] MedicineStart: 03-21-2025 End: 36-02-4410Egiv complete W/O contrastEcho complete W/O contrast Echocardiography Routine Permanent atrial fibrillation ([facility]) Heart failure with preserved left ventricular function (HFpEF) ([facility]) Expected: 03/21/2025, Expires: 03/21/2026[facility] Work Phone: Comment on above:Expected: 03/21/2025, Expires: 03/21/2026Start: 03-21-2025 End: 67-75-5872Bsftrgs encounter procedureProMedica Physicians CardiologyStart: 03-16-2025 End: 74-18-0093Islukou encounter procedureNOMS FH PODIATRYComment on above: ArrivedStart: 22-63-1730Wslwugryp vaccinationProAdams County Regional Medical Center SystemStart: 02-15-2025 End: 51-00-9671Holhpie encounter agubzurmg72/12/2025 4:15 PM EDT Office Visit [facility] [address] [place] [address] Ej Simon DO [address], [place] [address] [facility] - Family MedicineStart: 70-16-6035SXwW,Tdap and Td Vaccines (2 - Td or Tdap)DTaP,Tdap and Td Vaccines (2 - Td or Tdap)[facility] SystemStart: 12-14-2024 End: 96-83-2239Ndnlqzk encounter ahbtomnvi2025 3:45 PM EDT Office Visit [facility] [address] [facility] [place] [address] Joe Mills, DPM [address] [place] [address] ArrivedNOCROSSROADS REGIONAL MEDICAL CENTER PODIATRYComment on above:ArrivedStart: 12-07-2024 End: 29-34-6118atxzhcwgzt67/03/2025 9:45 AM EDT Infant Monitor [facility] Monitor [address] [place] [address] [phone] [facility] Infant MonitorStart: 11-15-2024 End: 10-14-9633Roghqvs encounter dohihgcim97/12/2025 1:15 PM EDT Office Visit [facility] [address] [place] [address] Aleida Wilkes MD [address] [facility] [place] [address] [facility] Pulmonary/Sleep MedicineStart: 11-11-2024 End: 98-36-3393Vtihpoq encounter pqhiskxhf57/08/2025 4:15 PM EDT Office Visit [facility] [address] [place] [address] Ej Simon DO [address], [place] [address] [facility] - Family MedicineStart: 11-11-2024 End: 46-78-4990Ibjraem encounter keqpzqxxj04/08/2025 1:30 PM EDT Appointment [facility] - Pulmonary Function [address] [place] [address] Aleida Wilkes MD [address] [facility] - Pulmonary FunctionStart: 11-10-2024 End: 91-93-5435Hugbgqy encounter hacncaguz00/07/2025 2:30 PM EDT Appointment [facility] - Pulmonary Function [address] [place] [address] Aleida Wilkes MD [address] [facility] - Pulmonary FunctionStart: 11-04-2024 End: 07-20-8688Ukpsbxo encounter /01/2025 4:00 PM EDT Office Visit [facility] [address] [place] [address] Milla Avendano MD [address] [place] [address] [facility]kegeetart: 10-14-2024 End: 13-05-9191Fwmmgxf encounter hhujyqkoi21/10/2025 4:15 PM EDT [facility] [address] [place] [address] Ej Simon, [address] [facility] [address] [facility] - Family MedicineStart: 09-21-2024 End: 87-73-4700Bfgaegc encounter aijryfocx15/18/2025 4:15 PM EDT Office Visit [facility] [address] [place] [address] Ej Simon, [address], [place] [address] [facility] - Family MedicineStart: 09-13-2024 End: 20-21-1869Zrlddr monitor studyHolter monitor 24-48 hour Cardiac Services Routine Permanent atrial fibrillation ([facility]) Expected: 09/13/2024, Expires: 09/13/2025[facility] Work Phone: Comment on above:Expected: 09/13/2024, Expires: 09/13/2025Start: 09-13-2024 End: 07-29-2927Usnnzoa encounter /10/2025 1:30 PM EDT Office Visit [facility] [address] [place] [address] Cyn Colon, [employer]HEARING THERAPY DIRECTOR [address] [place] [address] Jennifer Pruitt PA-C [address] [place] [address] [facility] CardiologyStart: 08-24-2024 End: 12-39-6600Svpxrag encounter lnpjiffjp05/18/2025 11:30 AM EST Office Visit [facility] [address] [place] [address] Cyn Colon, [employer] THERAPY DIRECTOR [address] [place] [address] [facility] CardiologyStart: 22-27-9347Eiksldhgu vaccinationInfluenza VaccineProEast [facility] Medical Center Health SystemStart: 40-37-6350Ysryocjdmi ScreeningDepression ScreeningProMedica Health SystemStart: 09-60-3384Nnka Risk ScreeningFall Risk ScreeningCritical access hospitaltart: 95-13-4598Tjxegpmqafenis of varicella zoster vaccineZoster (Shingles) Vaccine (2 of 3)Critical access hospitaltart: 04-06-1938Medicare Annual Wellness Visit Medicare Annual Wellness VisitUniversity [facility] End: 58-83-3273Rswaq oximetry, overnightPulse oximetry, overnight Respiratory Care Routine KELSY (obstructive sleep apnea) 1 Occurrences starting 11/15/2024 until 11/15/2025[facility] Work Phone: Comment on above:1 Occurrences starting 11/15/2024 until 11/15/2025 End: 40-44-4261FygfpjtvyvPhpsqvtqxg Lab Routine Stage 3b chronic kidney disease (CKD) ([facility]) 1 Occurrences starting 11/04/2024 until 11/01/2025[facility] CenterComment on above:1 Occurrences starting 11/04/2024 until 11/01/2025 Immunizations Immunization DateImmunizationNotesCare OjjmwclxQcqhrysn70-07-9702azainbr and diphtheria toxoids, adsorbed, preservative free, for adult use (5 Lf of tetanus toxoid and 2 Lf of diphtheria toxoid)Ej Simon DO Work Phone: [facility]02-14-2025Seasonal, trivalent, recombinant, injectable influenza vaccine, preservative freeNicole Suzette [facility]02-14-2025influenza virus vaccine, unspecified formulationMara Newby APRN-HEARING THERAPY DIRECTOR Work Phone: [facility]01-11-2025RSV, bivalent, protein subunit RSVpreF, diluent reconstituted, 0.5 mL, PFNicole Suzette [facility]11-02-2023Influenza, High-dose, QuadrivalentChildren'S Hospital Colorado, Colorado Springspayam Font[place] Dam DO Work Phone: [facility] [id number] virus vaccine, unspecified formulationEj Fontana Dam DO Work Phone: [facility] CenterBvonpa37-14-2812Criekaxlz, High-dose, QuadrivalentDennis Furlong DO Work Phone: [facility] CenterJppeiv09-22-6349Sukrnwfbt, High-dose, QuadrivalentDennis Furlong DO Work Phone: [facility] CenterVkvjks19-21-8349QJJTU-58, mRNA, LNP- S, PF, 30mcg/0.3mL DoseDennis Furlong DO Work Phone: [facility] CenterPezduq59-54-1963PZSEQ-97, mRNA, LNP- S, PF, 30mcg/0.3mL DoseDennis Furlong DO Work Phone: [facility] CenterZazosg11-87-9275CAHAP-33, mRNA, LNP- S, PF, 30mcg/0.3mL DoseDennis Furlong DO Work Phone: [facility] CenterTssqxx25-36-7691Viicqaej, quadrivalent, recombinant, injectable influenza vaccine, preservative freeDennis Furlong DO Work Phone: [facility] CenterImdars53-48-1146bislskvme, injectable, quadrivalent, contains preservativeDennis Furlong DO Work Phone: [facility] CenterZmnjva23-16-8733ezeiafeoe, high dose seasonal, preservative-freeDennis Furlong DO Work Phone: [facility] CenterGhsmyy99-06-8960ejsjksjuttsb conjugate vaccine, 13 valentDennis Furlong DO Work Phone: [facility]06-22-2015tetanus toxoid, reduced diphtheria toxoid, and acellular pertussis vaccine, adsorbedDennis Furlong DO Work Phone: [facility]10-29-2012zoster vaccine, live Ej Furlong DO Work Phone: [facility]10-29-2012zoster vaccine, unspecified formulationDennis Furlong DO Work Phone: [facility] CenterQagely14-03-8010sjgjynflbwly polysaccharide vaccine, 23 valentEj Simon DO Work Phone: [facility] Payers DatePayer CategoryPayerPolicy [id number] Care Other (unspecified)[facility] [employer] Member Subscriber Plan / Payer (Effective 2018-Present) Name: Ivana Hutchinson Relation to Subscriber: Self Name: Ivana Hutchinson Payer ID: Not on file Group ID: Not on file Type: Not on file Address:[address] [id number] Health InsuranceCATHOLIC HEALTHA Member Subscriber Plan / Payer (Effective 2018-Present) Name: Ivana Hutchinson Relation to Subscriber: Self Name: Ivana Hutchinson PayerID: Not on file Group ID: [id number] N Type: Not on file Address: [address] [id number] 2003Medicare [id number] [id number] 2.840.1.078368.3.579.2.593 [id number] 2.0.1.963131.3.579.2.472750-90-8011Qzlewql [id number] 2.16.840.1.096452.3.57[id number] 2.16.840.1.450628.3.57[id number] 2.16.840.1.694177.3.57[id number] 2.16.840.1.256208.3.57[id number] 2.16.840.1.880279.3.57[id number] 2.16.840.1.230959.3.57[id number] 2.840.1.111649.3.57[id number] 2.840.1.264354.3.57[id number] 2.840.1.718243.3.57[id number] 2.840.1.898760.3.57[id number] 2.840.1.618694.3.57[id number] 2.840.1.620093.3.57[id number] 2.840.1.195[id number] Social History DateTypeDetailFacilityStart: 06-14-2022 End: 63-67-2625Jsrfgzz smoking status NHISNever smoked tobaccoSamaritan North Health Center SystemStart: 06-14-2022 End: 23-19-6959Fxlheqv use and exposureSmokeless tobacco non-userSamaritan North Health Center SystemStart: 06-15-2024 End: 97-75-9006Yjaecgimh beverage intakeCurrent non-drinker of alcohol (finding) [facility] SystemStart: 09-28-2020 End: 57-51-7775Nhryccg of Social functionSamaritan North Health Center SystemStart: 09-28-2020 End: 96-90-6518Ypbpvk connection and isolation panelProUc Medical CenterDo you belong to any clubs or organizations such as jain groups, unions, fraCalcula Technologies or athletic groups, or school groups?NoProMedSalem Regional Medical Center SystemAre you now , , , , never or living with a partner?WidowedSamaritan North Health Center SystemHow often to you have a drink containing alcohol?NeverSamaritan North Health Center SystemHow many standard drinks containing alcohol do you have on a typical day?Patient does not drinkProUc Medical CenterDo you feel stress - tense, restless, nervous, or anxious, or unable to sleep at night because yourmind is troubled all the time - these days [OSQ]Not at allCritical access hospitaltart: 43-20-1735Pqf assigned at birthNot on fileSamaritan North Health Center SystemStart: 05-69-3386RqkUosxyn (finding)[facility] CenterTocharlotte [facility] hospital smoking status NHISUnknown if ever smokedRegency Hospital Company Work Phone: Start: 64-29-2253Gkx Assigned At [facility] CenterHow hard is it for you to pay for the very basics like food, housing, medical care, and heatingNot very hardLima City Hospital Health System Goals DatePatient GoalDesired Activity/StatePersonal health goalComment on above: Evaluation of progress towards goal: Home with family support and C with possible new O2 order. Clinical Notes 01-29-2021 to 04-05-2025 Note Date & EcilYheoQvovjhra95-64-0306 History of Present illness Narrative* Ej Simon, DO - 04/05/2025 1:30 PM EDT Subjective Patient ID: Ivana Hutchinson is a 89 y.o. female. Ivana presents today for a diabetic recheck. She is taking all of her medications. It has been a struggle to get the Eliquis and Farxiga through her patient assistance programs. She needs more samples if possible. She does not have any side effects. She has no new problems to report. She is wondering if she can get her lipids checked again. She has been on Repatha for 3 months. Cost about $110 but it is affordable for now. She does not have any side effects from it. She has various aches and pains. They seem to come and go. The back of her left wrist was botheringher the other day. Radiate up her left arm but is better now. Her right thumb also bothers her as well as various fingers. She takes Tylenol but not sure it really helps. She has chronic kidney disease so can not really take an NSAID. The following portions of the patient's history were reviewed and updated as appropriate: allergies, current medications, past family history, past medical history, past social history, past surgicalhistory, problem list, and medication reconciliation was completed including current medication andpost discharge medication. Review of Systems Constitutional: Negative. Respiratory: Negative. Cardiovascular: Negative. Gastrointestinal: Negative. Musculoskeletal: Positive for arthralgias, back pain and gait problem. Psychiatric/Behavioral: Negative. Objective Physical Exam Vitals reviewed. Exam conducted with a rehabilitation assistant present (Daughter in-law). Constitutional: General: She is not in acute distress. Appearance: She is morbidly obese. She is not ill-appearing. HENT: Head: Normocephalic. Eyes: General: No scleral icterus. Extraocular Movements: Extraocular movements intact. Conjunctiva/sclera: Conjunctivae normal. Cardiovascular: Rate and Rhythm: Normal rate. Rhythm irregularly irregular. Heart sounds: Normal heart sounds. No murmur heard. Pulmonary: Effort: No respiratory distress. Breath sounds: Normal breath sounds. No wheezing, rhonchi or rales. Musculoskeletal: Cervical back: Neck supple. Right lower leg: No edema. Left lower leg: No edema. Neurological: General: No focal deficit present. Mental Status: She is alert and oriented to person, place, and time. Cranial Nerves: Cranial nerves 2-12 are intact. Gait: Gait abnormal (In a wheelchair). Psychiatric: Mood and Affect: Mood normal. Behavior: Behavior normal. Thought Content: Thought content normal. Judgment: Judgment normal. Assessment/Plan Ivana was seen today for 4 month check-feeling ok. pain everywhere. Diagnoses and all orders for this visit: Type 2 diabetes mellitus with stage 4 chronic kidney disease, without long-term current use of insulin [place] - POCT Hemoglobin A1c A1c is a little better at 7.9%. Since she is 89 and I am not going to get any more aggressive Mixed hyperlipidemia We will check lipids next time. I did try to order them but she would have to sign a waiver and shedeclined. Continue Repatha Obesity, morbid ([facility]) She is morbidly obese. She would benefit from weight loss. She had not really able to exercise. Permanent atrial fibrillation ([facility]) Rate controlled. Continue Eliquis. More samples given today. documented in this encounterUniversity [facility]09-26-2025 Miscellaneous Notes* Telephone Encounter - Veronica Perez RN - 04/01/2025 5:40 AM EDT Last OV 03/21/25 documented in this encounterUniversity Hospitals [facility] Center09-26-2025 Telephone encounter Note* Telephone Encounter - Veronica Perez RN - 04/01/2025 5:40 AM EDT Last OV 03/21/25 [facility]09-25-2025 Miscellaneous Notes* Telephone Encounter - Fabiola Bradford CMA - 03/31/2025 2:31 PM EDT Patient was given eliquis 2.5 1 box lot number [id number] and farxiga 10mg lot# [id number] ON 03/31/25 documented in this encounterUniversity Hospitals [facility] Center09-25-2025 Telephone encounter Note* Telephone Encounter - Fabiola Bradford CMA - 03/31/2025 2:31 PM EDT Patient was given eliquis 2.5 1 box lot number [id number] and farxiga 10mg lot# [id number] ON 03/31/25 [facility]09-16-2025 Miscellaneous Notes* Telephone Encounter - Fabiola Bradford CMA - 03/22/2025 11:49 AM EDT Patient is totally out of Farxiga and needs a prescription for renewal but also needs some samples till her patient assistance to get sent out. Can you print prescription and get samples ready? * Telephone Encounter - Ej Simon DO - 03/22/2025 11:49 AM EDT Yes. We are low so I can only get 1 week's worth documented in this encounterUniversity Hospitals [facility] Medical Center09-16-2025 Telephone encounter Note* Telephone Encounter - Fabiola Bradford CMA - 03/22/2025 11:49 AM EDT Patient is totally out of Farxiga and needs a prescription for renewal but also needs some samples till her patient assistance to get sent out. Can you print prescription and get samples ready? [facility]09-16-2025 Telephone encounter Note* Telephone Encounter - Ej Simon DO - 03/22/2025 11:49 AM EDT Yes. We are low so I can only get 1 week's worth iSOCO Nnmjpu69-05-3037 History of Present illness Narrative* Mansoor Toro MD - 03/21/2025 2:30 PM EDT Ivana Hutchinson Date of visit: 03/21/2025 Date of : 1935 Age: 89 y.o. Patient Active Problem List Diagnosis CAD (coronary artery disease) Type 2 diabetes mellitus with diabetic chronic kidney disease ([facility]) HTN (hypertension) History of coronary artery bypass surgery Hyperlipidemia Localized edema Permanent atrial fibrillation ([facility]) Renal mass Nonrheumatic mitral valve regurgitation Heart failure with preserved left ventricular function (HFpEF) ([facility]) Diverticulosis Dependence on supplemental oxygen Gout, unspecified FPC (current) use of anticoagulants Obstructive sleep apnea (adult) (pediatric) Other abnormalities of gait and mobility Presence of aortocoronary bypass graft Pulmonary hypertension ([facility]) Sarcoidosis of other sites Diverticulitis Statin intolerance Stage 4 chronic kidney disease ([facility]) Atherosclerosis of coronary artery without angina pectoris Neuropathy Obesity, morbid ([facility]) Allergies Allergen Reactions Atorvastatin Severe myopathy and weakness Iodine Other reaction(s): Unknown Not allergy, want limited use due to CKD 3 Rosuvastatin Severe myopathy and weakness Bdqlkka-Ukg-Hjq Reductase Inhibitors Severe myopathy and weakness Aldactone [Spironolactone] hyperkalemia Amlodipine Edema Dye IVP DYE Penicillins Hives and Swelling Current Outpatient Medications Medication Sig Dispense Refill acidophilus-pectin, citrus 25 million cell -100 mg tablet Take 1 tablet by mouth daily with breakfast. allopurinoL (ZYLOPRIM) 100 mg tablet Take 1 tablet by mouth once daily 90 tablet 3 apixaban (ELIQUIS) 2.5 mg tablet Take 1 tablet (2.5 mg total) by mouth in the morning and 1 tablet (2.5 mg total) before bedtime. 180 tablet 3 ascorbic acid, vitamin C, 250 mg tablet,chewable Chew 1 tablet and swallow in the morning. bumetanide (BUMEX) 1 mg tablet Take 2 tablets (2 mg total) by mouth 2 (two) times a day. 360 tablet3 cholecalciferol, vitamin D3, 2,000 units capsule Take 1 capsule (2,000 Units total) by mouth in themorning. coQ10, ubiquinol, 100 mg capsule Take 1 capsule by mouth in the morning. dapagliflozin propanediol (FARXIGA) 10 mg tablet Take 1 tablet (10 mg total) by mouth in the morning. 90 tablet 3 digoxin (LANOXIN) 125 mcg tablet TAKE 1 TABLET BY MOUTH EVERY OTHER DAY 45 tablet 2 dilTIAZem CD (CARDIZEM CD) 180 mg 24 hr capsule Take 1 capsule by mouth in the morning 90 capsule 3 diphenhydrAMINE-acetaminophen (TYLENOL PM) 25-500 mg tablet Take 1 tablet by mouth nightly as needed for sleep. doxycycline (MONODOX) 100 mg capsule TAKE 1 CAPSULE BY MOUTH TWICE DAILY FOR 10 DAYS evolocumab (REPATHA SURECLICK) 140 mg/mL pen injector Inject 140 mg under the skin every 14 (fourteen) days. 2 mL 5 lisinopriL (PRINIVIL,ZESTRIL) 10 mg tablet TAKE 1 TABLET BY MOUTH IN THE MORNING 90 tablet 2 meclizine (ANTIVERT) 12.5 mg tablet Take 1 tablet (12.5 mg total) by mouth 3 (three) times a day asneeded for dizziness. 90 tablet 1 metoprolol succinate XL (TOPROL XL) 50 mg 24 hr tablet TAKE 1 TABLET BY MOUTH IN THE MORNING AND 1 AT BEDTIME 180 tablet 2 multivitamin capsule Take 1 tablet by mouth in the morning. om 3/E/linol/ala/oleic/gla/lip (OMEGA 3-6-9 ORAL) Take 1 capsule by mouth in the morning. oxygen Inhale 2 L/min once daily at bedtime. Connected to C-Pap potassium chloride (KLOR-CON M20) 20 MEQ CR tablet Take 1 tablet by mouth once daily 90 tablet 3 sour horner extract (TART HORNER EXTRACT ORAL) Take 1 tablet by mouth in the morning. vit C,B-Wc-zshoa-lutein-zeaxan 250-90-40-1 mg capsule Take 1 capsule by mouth in the morning. zinc sulfate (ZINCATE) 50 mg zinc (220 mg) capsule Take 1 capsule (50 mg total) by mouth in the morning. No current facility-administered medications for this visit. Chief Complaint Patient presents with Follow-up 6 MONTHS Atrial Fibrillation Shortness of Breath With exertion History of Present Illness I had the pleasure seeing Ivana here at our cardiology office. She is a 89-year-old female with a past medical history of permanent atrial fibrillation, coronary artery disease status post coronary artery bypass grafting and heart failure with preserved ejection fraction as well as mitral regurgitation. She presents today for general follow-up. Past Medical History: Diagnosis Date Allergic Statins, IV Dyes Amlodipine, aldactone Atrial fibrillation ([facility]) Back pain For years CAD (coronary artery disease) Cataract CHF (congestive heart failure) ([facility]) 10/2020 Chronic kidney disease CKD STAGE 3 Diverticulitis 09/2022 Eczema Legs and feet HLD (hyperlipidemia) HTN (hypertension) RA (rheumatoid arthritis) ([facility]) Sarcoidosis 1986 Shingles 1986 Sleep apnea Urinary tract infection Varicella As a kid Visual impairment GLASSES No data recorded No data recorded No data recorded Past Surgical History: Procedure Laterality Date ADENOIDECTOMY In my 22 s APPENDECTOMY CARDIAC CATHETERIZATION QUADRUPAL BYPASS CATARACT EXTRACTION Right 2018 CATARACT EXTRACTION Left 01/05/2024 COLONOSCOPY ?? CORONARY ARTERY BYPASS GRAFT EYE SURGERY Cataract in 2017 HEEL SPUR SURGERY Right SQUAMOUS CELL CARCINOMA EXCISION Left lower leg. TONGUE SURGERY SORE THAT WOULDNT HEAL TONSIL SURGERY TONSILLECTOMY In my 22 s TUBAL LIGATION UMBILICAL HERNIA REPAIR ?? Family History Problem Relation Age of Onset Cancer Mother 70 BREAST CANCER Coronary artery disease Mother Arthritis Mother Breast cancer Mother Diabetes Mother Heart disease Mother Miscarriages / Stillbirths Mother Vision loss Mother Heart disease Father Cancer Father INTESTINES Colon cancer Father Arthritis Sister Managing it t Breast cancer Sister Breast cancer Maternal Grandmother Miscarriages / Stillbirths Daughter 3 Social History Socioeconomic History Marital status: Spouse name: Not on file Number of children: Not on file Years of education: Not on file Highest education level: Not on file Occupational History Not on file Tobacco Use Smoking status: Never Smokeless tobacco: Never Vaping Use Vaping status: Never Used Substance and Sexual Activity Alcohol use: No Drug use: No Sexual activity: Never Other Topics Concern Caffeine Use No Social History Narrative Not on file Social Drivers of Health Financial Resource Strain: Low Risk (09/28/2020) Overall Financial Resource Strain (CARDIA) Difficulty of Paying Living Expenses: Not hard at all Food Insecurity: No Food Insecurity (03/21/2025) Hunger Screening Food Insecurity - Worry: Never True Food Insecurity - Inability: Never True Transportation Needs: No Transportation Needs (09/28/2020) PRAPARE - Transportation Lack of Transportation (Medical): No Lack of Transportation (Non-Medical): No Physical Activity: Inactive (09/28/2020) Exercise Vital Sign Days of Exercise per Week: 0 days Minutes of Exercise per Session: 0 min Stress: No Stress Concern Present (09/28/2020) [employer] [employer] - Occupational Stress Questionnaire Feeling of Stress : Not at all Social Connections: Moderately Isolated (09/28/2020) Social Connection and Isolation Panel [NHANES] Frequency of Communication with Friends and Family: More than three times a week Frequency of Social Gatherings with Friends and Family: More than three times a week Attends Restorationism Services: More than 4 times per year Active Member of Clubs or Organizations: No Attends Club or Organization Meetings: Never Marital Status: Interpersonal Safety: Not At Risk (09/28/2020) Humiliation, Afraid, Rape, and Kick questionnaire Fear of Current or Ex-Partner: No Emotionally Abused: No Physically Abused: No Sexually Abused: No Housing Instability: Not on file Review of Systems Review of Systems Constitutional: Negative. HENT: Negative. Eyes: Negative. Respiratory: Positive for shortness of breath. Hematologic/Lymphatic: Bruises/bleeds easily. Skin: Negative. Musculoskeletal: Positive for back pain. Gastrointestinal: Negative. Neurological: Positive for dizziness, light-headedness, loss of balance and numbness. Psychiatric/Behavioral: Negative. Allergic/Immunologic: Negative. CARDIOVASCULAR: Please review HPI. Physical Examination General appearance: Alert, oriented and cooperative. In no acute distress. Skin: Warm and dry to touch. Head: Normocephalic, without obvious abnormality, atraumatic. Ears, Nose, Mouth, Throat: Throat clear without erythema or exudate. Dentition intact. Eyes: Conjunctivae unremarkable, EOM intact. Neck: No JVD, No carotid bruit. Neck supple, trachea midline. Respiratory: Clear to auscultation bilaterally, no use of accessory muscles. Cardiovascular: RRR with normal S1 and S2 with no murmurs. Gastrointestinal: Soft, non-tender. Bowel sounds normal. Musculoskeletal: No peripheral edema. Neurologic: Oriented to time, person and place, affect appropriate. No focal/major motor defects noted. Psychiatric: Appropriate mood, memory and judgement. VITAL SIGNS: BP 132/70 (BP Site: Left Arm, BP Postition: Sitting) Pulse 55 Ht 152.4 cm (5') Wt 93 kg (205 lb) LMP (LMP Unknown) SpO2 94% BMI 40.04 kg/m No orders of the defined types were placed in this encounter. There are no discontinued medications. IMPRESSIONS/PLAN 1. Permanent atrial fibrillation (CMS-HCC) - POCT EKG - Echo complete W/O contrast; Future 2. Heart failure with preserved left ventricular function (HFpEF) (CMS-HCC) - Echo complete W/O contrast; Future Heart failure with preserved ejection fraction currently on good GDM T. I think repeating her echocardiogram both to look at her mitral regurgitation and look for any changes in her EF. Would be reasonable. EKG done today and interpreted by myself again shows chronic atrial fibrillation with no acute ST or T-wave changes. TODAYS ORDERS Orders Placed This Encounter Procedures POCT EKG Echo complete W/O contrast FOLLOW UP Return in about 6 months (around 09/18/2025). PCP: Ej Simon DO Referring Physician: Ej Simon DO [address] [facility], [place] [place] [address] documented in this encounterHolmes County Joel Pomerene Memorial HospitalWheelright Insight Surgical [id number] History of Present illness Narrative* Joe Mills, ROMULO - 03/16/2025 3:00 PM EDT Images from the original note were not included. Subjective Patient ID: Ivana Hutchinson is a 89 y.o. female who presents for Nail care ( Ivana Hutchinson is a 89 y.o. female who presents for Toenail Care. Patient relates prediabetic, most recent a1c 8.1). HPI Established patient returns to clinic for high-risk diabetic foot check. Patient states that she noticed some bleeding from the left 3rd toe last week. She can not recall any injury to the toe. She has not noticed any drainage, redness, swelling over the last few days. Review of Systems Constitutional: Negative for activity change and appetite change. Respiratory: Negative for chest tightness and shortness of breath. Cardiovascular: Positive for leg swelling. Negative for chest pain. Musculoskeletal: Positive for arthralgias and gait problem. Skin: Negative for color change and wound. Neurological: Positive for numbness. Negative for weakness. Psychiatric/Behavioral: Negative for agitation and behavioral problems. Hematological: Does not bruise/bleed easily. Endocrine: Negative for cold intolerance and heat intolerance. Allergic/Immunologic: Negative for immunocompromised state. Past medical History Past Medical History: Diagnosis Date Cataract Chronic kidney disease Hypercholesteremia Hypertension Pre-diabetes Retinal detachment Medications Current Outpatient Medications: allopurinol (Zyloprim) 100 MG tablet, Take 1 tablet by mouth Daily, Disp: , Rfl: apixaban (Eliquis) 2.5 MG tablet, Take 2.5 mg by mouth in the morning and 2.5 mg before bedtime., Disp: , Rfl: ascorbic acid (Vitamin C) 250 MG chewable tablet, Chew in the morning., Disp: , Rfl: bumetanide (Bumex) 2 MG tablet, , Disp: , Rfl: cholecalciferol (Vitamin D-3) 50 MCG (2000 UT) capsule, Take 2,000 Units by mouth in the morning., Disp: , Rfl: Dapagliflozin Propanediol (FARXIGA PO), Take by mouth, Disp: , Rfl: digoxin (Lanoxin) 125 MCG tablet, Take 125 mcg by mouth every other day, Disp: , Rfl: dilTIAZem CD (Cardizem CD) 180 MG 24 hr capsule, Take 180 mg by mouth in the morning., Disp: , Rfl: diphenhydrAMINE-acetaminophen (Tylenol PM) 25-500 MG per tablet, Take 1 tablet by mouth as needed at bedtime, Disp: , Rfl: KLOR-CON 20 MEQ ER tablet, , Disp: , Rfl: lisinopril 10 MG tablet, Take 10 mg by mouth in the morning., Disp: , Rfl: Multiple Vitamin (multivitamin) capsule, Take 1 tablet by mouth in the morning., Disp: , Rfl: Multiple Vitamins-Minerals (PreserVision AREDS 2) capsule, Take 1 capsule by mouth in the morning.,Disp: , Rfl: Nexlizet 180-10 MG tablet, Take 1 tablet by mouth Daily, Disp: , Rfl: nystatin-triamcinolone (Mycolog II) cream, Apply 1 Application topically in the morning and 1 Application at noon and 1 Application in the evening and 1 Application before bedtime., Disp: , Rfl: [place] 3-6-9 Fatty Acids (OMEGA 3-6-9 COMPLEX PO), Take by mouth, Disp: , Rfl: TART HORNER PO, Take by mouth, Disp: , Rfl: Ubiquinol 100 MG capsule, Take 1 capsule by mouth in the morning., Disp: , Rfl: zinc sulfate (Zincate) 220 (50 Zn) MG capsule, Take by mouth in the morning., Disp: , Rfl: Allergies Iodine, Statins, Amlodipine, and Penicillins Past Surgical History Past Surgical History: Procedure Laterality Date CARDIAC SURGERY CATARACT EXTRACTION Right 2016 [facility] Family History No family history on file. Objective Physical Exam Constitutional: General: She is not in acute distress. Appearance: She is obese. Comments: Presents to clinic with wheeled walker assistance. Accompanied by her [id number]. Cardiovascular: Comments: DP pulse: 1/4 PT pulse: 0/4 Skin temperature is warm to cool Edema: +2 pitting bilaterally Pulmonary: Effort: Pulmonary effort is normal. No respiratory distress. Musculoskeletal: Cervical back: Neck supple. No rigidity. Comments: Pedal deformities: Multiple hammertoe contractures bilaterally. Skin: Capillary Refill: Capillary refill takes 2 to 3 seconds. Comments: 3 toenails exhibit clinical mycosis with thickened appearance, yellow/brown discoloration, crumbly texture and subungual debris. All 10 toenails are elongated. Hyperkeratotic tissue: Left foot: None Right foot: None Skin is diffusely thin Hair growth: Absent No ulcerations. There is a scab on the distal aspect of the left 3rd toe. After debridement there was no ulceration underneath in the dermis appeared intact. I do not appreciate any foreign body or sinus tract. Neurological: Mental Status: She is alert. Comments: Protective sensation intact at 8/10 pedal sites Vibratory sensation diminished at the 1st MTP bilaterally. Psychiatric: Mood and Affect: Mood normal. Behavior: Behavior normal. Assessment/Plan ICD-10-CM 1. Contusion of lesser toe of left foot without damage to nail, initial encounter S90.122A 2. 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 Onychomycosis B35.1 4. Diabetic polyneuropathy associated with type 2 diabetes mellitus (HCC) E11.42 Patient was examined and evaluated. Ten toenails were debrided in length and thickness today utilizing a nail nipper and electric bur miter grinder operator without incident. I have discussed the importance of daily foot examinations and tight blood sugar control. We will follow up in 3 months for at risk diabetic foot evaluation. She did note that the left 3rd toe was bleeding last week. She can not recall any injury. There wasa scab on the distal aspect of the toe however there seemed to be complete epithelialization after debridement and removal of the scab. I do not see any tunneling, undermining or cellulitis of the distal aspect of the toe. She will monitor the area closely for any signs of drainage or redness. Recommend covering the area with antibiotic ointment and a Band-Aid if she were to note any drainage. For now I will see her back as mentioned above. She will call sooner with a any changes to the 3rd toe. This note was created with the assistance of a speech recognition program. While intending to generate a timely document that accurately reflects the content of the visit, no guarantee can be provided that every grammatical or spelling mistake has been or will be identified or corrected. Thank you for your understanding. Joe Mills DPM documented in this encounterMercy Hospital St. John'[id number] Miscellaneous Notes* Telephone Encounter - Louise Wallace CMA - 02/18/2025 12:46 PM EDT Pt called about her refill on Eliquis.Pharmacy is listed and correct. * Telephone Encounter - Vandana Brown CMA - 02/18/2025 12:46 PM EDT Waiting for Dr. Simon to get done with his signing and attaching a prescription. Then I will callthe patient and have her fill out her part and get it faxed to the company. * Telephone Encounter - Louise Wallace CMA - 02/18/2025 12:46 PM EDT Pt called again and read message. She states she will be out 02/22. Do we have any samples to give? * Telephone Encounter - Louise Wallace CMA - 02/18/2025 12:46 PM EDT She takes the 5 mg and breaks them in 1/2 documented in [facility] encounter[facility] Telephone encounter Note* Telephone Encounter - Louise Wallace CMA - 02/18/2025 12:46 PM EDT Pt called about her refill on Eliquis.Pharmacy is listed and correct. [facility]08-[facility] Telephone encounter Note* Telephone Encounter - Vandana Brown CMA - 02/18/2025 12:46 PM EDT Waiting for Dr. Simon to get done with his signing and attaching a prescription. Then I will callthe patient and have her fill out her part and get it faxed to the company. [facility]08-[facility] Telephone encounter Note* Telephone Encounter - Louise Wallace CMA - 02/18/2025 12:46 PM EDT Pt called again and read message. She states she will be out 02/22. Do we have any samples to give? [facility]08-[facility] Telephone encounter Note* Telephone Encounter - Louise Wallace CMA - 02/18/2025 12:46 PM EDT She takes the 5 mg and breaks them in 1/2 [facility]07-16-[facility]25 Miscellaneous Notes* Telephone Encounter - Yarelis Spears CMA - 01/19/2025 2:47 PM EDT Pt called in stating she is ready to start the Repatha, and was wondering if we had samples of it on hand. Pt said you an had spoke of this at her last appt. Insurance is no longer covering the [employer]. Thank you. Please advise. * Telephone Encounter - Ej Simon DO - 01/19/2025 2:47 PM EDT Yes we have a sample she can start with. She can have 1 box. * Telephone Encounter - Yarelis Spears CMA - 01/19/2025 2:47 PM EDT I notified pt she can come pick that up. * Telephone Encounter - Fabiola Bradford CMA - 01/19/2025 2:47 PM EDT Patient called and stated also she will be out of the eliquis and wanted to know if she can get sample of this medication. * Telephone Encounter - Ej Simon DO - 01/19/2025 2:47 PM EDT ok * Telephone Encounter - Fabiola Bradford CMA - 01/19/2025 2:47 PM EDT Samples given documented in this encounterUniversity [facility]als [facility]07-16-2025 Telephone encounter Note* Telephone Encounter - Yarelis Spears CMA - 01/19/2025 2:47 PM EDT Pt called in stating she is ready to start the Repatha, and was wondering if we had samples of it on hand. Pt said you an had spoke of this at her last appt. Insurance is no longer covering the Nexiliant. Thank you. Please advise. [facility]07-16-[facility] Telephone encounter Note* Telephone Encounter - Ej Simon DO - 01/19/2025 2:47 PM EDT Yes we have a sample she can start with. She can have 1 box. [facility]07-[facility] Telephone encounter Note* Telephone Encounter - Yarelis Spears CMA - 01/19/2025 2:47 PM EDT I notified pt she can come pick that up. [facility] Telephone encounter Note* Telephone Encounter - Fabiola Bradford CMA - 01/19/2025 2:47 PM EDT Patient called and stated also she will be out of the eliquis and wanted to know if she can get sample of this medication. [facility]07-16-[facility] Telephone encounter Note* Telephone Encounter - Ej Simon DO - 01/19/2025 2:47 PM EDT ok [facility]07-16-2025 Telephone encounter Note* Telephone Encounter - Fabiola Bradford CMA - 01/19/2025 2:47 PM EDT Samples given [facility]06-10-[facility] History of Present illness Narrative* Joe Mills DPM - 12/14/2024 3:45 PM EDT Images from the original note were not included. Subjective Patient ID: Ivana Hutchinson is a 89 y.o. female who presents for Toenail Care (Pt is here today for nail care, Lt hallux nail is bothersome for her. She is prediabetic, most recent a1c 8.1.). HPI This is a new patient who presents to clinic for diabetic foot check. Patient states that she is prediabetic although her last hemoglobin A1c that I can see from June of 2024 was 9.7. Patient admits to some neuropathic changes and sensations to the feet. She admits to thickened and elongated toenails which she can not trim herself. She denies history of ulceration or amputation. Review of Systems Constitutional: Negative for activity change and appetite change. Respiratory: Negative for chest tightness and shortness of breath. Cardiovascular: Positive for leg swelling. Negative for chest pain. Musculoskeletal: Positive for arthralgias and gait problem. Skin: Negative for color change and wound. Neurological: Positive for numbness. Negative for weakness. Psychiatric/Behavioral: Negative for agitation and behavioral problems. Hematological: Does not bruise/bleed easily. Endocrine: Negative for cold intolerance and heat intolerance. Allergic/Immunologic: Negative for immunocompromised state. Past medical History Past Medical History: Diagnosis Date Cataract Chronic kidney disease Hypercholesteremia (CMS/HCC) Hypertension (CMS/HCC) Pre-diabetes Retinal detachment Medications Current Outpatient Medications: allopurinol (Zyloprim) 100 MG tablet, Take 1 tablet by mouth Daily, Disp: , Rfl: apixaban (Eliquis) 2.5 MG tablet, Take 2.5 mg by mouth in the morning and 2.5 mg before bedtime., Disp: , Rfl: ascorbic acid (Vitamin C) 250 MG chewable tablet, Chew in the morning., Disp: , Rfl: bumetanide (Bumex) 2 MG tablet, , Disp: , Rfl: cholecalciferol (Vitamin D-3) 50 MCG (2000 UT) capsule, Take 2,000 Units by mouth in the morning., Disp: , Rfl: amiodarone (Pacerone) 200 MG tablet, TAKE 1/2 (ONE-HALF) TABLET BY MOUTH IN THE MORNING (Patient not taking: Reported on 12/14/2024), Disp: , Rfl: digoxin (Lanoxin) 125 MCG tablet, Take 125 mcg by mouth every other day, Disp: , Rfl: dilTIAZem CD (Cardizem CD) 180 MG 24 hr capsule, Take 180 mg by mouth in the morning., Disp: , Rfl: diphenhydrAMINE-acetaminophen (Tylenol PM) 25-500 MG per tablet, Take 1 tablet by mouth as needed at bedtime, Disp: , Rfl: KLOR-CON 20 MEQ ER tablet, TAKE 1 BY MOUTH ONCE DAILY, Disp: , Rfl: lisinopril 10 MG tablet, Take 10 mg by mouth in the morning., Disp: , Rfl: Multiple Vitamin (multivitamin) capsule, Take 1 tablet by mouth in the morning., Disp: , Rfl: Multiple Vitamins-Minerals (PreserVision AREDS 2) capsule, Take 1 capsule by mouth in the morning.,Disp: , Rfl: Nexlizet 180-10 MG tablet, Take 1 tablet by mouth Daily, Disp: , Rfl: nystatin-triamcinolone (Mycolog II) cream, Apply 1 Application topically in the morning and 1 Application at noon and 1 Application in the evening and 1 Application before bedtime., Disp: , Rfl: Ubiquinol 100 MG capsule, Take 1 capsule by mouth in the morning., Disp: , Rfl: zinc sulfate (Zincate) 220 (50 Zn) MG capsule, Take by mouth Daily, Disp: , Rfl: Allergies Iodine, Statins, Amlodipine, and Penicillins Past Surgical History Past Surgical History: Procedure Laterality Date CARDIAC SURGERY CATARACT EXTRACTION Right 2015 [facility] Family History No family history on file. Objective Physical Exam Constitutional: General: She is not in acute distress. Appearance: She is obese. Comments: Presents to clinic with wheeled walker assistance. Accompanied by her [id number]. Cardiovascular: Comments: DP pulse: 1/4 PT pulse: 0/4 Skin temperature is warm to cool Edema: +2 pitting bilaterally Pulmonary: Effort: Pulmonary effort is normal. No respiratory distress. Musculoskeletal: Cervical back: Neck supple. No rigidity. Comments: Pedal deformities: Multiple hammertoe contractures bilaterally. Skin: Capillary Refill: Capillary refill takes 2 to 3 seconds. Comments: 3 toenails exhibit clinical mycosis with thickened appearance, yellow/brown discoloration, crumbly texture and subungual debris. All 10 toenails are elongated. Hyperkeratotic tissue: Left foot: None Right foot: None Skin is diffusely thin Hair growth: Absent Neurological: Mental Status: She is alert. Comments: Protective sensation intact at 8/10 pedal sites Vibratory sensation diminished at the 1st MTP bilaterally. Psychiatric: Mood and Affect: Mood normal. Behavior: Behavior normal. Assessment/Plan ICD-10-CM 1. Diabetic polyneuropathy associated with type 2 diabetes mellitus (CMS/HCC) E11.42 2. 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 Onychomycosis B35.1 Patient was examined and evaluated. Diabetic foot evaluation performed. Patient is mild risk for pedal complications from diabetes. She does have some decreased protective sensation and likely some peripheral vascular disease but currently has no preulcerative lesions. Ten toenails were debrided inlength and thickness today utilizing a nail nipper and electric bur miter grinder operator without incident. I have discussed the importance of daily foot examinations and tight blood sugar control. We will follow up in 3 months for at risk diabetic foot evaluation. This note was created with the assistance of a speech recognition program. While intending to generate a timely document that accurately reflects the content of the visit, no guarantee can be provided that every grammatical or spelling mistake has been or will be identified or corrected. Thank you for your understanding. Joe Mills DPM documented in this encounterMercy Hospital St. John'[id number] Miscellaneous Notes* Telephone Encounter - Franny Douglas RN - 12/10/2024 9:46 AM EDT ----- Message from Aleida Wilkes MD sent at 12/09/2024 3:27 PM EDT ----- Oxygen levels were less than 89% for almost 2 hours. Would advise to continue using supplemental oxygen with PAP therapy. ----- Message ----- From: Olinda Archuleta RCP Sent: 12/09/2024 8:43 AM EDT To: Aleida Wilkes MD * Telephone Encounter - Franny Douglas RN - 12/10/2024 9:46 AM EDT Pt informed and agreeable. All questions answered. documented in this encounterUniversity [facility]06-06-2025 Telephone encounter Note* Telephone Encounter - Franny Douglas RN - 12/10/2024 9:46 AM EDT ----- Message from Aleida Wilkes MD sent at 12/09/2024 3:27 PM EDT ----- Oxygen levels were less than 89% for almost 2 hours. Would advise to continue using supplemental oxygen with PAP therapy. ----- Message ----- From: Olinda Archuleta RCP Sent: 12/09/2024 8:43 AM EDT To: Aleida Wilkes MD [facility]06-06-2025 Telephone encounter Note* Telephone Encounter - Franny Douglas RN - 12/10/2024 9:46 AM EDT Pt informed and agreeable. All questions answered. [facility]05-30-[facility] History of Present illness Narrative* jE Simon, - 12/03/2024 9:30 AM EDT Subjective Patient ID: Ivana Hutchinson is a 89 y.o. female. Ivana presents today for an ER follow-up. She developed redness swelling and pain over her left lateral foot a couple weeks ago. She went to the emergency room at [place]. She was checked for a DVT which she did not have. She was diagnosed with a cellulitis and prescribed doxycycline. She is doingmuch better. The redness has pretty much resolved. It is still a little pink on her left lower leg but she has it on the right leg too. She is having issues affording her medications. She was denied patient assistance program by [employer] for her Eliquis. She does not know what to do. She does not want to go on Coumadin. The following portions of the patient's history were reviewed and updated as appropriate: allergies, current medications, past family history, past medical history, past social history, past surgicalhistory, problem list, and medication reconciliation was completed including current medication andpost discharge medication. Review of Systems Objective Physical Exam Vitals reviewed. Exam conducted with a rehabilitation assistant present (Daughter in-law and Zhen Chew MS 3). Feet: Left foot: Skin integrity: No erythema or warmth. Comments: Pincer toenail left foot. There is just a very light pink color on the left lower extremity but also has a little bit on the right lower extremity. There was no induration or warmth to suggest an ongoing infection. Neurological: General: No focal deficit present. Mental Status: She is alert and oriented to person, place, and time. Psychiatric: Mood and Affect: Mood normal. Behavior: Behavior normal. Thought Content: Thought content normal. Judgment: Judgment normal. Assessment/Plan Ivana was [facility] Diagnoses and all orders for this visit: Cellulitis of left foot Her foot looks really good. It does not appear to have any active infection right now. There was noredness, induration or warmth. Finish the doxycycline and that should take care of it. I do not seeany open area on her foot but she did admit to stubbing her toe and that might have led to the infection. Permanent atrial fibrillation ([facility]) She can not afford Eliquis but fortunately we do have samples for her to take for 2 months. We did discuss new changes to Medicare part D and she should get on the new program which caps her alj-kp-gpqozn expenses at $2000 a year. She does not want to go on Coumadin. 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 Mixed hyperlipidemia She is unable to afford the Repatha. She is just going to go without any treatment for her hyperlipidemia. Type 2 diabetes mellitus with stage 4 chronic kidney disease, without long-term use of insulin She could not afford the Ozempic. She is not going to take it. She has been working on her diet andwill just try that. Other orders - apixaban (ELIQUIS) 5 mg tablet; Take 0.5 tablets (2.5 mg total) by mouth in the morning and 0.5 tablets (2.5 mg total) before bedtime. documented in this encounterUniversity [facility]als [facility]05-14-2025 Miscellaneous Notes* Telephone Encounter - Lenka Theodore CMA - 11/17/2024 12:32 PM EDT PAP mask and supplies order with supportive documentation faxed to [facility]. documented in this encounterUniversity [facility]als [facility]05-14-2025 Telephone encounter Note* Telephone Encounter - Lenka Theodore CMA - 11/17/2024 12:32 PM EDT PAP mask and supplies order with supportive documentation faxed to [facility]. [facility]05-12-2025 History of Present illness Narrative* Aleida Wilkes MD - 11/15/2024 1:15 PM EDT Images from the original note were not included. [address] [place] [id number] Patient: Ivana Hutchinson Date of : 1935 Encounter Date: 11/15/2024 History of Present Illness: The patient is a 89 y.o. female, is here for follow up of KELSY. With daughter today. Mask interface: hybrid (tami view) Prior mask = eson 2 with strap (persistent leak) [] Epistaxis [] Aerophagia [] Pressure intolerance [x] Skin irritation - on septum [] Mask leak BT- 8-9:30pm (quite and dark, no bed partner, cat in bed in morning occasionally) MALATHI- < 30 minutes usually WASO- none WT- 8-9 am Naps- none Cleaning machine / cleaning supplies = vinegar and water (often soaking in vinegar) Nocturnal behaviors / RLS = denies Drowsy driving = does not drive Physical Exam: BP 147/83 (BP Site: Left Arm, BP Postition: Sitting) Pulse 93 Ht 152.4 cm (5') Wt 98 kg (216 lb) LMP (LMP Unknown) SpO2 93% BMI 42.18 kg/m General Appearance - Awake, alert, oriented, in no acute distress 11/03/2023 11:00 AM 04/28/2023 11:00 AM 03/07/2021 8:00 AM [place] Sleepiness Scale Sitting and Reading 2 1 1 Watching TV 2 1 1 Sitting inactive in a public place (theater, meeting) 0 0 0 As a passenger in a car for an hour without a break 0 0 0 Lying down in the afternoon to rest 3 3 2 Sitting and talking to someone 0 0 0 Sitting quietly after lunch (without alcohol) 1 1 0 In a car, while stopped for a few minutes in traffic 0 0 0 Total 8 6 10 Jul 2024Jul: Assessment: 1. Atrial fibrillation on anticoagulation (new onset October 2020), chronically on amioderone 2. Chronic hypoxic respiratory failure 3. Obstructive sleep apnea (AHI 7.4, min sat 80%, weight 229 lb, PSG 2012) currently on 12-15 cm ofwater with 3L supplemental oxygen (titration [place], lateral sleep, no REM, Apr 2021, wt 232) with excellent compliance and benefit 4. Probable pulmonary hypertension by echocardiogram (RVSP 54, September 2020; RVSP 43 Mar 2021 CC, January 2022 RVSP 52; Jul 2022 44 mmHg) 5. History of sarcoidosis (by liver biopsy) 6. History of RA 7. CAD s/p CABG 8. Lifelong non-smoker Plan: 1. Reviewed PFTs 2. Reviewed download, no changes needed 3. PAP supplies renewed 4. Overnight oximetry on RA with CPAP. 5. Follow up in 1 year Aleida Wilkes MD Pulmonary and Sleep Medicine [facility] Past Medical, Family, and Social History Update: The following portions of the patient's history were reviewed and updated as appropriate: allergies, current medications, past family history, past medical history, past social history, past surgicalhistory and problem list. Past Medical History: Diagnosis Date Allergic Statins, IV Dyes Amlodipine, aldactone Atrial fibrillation ([facility]) Back pain For years CAD (coronary artery disease) Cataract CHF (congestive heart failure) [place] 10/2020 Chronic kidney disease CKD STAGE 3 Diverticulitis 09/2022 Eczema Legs and feet HLD (hyperlipidemia) HTN (hypertension) RA (rheumatoid arthritis) ([facility] Sarcoidosis 1987 Shingles 1987 Sleep apnea Urinary tract infection Varicella As a kid Visual impairment GLASSES Past Surgical History: Procedure Laterality Date ADENOIDECTOMY In my 22 s APPENDECTOMY CARDIAC CATHETERIZATION QUADRUPAL BYPASS CATARACT EXTRACTION Right 2018 CATARACT EXTRACTION Left 01/05/2024 COLONOSCOPY ?? CORONARY ARTERY BYPASS GRAFT EYE SURGERY Cataract in 2017 HEEL SPUR SURGERY Right SQUAMOUS CELL CARCINOMA EXCISION Left lower leg. TONGUE SURGERY SORE THAT WOULDNT HEAL TONSIL SURGERY TONSILLECTOMY In my 22 s TUBAL LIGATION UMBILICAL HERNIA REPAIR ?? Family History Problem Relation Age of Onset Cancer Mother 70 BREAST CANCER Coronary artery disease Mother Arthritis Mother Breast cancer Mother Diabetes Mother Heart disease Mother Miscarriages / Stillbirths Mother Vision loss Mother Heart disease Father Cancer Father INTESTINES Colon cancer Father Arthritis Sister Managing it t Breast cancer Sister Breast cancer Maternal Grandmother Miscarriages / Stillbirths Daughter 3 Current Outpatient Medications Medication Sig Dispense Refill acidophilus-pectin, citrus 25 million cell -100 mg tablet Take 1 tablet by mouth daily with breakfast. allopurinoL (ZYLOPRIM) 100 mg tablet Take 1 tablet by mouth once daily 90 tablet 3 apixaban (ELIQUIS) 2.5 mg tablet Take 1 tablet (2.5 mg total) by mouth in the morning and 1 tablet (2.5 mg total) before bedtime. 180 tablet 3 apixaban (ELIQUIS) 5 mg tablet Take 0.5 tablets (2.5 mg total) by mouth in the morning and 0.5 tablets (2.5 mg total) before bedtime. 28 tablet 0 ascorbic acid, vitamin C, 250 mg tablet,chewable Chew 1 tablet and swallow in the morning. bumetanide (BUMEX) 1 mg tablet Take 2 tablets (2 mg total) by mouth 2 (two) times a day. 360 tablet3 cholecalciferol, vitamin D3, 2,000 units capsule Take 1 capsule (2,000 Units total) by mouth in themorning. coQ10, ubiquinol, 100 mg capsule Take 1 capsule by mouth in the morning. dapagliflozin propanediol (FARXIGA) 10 mg tablet Take 1 tablet (10 mg total) by mouth in the morning. 90 tablet 3 digoxin (LANOXIN) 125 mcg tablet take 1 tablet by mouth every other day 45 tablet 3 dilTIAZem CD (CARDIZEM CD) 180 mg 24 hr capsule Take 1 capsule by mouth in the morning 90 capsule 3 diphenhydrAMINE-acetaminophen (TYLENOL PM) 25-500 mg tablet Take 1 tablet by mouth nightly as needed for sleep. evolocumab (REPATHA SURECLICK) 140 mg/mL pen injector Inject 140 mg under the skin every 14 (fourteen) days. (Patient not taking: Reported on 11/11/2024) 2 mL 5 lisinopriL (PRINIVIL,ZESTRIL) 10 mg tablet TAKE 1 TABLET BY MOUTH IN THE MORNING 90 tablet 2 meclizine (ANTIVERT) 12.5 mg tablet Take 1 tablet (12.5 mg total) by mouth 3 (three) times a day asneeded for dizziness. 90 tablet 1 metoprolol succinate XL (TOPROL XL) 50 mg 24 hr tablet TAKE 1 TABLET BY MOUTH IN THE MORNING AND 1 AT BEDTIME 180 tablet 2 multivitamin capsule Take 1 tablet by mouth in the morning. nystatin-triamcinolone (MYCOLOG II) cream Apply 1 Application topically in the morning and 1 Application at noon and 1 Application in the evening and 1 Application before bedtime. 60 g 0 om 3/E/linol/ala/oleic/gla/lip (OMEGA 3-6-9 ORAL) Take 1 capsule by mouth in the morning. oxygen Inhale 2 L/min once daily at bedtime. Connected to C-Pap potassium chloride (KLOR-CON M20) 20 MEQ CR tablet Take 1 tablet by mouth once daily 90 tablet 3 semaglutide (OZEMPIC) 0.25 mg or 0.5 mg (2 mg/3 mL) pen injector Inject 0.5 mg under the skin once a week. 3 mL 2 sour horner extract (TART HORNER EXTRACT ORAL) Take 1 tablet by mouth in the morning. vit C,D-Jr-umioo-lutein-zeaxan 250-90-40-1 mg capsule Take 1 capsule by mouth in the morning. zinc sulfate (ZINCATE) 50 mg zinc (220 mg) capsule Take 1 capsule (50 mg total) by mouth in the morning. No current facility-administered medications for this visit. (All medications reviewed and updated by provider since last office visit or hospitalization) Allergies: Atorvastatin, Iodine, Rosuvastatin, Lhfacwv-vea-esm reductase inhibitors, Aldactone [spironolactone], Amlodipine, Dye, and Penicillins Tobacco History: Social History Tobacco Use Smoking Status Never Smokeless Tobacco Never (If patient a smoker, smoking cessation counseling offered) Social History: Social History Substance and Sexual Activity Alcohol Use No documented in this encounterHolmes County [facility] HospitalWheelright Insight Surgical [id number] Instructions* Patient Instructions* Aleida Wilkes MD - 11/15/2024 1:15 PM EDT 1. Reviewed PFTs 2. Reviewed download, no changes needed 3. PAP supplies renewed 4. Overnight oximetry on RA with CPAP. 5. Follow up in 1 year documented in this encounterHolmes County [facility] HospitalWheelright [facility] [id number] History of Present illness Narrative* Ej Simon, - 11/11/2024 4:15 PM EDT Subjective Patient ID: Ivana Hutchinson is a 89 y.o. female. Ivana presents to recheck diabetes and discuss cholesterol medication. She was taking nexlitol but it isn't covered. Rapatha is covered and was approved but she hasn't started it yet. She wanted to discuss it first. Also her eliMirego patient assistance was denied. She wants to know what she can takein its place. She is taking [facility] patient assistance program. The following portions of the patient's history were reviewed and updated as appropriate: allergies, current medications, past family history, past medical history, past social history, past surgicalhistory, problem list, and medication reconciliation was completed including current medication andpost discharge medication. Review of Systems Objective Physical Exam Exam conducted with a rehabilitation assistant present (son and Zhen Chew MS 3). Constitutional: General: She is not in acute distress. Appearance: She is morbidly obese. She is not ill-appearing. HENT: Head: Normocephalic. Mouth/Throat: Lips: [place]. Eyes: General: No scleral icterus. Extraocular Movements: Extraocular movements intact. Conjunctiva/sclera: Conjunctivae normal. Neck: Thyroid: No thyroid mass. Cardiovascular: Rate and Rhythm: Normal rate. Rhythm regularly irregular. Heart sounds: Murmur heard. Pulmonary: Effort: Pulmonary effort is normal. No respiratory distress. Breath sounds: Normal breath sounds. No wheezing, rhonchi or rales. Musculoskeletal: Cervical back: Neck supple. No edema, erythema, signs of trauma, rigidity or torticollis. No pain with movement. Lymphadenopathy: Cervical: No cervical adenopathy. Right cervical: No superficial, deep or posterior cervical adenopathy. Left cervical: No superficial, deep or posterior cervical adenopathy. Neurological: General: No focal deficit present. Mental Status: She is alert and oriented to person, place, and time. Gait: Gait abnormal (Ambulates with a walker). Psychiatric: Attention and Perception: Attention normal. Mood and Affect: Mood and affect normal. Speech: Speech normal. Behavior: Behavior normal. Behavior is cooperative. Thought Content: Thought content normal. Cognition and Memory: Cognition and memory normal. Judgment: Judgment normal. Assessment/Plan Ivana was seen today for diabetes. Diagnoses and all orders for this visit: Type 2 diabetes mellitus with stage 4 chronic kidney disease, without long-term current use of insulin ([facility] - semaglutide (OZEMPIC) 0.25 mg or 0.5 mg (2 mg/3 mL) pen injector; Inject 0.5 mg under the skin once a week. - POCT Hemoglobin A1c A1c is high. Will restart ozempic. Mixed hyperlipidemia Recommend to start Repatha. Risks and benefits discussed. Permanent atrial fibrillation ([facility]) Sample of Eliquis given 1/2 tab BID Heart failure with preserved left ventricular function (HFpEF) ([facility]) Stable. F/U with cardiology Stage 4 chronic kidney disease ([facility]) Stable. documented in this encounterCentral Vermont Medical CenterRecovery Technology Solutions05-01-2025 History of Present illness Narrative* Milla Avendano MD - 11/04/2024 4:00 PM EDT Images from the original note were not included. Date of Service: 11/04/24 PCP: Ej G Furlong, DO History of Present Illness Ivana Hutchinson is a 89 y.o. female, who is following with us for stage 4 chronic kidney disease returning in nephrologic follow-up. In June of 2024 the BUN was 31 creatinine 1.61 EGFR was 31 mL/min. Laboratories of October 28, 2024 show BUN 36 creatinine 1.52 EGFR 33 mL/min. Urinalysis showed 200 mg/dL protein greater than 1000 mg/dL of glucose 1 red blood cell and 4 white blood cells per high-power field. Urine protein creatinine ratio was 4.27 gram/gram. This was down from 8.42 gram/gram on October 29, 2023. She is on lisinopril 10 mg daily for renal protection and protein sparing. Her stamina has decreased. She has severe knee pain and gait instability; she uses a walker for ambulation. She was fitted with a monitor by cardiology to be certain atrial fibrillation is well controlled. She tells me that her glycemic control has been less than adequate. She had been on Ozempic for about a month but discontinued this when there were no samples available. She has not seen Dr. Simon for awhile but does have an appointment with him coming up. Problem List 1. 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 In June 2010 an TOSHIA was positive anti myeloperoxidase and anti proteinase 3 antibody titers were negative anti double-stranded DNA antibody titer was positive at 27, complement C3 and C4 were normal. A serum protein electrophoresis with immunofixation revealed no evidence of monoclonal protein disorder. A urine protein creatinine ratio on December 09, 2017 was 119 milligram/gram. 2. Obesity 3. Hypertension 4. Prediabetes mellitus 5. History of preserved left ventricular systolic function ejection fraction 63% in December of 2012 atthat time she had [id number] concentric left ventricular hypertrophy a transesophageal echocardiogram was performed on 10/09/2020. The left ventricular ejection fraction was 55-60%. The left atrial appendage was enlarged but no clot was present. The right ventricular systolic function was severely reduced. There was moderate to severe mitral regurgitation with a posteriorly directed jet. There was moderate tricuspid valve regurgitation.. 6. Severe mitral regurgitation transesophageal echocardiogram October 2020. She has been turned down for both an open mitral valve replacement and Mitraclip procedures. 7. Atherosclerotic coronary artery disease s/p coronary artery bypass grafting December of 2012 with a SANCHEZ to the LAD, and separate saphenous vein graft to a diagonal, to an obtuse marginal 1., and the PDA. 8. History of appendectomy tonsillectomy tubal ligation and heel surgery. 9. Chronic low back pain 10. Chronic left lower extremity edema post saphenous vein harvesting for bypass surgery. 11. Obstructive sleep apnea 12. Atrial fibrillation status post DC cardioversion In November of 2020. She has been in normal sinus rhythm with amiodarone. There has been discussion in the past for AV itzel ablation. 13. History of biopsy-proven hepatic sarcoidosis. 14. Recent symptomatic hypotension resulting in decrease in blood pressure lowering meds. 15. Gouty arthritis 16. Enlarged left atrial appendage without clot transesophageal echocardiogram October 2020 17. Right renal mass. A renal ultrasound was performed in September 28, 2020. The right kidney [id number] cm the left kidney 9.7 cm in bipolar dimension. There was a 3.98 x 3 x 3.5 cm right upper polerenal mass. The findings were felt to be concerning for neoplasm. The patient was referred to Dr. Clark urological evaluation. The MRI was read out a simple cysts with no convincing renal mass noted. She is to be seen in another 6 months by the urology service. 18. COVID-23 October 2022 with sequela of taste disturbance 19. 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 Surgical, Family & Social History Surgical History: Past Surgical History: Procedure Laterality Date ADENOIDECTOMY In my 22 s APPENDECTOMY CARDIAC CATHETERIZATION QUADRUPAL BYPASS CATARACT EXTRACTION Right 2018 CATARACT EXTRACTION Left 01/05/2024 COLONOSCOPY ?? CORONARY ARTERY BYPASS GRAFT EYE SURGERY Cataract in 2017 HEEL SPUR SURGERY Right SQUAMOUS CELL CARCINOMA EXCISION Left lower leg. TONGUE SURGERY SORE THAT WOULDNT HEAL TONSIL SURGERY TONSILLECTOMY In my 22 s TUBAL LIGATION UMBILICAL HERNIA REPAIR ?? Social History: Social History Socioeconomic History Marital status: Spouse name: Not on file Number of children: Not on file Years of education: Not on file Highest education level: Not on file Occupational History Not on file Tobacco Use Smoking status: Never Smokeless tobacco: Never Vaping Use Vaping status: Never Used Substance and Sexual Activity Alcohol use: No Drug use: No Sexual activity: Never Other Topics Concern Caffeine Use No Social History Narrative Not on file Social Drivers of Health Financial Resource Strain: Low Risk (09/28/2020) Overall Financial Resource Strain (CARDIA) Difficulty of Paying Living Expenses: Not hard at all Food Insecurity: No Food Insecurity (02/24/2024) Hunger Screening Food Insecurity - Worry: Never True Food Insecurity - Inability: Never True Transportation Needs: No Transportation Needs (09/28/2020) PRAPARE - Transportation Lack of Transportation (Medical): No Lack of Transportation (Non-Medical): No Physical Activity: Inactive (09/28/2020) Exercise Vital Sign Days of Exercise per Week: 0 days Minutes of Exercise per Session: 0 min Stress: No Stress Concern Present (09/28/2020) [place] [place] [employer] - Occupational Stress Questionnaire Feeling of Stress : Not at all Social Connections: Moderately Isolated (09/28/2020) Social Connection and Isolation Panel [NHANES] Frequency of Communication with Friends and Family: More than three times a week Frequency of Social Gatherings with Friends and Family: More than three times a week Attends Restorationism Services: More than 4 times per year Active Member of Clubs or Organizations: No Attends Club or Organization Meetings: Never Marital Status: Interpersonal Safety: Not At Risk (09/28/2020) Humiliation, Afraid, Rape, and Kick questionnaire Fear of Current or Ex-Partner: No Emotionally Abused: No Physically Abused: No Sexually Abused: No Housing Instability: Not on file Family History: Family History Problem Relation Age of Onset Cancer Mother 70 BREAST CANCER Coronary artery disease Mother Arthritis Mother Breast cancer Mother Diabetes Mother Heart disease Mother Miscarriages / Stillbirths Mother Vision loss Mother Heart disease Father Cancer Father INTESTINES Colon cancer Father Arthritis Sister Managing it t Breast cancer Sister Breast cancer Maternal Grandmother Miscarriages / Stillbirths Daughter 3 Allergies & Medications Allergies: Allergies Allergen Reactions Atorvastatin Severe myopathy and weakness Iodine Other reaction(s): Unknown Not allergy, want limited use due to CKD 3 Rosuvastatin Severe myopathy and weakness Xcjudwq-Laj-Rbr Reductase Inhibitors Severe myopathy and weakness Aldactone [Spironolactone] hyperkalemia Amlodipine Edema Dye IVP DYE Penicillins Hives and Swelling Current Meds: Current Outpatient Medications Medication Sig Dispense Refill acidophilus-pectin, citrus 25 million cell -100 mg tablet Take 1 tablet by mouth daily with breakfast. allopurinoL (ZYLOPRIM) 100 mg tablet Take 1 tablet by mouth once daily 90 tablet 3 apixaban (ELIQUIS) 2.5 mg tablet Take 1 tablet (2.5 mg total) by mouth in the morning and 1 tablet (2.5 mg total) before bedtime. 180 tablet 3 ascorbic acid, vitamin C, 250 mg tablet,chewable Chew 1 tablet and swallow in the morning. bempedoic acid-ezetimibe (NEXLIZET) 180-10 mg tablet Take 1 tablet by mouth every morning. 90 tablet 3 bumetanide (BUMEX) 1 mg tablet Take 2 tablets (2 mg total) by mouth 2 (two) times a day. 360 tablet3 cholecalciferol, vitamin D3, 2,000 units capsule Take 1 capsule (2,000 Units total) by mouth in themorning. coQ10, ubiquinol, 100 mg capsule Take 1 capsule by mouth in the morning. dapagliflozin propanediol (FARXIGA) 10 mg tablet Take 1 tablet (10 mg total) by mouth in the morning. 90 tablet 3 digoxin (LANOXIN) 125 mcg tablet take 1 tablet by mouth every other day 45 tablet 3 dilTIAZem CD (CARDIZEM CD) 180 mg 24 hr capsule Take 1 capsule (180 mg total) by mouth in the morning. 90 capsule 3 diphenhydrAMINE-acetaminophen (TYLENOL PM) 25-500 mg tablet Take 1 tablet by mouth nightly as needed for sleep. evolocumab (REPATHA SURECLICK) 140 mg/mL pen injector Inject 140 mg under the skin every 14 (fourteen) days. 2 mL 5 lisinopriL (PRINIVIL,ZESTRIL) 10 mg tablet Take 1 tablet (10 mg total) by mouth in the morning. 90 tablet 3 meclizine (ANTIVERT) 12.5 mg tablet Take 1 tablet (12.5 mg total) by mouth 3 (three) times a day asneeded for dizziness. 90 tablet 1 metoprolol succinate XL (TOPROL XL) 50 mg 24 hr tablet TAKE 1 TABLET BY MOUTH IN THE MORNING AND 1 AT BEDTIME 180 tablet 2 multivitamin capsule Take 1 tablet by mouth in the morning. nystatin-triamcinolone (MYCOLOG II) cream Apply 1 Application topically in the morning and 1 Application at noon and 1 Application in the evening and 1 Application before bedtime. 60 g 0 om 3/E/linol/ala/oleic/gla/lip (OMEGA 3-6-9 ORAL) Take 1 capsule by mouth in the morning. oxygen Inhale 2 L/min once daily at bedtime. Connected to C-Pap potassium chloride (KLOR-CON M20) 20 MEQ CR tablet Take 1 tablet by mouth once daily 90 tablet 3 semaglutide (OZEMPIC) 0.25 mg or 0.5 mg (2 mg/3 mL) pen injector Inject 0.5 mg under the skin once a week. 3 mL 2 sour horner extract (TART HORNER EXTRACT ORAL) Take 1 tablet by mouth in the morning. vit C,T-Ng-btjjb-lutein-zeaxan 250-90-40-1 mg capsule Take 1 capsule by mouth in the morning. zinc sulfate (ZINCATE) 50 mg zinc (220 mg) capsule Take 1 capsule (50 mg total) by mouth in the morning. No current facility-administered medications for this visit. Review of Systems Review of Systems Constitutional: Negative for chills, diaphoresis, fatigue and fever. HENT: Negative for congestion, ear discharge, ear pain, facial swelling and hearing loss. Eyes: Negative for pain, discharge, redness and itching. Respiratory: Negative for cough, shortness of breath and wheezing. Cardiovascular: Negative for chest pain, palpitations and leg swelling. Gastrointestinal: Negative for abdominal pain, constipation, diarrhea, nausea and vomiting. Endocrine: Negative for polydipsia, polyphagia and polyuria. Genitourinary: Negative for decreased urine volume, difficulty urinating, dysuria, enuresis, flank pain, frequency, hematuria and urgency. Musculoskeletal: Negative for arthralgias, joint swelling and myalgias. Skin: Negative for rash and wound. Neurological: Positive for dizziness, weakness and numbness. Negative for tremors and light-headedness. Hematological: Negative for adenopathy. Does not bruise/bleed easily. Physical Exam Vital Signs: Vitals: 11/04/24 1436 BP: 129/65 BP Site: Left Arm BP Postition: Sitting BP CUFF SIZE: L (13-17 inches) Pulse: 90 Weight: 91.6 kg (202 lb) Height: 152.4 cm (5') BMI: Body mass index is 39.45 kg/m . General appearance: Chronically ill-appearing 89-year-old woman in no acute respiratory distress Psychiatric: Oriented to place, time and person HEENT: atraumatic, supple, moist oral mucosa, no JVD Cardiovascular: S1-S2 irregular 2/6 systolic murmur which is heard best at the apex Respiratory: No respiratory distress with no use of accessory muscles. Clear to auscultation bilaterally with no wheezes or crackles her lungs are entirely clear to auscultation Abdomen: soft, no tenderness, no guarding, positive bowel sounds and no hepato or splenomegaly Vascular: adequate pulses and no carotid bruits. Musculoskeletal: no joint swelling or tenderness. Neurologic: No focal deficit in upper or lower extremities Lymphatic: no cervical or axillary lymphadenopathy. Edema:1+ lower extremity edema. Laboratory Studies Chemistry: Lab Results Component Value Date SODIUM 142 10/28/2024 SODIUM 141 06/15/2024 SODIUM 141 02/02/2024 SODIUM 138 10/29/2023 SODIUM 142 03/26/2023 K 4.2 10/28/2024 K 4.1 06/15/2024 K 4.1 02/02/2024 K 3.9 10/29/2023 K 4.2 03/26/2023 CL 101 10/28/2024 CL 101 06/15/2024 CL 100 02/02/2024 CL 97 (L) 10/29/2023 CL 99 03/26/2023 CO2 30 10/28/2024 CO2 31 06/15/2024 CO2 29 02/02/2024 CO2 32 10/29/2023 CO2 33 (H) 03/26/2023 ANIONGAP 11 10/28/2024 ANIONGAP 9 06/15/2024 ANIONGAP 12 02/02/2024 ANIONGAP 9 10/29/2023 ANIONGAP 10 03/26/2023 BUN 36 (H) 10/28/2024 BUN 31 (H) 06/15/2024 BUN 26 02/02/2024 BUN 27 10/29/2023 BUN 22 03/26/2023 CREATININE 1.52 (H) 10/28/2024 CREATININE 1.61 (H) 06/15/2024 CREATININE 1.58 (H) 02/02/2024 CREATININE 1.65 (H) 10/29/2023 CREATININE 1.57 (H) 03/26/2023 EGFR 33 (L) 10/28/2024 EGFR 31 (L) 06/15/2024 EGFR 32 (L) 02/02/2024 EGFR 30 (L) 10/29/2023 EGFR 32 (L) 03/26/2023 CALCIUM 10.0 10/28/2024 CALCIUM 10.2 06/15/2024 CALCIUM 9.9 02/02/2024 CALCIUM 9.9 10/29/2023 CALCIUM 9.5 03/26/2023 MG 2.3 10/28/2024 MG 2.3 02/02/2024 MG 2.4 10/29/2023 MG 2.3 03/26/2023 MG 2.1 12/11/2022 PHOSPHORUS 3.1 10/28/2024 PHOSPHORUS 3.4 02/02/2024 PHOSPHORUS 3.5 10/29/2023 PHOSPHORUS 3.6 03/26/2023 PHOSPHORUS 3.2 12/11/2022 IONIZEDCALC 4.6 01/04/2013 IONIZEDCALC 4.5 01/02/2013 IONIZEDCALC 4.6 01/01/2013 IONIZEDCALC 4.6 01/01/2013 IONIZEDCALC 4.5 12/31/2012 Lab Results Component Value Date TOTALPROTEI 7.1 06/15/2024 TOTALPROTEI 6.3 10/08/2022 ALBUMIN 4.0 06/15/2024 ALBUMIN 3.0 (L) 10/08/2022 AST 22 06/15/2024 AST 34 10/08/2022 ALT 10 06/15/2024 ALT 20 10/08/2022 BILIRUBIN Negative 10/28/2024 BILIRUBIN 0.6 06/15/2024 ALKPHOS 51 06/15/2024 ALKPHOS 54 10/08/2022 Hematology: Lab Results Component Value Date WBC 4.6 10/28/2024 WBC 4.2 02/02/2024 HGB 13.8 10/28/2024 HGB 14.1 02/02/2024 HCT 41.4 10/28/2024 HCT 41.7 02/02/2024 PLT 168 10/28/2024 PLT 186 02/02/2024 Anemia Studies: Lab Results Component Value Date IRONSAT 19 09/28/2020 FERRITIN 80 09/28/2020 [id number] 09/28/2020 FOLATE >25.0 09/28/2020 Mineral and Bone Labs: Lab Results Component Value Date CALCIUM 10.0 10/28/2024 CALCIUM 10.2 06/15/2024 PHOSPHORUS 3.1 10/28/2024 PHOSPHORUS 3.4 02/02/2024 VITD25 41.8 10/28/2024 VITD25 25.6 (L) 10/29/2023 PTH 76 10/28/2024 PTH 108 (H) 02/02/2024 Urine Studies: Lab Results Component Value Date COLOR YELLOW 10/28/2024 TURBIDITY CLEAR 10/28/2024 SPECIFICGRA 1.013 10/28/2024 NITRITE Negative 10/28/2024 PHURINE 6.5 10/28/2024 LEUKOCYTE Negative 10/28/2024 PROTEIN 200 (A) 10/28/2024 KETONES Negative 10/28/2024 UROBILINOGEN <1.1 10/28/2024 BLOODHGB Negative 10/28/2024 Lab Results Component Value Date UPROCRTRAT 4.27 (H) 10/28/2024 UPROCRTRAT 4.31 (H) 02/02/2024 UPROCRTRAT 8.42 (H) 10/29/2023 UPROCRTRAT 4.23 (H) 03/26/2023 UPROCRTRAT 4.26 (H) 12/11/2022 MICROALBUR 55.2 (H) 09/27/2022 Immunology Profile Lab Results Component Value Date PROTELECTR 06/06/2016 Unremarkable protein distribution, no monoclonal bands. ANASCREEN Positive (A) 06/06/2016 C3 146 06/06/2016 C4 34 06/06/2016 ANCA See Below 06/06/2016 No results found for: HAV , HEPAIGM , HEPBIGM , HEPBCAB , HBEAG , HEPCAB Imaging Echocardiogram: No results found. IMPRESSION 1. Stage IIIB chronic kidney disease: Ivana's renal chemistries are stable. It bears noting that her creatinine was 1.55 as remotely as October 01, 2020. There has been a 50% reduction in her protein excretion. PLAN 1. Continue lisinopril 10 mg p.o. daily and Farxiga 10 mg p.o. daily for renal protection and protein sparing. 2. Target systolic blood pressure to 130 mmHg or less. 3. Avoid prolonged use of nonsteroidal anti-inflammatory drugs or proton pump inhibitors. 4. She will return to this office in 6 months time for repeat evaluation. A CKD panel will be obtained at that time. Thank you jE Simon DO for the opportunity to participate in the care of your patients! Please contact me at [phone] (Office) or [phone] (Answering service) with any questions. MILLA AVENDANO MD [facility] This note was created with the assistance of a speech-recognition program. Although the intention is to generate a document that actually reflects the content of the visit, no guarantees can be provided that every mistake has been identified and corrected by editing. MILLA AVENDANO MD,PhD FACP [facility] ANY QUESTIONS FEEL FREE TO CALL: 1. OFFICE [phone] 2. ANSWERING SERVICE: [phone] documented in this [facility]04-25-2025 Miscellaneous Notes* Telephone Encounter - Ivana Webster RN - 10/29/2024 11:39 AM EDT Last ov Labs 10/28/2024 documented in this [facility]04-25-2025 Telephone encounter Note* Telephone Encounter - Ivana Webster RN - 10/29/2024 11:39 AM EDT Last ov Labs 10/28/2024 [facility]04-24-2025 Miscellaneous Notes* Telephone Encounter - Rosi Blackwell RN - 10/28/2024 5:40 AM EDT OV 09/13/24 10/28/24 BMP documented in this [facility]04-24-2025 Telephone encounter Note* Telephone Encounter - Rosi Blackwell RN - 10/28/2024 5:40 AM EDT OV 09/13/24 10/28/24 BMP [facility]04-10-2025 History of Present illness Narrative* THERESA Thomas - 10/14/2024 4:20 PM EDT 3 wks sample of Eliquis 2.5mg BID. Dr. Simon is on vacation. Pt assistance - we are working on THERESA Thomas 10/14/24 1621 documented in this encounterUniversity [facility] History of Present illness Narrative* Ej Simon DO - 10/04/2024 6:46 PM EDT Handicap parking placard printed documented in this encounterUniversity [facility]als [facility]03-25-2025 Miscellaneous Notes* Telephone Encounter - Fabiola Bradford CMA - 09/28/2024 5:53 PM EDT I had called Ivana to reschedule her for an apt in October and she asked me about her Patient Assistance for Eliquis. Well she is another one we are fixing for patient assistance because of Merari not doing it right. I have printed it out and will have Vandana fix it tomorrow but she is running low. Can wesupply her with some samples please? * Telephone Encounter - Ej Simon DO - 09/28/2024 5:53 PM EDT Sure. She can have a box. Not sure how much we have but it was low last time I checked * Telephone Encounter - Fabiola Bradford CMA - 09/28/2024 5:53 PM EDT Patient notified and Vandana is getting samples ready. documented in this encounterUniversity [facility]als [facility]03-[facility]-2025 Telephone encounter Note* Telephone Encounter - Fabiola Bradford CMA - 09/28/2024 5:53 PM EDT I had called Ivana to reschedule her for an apt in October and she asked me about her Patient Assistance for Josh. Well she is another one we are fixing for patient assistance because of Merari not doing it right. I have printed it out and will have Vandana fix it tomorrow but she is running low. Can wesupply her with some samples please? [facility]03-25-2025 Telephone encounter Note* Telephone Encounter - Ej Simon DO - 09/28/2024 5:53 PM EDT Sure. She can have a box. Not sure how much we have but it was low last time I checked [facility]03-25-2025 Telephone encounter Note* Telephone Encounter - Fabiola Bradford CMA - 09/28/2024 5:53 PM EDT Patient notified and Vandana is getting samples ready. [facility]03-14-2025 Miscellaneous Notes* Telephone Encounter - Lenka Theodore CMA - 09/17/2024 8:56 AM EDT PAP machine mask and supplies order with supportive documentation faxed to [facility]. documented in this encounter[facility] Telephone encounter Note* Telephone Encounter - Lenka Theodore CMA - 09/17/2024 8:56 AM EDT PAP machine mask and supplies order with supportive documentation faxed to [facility]. [facility]03-13-2025 Miscellaneous Notes* Telephone Encounter - Lenka Theodore CMA - 09/16/2024 2:24 PM EDT Patient called in and said that her PAP machine started flashing a message past motor life expectancy. Patient called DME and they told her to reach out to the office. Patient was last seen 11/03/23 and has an appointment 11/15/24. * Telephone Encounter - Aleida Wilkes MD - 09/16/2024 2:24 PM EDT Her machine will continued to function appropriately. It is just a reminder to replace her machine after 5 years. We can send a new prescription to her DME company to replace her machine and hopefully her compliance visit will be included in her follow-up visit with tx. documented in this encounterUniversity [facility] Telephone encounter Note* Telephone Encounter - Lenka Theodore CMA - 09/16/2024 2:24 PM EDT Patient called in and said that her PAP machine started flashing a message past motor life expectancy. Patient called DME and they told her to reach out to the office. Patient was last seen 11/03/23 and has an appointment 11/15/24. [facility]03-13-2025 Telephone encounter Note* Telephone Encounter - Aleida Wilkes MD - 09/16/2024 2:24 PM EDT Her machine will continued to function appropriately. It is just a reminder to replace her machine after 5 years. We can send a new prescription to her [employer] company to replace her machine and hopefully her compliance visit will be included in her follow-up visit with me. [facility]03-10-2025 History of Present illness Narrative* Jennifer Pruitt PA-C - 09/13/2024 1:30 PM EDT Ivana Hutchinson Date of visit: 09/13/2024 Date of : 1935 Age: 88 y.o. Patient Active Problem List Diagnosis CAD (coronary artery disease) Type 2 diabetes mellitus with diabetic chronic kidney disease ([facility] HTN (hypertension) History of coronary artery bypass surgery Hyperlipidemia Localized edema Permanent atrial fibrillation ([facility]) Renal mass Nonrheumatic mitral valve regurgitation Heart failure with preserved left ventricular function (HFpEF) ([facility]) Diverticulosis Dependence on supplemental oxygen Gout, unspecified FPC (current) use of anticoagulants Obstructive sleep apnea (adult) (pediatric) Other abnormalities of gait and mobility Presence of aortocoronary bypass graft Pulmonary hypertension ([facility]) Sarcoidosis of other sites Diverticulitis Statin intolerance Stage 4 chronic kidney disease ([facility]) Atherosclerosis of coronary artery without angina pectoris Neuropathy Obesity, morbid ([facility]) Allergies Allergen Reactions Atorvastatin Severe myopathy and weakness Iodine Other reaction(s): Unknown Not allergy, want limited use due to CKD 3 Rosuvastatin Severe myopathy and weakness Ufuerhb-Mjk-Vxx Reductase Inhibitors Severe myopathy and weakness Aldactone [Spironolactone] hyperkalemia Amlodipine Edema Dye IVP DYE Penicillins Hives and Swelling Current Outpatient Medications Medication Sig Dispense Refill acidophilus-pectin, citrus 25 million cell -100 mg tablet Take 1 tablet by mouth daily with breakfast. allopurinoL (ZYLOPRIM) 100 mg tablet Take 1 tablet by mouth once daily 90 tablet 3 apixaban (ELIQUIS) 2.5 mg tablet Take 1 tablet (2.5 mg total) by mouth in the morning and 1 tablet (2.5 mg total) before bedtime. 180 tablet 3 ascorbic acid, vitamin C, 250 mg tablet,chewable Chew and swallow daily. bempedoic acid-ezetimibe (NEXLIZET) 180-10 mg tablet Take 1 tablet by mouth every morning. 90 tablet 3 bumetanide (BUMEX) 1 mg tablet Take 2 tablets (2 mg total) by mouth 2 (two) times a day. cholecalciferol, vitamin D3, 2,000 units capsule Take 1 capsule (2,000 Units total) by mouth in themorning. coQ10, ubiquinol, 100 mg capsule Take 1 capsule by mouth daily. dapagliflozin propanediol (FARXIGA) 10 mg tablet Take 1 tablet (10 mg total) by mouth in the morning. 90 tablet 3 digoxin (LANOXIN) 125 mcg tablet take 1 tablet by mouth every other day 45 tablet 3 dilTIAZem CD (CARDIZEM CD) 180 mg 24 hr capsule Take 1 capsule (180 mg total) by mouth in the morning. 90 capsule 3 diphenhydrAMINE-acetaminophen (TYLENOL PM) 25-500 mg tablet Take 1 tablet by mouth nightly as needed for sleep. lisinopriL (PRINIVIL,ZESTRIL) 10 mg tablet Take 1 tablet (10 mg total) by mouth in the morning. 90 tablet 3 meclizine (ANTIVERT) 12.5 mg tablet Take 1 tablet (12.5 mg total) by mouth 3 (three) times a day asneeded for dizziness. 90 tablet 1 metoprolol succinate XL (TOPROL XL) 50 mg 24 hr tablet TAKE 1 TABLET BY MOUTH IN THE MORNING AND 1 AT BEDTIME 180 tablet 2 multivitamin capsule Take 1 tablet by mouth daily. nystatin-triamcinolone (MYCOLOG II) cream Apply 1 Application topically in the morning and 1 Application at noon and 1 Application in the evening and 1 Application before bedtime. 60 g 0 om 3/E/linol/ala/oleic/gla/lip (OMEGA 3-6-9 ORAL) Take 1 capsule by mouth daily. oxygen Inhale 2 L/min once daily at bedtime. Connected to C-Pap potassium chloride (KLOR-CON M20) 20 MEQ CR tablet Take 1 tablet by mouth once daily 90 tablet 3 semaglutide (OZEMPIC) 0.25 mg or 0.5 mg (2 mg/3 mL) pen injector Inject 0.5 mg under the skin once a week. 3 mL 2 sour horner extract (TART HORNER EXTRACT ORAL) Take 1 tablet by mouth in the morning. vit C,R-Kd-qpgpr-lutein-zeaxan 250-90-40-1 mg capsule Take 1 capsule by mouth daily. zinc sulfate (ZINCATE) 50 mg zinc (220 mg) capsule Take 1 capsule (50 mg total) by mouth in the morning. No current facility-administered medications for this visit. Chief Complaint Patient presents with Follow-up EST PT F/U 6 MS L/S RDG, LABS PCP OFFICE, SCHED W/PT Palpitations Pt reports feeling her heart bouncing around a History of Present Illness Ivana Hutchinson the patient is a 88-year-old female with a past medical history of nonrheumatic MR, permanent/longstanding atrial fibrillation, hyperlipidemia CAD with CABG x3 2012, included SVG-diagonal, SVG-RPDA, CKD, hypertension biopsy-proven hepatic sarcoid Presents today for follow up states that her shortness of breath has worsened since the last visit with some loss of strength, feels that she is more fatigued than before and runs out of energy faster. Has been having some difficulty with her ADLs as she feels that her heart is racing uncontrolled.Has been complaining of dizziness with positional change recently her PCP started her on meclizine which has not yielded any benefit. Her lower extremity edema has actually been improving with no complaints of orthopnea Past Medical History: Diagnosis Date Allergic Statins, IV Dyes Amlodipine, aldactone Atrial fibrillation ([facility]) Back pain For years CAD (coronary artery disease) Cataract CHF (congestive heart failure) ([facility]) 10/2020 Chronic kidney disease CKD STAGE 3 Diverticulitis 09/2022 Eczema Legs and feet HLD (hyperlipidemia) HTN (hypertension) RA (rheumatoid arthritis) ([facility]) Sarcoidosis 1986 Shingles 1986 Sleep apnea Urinary tract infection Varicella As a kid Visual impairment GLASSES No data recorded No data recorded No data recorded Past Surgical History: Procedure Laterality Date ADENOIDECTOMY In my 22 s APPENDECTOMY CARDIAC CATHETERIZATION QUADRUPAL BYPASS CATARACT EXTRACTION Right 2017 CATARACT EXTRACTION Left 01/05/2024 COLONOSCOPY ?? CORONARY ARTERY BYPASS GRAFT EYE SURGERY Cataract in 2017 HEEL SPUR SURGERY Right SQUAMOUS CELL CARCINOMA EXCISION Left lower leg. TONGUE SURGERY SORE THAT WOULDNT HEAL TONSIL SURGERY TONSILLECTOMY In my 22 s TUBAL LIGATION UMBILICAL HERNIA REPAIR ?? Family History Problem Relation Age of Onset Cancer Mother 70 BREAST CANCER Coronary artery disease Mother Arthritis Mother Breast cancer Mother Diabetes Mother Heart disease Mother Miscarriages / Stillbirths Mother Vision loss Mother Heart disease Father Cancer Father INTESTINES Colon cancer Father Arthritis Sister Managing it t Breast cancer Sister Breast cancer Maternal Grandmother Miscarriages / Stillbirths Daughter 3 Social History Socioeconomic History Marital status: Spouse name: Not on file Number of children: Not on file Years of education: Not on file Highest education level: Not on file Occupational History Not on file Tobacco Use Smoking status: Never Smokeless tobacco: Never Vaping Use Vaping status: Never Used Substance and Sexual Activity Alcohol use: No Drug use: No Sexual activity: Never Other Topics Concern Caffeine Use No Social History Narrative Not on file Social Drivers of Health Financial Resource Strain: Low Risk (09/28/2020) Overall Financial Resource Strain (CARDIA) Difficulty of Paying Living Expenses: Not hard at all Food Insecurity: No Food Insecurity (02/24/2024) Hunger Screening Food Insecurity - Worry: Never True Food Insecurity - Inability: Never True Transportation Needs: No Transportation Needs (09/28/2020) PRAPARE - Transportation Lack of Transportation (Medical): No Lack of Transportation (Non-Medical): No Physical Activity: Inactive (09/28/2020) Exercise Vital Sign Days of Exercise per Week: 0 days Minutes of Exercise per Session: 0 min Stress: No Stress Concern Present (09/28/2020) [place] [employer] - Occupational Stress Questionnaire Feeling of Stress : Not at all Social Connections: Moderately Isolated (09/28/2020) Social Connection and Isolation Panel [NHANES] Frequency of Communication with Friends and Family: More than three times a week Frequency of Social Gatherings with Friends and Family: More than three times a week Attends Restorationism Services: More than 4 times per year Active Member of Clubs or Organizations: No Attends Club or Organization Meetings: Never Marital Status: Interpersonal Safety: Not At Risk (09/28/2020) Humiliation, Afraid, Rape, and Kick questionnaire Fear of Current or Ex-Partner: No Emotionally Abused: No Physically Abused: No Sexually Abused: No Housing Instability: Not on file Review of Systems Review of Systems Constitutional: Positive for decreased appetite and malaise/fatigue. HENT: Negative for nosebleeds. Respiratory: Positive for shortness of breath. Negative for cough and wheezing. Hematologic/Lymphatic: Does not bruise/bleed easily. Musculoskeletal: Positive for joint swelling (legs, feet, numbness). Negative for joint pain, muscle cramps and muscle weakness. Gastrointestinal: Positive for bloating and nausea. Negative for abdominal pain and vomiting. Neurological: Positive for dizziness and light-headedness. Negative for headaches and loss of balance. Vascular: Negative for claudication and lower extremity wounds or ulcers. CARDIOVASCULAR: Please review HPI. Physical Examination General appearance: Alert, oriented and cooperative. In no acute distress. Skin: Warm and dry to touch. Head: Normocephalic, without obvious abnormality, atraumatic. Ears, Nose, Mouth, Throat: Throat clear without erythema or exudate. Dentition intact. Eyes: Conjunctivae unremarkable, EOM intact. Neck: No JVD Respiratory: Clear to auscultation bilaterally, no use of accessory muscles. Cardiovascular: Irregular rhythm, regular rate with normal S1 and S2 with no murmurs. Gastrointestinal: Soft, non-tender. Bowel sounds normal. Musculoskeletal: No peripheral edema. Neurologic: Oriented to time, person and place, affect appropriate. No focal/major motor defects noted. Psychiatric: Appropriate mood, memory and judgement. VITAL SIGNS: BP 120/62 (BP Site: Left Arm, BP Postition: Sitting, BP CUFF SIZE: L (13-17 inches)) Pulse 66 Ht 152.4 cm (5') Wt 91.6 kg (202 lb) LMP (LMP Unknown) SpO2 90% BMI 39.45 kg/m No orders of the defined types were placed in this encounter. There are no discontinued medications. IMPRESSIONS/PLAN 1. Permanent atrial fibrillation ([facility]) - rates currently well controlled on digoxin 125 mcg every other day, diltiazem 180 mg daily, metoprolol succinate 50 mg -continue anticoagulation with Eliquis 2.5 mg b.i.d. -monitor to assess complaints of heart racing sensation to ensure patient is adequately rate controlled 2. Coronary artery disease involving [place] coronary artery of [place] heart without angina pectoris CAD s/p CABG SANCHEZ-LAD, SVG-D/OM/rPDA 2012 [facility]. Cath 03/2021 with occluded SVG-D and occluded SVG-RPDA, no significant RCA disease. 3. Primary hypertension -continue current medications 4. Nonrheumatic mitral valve regurgitation -MR significant with restrictive posterior leaflet, no good options surgically or mitral clip, continuing with medical management 5. Heart failure with preserved left ventricular function (HFpEF) ([facility]) -trace edema bilateral lower extremities weight is down to to 02 from 216 on prior visit 6. Hyperlipidemia with prior statin intolerance -LDL 95, previously refused PCSK9 inhibitors 7. Biopsy-proven hepatic sarcoid 8. CKD follows with Nephrology Notably symptoms mildly worsened from prior visit our fluid status is actually improved, we will obtain monitor to ensure not related to her atrial fibrillation, no recent hospitalizations, possible echocardiogram to reassess LV function if continue to worsen. Pt seen with in the office. TODAYS ORDERS Orders Placed This Encounter Procedures Holter monitor 24-48 hour FOLLOW UP Return in about 6 months (around 03/16/2025). PCP: Ej Simon DO Referring Physician: Ej Simon DO [address] [facility] [place] [address] Jennifer Pruitt PA-C 09/13/24 1640 documented in this [facility]03-10-2025 Instructions* Patient Instructions* Jennifer Pruitt PA-C - 09/13/2024 1:30 PM EDT Continue current medications Holter monitor for 48 hours documented in this [facility]03-07-2025 Miscellaneous Notes* Telephone Encounter - Penny Mott CMA - 09/10/2024 3:47 PM EST Left message for patient to remind them to bring their most current medication list with them to their appointment. documented in this [facility]03-07-2025 Telephone encounter Note* Telephone Encounter - Penny Mott CMA - 09/10/2024 3:47 PM EST Left message for patient to remind them to bring their most current medication list with them to their appointment. [facility]01-06-2025 Miscellaneous Notes* Telephone Encounter - Yumiko Noe CMA - 07/12/2024 11:29 AM EST Lucía told pt you cancelled this medication , did you ? From what I see you did not stop it ? * Telephone Encounter - Yumiko Noe CMA - 07/12/2024 11:29 AM EST Pt also stated she is ready for the next dose of the ozempic . documented in this [facility] Telephone encounter Note* Telephone Encounter - Yumiko Noe CMA - 07/12/2024 11:29 AM EST Lucía told pt you cancelled this medication , did you ? From what I see you did not stop it ? [facility]01-06-2025 Telephone encounter Note* Telephone Encounter - Yumiko Noe CMA - 07/12/2024 11:29 AM EST Pt also stated she is ready for the next dose of the ozempic . [facility]11-19-2021 NoteHNO ID: [id number] Author: Thony Fowler APRN.HEARING THERAPY DIRECTOR Service: ? Author Type: Nurse Practitioner Type: [...] members has been completed by: Thony Fowler APRN.[facility]11-08-2021 NoteHNO ID: [id number] Author: Fabiola Moreno Service: ? Author Type: ? Type: Progress Notes Filed: 07/23/2021 12:05 PM Note Text: [id number] Carmen CLASP II D PI: Scott Devine [...] No NIHSS 1a. Level of Consciousness: The vice investigator must choose a response if a [...] and close the eyes and then to camp coordinator and release the non-paretic hand. Substitute another [...] movements, and a choice made by the vice investigator. Establishing eye contact and then moving [...] supine). Drift is sco (more content not included)...[facility] 04-05-2021 NoteHNO ID: [id number] Author: Kavin Gamble MD Service: ? Author Type: Physician Type: Progress Notes Filed: 04/05/2021 5:26 AM Note Text: CHART COPY DO NOT DISCARD Patient Type: Consult Visit to determine Surgery: Yes PCP: Ej Simon MD ([facility]) [address] [place] [address] Referring Physician:: Lee Velázquez [address] [facility] [id number] HPI: Ms. Ivana Hutchinson is a 85 [...] requesting physician via electronic medical record Kavin Gamble, [facility]09-17-2021 NoteHNO ID: [id number] Author: Kerri Gonzalez APRN.CNP Service: ? Author [...] were reviewed. 2. Agree to submit [facility] This abstract and interpretation of the conversations amongst the mitral / tricuspid MDT members has been completed by: Kerri Gonzalez APRN.CNPOhiohealth Grove City Methodist Hospital09-14-2021 NoteHNO ID: [id number] Author: FELISA Rush Service: ? Author Type: Clinical Signs Sales Representative Type: Progress Notes Filed: 03/20/2021 2:02 PM [...] BY: FELISA Rush March 20, 2021 2:02 [facility]09-14-2021 NoteHNO ID: [id number] Author: Thony Fowler APRN.HEARING THERAPY DIRECTOR Service: ? Author Type: Nurse Practitioner Type: Progress Notes Filed: 03/20/2021 3:38 PM Note Text: [facility] Department of Cardiovascular Medicine SECTION OF INTERVENTIONAL CARDIOLOGY OUTPATIENT VISIT DATE March 20, 2021 OUTPATIENT VISIT TYPE ESTABLISHED PRIMARY CARE PHYSICIAN: Ej Simon MD ([facility]) [address] [place] [address] REFERRING PHYSICIAN: Thony Fowler [address] [facility] [address] CHIEF COMPLAINT: Patient presents with: Valvular Heart Disease HISTORY OF PRESENT ILLNESS: Ms. Hutchinson is an 85 F from [place], [place] who presents today for evaluation related [...] PAST MEDICAL HISTORY Diagnosis Date - A-fib ([facility]) - Arthritis - CAD (coronary artery disease) - CHF (congestive heart failure) ([facility]) - CKD (chronic kidney disease) stage 3, GFR 30-59 ml/min ([facility]) - DM2 (diabetes mellitus, type 2) ([facility]) - HLD (hyperlipidemia) 1979 - HTN (hypertension) 1979 - Mitral regurgitation - Renal mass - Rheumatoid arthritis ([facility]) - Sarcoidosis 1986 Pulmonary - Sleep apnea [...] CKD 3 - Penicillins Hives, Swelling - Nddlxdn-Scg-Wgq Red* Myalgia MEDICATIONS: iv contrast (will be [...] 220 mg by mouth once daily. vit C,E-Li-gtajo-lutein-zeaxan (PRESERVISION AREDS-2) 250-90-40-1 mg Take 1 capsule by mouth once daily. bempedoic acid (NEXLETOL) 180 mg tablet Take 180 mg by mouth once daily. acetaminophen/diphenhydramine (TYLENOL PM ORAL) Take 2 tablets by mouth as needed. Acidophilus-Pectin, [place] 25 million cell -100 mg tab Take 1 tablet by mouth once daily. fish oil/borage/flax/om3,6,9 (more content not included)...[facility]09-14-2021 NoteHNO ID: [id number] Author: Tiki Knowles, SHREDDING MACHINE TENDER Service: ? Author Type: Registered Resp Therapist [...] Walk Trend (Previous Encounters) None SIGNATURE: Tiki Knowles, MARLYN PATIENT NAME: Ivana Hutchinson DATE: March 20, [...] Hutchinson DATE: March 20, 2021 TIME: 1:00 [facility]09-14-2021 NoteProcedure (PULPORSCHE) IVANA HUTCHINSON ([id number]) 1935 F Date Time Provider Department 03/20/21 12:15 PM PUL FCT LAB J-1 PULPORSCHE During your visit today, we recorded the following information about you: Weight Height 104.8 kg 1.504 m Tiki KnowlesMARLYN 03/20/2021 12:24 PM Cosign Needed RESPIRATORY THERAPY [...] Repeat BP: 164/84 Referring Provider: THONY FOWLER [[id number]] Allergies As of Date: 03/20/2021 Noted Allergy Reaction CONTRAST DYE (IODINE) 03/15/2021 16 - Unknown Comments: Not allergy, want limited use due to CKD 3 PENICILLINS 03/15/2021 4 - Hives 7 - Swelling ZSPFKGR-OFT-ATO REDUCTASE INHIBIT*03/15/2021 17 - Myalgia Date Reviewed: 03/19/2021 Reviewed by: Yadira Palacios APRN.HEARING THERAPY DIRECTOR - Fully Assessed Reason for Visit: Spirometry [191] Primary Visit Diagnosis:Nonrheumatic mitral valve regurgitation [I34.0] Other Visit Diagnosis:Shortness of breath [R06.02] Order(s):SIX MINUTE WALK [[id number]] Order #: [id number]: 1 Prescriptions as of 03/20/2021 - iv [...] mg by mouth once daily. - vit C,G-If-mhqtl-lutein-zeaxan (PRESERVISION AREDS-2) 250-90-40-1 mg Take 1 capsule by mouth once daily. - bempedoic acid (NEXLETOL) 180 mg tablet Take 180 mg by mouth once daily. - acetaminophen/diphenhydramine (TYLENOL PM ORAL) Take 2 tablets by mouth as needed. - Acidophilus-Pectin, [place] 25 million cell -100 mg tab Take [...] 03/13/2021 Encounter Status:Closed by TIKI KNOWLES on 03/20/21[facility] 03-20-2021 NoteHNO ID: [id number] Author: Ladonna Curran RT(R) Service: Radiology Author [...] Not applicable. No contrast given. SIGNED BY: RT Dandre(R) March 20, 2021 10:57 [facility]09-10-2021 NoteHNO ID: [id number] Author: Thony Ann RN Service: ? Author [...] what grafts she has (surgery was at [facility]). Also, she is hoping it [...] scheduling to arrange tests. Thony Ann, SWAPNIL InternOhiohealth Grove City [facility] Hospital09-10-2021 NotePatient Outreach (CATHMN) IVANA HUTCHINSON ([id number]) 1935 F Date Time Provider Department 03/16/21 [...] what grafts she has (surgery was at [facility]). Also, she is hoping it [...] scheduling to arrange tests. Thony Ann, SWAPNIL Pencil Inspector Allergies As of Date: 03/16/2021 Noted Allergy Reaction CONTRAST DYE (IODINE) 03/15/2021 16 - Unknown Comments: Not allergy, want limited use due to CKD 3 PENICILLINS 03/15/2021 4 - Hives 7 - Swelling LDCBLBJ-HLQ-EIT REDUCTASE INHIBIT*03/15/2021 17 - Myalgia Date Reviewed: 03/15/2021 Reviewed by: Tyra Ely RN - Fully Assessed Primary Visit Diagnosis:Severe mitral regurgitation [I34.0] Order(s):SPIROMETRY BASELINE ONLY [[id number]] Order #: [id number]: 1 FUTURE LUNG DIFFUSION CAPACITY (DLCO) [[id number]] Order #: [id number]: 1 FUTURE Prescriptions as of 03/16/2021 - [...] mg by mouth once daily. - vit C,S-Gx-ytoyc-lutein-zeaxan (PRESERVISION AREDS-2) 250-90-40-1 mg Take 1 capsule by mouth once daily. - bempedoic acid (NEXLETOL) 180 mg tablet Take 180 mg by mouth once daily. - acetaminophen/diphenhydramine (TYLENOL PM ORAL) Take 2 tablets by mouth as needed. - Acidophilus-Pectin, [place] 25 million cell -100 mg tab Take [...] 03/13/2021 Encounter Status:Closed by THONY ANN on 03/16/21[facility] 03-15-2021 NoteHNO ID: [id number] Author: Cornel Felix RN Service: ? Author [...] Signed By Cornel Felix RN In Department: CARDIOLOGYOhiohealth Grove City [facility]09-09-2021 NoteHNO ID: [id number] Author: Tyra Ely RN Service: ? Author [...] Hutchinson DATE: March 15, 2021 TIME: 2:16 [facility]09-09-2021 NoteHNO ID: [id number] Author: TREVA Santiago) Service: Radiology Author Type: Technologist Type: Progress [...] BY: RT Jack(R) March 15, 2021 12:27 [facility]09-09-2021 NoteHNO ID: [id number] Author: Valentine Escobedo Service: ? Author Type: ? Type: Progress Notes Filed: 03/16/2021 3:51 PM Note Text: [facility] Department of Cardiovascular Medicine SECTION [...] Hutchinson is a 85 year old female [place], [place] who presents today for a TMVR [...] sclerosis with mild stenosis - ?Mitral regurgitation, [id number] - ?Tricuspid regurgitation, moderate - ?Pulmonary hypertension, [...] PAST MEDICAL HISTORY Diagnosis Date - A-fib ([facility]) - Arthritis - CAD (coronary artery disease) - CHF (congestive heart failure) ([facility]) - CKD (chronic kidney disease) stage 3, GFR 30-59 ml/min ([facility]) - DM2 (diabetes mellitus, type 2) ([facility]) - HLD (hyperlipidemia) 1979 - HTN (hypertension) [...] - Smokeless tobacco: Never (more content not included)...[facility]09-07-2021 NoteHNO ID: [id number] Author: Marivel Loyola APRN.PROGRAM THERAPIST Service: ? Author Type: Nurse Specialist Type: Progress Notes Filed: 03/13/2021 10:43 AM Note Text:[facility]07-26-2021 NoteHNO ID: [id number] Author: Thony Fowler APRN.HEARING THERAPY DIRECTOR Service: ? Author Type: Nurse Practitioner Type: Progress Notes Filed: 01/29/2021 4:49 PM Note Text: STRUCTURAL REVIEW FORM Pt. Name: Ivana Hutchinson Referred by: Self referral Records in [facility] have been reviewed. Severe MR. Request has been sent to the sushi chef who will arrange an appointment schedule. A [...] later date. Scheduling Notes: 85 F from [facility] significant for MVP, severe MR, CAD (s/p CABG x 4 2012), DM II, CKD III, HTN, HLD, chronic diastolic heart failure, long-standing persistent afib (eliquis), and RA. [facility] felt that [facility] posterior leaflet is too short for MitraClip and are recommending redo OHS. The patient is hesitant to move forward with surgery, so she is being referred to [facility] for a second opinion. Per Dr. Velázquez's [...] as an allergy in places because local link trainer wants her to avoid IV dye whenever possible) A/C: Eliquis. Instructed to stop taking three days prior to [facility]. OS ECHO 2020: Left Ventricle: There [...] is no evidence of tricuspid valve stenosis. OS FUAD 12/12/2020: Left?Ventricle: Systolic function is normal. [...] TWO: Please schedule cardiac catheterization with an [facility] ONLY (Dr. Donis, Dr. Parsons, Dr. Kong, Dr. Velázquez, Dr. Devine, Dr. Luna, Dr. Cunningham, Dr. Colin, Dr. Abdul, and Dr. Perkins) On Eliquis instructed to stop taking three days prior to [facility]. DAY THREE: Please schedule in-person or virtual [...] the appointment packet Thank You Thony Fowler APRN.CNPOhiohealth Grove City [facility] HospitalEvaluation note* Diagnosis Persistent atrial fibrillation (CMS-HCC)- Primary Atrial fibrillation Chronic diastolic heart failure (CMS-HCC) Chronic diastolic heart failure Longstanding persistent atrial fibrillation (CMS-HCC) Essential hypertension Unspecified essential hypertension 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 MVP (mitral valve prolapse) Mitral valve disorders Longstanding persistent atrial fibrillation (CMS-HCC)- Primary MVP (mitral valve prolapse) Mitral valve disorders Chronic diastolic heart failure (CMS-HCC) Chronic diastolic heart failure Longstanding persistent atrial fibrillation (CMS-HCC)- Primary MVP (mitral valve prolapse) Mitral valve disorders Nonrheumatic mitral valve regurgitation Chronic diastolic heart failure (CMS-HCC) Chronic diastolic heart failure Renal mass- Primary Unspecified disorder of kidney and ureter History of coronary artery bypass surgery- Primary Postsurgical aortocoronary bypass status Longstanding persistent atrial fibrillation (CMS-HCC) Nonrheumatic mitral valve regurgitation Heart failure with preserved left ventricular function (HFpEF) (CMS-HCC) Longstanding persistent atrial fibrillation (CMS-HCC) 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 Nonrheumatic mitral valve regurgitation Chronic kidney disease, stage 3b (CMS-HCC) Paroxysmal atrial fibrillation (CMS-HCC)- Primary Atrial fibrillation Longstanding persistent atrial fibrillation (CMS-HCC) Nonrheumatic mitral valve regurgitation Heart failure with preserved left ventricular function (HFpEF) (CMS-HCC) Atherosclerosis of [place] coronary artery of [place] heart without angina pectoris- Primary Mixed hyperlipidemia Type 2 diabetes mellitus with stage 3b chronic kidney disease, without long-term current use of insulin (CMS-HCC) [facility] Diagnosis Persistent atrial fibrillation (CMS-HCC)- Primary Atrial fibrillation Chronic diastolic heart failure (CMS-HCC) Chronic diastolic heart failure Longstanding persistent atrial fibrillation (CMS-HCC) Essential hypertension Unspecified essential hypertension 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 MVP (mitral valve prolapse) Mitral valve disorders Longstanding persistent atrial fibrillation (CMS-HCC)- Primary MVP (mitral valve prolapse) Mitral valve disorders Chronic diastolic heart failure (CMS-HCC) Chronic diastolic heart failure Longstanding persistent atrial fibrillation (CMS-HCC)- Primary MVP (mitral valve prolapse) Mitral valve disorders Nonrheumatic mitral valve regurgitation Chronic diastolic heart failure (CMS-HCC) Chronic diastolic heart failure Renal mass- Primary Unspecified disorder of kidney and ureter History of coronary artery bypass surgery- Primary Postsurgical aortocoronary bypass status Longstanding persistent atrial fibrillation (CMS-HCC) Nonrheumatic mitral valve regurgitation Heart failure with preserved left ventricular function (HFpEF) (CMS-HCC) Longstanding persistent atrial fibrillation (CMS-HCC) 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 Nonrheumatic mitral valve regurgitation Chronic kidney disease, stage 3b (CMS-HCC) Paroxysmal atrial fibrillation (CMS-HCC)- Primary Atrial fibrillation Longstanding persistent atrial fibrillation (CMS-HCC) Nonrheumatic mitral valve regurgitation Heart failure with preserved left ventricular function (HFpEF) (CMS-HCC) Permanent atrial fibrillation (CMS-HCC)- Primary Atrial fibrillation Coronary artery disease involving [place] coronary artery of [place] heart without angina pectoris Primary hypertension Unspecified essential hypertension Nonrheumatic mitral valve regurgitation Heart failure with preserved left ventricular function (HFpEF) (CMS-HCC) Presence of aortocoronary bypass graft Atherosclerosis of [place] coronary artery of [place] heart without angina pectoris [facility]* Diagnosis Persistent atrial fibrillation (CMS-HCC)- Primary Atrial fibrillation Chronic diastolic heart failure (CMS-HCC) Chronic diastolic heart failure Longstanding persistent atrial fibrillation (CMS-HCC) Essential hypertension Unspecified essential hypertension 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 MVP (mitral valve prolapse) Mitral valve disorders Longstanding persistent atrial fibrillation (CMS-HCC)- Primary MVP (mitral valve prolapse) Mitral valve disorders Chronic diastolic heart failure (CMS-HCC) Chronic diastolic heart failure Longstanding persistent atrial fibrillation (CMS-HCC)- Primary MVP (mitral valve prolapse) Mitral valve disorders Nonrheumatic mitral valve regurgitation Chronic diastolic heart failure (CMS-HCC) Chronic diastolic heart failure Renal mass- Primary Unspecified disorder of kidney and ureter History of coronary artery bypass surgery- Primary Postsurgical aortocoronary bypass status Longstanding persistent atrial fibrillation (CMS-HCC) Nonrheumatic mitral valve regurgitation Heart failure with preserved left ventricular function (HFpEF) (CMS-HCC) Longstanding persistent atrial fibrillation (CMS-HCC) 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 Nonrheumatic mitral valve regurgitation Chronic kidney disease, stage 3b (CMS-HCC) Paroxysmal atrial fibrillation (CMS-HCC)- Primary Atrial fibrillation Longstanding persistent atrial fibrillation (CMS-HCC) Nonrheumatic mitral valve regurgitation Heart failure with preserved left ventricular function (HFpEF) (CMS-HCC) KELSY (obstructive sleep apnea)- Primary Obstructive sleep apnea (adult) (pediatric) [facility]* Diagnosis Persistent atrial fibrillation (CMS-HCC)- Primary Atrial fibrillation Chronic diastolic heart failure (CMS-HCC) Chronic diastolic heart failure Longstanding persistent atrial fibrillation (CMS-HCC) Essential hypertension Unspecified essential hypertension 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 MVP (mitral valve prolapse) Mitral valve disorders Longstanding persistent atrial fibrillation (CMS-HCC)- Primary MVP (mitral valve prolapse) Mitral valve disorders Chronic diastolic heart failure (CMS-HCC) Chronic diastolic heart failure Longstanding persistent atrial fibrillation (CMS-HCC)- Primary MVP (mitral valve prolapse) Mitral valve disorders Nonrheumatic mitral valve regurgitation Chronic diastolic heart failure (CMS-HCC) Chronic diastolic heart failure Renal mass- Primary Unspecified disorder of kidney and ureter History of coronary artery bypass surgery- Primary Postsurgical aortocoronary bypass status Longstanding persistent atrial fibrillation (CMS-HCC) Nonrheumatic mitral valve regurgitation Heart failure with preserved left ventricular function (HFpEF) (CMS-HCC) Longstanding persistent atrial fibrillation (CMS-HCC) 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 Nonrheumatic mitral valve regurgitation Chronic kidney disease, stage 3b (CMS-HCC) Paroxysmal atrial fibrillation (CMS-HCC)- Primary Atrial fibrillation Longstanding persistent atrial fibrillation (CMS-HCC) Nonrheumatic mitral valve regurgitation Heart failure with preserved left ventricular function (HFpEF) (CMS-HCC) Stage 3b chronic kidney disease (CKD) (CMS-HCC)- Primary [facility] Diagnosis Persistent atrial fibrillation (CMS-HCC)- Primary Atrial fibrillation Chronic diastolic heart failure (CMS-HCC) Chronic diastolic heart failure Longstanding persistent atrial fibrillation (CMS-HCC) Essential hypertension Unspecified essential hypertension 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 MVP (mitral valve prolapse) Mitral valve disorders Longstanding persistent atrial fibrillation (CMS-HCC)- Primary MVP (mitral valve prolapse) Mitral valve disorders Chronic diastolic heart failure (CMS-HCC) Chronic diastolic heart failure Longstanding persistent atrial fibrillation (CMS-HCC)- Primary MVP (mitral valve prolapse) Mitral valve disorders Nonrheumatic mitral valve regurgitation Chronic diastolic heart failure (CMS-HCC) Chronic diastolic heart failure Renal mass- Primary Unspecified disorder of kidney and ureter History of coronary artery bypass surgery- Primary Postsurgical aortocoronary bypass status Longstanding persistent atrial fibrillation (CMS-HCC) Nonrheumatic mitral valve regurgitation Heart failure with preserved left ventricular function (HFpEF) (CMS-HCC) Longstanding persistent atrial fibrillation (CMS-HCC) 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 Nonrheumatic mitral valve regurgitation Chronic kidney disease, stage 3b (CMS-HCC) Paroxysmal atrial fibrillation (CMS-HCC)- Primary Atrial fibrillation Longstanding persistent atrial fibrillation (CMS-HCC) Nonrheumatic mitral valve regurgitation Heart failure with preserved left ventricular function (HFpEF) (CMS-HCC) Permanent atrial fibrillation (CMS-HCC)- Primary Atrial fibrillation [facility]* Diagnosis Persistent atrial fibrillation (CMS-HCC)- Primary Atrial fibrillation Chronic diastolic heart failure (CMS-HCC) Chronic diastolic heart failure Longstanding persistent atrial fibrillation (CMS-HCC) Essential hypertension Unspecified essential hypertension 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 MVP (mitral valve prolapse) Mitral valve disorders Longstanding persistent atrial fibrillation (CMS-HCC)- Primary MVP (mitral valve prolapse) Mitral valve disorders Chronic diastolic heart failure (CMS-HCC) Chronic diastolic heart failure Longstanding persistent atrial fibrillation (CMS-HCC)- Primary MVP (mitral valve prolapse) Mitral valve disorders Nonrheumatic mitral valve regurgitation Chronic diastolic heart failure (CMS-HCC) Chronic diastolic heart failure Renal mass- Primary Unspecified disorder of kidney and ureter History of coronary artery bypass surgery- Primary Postsurgical aortocoronary bypass status Longstanding persistent atrial fibrillation (CMS-HCC) Nonrheumatic mitral valve regurgitation Heart failure with preserved left ventricular function (HFpEF) (CMS-HCC) Longstanding persistent atrial fibrillation (CMS-HCC) 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 Nonrheumatic mitral valve regurgitation Chronic kidney disease, stage 3b ([facility]) Paroxysmal atrial fibrillation ([facility]-HCC)- Primary Atrial fibrillation Longstanding persistent atrial fibrillation ([facility]-HCC) Nonrheumatic mitral valve regurgitation Heart failure with preserved left ventricular function (HFpEF) ([facility]) Type 2 diabetes mellitus with stage 4 chronic kidney disease, without long-term current use of insulin ([facility])- Primary Mixed hyperlipidemia Permanent atrial fibrillation ([facility]-HCC) Atrial fibrillation Heart failure with preserved left ventricular function (HFpEF) ([facility]) Stage 4 chronic kidney disease ([facility]) [facility]* Diagnosis Persistent atrial fibrillation ([facility]-HCC)- Primary Atrial fibrillation Chronic diastolic heart failure ([facility]-HCC) Chronic diastolic heart failure Longstanding persistent atrial fibrillation ([facility]-HCC) Essential hypertension Unspecified essential hypertension 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 MVP (mitral valve prolapse) Mitral valve disorders Longstanding persistent atrial fibrillation (CMS-HCC)- Primary MVP (mitral valve prolapse) Mitral valve disorders Chronic diastolic heart failure (CMS-HCC) Chronic diastolic heart failure Longstanding persistent atrial fibrillation ([facility]-HCC)- Primary MVP (mitral valve prolapse) Mitral valve disorders Nonrheumatic mitral valve regurgitation Chronic diastolic heart failure ([facility]) Chronic diastolic heart failure Renal mass- Primary Unspecified disorder of kidney and ureter History of coronary artery bypass surgery- Primary Postsurgical aortocoronary bypass status Longstanding persistent atrial fibrillation ([facility]-HCC) Nonrheumatic mitral valve regurgitation Heart failure with preserved left ventricular function (HFpEF) ([facility]) Longstanding persistent atrial fibrillation ([facility]-HCC) 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 Nonrheumatic mitral valve regurgitation Chronic kidney disease, stage 3b ([facility]-HCC) Paroxysmal atrial fibrillation ([facility]-HCC)- Primary Atrial fibrillation Longstanding persistent atrial fibrillation ([facility]-HCC) Nonrheumatic mitral valve regurgitation Heart failure with preserved left ventricular function (HFpEF) ([facility]) KELSY (obstructive sleep apnea)- Primary Obstructive sleep apnea (adult) (pediatric) documented [facility]* Diagnosis Persistent atrial fibrillation ([facility]-HCC)- Primary Atrial fibrillation Chronic diastolic heart failure ([facility]-HCC) Chronic diastolic heart failure Longstanding persistent atrial fibrillation ([facility]-HCC) Essential hypertension Unspecified essential hypertension 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 MVP (mitral valve prolapse) Mitral valve disorders Longstanding persistent atrial fibrillation (CMS-HCC)- Primary MVP (mitral valve prolapse) Mitral valve disorders Chronic diastolic heart failure (CMS-HCC) Chronic diastolic heart failure Longstanding persistent atrial fibrillation (CMS-HCC)- Primary MVP (mitral valve prolapse) Mitral valve disorders Nonrheumatic mitral valve regurgitation Chronic diastolic heart failure (CMS-HCC) Chronic diastolic heart failure Renal mass- Primary Unspecified disorder of kidney and ureter History of coronary artery bypass surgery- Primary Postsurgical aortocoronary bypass status Longstanding persistent atrial fibrillation (CMS-HCC) Nonrheumatic mitral valve regurgitation Heart failure with preserved left ventricular function (HFpEF) (CMS-HCC) Longstanding persistent atrial fibrillation (CMS-HCC) 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 Nonrheumatic mitral valve regurgitation Chronic kidney disease, stage 3b (CMS-HCC) Paroxysmal atrial fibrillation (CMS-HCC)- Primary Atrial fibrillation Longstanding persistent atrial fibrillation (CMS-HCC) Nonrheumatic mitral valve regurgitation Heart failure with preserved left ventricular function (HFpEF) (CMS-HCC) Cellulitis of left foot- Primary Permanent atrial fibrillation (CMS-HCC) Atrial fibrillation 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, without long-term current use of insulin (CMS-HCC) [facility]* Diagnosis Diabetic polyneuropathy associated with type 2 diabetes mellitus (CMS/HCC)- Primary Onychodystrophy Other specified disease of nail Onychomycosis Dermatophytosis of nail documented [facility]* Diagnosis Persistent atrial fibrillation (CMS-HCC)- Primary Atrial fibrillation Chronic diastolic heart failure (CMS-HCC) Chronic diastolic heart failure Longstanding persistent atrial fibrillation (CMS-HCC) Essential hypertension Unspecified essential hypertension 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 MVP (mitral valve prolapse) Mitral valve disorders Longstanding persistent atrial fibrillation (CMS-HCC)- Primary MVP (mitral valve prolapse) Mitral valve disorders Chronic diastolic heart failure (CMS-HCC) Chronic diastolic heart failure Longstanding persistent atrial fibrillation (CMS-HCC)- Primary MVP (mitral valve prolapse) Mitral valve disorders Nonrheumatic mitral valve regurgitation Chronic diastolic heart failure (CMS-HCC) Chronic diastolic heart failure Renal mass- Primary Unspecified disorder of kidney and ureter History of coronary artery bypass surgery- Primary Postsurgical aortocoronary bypass status Longstanding persistent atrial fibrillation (CMS-HCC) Nonrheumatic mitral valve regurgitation Heart failure with preserved left ventricular function (HFpEF) (CMS-HCC) Longstanding persistent atrial fibrillation (CMS-HCC) 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 Nonrheumatic mitral valve regurgitation Chronic kidney disease, stage 3b (CMS-HCC) Paroxysmal atrial fibrillation (CMS-HCC)- Primary Atrial fibrillation Longstanding persistent atrial fibrillation (CMS-HCC) Nonrheumatic mitral valve regurgitation Heart failure with preserved left ventricular function (HFpEF) (CMS-HCC) Coronary artery disease involving [place] coronary artery of [place] heart without angina pectoris- Primary Statin intolerance Mixed hyperlipidemia documented [facility]* Diagnosis Persistent atrial fibrillation (CMS-HCC)- Primary Atrial fibrillation Chronic diastolic heart failure (CMS-HCC) Chronic diastolic heart failure Longstanding persistent atrial fibrillation (CMS-HCC) Essential hypertension Unspecified essential hypertension 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 MVP (mitral valve prolapse) Mitral valve disorders Longstanding persistent atrial fibrillation (CMS-HCC)- Primary MVP (mitral valve prolapse) Mitral valve disorders Chronic diastolic heart failure (CMS-HCC) Chronic diastolic heart failure Longstanding persistent atrial fibrillation (CMS-HCC)- Primary MVP (mitral valve prolapse) Mitral valve disorders Nonrheumatic mitral valve regurgitation Chronic diastolic heart failure (CMS-HCC) Chronic diastolic heart failure Renal mass- Primary Unspecified disorder of kidney and ureter History of coronary artery bypass surgery- Primary Postsurgical aortocoronary bypass status Longstanding persistent atrial fibrillation (CMS-HCC) Nonrheumatic mitral valve regurgitation Heart failure with preserved left ventricular function (HFpEF) (CMS-HCC) Longstanding persistent atrial fibrillation (CMS-HCC) 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 Nonrheumatic mitral valve regurgitation Chronic kidney disease, stage 3b (CMS-HCC) Paroxysmal atrial fibrillation (CMS-HCC)- Primary Atrial fibrillation Longstanding persistent atrial fibrillation (CMS-HCC) Nonrheumatic mitral valve regurgitation Heart failure with preserved left ventricular function (HFpEF) (CMS-HCC) Longstanding persistent atrial fibrillation (CMS-HCC) [facility]* Diagnosis Persistent atrial fibrillation (CMS-HCC)- Primary Atrial fibrillation Chronic diastolic heart failure (CMS-HCC) Chronic diastolic heart failure Longstanding persistent atrial fibrillation (CMS-HCC) Essential hypertension Unspecified essential hypertension 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 MVP (mitral valve prolapse) Mitral valve disorders Longstanding persistent atrial fibrillation (CMS-HCC)- Primary MVP (mitral valve prolapse) Mitral valve disorders Chronic diastolic heart failure (CMS-HCC) Chronic diastolic heart failure Longstanding persistent atrial fibrillation (CMS-HCC)- Primary MVP (mitral valve prolapse) Mitral valve disorders Nonrheumatic mitral valve regurgitation Chronic diastolic heart failure (CMS-HCC) Chronic diastolic heart failure Renal mass- Primary Unspecified disorder of kidney and ureter History of coronary artery bypass surgery- Primary Postsurgical aortocoronary bypass status Longstanding persistent atrial fibrillation (CMS-HCC) Nonrheumatic mitral valve regurgitation Heart failure with preserved left ventricular function (HFpEF) (CMS-HCC) Longstanding persistent atrial fibrillation (CMS-HCC) 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 Nonrheumatic mitral valve regurgitation Chronic kidney disease, stage 3b (CMS-HCC) Paroxysmal atrial fibrillation (CMS-HCC)- Primary Atrial fibrillation Longstanding persistent atrial fibrillation (CMS-HCC) Nonrheumatic mitral valve regurgitation Heart failure with preserved left ventricular function (HFpEF) (CMS-HCC) Longstanding persistent atrial fibrillation (CMS-HCC) [facility] Diagnosis Contusion of lesser toe of left foot without damage to nail, initial encounter- Primary Onychodystrophy Other specified disease of nail Onychomycosis Dermatophytosis of nail Diabetic polyneuropathy associated with type 2 diabetes mellitus (HCC) documented in this encounter [facility] HealthcareEvaluation note* Diagnosis Persistent atrial fibrillation (CMS-HCC)- Primary Atrial fibrillation Chronic diastolic heart failure (CMS-HCC) Chronic diastolic heart failure Longstanding persistent atrial fibrillation (CMS-HCC) Essential hypertension Unspecified essential hypertension 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 MVP (mitral valve prolapse) Mitral valve disorders Longstanding persistent atrial fibrillation (CMS-HCC)- Primary MVP (mitral valve prolapse) Mitral valve disorders Chronic diastolic heart failure (CMS-HCC) Chronic diastolic heart failure Longstanding persistent atrial fibrillation (CMS-HCC)- Primary MVP (mitral valve prolapse) Mitral valve disorders Nonrheumatic mitral valve regurgitation Chronic diastolic heart failure (CMS-HCC) Chronic diastolic heart failure Renal mass- Primary Unspecified disorder of kidney and ureter History of coronary artery bypass surgery- Primary Postsurgical aortocoronary bypass status Longstanding persistent atrial fibrillation (CMS-HCC) Nonrheumatic mitral valve regurgitation Heart failure with preserved left ventricular function (HFpEF) (CMS-HCC) Longstanding persistent atrial fibrillation (CMS-HCC) 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 Nonrheumatic mitral valve regurgitation Chronic kidney disease, stage 3b (CMS-HCC) Paroxysmal atrial fibrillation (CMS-HCC)- Primary Atrial fibrillation Longstanding persistent atrial fibrillation (CMS-HCC) Nonrheumatic mitral valve regurgitation Heart failure with preserved left ventricular function (HFpEF) (CMS-HCC) Permanent atrial fibrillation (CMS-HCC)- Primary Atrial fibrillation Heart failure with preserved left ventricular function (HFpEF) (CMS-HCC) [facility]* Diagnosis Persistent atrial fibrillation (CMS-HCC)- Primary Atrial fibrillation Chronic diastolic heart failure (CMS-HCC) Chronic diastolic heart failure Longstanding persistent atrial fibrillation (CMS-HCC) Essential hypertension Unspecified essential hypertension 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 MVP (mitral valve prolapse) Mitral valve disorders Longstanding persistent atrial fibrillation (CMS-HCC)- Primary MVP (mitral valve prolapse) Mitral valve disorders Chronic diastolic heart failure (CMS-HCC) Chronic diastolic heart failure Longstanding persistent atrial fibrillation (CMS-HCC)- Primary MVP (mitral valve prolapse) Mitral valve disorders Nonrheumatic mitral valve regurgitation Chronic diastolic heart failure (CMS-HCC) Chronic diastolic heart failure Renal mass- Primary Unspecified disorder of kidney and ureter History of coronary artery bypass surgery- Primary Postsurgical aortocoronary bypass status Longstanding persistent atrial fibrillation (CMS-HCC) Nonrheumatic mitral valve regurgitation Heart failure with preserved left ventricular function (HFpEF) (CMS-HCC) Longstanding persistent atrial fibrillation (CMS-HCC) 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 Nonrheumatic mitral valve regurgitation Chronic kidney disease, stage 3b (CMS-HCC) Paroxysmal atrial fibrillation (CMS-HCC)- Primary Atrial fibrillation Longstanding persistent atrial fibrillation (CMS-HCC) Nonrheumatic mitral valve regurgitation Heart failure with preserved left ventricular function (HFpEF) ([facility]) Type 2 diabetes mellitus with stage 3b chronic kidney disease, without long-term current use of insulin (CMS-HCC) documented in this [facility]* Diagnosis Onset Date Resolution Status Admit Date Laceration noneactiveSept2024 1:29pmLaceration of finger of left handnoneactive March 24, 2025 1:29pm [facility] Work Phone: Evaluation note* Diagnosis Persistent atrial fibrillation (CMS-HCC)- Primary Atrial fibrillation Chronic diastolic heart failure (CMS-HCC) Chronic diastolic heart failure Longstanding persistent atrial fibrillation (CMS-HCC) Essential hypertension Unspecified essential hypertension 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 MVP (mitral valve prolapse) Mitral valve disorders Longstanding persistent atrial fibrillation (CMS-HCC)- Primary MVP (mitral valve prolapse) Mitral valve disorders Chronic diastolic heart failure (CMS-HCC) Chronic diastolic heart failure Longstanding persistent atrial fibrillation (CMS-HCC)- Primary MVP (mitral valve prolapse) Mitral valve disorders Nonrheumatic mitral valve regurgitation Chronic diastolic heart failure (CMS-HCC) Chronic diastolic heart failure Renal mass- Primary Unspecified disorder of kidney and ureter History of coronary artery bypass surgery- Primary Postsurgical aortocoronary bypass status Longstanding persistent atrial fibrillation (CMS-HCC) Nonrheumatic mitral valve regurgitation Heart failure with preserved left ventricular function (HFpEF) (CMS-HCC) Longstanding persistent atrial fibrillation (CMS-HCC) 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 Nonrheumatic mitral valve regurgitation Chronic kidney disease, stage 3b (CMS-HCC) Paroxysmal atrial fibrillation (CMS-HCC)- Primary Atrial fibrillation Longstanding persistent atrial fibrillation (CMS-HCC) Nonrheumatic mitral valve regurgitation Heart failure with preserved left ventricular function (HFpEF) (CMS-HCC) Heart failure with preserved left ventricular function (HFpEF) (CMS-HCC) Longstanding persistent atrial fibrillation (CMS-HCC) Nonrheumatic mitral valve regurgitation Paroxysmal atrial fibrillation (CMS-HCC) Atrial fibrillation Chronic coronary artery disease Coronary atherosclerosis of unspecified type of vessel, [place] or graft Essential hypertension Unspecified essential hypertension Atrial fibrillation (CMS-HCC) documented in [facility]* Diagnosis Persistent atrial fibrillation (CMS-HCC)- Primary Atrial fibrillation Chronic diastolic heart failure (CMS-HCC) Chronic diastolic heart failure Longstanding persistent atrial fibrillation (CMS-HCC) Essential hypertension Unspecified essential hypertension 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 MVP (mitral valve prolapse) Mitral valve disorders Longstanding persistent atrial fibrillation (CMS-HCC)- Primary MVP (mitral valve prolapse) Mitral valve disorders Chronic diastolic heart failure (CMS-HCC) Chronic diastolic heart failure Longstanding persistent atrial fibrillation (CMS-HCC)- Primary MVP (mitral valve prolapse) Mitral valve disorders Nonrheumatic mitral valve regurgitation Chronic diastolic heart failure (CMS-HCC) Chronic diastolic heart failure Renal mass- Primary Unspecified disorder of kidney and ureter History of coronary artery bypass surgery- Primary Postsurgical aortocoronary bypass status Longstanding persistent atrial fibrillation (CMS-HCC) Nonrheumatic mitral valve regurgitation Heart failure with preserved left ventricular function (HFpEF) (CMS-HCC) Longstanding persistent atrial fibrillation (CMS-HCC) 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 Nonrheumatic mitral valve regurgitation Chronic kidney disease, stage 3b ([facility]) Paroxysmal atrial fibrillation ([facility]-HCC)- Primary Atrial fibrillation Longstanding persistent atrial fibrillation (CMS-HCC) Nonrheumatic mitral valve regurgitation Heart failure with preserved left ventricular function (HFpEF) ([facility]) Type 2 diabetes mellitus with stage 4 chronic kidney disease, without long-term current use of insulin ([facility])- Primary Mixed hyperlipidemia Obesity, morbid (CMS-HCC) Morbid obesity Permanent atrial fibrillation ([facility]-HCC) Atrial fibrillation documented in this encounter [facility]* Diagnosis Persistent atrial fibrillation (CMS-HCC)- Primary Atrial fibrillation Chronic diastolic heart failure (CMS-HCC) Chronic diastolic heart failure Longstanding persistent atrial fibrillation ([facility]-HCC) Essential hypertension Unspecified essential hypertension 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 MVP (mitral valve prolapse) Mitral valve disorders Longstanding persistent atrial fibrillation (CMS-HCC)- Primary MVP (mitral valve prolapse) Mitral valve disorders Chronic diastolic heart failure (CMS-HCC) Chronic diastolic heart failure Longstanding persistent atrial fibrillation (CMS-HCC)- Primary MVP (mitral valve prolapse) Mitral valve disorders Nonrheumatic mitral valve regurgitation Chronic diastolic heart failure (CMS-HCC) Chronic diastolic heart failure Renal mass- Primary Unspecified disorder of kidney and ureter History of coronary artery bypass surgery- Primary Postsurgical aortocoronary bypass status Longstanding persistent atrial fibrillation (CMS-HCC) Nonrheumatic mitral valve regurgitation Heart failure with preserved left ventricular function (HFpEF) (CMS-HCC) Longstanding persistent atrial fibrillation (CMS-HCC) 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 Nonrheumatic mitral valve regurgitation Chronic kidney disease, stage 3b (CMS-HCC) Paroxysmal atrial fibrillation (CMS-HCC)- Primary Atrial fibrillation Longstanding persistent atrial fibrillation (CMS-HCC) Nonrheumatic mitral valve regurgitation Heart failure with preserved left ventricular function (HFpEF) (CMS-HCC) Longstanding persistent atrial fibrillation (CMS-HCC) [facility] SystemInstructionsNot [...] on filedocumented in this encounter [facility] SystemReason for referral (narrative)No reason for referral information availableReg[facility] Company Work Phone: Summary Purpose Family History No Family History Records FoundNo Family History Records FoundNo Family History Records FoundNo Family History Records FoundNo Family History Records FoundNo Family History Records FoundNo Family History Records Found Advance Directives Date ActivatedDate InactivatedComments10/05/2022 12:29 PM10/08/2022 8:27 PMDate ActivatedDate InactivatedComments09/28/2020 11:03 AM10/12/2020 7:47 PMDate ActivatedDate InactivatedComments09/26/2020 3:13 PM09/28/2020 10:16 AMDate ActivatedDate InactivatedComments10/05/2022 12:29 PM10/08/2022 8:27 PMDate Activated Date InactivatedComments09/28/2020 11:03 AM10/12/2020 7:47 PMDate ActivatedDate InactivatedComments09/26/2020 3:13 PM09/28/2020 10:16 AM Advance Directive Response Recorded Date/ Time Advance Directives No March 1:22pm Chief Complaint and Reason for Visit Chief Complaint Admit Date Finger and toe laceration March 1:29pm Reason for Visit Admit Date Laceration March 24, 2025 1:29pm Laceration of finger of left hand Septem 2024 1:29pm Additional Source Comments INFORMATION SOURCE (unrecogn ized section and content) DATE CREATED AUTHOR 05/12/2021 [facility] DATE CREATED AUTHOR AUTHOR'S ORGANIZ ATION 08/09/2021 [facility] DATE CREATED AUTHOR AUTHOR'S ORGANIZ ATION 11/03/2022 [facility] DATE CREATED AUTHOR AUTHOR'S ORGANIZ ATION 12/10/2024 [facility] DATE CREATED AUTHOR AUTHOR'S ORGANIZ ATION 03/19/[address] [facility] DATE CREATED AUTHOR AUTHOR'S ORGANIZ ATION 03/22/2025 [facility] DATE CREATED AUTHOR AUTHOR'S ORGANIZ ATION 04/10/2025 [facility] Care Teams (unrecognized sec tion and content) Team MemberRelationshipSpecialtyStart DateEnd Date Ej Simon DO [address], [place] [address] PCP - GeneralFamily Medicine10/04/22Team MemberRelationshipSpecialtyStart DateEnd Date Ej Simon DO [address], [place] [address] PCP - GeneralFamily Medicine10/04/22Team MemberRelationshipSpecialtyStart DateEnd Date Ej Simon DO [address], [place] [address] PCP - GeneralFamily Medicine10/04/22Team MemberRelationshipSpecialtyStart DateEnd Date Ej Simon DO [address], [place] [address] [facility]22Team MemberRelationshipSpecialtyStart DateEnd Date Ej Simon DO [address], [place] [address] [facility]/04/22Team MemberRelationshipSpecialtyStart DateEnd Date Ej Simon DO [address], [place] [address] [facility]/04/22Team MemberRelationshipSpecialtyStart DateEnd Date Ej Simon DO [address], [place] [address] PCP - Generalmily Medicine10/04/22Team MemberRelationshipSpecialtyStart DateEnd Date Ej Simon DO [address], [place] [address] PCP - Generalmily Medicine10/04/22Team MemberRelationshipSpecialtyStart DateEnd Date Ej Simon DO [address], [place] [address] PCP - Generalmily Medicine10/04/22Team MemberRelationshipSpecialtyStart DateEnd Date Ej Simon DO [address], [place] [address] PCP - [facility] Medicine10/04/22Team MemberRelationshipSpecialtyStart DateEnd Date Ej Simon DO [address], [place] [address] PCP - [facility]10/04/22Team MemberRelationshipSpecialtyStart DateEnd Date Ej Simon DO [address], [place] [address] PCP - [facility] Medicine10/04/22Team MemberRelationshipSpecialtyStart DateEnd Date Ej Simon MD [address], [place] [address] PCP - [facility]11/24/23Team MemberRelationshipSpecialtyStart DateEnd Date Ej Simon MD [address], [place] [address] PCP - [facility]mily Medicine11/24/23Team MemberRelationshipSpecialtyStart DateEnd Date Ej Simon DO [address] [place] [address] PCP - [facility] Medicine10/04/22Team MemberRelationshipSpecialtyStart DateEnd Date Ej Simon DO [address], [place] [address] PCP - [facility] Medicine10/04/22Team MemberRelationshipSpecialtyStart DateEnd Date Ej Simon DO [address], [place] [address] PCP - [facility]10/04/22Team MemberRelationshipSpecialtyStart DateEnd Date Ej Simon MD [address], [place] [address] PCP - [facility] Medicine11/24/23Team MemberRelationshipSpecialtyStart DateEnd Date Ej Simon DO [address], [place] [address] PCP - [facility]10/04/22Team MemberRelationshipSpecialtyStart DateEnd Date Ej Simon DO [address], [place] [address] PCP - [facility] Medicine10/04/22 Team Status: Active Member Role Status Dates Ej Simon DO Primary Care Provider Active Team Status: Inactive Member Role Status Dates Ej Simon DO Primary Care Provider Active Start: March 24, 2025 End: March 24, 2025Renee Hills APRN [employer] WORKER-CAttending Provider ActiveStart: March 24, 2025 End: March 24, 2025Team MemberRelationshipSpecialtyStart DateEnd Date Ej Simon DO [address], [place] [address] PCP - GeneralFamily Medicine10/04/22 Reason for Visit (unrecogniz ed section and content) ReasonOnset DateCommentsMed Xhefrf5107/12/2024ReasonCommentsFollow-upEST PT F/U 6 MS L/S RDG, LABS PCP OFFICE, SCHED W/PTPalpitationsPt reports feeling her heart bouncing around aReasonOnset DateCommentsMed Thfozr8810/29/2024ReasonCommentsMed RefillReasonCommentsMed RefillReasonCommentsDiabetesReasonCommentsSleep Apnea ComplianceDME: MSCShortness of BreathPFT: 11/11/24ReasonCommentscelluitisReason CommentsToenail CarePt is here today for nail care, Lt hallux nail is bothersome for her. She is prediabetic, most recent a1c 8.1.ReasonCommentsNail careCarol Rosalinda Hutchinson is a 89 y.o. female who presents for Toenail Care. Patient relates prediabetic, mostrecent a1c 8.1ReasonCommentsFollow-up6 MONTHSAtrial FibrillationShortness of BreathWith exertionReasonComments4 month check-feeling ok. pain everywhereShe had went to urgent care for a cut middle finger. Goals (unrecognized section and content) Goals may be documented in a n alternate section FOR RECORDS PERTAINING TO PATIENTS WHO ARE [...] BE BASED ON THE PRIMARY CLINICAL RECORDS. [employer] provides no warranty or guarantee of the accuracy or completeness of information in this document.
--- OUTSIDE RECORDS SUMMARY | 2025-06-05 11:24 | XMS_ITS | Encounter Summary ---
Author Organization [facility] YoQueVos s tem Address [id number] [address] [place] [address] Care Team Providers Care Policy And Planning Manager Name Role Phone Ej Barry Primary Care Provider [phone] Encounter Details DateTypeDepartmentCare Team (Latest Contact Info)Iduzrjpzabg23/19/2025[facility]phone [facility] [address] [place] [phone] Fabiola Bradford CMA Social History Tobacco UseTypesPacks/DayYears UsedDateSmoking Tobacco: NeverSmokeless Tobacco: NeverAlcohol UseStandard Drinks/WeekCommentsNo0 (1 standard drink = 0.6 oz pure alcohol)[facility] UtilitiesAnswerDate RecordedIn the past 12 months has the [employer], gas, oil, or water [employer] threatened to shut off services in your home?No 04/05/2025Social Connection and Isolation PanelAnswerDate RecordedIn a typical week, how many times do you talk on the phone with family, friends, or neighbors?Three times a week04/05/2025How often do you get together with friends or relatives?Three times a week04/05/2025How often do you attend samaritan or religion services?More than 4 times per year04/05/2025Do you belong to any clubs or organizations such as samaritan groups, unions, fraternal or athletic slade ups, or school groups?No04/05/2025How often do you attend meetings of the clubs or organizations you belong to?Never04/05/2025re you , , , , never , or living with a partner?Zsyietz3104/05/2025 AUDIT-CAnswerDate RecordedQ1: How often do you have a drink containing alcohol? Never03/06/2023Q2: How many drinks containing alcohol do you have on a typical day when you are drinking?Patient does not drink03/06/2023Q3: How often do you have six or more drinks on one occasion?Never03/06/2023Overall Financial Resource Strain (CARDIA)AnswerDate RecordedHow hard is it for you to pay for the very basics like food, housing, medical care, and heating?Not very hard 04/05/2025PHQ-2AnswerDate RecordedTotal Nsoxb319Finamerican fork hospital [employer] of Occupational Health - Occupational Stress QuestionnaireAnswerDate RecordedDo you feel stress - tense, restless, nervous, or anxious, or unable to sleep at night because yourmind is troubled all the time - these days?Not at all04/05/2025 Exercise Vital SignAnswerDate RecordedOn average, how many days per week do you engage in moderate to strenuous exercise (like a brisk walk)?0 days04/05/2025On average, how many minutes do you engage in exercise at this level?0 min 04/05/2025PRAPARE - TransportationAnswerDate RecordedIn the past 12 months, has lack of transportation kept you from medical appointments or from getting medications?No04/05/2025In the past 12 months, has lack of transportation kept you from meetings, work, or from getting things needed for daily living?No 04/05/2025Housing InstabilityAnswerDate RecordedAre you worried or concerned that in the next two months you may not have stable housing that you own, rent or stay in as a part of a household?No04/05/2025hildcareAnswerDate RecordedDo problems getting child care education coordinator make it difficult for you to work or study?No 04/05/2025EmploymentAnswerDate RecordedDo you need help finding a local career center and/or a training program?No04/05/2025Hunger ScreeningAnswerDate Recorded Within the past 12 months we worried whether our food would run out before we got money to buy more.Never True04/05/2025Within the past 12 months the food we bought just didn't last and we didn't have money to get more.Never True 04/05/2025Purpose - LifeAnswerDate RecordedI have a purpose and direction in my life.Agree09/28/2020CommentsNoSex and Gender InformationValueDate RecordedSex Assigned at BirthNot on fileLegal XoiFemint67/06/2015 11:22 AM EDT Gender IdentityNot on fileSexual OrientationNot on filedocumented as of this encounter Miscellaneous Notes * Telephone Encounter - Fabiola Bradford CMA - 05/25/2025 4:10 PM EST I contacted the patient assistance and patient makes too much for the medication Eliquis. What would you like to do? * Telephone Encounter - Ej Barry DO - 05/25/2025 4:10 PM EST Maybe able to switch to Xarelto as that is going generic I hear. She can try Coumadin but requires ongoing monitoring * Telephone Encounter - Fabiola Bradford CMA - 05/25/2025 4:10 PM EST Patient states that xarelto would work/ Patient wanted samples she has nothing left. * Telephone Encounter - Fabiola Bradford CMA - 05/25/2025 4:10 PM EST Now patient called and stated she read that it effects your kidneys and would like to stay on eliquis . Can she have samples? * Telephone Encounter - Ej Barry DO - 05/25/2025 4:10 PM EST We can give her a week's sample and then I will send in a prescription for her to get it at the pharmacy * Telephone Encounter - Fabiola Bradford CMA - 05/25/2025 4:10 PM EST Spoke to son [place] and he is picking up. documented in this encounter Plan of Treatment DateTypeDepartmentCare Team (Latest Contact Info)Nhcjevwxywy88/02/2026 2:00 PM ESTOffice Visit [facility] [address] [place] [address] Ej Barry DO [address], [facility] [address] 10/31/2025 1:30 PM EDTOffice Visit [facility] [address] [place] [phone] Aleida Campuzano MD [address] [place] [address] documented as of this encounter Goals GoalPatient Goal TypeAssociated ProblemsRecent ProgressPatient-Stated?Author Home Kaylan Prather LSW Note: Evaluation of progress towards goal: Home with family support and HHC with possible new O2 order. documented as of this encounter Visit Diagnoses Not on filedocumented in this encounter Additional Health Concerns AssessmentNoted TimePHQ-9 Depression Total Score: 1:37 PM EDT documented as of this encounter Care Teams Team MemberRelationshipSpecialtyStart DateEnd Date Ej Barry DO [address] [facility], [place] [address] PCP - GeneralFamily Medicine10/04/22documented as of this encounter
--- OUTSIDE RECORDS SUMMARY | 2025-06-05 11:24 | XMS_ITS | Encounter Summary ---
Author Organization [facility] tem Address [id number] [address] [place] [address] Care Team Providers Care Sustainable Design Coordinator Name Role Phone ElizabethEj betancur Primary Care Provider [phone] Reason for Visit * ReasonOnset DateCommentsMed Boyocg2305/30/2025 Encounter Details DateTypeDepartmentCare Team (Latest Contact Info)Hlvsftadefg49/24/2025[facility] [address] [place] [phone] Vandana Brown CMA Longstanding persistent atrial fibrillation ([facility]-H[facility]) Social History Tobacco UseTypesPacks/DayYears UsedDateSmoking Tobacco: NeverSmokeless Tobacco: NeverAlcohol UseStandard Drinks/WeekCommentsNo0 (1 standard drink = 0.6 oz pure alcohol)[facility] UtilitiesAnswerDate RecordedIn the past 12 months has the [employer], gas, oil, or water [employer] threatened to shut off services in your home?No 04/05/2025Social Connection and Isolation PanelAnswerDate RecordedIn a typical week, how many times do you talk on the phone with family, friends, or neighbors?Three times a week04/05/2025How often do you get together with friends or relatives?Three times a week04/05/2025How often do you attend anabaptism or voodoo services?More than 4 times per year04/05/2025Do you belong to any clubs or organizations such as anabaptism groups, unions, fraternal or athletic slade ups, or school groups?No04/05/2025How often do you attend meetings of the clubs or organizations you belong to?Never04/05/2025re you , , , , never , or living with a partner?Fepblhn0804/05/2025 AUDIT-CAnswerDate RecordedQ1: How often do you have [...] care, and heating?Not very hard 04/05/2025PHQ-2AnswerDate RecordedTotal Wgrso813Fincedar [facility] [place] of Occupational Health - Occupational Stress QuestionnaireAnswerDate [...] of a household?No04/05/2025hildcareAnswerDate RecordedDo problems getting child development teacher make it difficult for you to work [...] have a purpose and direction in my life.Agree1CommentsNoSex and Gender InformationValueDate RecordedSex Assigned at BirthNot on fileLegal MokAndgws57/06/2015 11:22 AM EDT Gender IdentityNot on fileSexual OrientationNot on filedocumented as of this encounter Plan of Treatment DateTypeDepartmentCare Team (Latest Contact Info)Zwfaezlvart21/02/2026 2:00 PM ESTOffice Visit [facility] [address] [place] [address] Ej Barry DO [address], [place] [address] 10/31/2025 1:30 PM EDTOffice Visit [facility] Pul[facility]/Sleep [facility] [address] [place] [address] Aleida Campuzano MD [address] [facility] [address] [place], [place] [id number] documented as of this encounter Goals GoalPatient Goal TypeAssociated ProblemsRecent ProgressPatient-Stated?Author Home Kaylan Prather LSW Note: Evaluation of progress towards goal: Home with family support and [facility] with possible new O2 order. documented as of this encounter Visit Diagnoses Diagnosis Longstanding persistent atrial fibrillation (CMS-HCC) documented in this encounter Additional Health Concerns AssessmentNoted TimePHQ-9 Depression Total Score: 1:37 PM EDT documented as of this encounter Care Teams Team MemberRelationshipSpecialtyStart DateEnd Date Ej Barry DO [address] [place], [facility] [place] [address] PCP - GeneralFamily Medicine10/04/22documented as of this encounter
--- OUTSIDE RECORDS SUMMARY | 2025-06-05 11:24 | XMS_ITS | Clinical Summary ---
Author Organization [facility] Address [address], [address] [place] [address] Care Team Providers Care Pastry Supervisor Name Role Phone Franckbob Ej Bonilla DO Primary Care Provider + [phone] Social History Tobacco UseTypesPacks/DayYears UsedDateSmoking Tobacco: Never Assessed CommentsUnknownSex and Gender InformationValueDate RecordedSex Assigned at Not on fileLegal OyoGntjyt94/10/2013 10:47 AM ESTGender IdentityNot on file Sexual OrientationNot on file Plan of Treatment Not on file Insurance Care Teams Team MemberRelationshipSpecialtyStart DateEnd Date Ej Barry DO PCP - Gsylpix89/5/18
--- OUTSIDE RECORDS SUMMARY | 2025-06-05 11:24 | XMS_ITS | Clinical Summary ---
Author Organization [facility] Address [address] [place] [address] Care Team Providers Care Formula Technician Name Role Phone Ej Barry MD Primary Care Provider Allergies Active AllergyReactionsCriticalityNoted UqdfRsfarkdaRdyyxhlynb30/24/2021 Edema RmjdniOpoffleItla43/09/2021 Not allergy, want limited use due to CKD 3 Other reaction(s): Unknown Not allergy, want limited use due to CKD 3 PenicillinsHives,Qntcaehx70/09/8216GtsrmswChox29/24/2021 Severe myopathy and weakness Other Reaction(s): Myalgia Medications MedicationSigDispense QuantityRefillsLast FilledStart DateEnd DateStatus allopurinol (Zyloprim) 100 MG tablet Take 1 tablet by mouth Daily06/10/2023ctive ascorbic acid (Vitamin C) 250 MG chewable tablet Chew in the morning.Active Nexlizet 180-10 MG tablet Take 1 tablet by mouth Daily04/03/2023ctive bumetanide (Bumex) 2 MG tablet 04/24/2023ctive cholecalciferol (Vitamin D-3) 50 MCG (1999 UT) capsule Take 2,000 Units by mouth in the morning.Active digoxin (Lanoxin) 125 MCG tablet Take 125 mcg by mouth every other day09/23/2023ctive dilTIAZem CD (Cardizem CD) 180 MG 24 hr capsule Take 180 mg by mouth in the morning.11/17/2023ctive diphenhydrAMINE-acetaminophen (Tylenol PM) 25-500 MG per tablet Take 1 tablet by mouth as needed at bedtimeActive lisinopril 10 MG tablet Take 10 mg by mouth in the morning.Active Multiple Vitamin (multivitamin) capsule Take 1 tablet by mouth in the morning.Active Multiple Vitamins-Minerals (PreserVision AREDS 2) capsule Take 1 capsule by mouth in the morning.Active nystatin-triamcinolone (Mycolog II) cream Apply 1 Application topically in the morning and 1 Application at noon and 1 Application in the evening and 1 Application before bedtime.09/29/2023ctive KLOR-CON 20 MEQ ER tablet 11/07/2023ctive Ubiquinol 100 MG capsule Take 1 capsule by mouth in the morning.Active zinc sulfate (Zincate) 220 (50 Zn) MG capsule Take by mouth in the morning.Active apixaban (Eliquis) 2.5 MG tablet Take 2.5 mg by mouth in the morning and 2.5 mg before bedtime.Active Dapagliflozin Propanediol (FARXIGA PO) Take by mouthActive [place] 3-6-9 Fatty Acids (OMEGA 3-6-9 COMPLEX PO) Take by mouthActive TART HORNER PO Take by mouthActive Active Problems ProblemNoted DateDiagnosed DateAge-related nuclear cataract of left eye 11/24/2023dvanced atrophic nonexudative age-related macular degeneration of both eyes with subfoveal enznsaqdtal16/20/2024 Encounters DateTypeDepartmentCare ExisZmbkwjwwunq99/10/2025 3:00 PM EDTProcedure [facility] [address] [place] [phone] Joe Mills DPM Contusion of lesser toe of left foot without damage to nail, initial encounter (Primary Dx); Onychodystrophy; Onychomycosis; Diabetic polyneuropathy associated with type 2 diabetes mellitus (HCC)03/16/2025 Bamboo flowsheet [facility] [address] [place] [address] Joe Mills DPM 03/16/20257094Ygdxnp43/09/2025Travelfrom Last 3 Months Social History Tobacco UseTypesPacks/DayYears UsedDateSmoking Tobacco: NeverSmokeless Tobacco: Never Tobacco Cessation:Counseling Given: Not Answered CommentsUnknownSex and Gender InformationValueDate RecordedSex Assigned at BirthNot on fileLegal XpeAqvsgn61/01/2023 8:35 PM EDTGender IdentityNot on fileSexual OrientationNot on file Last Filed Vital Signs Vital SignReadingTime TakenCommentsBlood Mfqrsyaz034/6408 12:00 PM EDT Pulse--Temperature--Respiratory Rate--Oxygen Saturation--Inhaled Oxygen Concentration--Ektbkh62.3 kg (199 lb)03/16/2025 2:37 PM EQIXhwfje874.4 cm (5') 03/16/2025 2:37 PM EDTBody Mass Index38.8603/16/2025 2:37 PM EDT Plan of Treatment DateTypeDepartmentCare Team (Latest Contact Info)Gshzjbobwqz37/15/2025 4:15 PM ESTProcedure Visit [facility] [address] [place] [address] Joe Mills, DPM [address] [place], [place] [phone] Health MaintenanceDue DateLast DoneCommentsCOVID-19 Vaccine ( season) 5108/11/2022, 08/25/2020, 08/01/2020Influenza Vaccine (#1)2025 08/20/2024, 05/08/2023, 06/07/2022, Additional history existsPneumococcal Vaccine: 65+ YguftQdzfgrrtm64/30/2015, 01/29/2005 Insurance Care Teams Team MemberRelationshipSpecialtyStart DateEnd Date Ej Barry MD [address] [facility] [place] [address] [facility]11/24/23
--- OUTSIDE RECORDS SUMMARY | 2025-06-05 11:24 | XMS_ITS | Encounter Summary ---
Author Organization [facility] tem Address [id number] [address] [place] [address] Care Team Providers Care Supervisor Wet Room Name Role Phone Ej Barry DO Primary Care Provider [phone] Encounter Details DateTypeDepartmentCare Team (Latest Contact Info)Sxakcpuadfr79/20/2025Orders Only [facility] [address] [place] [address] Ej Barry DO [address], [place] [address] Longstanding persistent atrial fibrillation ([facility]-H[facility]) Social History Tobacco UseTypesPacks/DayYears UsedDateSmoking Tobacco: NeverSmokeless Tobacco: NeverAlcohol UseStandard Drinks/WeekCommentsNo0 (1 standard drink = 0.6 oz pure alcohol)[facility] UtilitiesAnswerDate RecordedIn the past 12 months has the electric, gas, oil, or water company threatened to shut off services in your home?No 04/05/2025Social Connection and Isolation PanelAnswerDate RecordedIn a typical week, how many times do you talk on the phone with family, friends, or neighbors?Three times a week04/05/2025How often do you get together with friends or relatives?Three times a week04/05/2025How often do you attend mosque or uatsdin services?More than 4 times per year04/05/2025Do you belong to any clubs or organizations such as mosque groups, unions, fraternal or athletic slade ups, or school groups?No04/05/2025How often do you attend meetings of the clubs or organizations you belong to?Never04/05/2025re you , , , , never , or living with a partner?Rigzdjk8504/05/2025 AUDIT-CAnswerDate RecordedQ1: How often do you have [...] care, and heating?Not very hard 04/05/2025PHQ-2AnswerDate RecordedTotal Evicp015Finsteward health care system [place] of Occupational Health - Occupational Stress QuestionnaireAnswerDate [...] part of a household?No04/05/2025hildcareAnswerDate RecordedDo problems getting early childhood coordinator make it difficult for you to [...] InformationValueDate RecordedSex Assigned at BirthNot on fileLegal CbeCcumsk68/06/2015 11:22 AM EDT Gender IdentityNot on fileSexual OrientationNot on filedocumented as of this encounter Plan of Treatment DateTypeDepartmentCare Team (Latest Contact Info)Nokoshllmke18/02/2026 2:00 PM ESTOffice Visit [facility] [address] [place] [phone] Ej Barry, DO [address], [facility] [place] [address] 10/31/2025 1:30 PM EDTOffice Visit [facility] [address] [place] [address] Aleida Campuzano MD [address] [facility] [address] [place], [place] [phone] documented as of this encounter Goals GoalPatient Goal TypeAssociated ProblemsRecent ProgressPatient-Stated?Author Home Kaylan Prather LSW Note: Evaluation of progress towards goal: Home with family support and C with possible new O2 order. documented as of this encounter Visit Diagnoses Diagnosis Longstanding persistent atrial fibrillation (CMS-HCC) documented in this encounter Additional Health Concerns AssessmentNoted TimePHQ-9 Depression Total Score: 1:37 PM EDT documented as of this encounter Care Teams Team MemberRelationshipSpecialtyStart DateEnd Date Ej Barry DO [address] [facility], [place] [address] PCP - GeneralFamily Medicine10/04/22documented as of this encounter
--- OUTSIDE RECORDS SUMMARY | 2025-06-05 11:24 | XMS_ITS | Encounter Summary ---
Author Organization [facility] tem Address [id number] [address] [place] [address] Care Team Providers Care Woodworker Name Role Phone Ej Barry DO Primary Care Provider [phone] Encounter Details DateTypeDepartmentCare Team (Latest Contact Info)Oubrcpvkiip79/25/2025Orders Only [facility] [address] [place] [address] Ej Barry DO [address], [place] [address] Longstanding persistent atrial fibrillation ([facility]-HCC) Social History Tobacco UseTypesPacks/DayYears UsedDateSmoking Tobacco: NeverSmokeless Tobacco: NeverAlcohol UseStandard Drinks/WeekCommentsNo0 (1 standard drink = 0.6 oz pure alcohol)[facility] UtilitiesAnswerDate RecordedIn the past 12 months has [...] times a week04/05/2025How often do you attend islam or anglican services?More than 4 times per year04/05/2025Do you belong to any clubs or organizations such as islam groups, unions, fraternal or athletic slade ups, or school groups?No04/05/2025How often do you attend meetings of the clubs or organizations you belong to?Never04/05/2025re you , , , , never , or living with a partner?Pijqqki2504/05/2025 AUDIT-CAnswerDate RecordedQ1: How often do you have [...] care, and heating?Not very hard 04/05/2025PHQ-2AnswerDate RecordedTotal Aqazs902Finjordan [facility] [place] of Occupational Health - Occupational Stress QuestionnaireAnswerDate [...] part of a household?No04/05/2025hildcareAnswerDate RecordedDo problems getting exceptional children teacher make it difficult for you to [...] InformationValueDate RecordedSex Assigned at BirthNot on fileLegal YlcDademd38/06/2015 11:22 AM EDT Gender IdentityNot on fileSexual OrientationNot on filedocumented as of this encounter Plan of Treatment DateTypeDepartmentCare Team (Latest Contact Info)Iyvtztdkfuq59/02/2026 2:00 PM ESTOffice Visit [facility] [address] [place] [phone] Ej Barry, DO [address], [facility] [place] [address] 10/31/2025 1:30 PM EDTOffice Visit [facility] [address] [address] Aleida Campuzano MD [address] [facility] [address] [place], [place] [id number] documented as of this encounter Goals GoalPatient [...] Date Ej Barry DO [address] [facility], [place] [address] PCP - GeneralFamily Medicine10/04/22documented as of this encounter
--- OUTSIDE RECORDS SUMMARY | 2025-06-05 11:24 | XMS_ITS | Clinical Summary ---
Author Organization [employer] tem Address [id number] [address] [place] [address] Care Team Providers Care Ski Top Trimmer Name Role Phone Ej Barry Primary Care Provider Allergies Active AllergyReactionsCriticalityNoted GrseIqcqafffClturlyeojrffh36/24/2021 hyperkalemia Rozktgihkl47/24/2021 Edema HgiutylrynrrYehc47/25/2021 Severe myopathy and weakness Dye04/15/2018 IVP DYE JruwftZxov25/09/2021 Other reaction(s): Unknown Not allergy, want limited use due to CKD 3 PenicillinsHives,Uywurfak73/09/4229JatjpbvhdvobBsaw78/25/2021 Severe myopathy and weakness Qwgithm-Mll-Qjt Reductase ArhzjkhazwIejg16/24/2021 Severe myopathy and weakness Medications MedicationSigDispense QuantityRefillsLast FilledStart DateEnd DateStatus multivitamin capsule Take 1 tablet by mouth in the morning.Active om 3/E/linol/ala/oleic/gla/lip (OMEGA 3-6-9 ORAL) Take 1 capsule by mouth in the morning.Active vit C,G-Hs-criyj-lutein-zeaxan 250-90-40-1 mg capsule Take 1 capsule by mouth in the morning.Active coQ10, ubiquinol, 100 mg capsule Take 1 capsule by mouth in the morning.Active acidophilus-pectin, citrus 25 million cell -100 mg tablet Take 1 tablet by mouth daily with breakfast.Active sour horner extract (TART HORNER EXTRACT ORAL) Take 1 tablet by mouth in the morning.Active cholecalciferol, vitamin D3, 2,000 units capsule Take 1 capsule (2,000 Units total) by mouth in the morning.Active ascorbic acid, vitamin C, 250 mg tablet,chewable Chew 1 tablet and swallow in the morning.Active zinc sulfate (ZINCATE) 50 mg zinc (220 mg) capsule Take 1 capsule (50 mg total) by mouth in the morning.Active oxygen Inhale 2 L/min once daily at bedtime. Connected to C-PapActive diphenhydrAMINE-acetaminophen (TYLENOL PM) 25-500 mg tablet Take 1 tablet by mouth nightly as needed for sleep.Active meclizine (ANTIVERT) 12.5 mg tablet Take 1 tablet (12.5 mg total) by mouth 3 (three) times a day as needed for dizziness. 90 tablet 4Active dilTIAZem CD (CARDIZEM CD) 180 mg 24 hr capsule Indications:Permanent atrial fibrillation (CMS-HCC)Take 1 capsule by mouth in the morning 90 capsule 5Active bumetanide (BUMEX) 1 mg tablet Take 2 tablets (2 mg total) by mouth 2 (two) times a day. 360 tablet 5Active lisinopriL (PRINIVIL,ZESTRIL) 10 mg tablet TAKE 1 TABLET BY MOUTH IN THE MORNING 90 tablet 5Active doxycycline (MONODOX) 100 mg capsule TAKE 1 CAPSULE BY MOUTH TWICE DAILY FOR 10 DAYS5Active evolocumab (REPATHA SURECLICK) 140 mg/mL pen injector Indications:Coronary artery disease involving [place]ok[place] coronary artery of spokane heart without angina pectoris,Statin intolerance,Mixed hyperlipidemiaInject 140 mg under the skin every 14 (fourteen) days. 2 mL 505Active digoxin (LANOXIN) 125 mcg tablet Indications:Longstanding persistent atrial fibrillation (CMS-HCC)TAKE 1 TABLET BY MOUTH EVERY OTHER DAY 45 tablet 5Active metoprolol succinate XL (TOPROL XL) 50 mg 24 hr tablet Indications:Heart failure with preserved left ventricular function (HFpEF) (CMS-HCC),Longstanding persistent atrial fibrillation (CMS-HCC),Nonrheumatic mitral valve regurgitation,Paroxysmal atrial fibrillation (CMS-HCC),Chronic coronary artery disease,Essential hypertension,Atrial fibrillation (CMS-HCC)TAKE 1 TABLET BY MOUTH TWICE DAILY (IN THE MORNING AND AT BEDTIME) 180 tablet 5Active dapagliflozin propanediol (FARXIGA) 10 mg tablet Indications:Type 2 diabetes mellitus with stage 3b chronic kidney disease, without long-term current use of insulin (CMS-HCC)Take 1 tablet (10 mg total) by mouth in the morning. 90 tablet 5Active allopurinoL (ZYLOPRIM) 100 mg tablet Take 1 tablet by mouth once daily 90 tablet 5Active potassium chloride (KLOR-CON M 20) 20 MEQ CR tablet Take 1 tablet (20 mEq total) by mouth in the morning. 90 tablet 5Active apixaban (ELIQUIS) 2.5 mg tablet Indications:Longstanding persistent atrial fibrillation (CMS-HCC)Take 1 tablet (2.5 mg total) by mouth in the morning and 1 tablet (2.5 mg total) before bedtime. 180 tablet 5Active potassium chloride (KLOR-CON M20) 20 MEQ CR tablet Take 1 tablet by mouth once daily 90 tablet /12/2024Discontinued allopurinoL (ZYLOPRIM) 100 mg tablet Take 1 tablet by mouth once daily 90 tablet /12/2024Discontinued apixaban (ELIQUIS) 2.5 mg tablet Indications:Longstanding persistent atrial fibrillation (CMS-HCC)Take 1 tablet (2.5 mg total) by mouth in the morning and 1 tablet (2.5 mg total) before bedtime. 180 tablet /Discontinued(Reorder) apixaban (ELIQUIS) 2.5 mg tablet Indications:Longstanding persistent atrial fibrillation (CMS-HCC)Take 1 tablet (2.5 mg total) by mouth in the morning and 1 tablet (2.5 mg total) before bedtime. 180 tablet /Discontinued(Reorder) apixaban (ELIQUIS) 2.5 mg tablet Indications:Longstanding persistent atrial fibrillation (CMS-HCC)Take 1 tablet (2.5 mg total) by mouth in the morning and 1 tablet (2.5 mg total) before bedtime. 180 tablet Discontinued(Reorder) Active Problems ProblemNoted DateDiagnosed DateObesity, hhutlb8406/15/20241427Qwpqmelnwr85/31/2023 Stage 4 chronic kidney ratgmpl5111/22/2022Statin welscrtezqt05/18/2023 Atherosclerosis of coronary artery without angina cawckyda95 Wjoagponcityfu90/31/2023Heart failure with preserved left ventricular function (HFpEF)08/27/2021 Assessment & Plan (07/22/2022 4:55 PM EST): Suspect that she has developed some LV dysfunction due to AFib with uncontrolled rate. Nonrheumatic mitral valve ubagtypnpwmnf30/21/2021 Overview (11/18/2022): Has been deemed not a surgical candidate or minimally invasive locally and at [facility] for her severe mitral regurgitation. Assessment & Plan (11/18/2022 5:08 PM EDT): Medical volume management with diuretic. On Bumex 2 mg twice a day I told her to continue that. If she notices worsening peripheral edema, abdominal bloating may require either uptitration of Bumex or adding metolazone half an hour prior to Bumex does once or twice a week. Needs a follow-up with General Cardiology closely after discharge in [place]. Assessment & Plan (09/03/2022 4:44 PM EST): Not a surgical candidate or minimally invasive for mitral valve clip, was seen evaluated by structural Clinic here at [place] and [facility]. Next para continue follow-up with General Cardiologyfor diuretic adjustment. Assessment & Plan (07/22/2022 4:55 PM EST): Has been deemed heart a surgical candidate or minimally invasive such as mitral valve clip locally and at [facility]. Renal mass10/30/2020 Overview (04/29/2022): ==== 04/29/2022 ==== renal ultrasound demonstrates stability of simple appearing cyst. I reviewed her previous MRI report no suspicious masses. Plan: Push out her evaluation to 9 months. ====10/10/21==== comparison of MRI to ultrasound was made with Radiology stating that the largest cyst in the right kidney was thought to be proteinaceous/hemorrhagic but was unchanged in size. Follow-up ultrasound 09/03/2021 was not able to identify the lesion in question. ==== 11/29/2020 ==== MRI done without contrast per patient wish. MRI is read out as simple cysts or cysts. No convincing renal mass noted. Unfortunately janett was not able to review the david films. Will ask the us MRI to be reviewed based on the films as well. ==== 10/30/2020 ==== History chronic renal insufficiency. Incidental finding of questionable right renal mass. Midportion of the kidney. Difficult to visualize on the CT on the ultrasound. They do recommend advance cross sectional imaging. Given renal insufficiency she would not qualify for CT. Certainly may call for for MRI. She sees Dr. Ball as Nephrology and was sent here for MRI Plan: Assessment & Plan (2021 5:10 PM EDT): Will confirm with Dr. 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 Does not have symptoms of palpitation however does have significant diastolic heart failure along with mitral valve prolapse and mitral regurgitation. Underwent FUAD and cardioversion on 2020 and on November came in for cardioversion was in sinus rhythm. Since November of 2020 has become more paroxysmal on amiodarone 200 mg daily. Despite of ongoing amiodarone back in AFib sometime in summer or early fall of 2021 with poor rate control. Add digoxin 0.125 mg every other day mid July 2022 rates improved. Assessment & Plan (11/18/2022 5:08 PM EDT): Stable rate control on amiodarone 100 mg a day, digoxin 0.125 mg every other day, Toprol 50 b.i.d.. On Eliquis 2.5 b.i.d. given her elevated creatinine and age. Will have her follow-up with EP nurse practitioner in 3 months to see if her rates remained stable at that point if she has will have her see her EP once every 6 months. Assessment & Plan (09/03/2022 4:43 PM EST): Will go and reduce amiodarone to 100 mg a day continue metoprolol and digoxin. I do think this willprovide good rate control. Ultimately we might be able to get her off amiodarone however this will required AV node ablation and pacemaker. Obviously she is high risk given her underlying comorbidities, size and age. I asked her to continue monitor pulse with a blood pressure and heart rate at home see what that isif it is consistently running high in 90s to call us as long as well in retention is not become being a problem for her. Assessment & Plan (07/22/2022 4:54 PM EST): Blood pressure is soft on Toprol 50 b.i.d. as well as amiodarone 200 daily despite of that has elevated heart rate. I told the patient and her son that this was somewhat expected given her severe structure abnormality this was plan to happen with recurrent AFib. Unfortunately her rates are not controlled and that is added problem with volume retention/heart failure and renal failure. Will try digoxin to provide some additional rate control, starting digoxin 0.125 mg every other day. Obtain BNP and BMP and see what the renal function is if it is significantly worsened summer will reduce her dose of digoxin. After she is on digoxin along with metoprolol and amiodarone will obtain a 24 hour Holter monitor to see her rate control and an echocardiogram. I told the patient and her son that next visit will be talk about AV node ablation Bi V pacemaker or defibrillator based on a EF. However given her age and comorbidities would not recommend defibrillator would recommend Bi V pacemaker. Also that would be high risk given her morbid obesity, heart failure and underlying structural problems. Assessment & Plan (07/24/2021 2:01 PM EST): It is quite clear that she is having episodes of AFib however does not feel it rates are overall controlled resting rates were in 80s and 90s I would be concerned that uncontrolled rapid rates in AFib might end up her in to the hospital again with heart failure hence I am going to increase the Toprol from 25 mg daily to 25 mg b.i.d.. Continue amiodarone 200 mg daily along with Eliquis. Had blood work done within last 6 months from the amiodarone standpoint I think is fine will need some additional blood work this spring or summer should include LFTs and TSH and possible PA and lateral chest x-ray. Alternatively no real alternative for antiarrhythmic if AFib does become a problem in terms of rates which it has not so far may need AV node ablation pacemaker. Will ask her to follow-up in 6 months if she chooses to return back. Assessment & Plan (02/14/2021 5:39 PM EDT): Creatinine is back up again at greater than 1.5 will reduce her Eliquis to 2.5 mg b.i.d.. Will keep her on amiodarone and beta-vianey that she is on at least for now she is maintaining sinus rhythm most of the time. I told her at some point her AFib will reoccur and will have difficulty controlling her rates in that case we can consider AV node ablation pacemaker however with her severe MR which is been untreated because she is not willing and ready to undergo cardiothoracic surgery and also not sure if she would like to undergo evaluation and possible percutaneous mitral valve clip this may become problematic in future. However for now will keep her on amiodarone, Toprol and Eliquis. Will plan to repeat amiodarone testing at the time of next visit. Assessment & Plan (11/03/2020 5:46 PM EDT): Remains compliant with medical therapy her creatinine recently was 1.37. In the hospital on few occasions her creatinine was 1.5 or slightly greater than that at about 1.6 hence she was on lower doseof Eliquis 2.5 b.i.d.. However given her creatinine is better and volume wei she looks compensatedI do not think she requires any additional diuresis hence I am going to ask her to increase her Eliquis to 5 mg twice a day. I told her I will give her prescription for 2 tablets of 2.5 mg that she will take twice a day if there is any changes in her creatinine in future we may have to reduce it again. Now that she is on amiodarone for about 3 weeks will plan for another attempt of external cardioversion next week and see if she maintains sinus rhythm. In addition to that I was going to refer her to structural Heart Cardiology Clinic for evaluation for her mitral valve prolapse and regurgitation to see if she would be a candidate for mitral clip or or not. Other abnormalities of gait and /Localized edema 07/08/2018HTN (hypertension)12/05/2015 Assessment & Plan (11/03/2020 5:44 PM EDT): Blood pressure is well controlled on present regimen. CAD (coronary artery disease)05/19/2013Type 2 diabetes mellitus with diabetic chronic kidney goqkqqp2305/19/2013History of coronary artery bypass surgery 05/19/2013 Assessment & Plan (11/03/2020 5:44 PM EDT): No angina or anginal equivalent symptoms. Logbyytomiydfy78/13/2013Diverticulosis Resolved Problems ProblemNoted DateDiagnosed DateResolved DateClass 3 severe obesity due to excess calories without serious comorbidity in adult/MVP (mitral valve prolapse)/ Overview (11/03/2020): FUAD: October 2020: ??? Mitral Valve: The lateral segment (A1) of the anterior leaflet is prolapsed. ??? Mitral Valve: There is moderate to severe regurgitation with a posteriorly directed jet. There is no evidence of mitral valve stenosis. Assessment & Plan (07/24/2021 2:02 PM EST): Was referred from our structural Heart Clinic to [facility] where she has been seen and evaluated and eventually sent back locally for heart failure management. Essentially not a candidate for mitral clip will have to get enrolled in the trial and decision was made against it by her postal service clerk and patient. She has seen Dr. Bravo and would like to follow-up with him locally I have made the notification without scheduling staff to get an appointment for this patient to follow-up in [place] next time when Dr. Bravo is there. Assessment & Plan (02/14/2021 5:40 PM EDT): She follows with structural cardiac clinic and is considering to follow through with [facility] referral. Hyp hrt and chr kdny dis w/o hrt fail, w stg 5 chr kdny/ESRD/10/16/2022trial lgauuhxjgsvk49hronic diastolic heart petrldw09 Assessment & Plan (07/24/2021 2:00 PM EST): Appears compensated however I would not be surprised her LVEDP is high. Would benefit from additional diuretics however does not want to come to [place] frequently and prefers to fall locally. Assessment & Plan (02/14/2021 5:39 PM EDT): On high dose of diuretics follows with Nephrology and Heart failure Clinic. Assessment & Plan (11/03/2020 5:46 PM EDT): Overall compensated she is scheduled to follow up with Heart failure Clinic in about 10 days. Hypoxemia requiring supplemental dhycoi42/hronic kidney disease, stage 3b09/27//MI 45.0-49.9, adult10/21// Ktonxtfx50 Encounters DateTypeDepartmentCare QikoPfmxckthoti65/25/2025Orders Only [facility] [address] [place] [address] Ej Barry, DO Longstanding persistent atrial fibrillation ([facility])05/30/2025Refill [facility] [address] [place] [address] Vandana Brown [facility] Longstanding persistent atrial fibrillation ([facility])05/27/2025Telephone [facility] [address] [place] [phone] External, Scanning Provider 05/26/2025Orders Only [facility] [address] [place] [address] Ej Barry, DO Longstanding persistent atrial fibrillation ([facility])05/25/2025Telephone [facility] [address] [place] [address] Fabiola Bradford [facility] 05/12/2025Refill [facility] [place] [address] [place] [phone] Alesha Celestin, INSPECTOR BICYCLE-HE[employer] INFORMATION [employer]S TECHNICIAN 05/12/2025Refill [facility] [address] [place] [id number] Ej Barry, DO 05/02/2025Orders Only [facility] [address] [place] [address] Ej Barry, DO Longstanding persistent atrial fibrillation ([facility])04/13/2025Orders Only [facility] [address] [place] [address] FurloEj rojas, DO 04/05/2025 1:30 PM EDTOffice Visit [facility] [address] [place] [address] Ej Barry, DO Type 2 diabetes mellitus with stage 4 chronic kidney disease, without long-term current use of insulin ([facility]) (Primary Dx); Mixed hyperlipidemia; Obesity, morbid ([facility]); Permanent atrial fibrillation ([facility])04/05/20252496Jbrhdg76/30/2025Orders Only [facility] [address] [place] [address] ElizabethmarycarmenEj rojas, DO Type 2 diabetes mellitus with stage 3b chronic kidney disease, without long-term current use of insulin ([facility])04/01/2025Refill [facility] [address] [place] [phone] Dl Chapa, INSPECTOR [facility] Med Patcqy3103/31/2025Telephone [facility] [address] [place] [address] Fabiola Bradford, [facility] 03/23/2025Orders Only [facility] [address] [place] [address] ElizabethpipeEj, DO Type 2 diabetes mellitus with stage 3b chronic kidney disease, without long-term current use of insulin ([facility])03/22/2025Orders Only [facility] [address] [place] [address] ElizabethpipeEj, DO Type 2 diabetes mellitus with stage 3b chronic kidney disease, without long-term current use of insulin ([facility])03/22/2025Telephone [facility] [address] [place] [address] Fabiola Bradford, ASSEMBLER MOLDED FRAMES 03/21/2025 2:30 PM EDTOffice Visit [facility] [address] [place] [address] Minh Barba MD Dolsey, Brian A, MD Permanent atrial fibrillation ([facility]) (Primary Dx); Heart failure with preserved left ventricular function (HFpEF) ([facility]) 03/21/2025Travelfrom Last 3 Months Immunizations ImmunizationAdministration DatesNext DueCOVID-19, mRNA, LNP-S, PF, 30mcg/0.3mL Dose08/25/2020,08/22/2020,08/01/2020Influenza High Dose Preservative Free IM 05/14/2016Influenza Tri-valent Im, Adult08/20/2024Influenza, High-dose, Poohaxnnfbry13/02/2023,06/07/2022,04/25/2021Influenza, Injectable, Quadrivalent 04/07/2019Influenza, Recombinant, Quadrivalent, Injectable, Qjdemuz4304/23/2019 Pneumococcal Conjugate 13-Jeokmt9306/05/2015Pneumococcal Shbdielnaxjmyg06/26/2005 RSV, bivalent, protein subunit RSVpreF, diluent reconstituted, 0.5 mL, PF 07/17/2024Td (adult), 5 Lf tetanus toxoid, preservative free, efgykumk57/18/2025 Tdap12/26/2014Zoster Live05/04/2012 Family History Medical HistoryRelationNameCommentsMiscarriages / StillbirthsDaughterJeni Bala 3CancerFatherVirgil BloomerINTESTINESColon cancerFatherVirgil BloomerDeceased Heart diseaseFatherVirgil BloomerBreast cancerMaternal GrandmotherBlanche SticklesDeceasedArthritisMotherMary Jessica JoneserDeceasedBreast cancerMother ChariJessica JoneserCancerMotherMary Jessica BloomerBREAST CANCERCoronary artery diseaseMotherMary Jessica JoneserDiabetesMotherMary Jessica JoneserDeceasedHeart diseaseMotherMary Jessica JoneserMiscarriages / StillbirthsMotherMary Jessica BloomerVision lossMotherMary Jessica RoberterArthritisSisterPrestonbill Espinoza Managing it tBreast cancerSisterJanice OlgaRelationNameStatusComments DaughterJeni MisnerFatherVirgil BloomerDeceasedMaternal GrandmotherBlanche SticklesMotherMary Jessica JoneserDeceasedSisterPrestonbill Espinoza Social History Tobacco UseTypesPacks/DayYears UsedDateSmoking Tobacco: NeverSmokeless Tobacco: Never Tobacco Cessation:Counseling Given: Not Answered Alcohol UseStandard Drinks/WeekCommentsNo0 (1 standard drink = 0.6 oz pure alcohol)[facility] UtilitiesAnswerDate RecordedIn the past 12 months [...] times a week04/05/2025How often do you attend gnosticism or hindu services?More than 4 times per year04/05/2025Do you belong to any clubs or organizations such as gnosticism groups, unions, fraternal or athletic slade ups, or school groups?No04/05/2025How often do you attend meetings of the clubs or organizations you belong to?Never04/05/2025re you , , , , never , or living with a partner?Hcxnrez8104/05/2025 AUDIT-CAnswerDate RecordedQ1: How often do you have [...] care, and heating?Not very hard 04/05/2025PHQ-2AnswerDate RecordedTotal Uufdz672[facility] [place] of Occupational Health - Occupational Stress QuestionnaireAnswerDate [...] a household?No04/05/2025hildcareAnswerDate RecordedDo problems getting child care attendant make it difficult for you to work [...] InformationValueDate RecordedSex Assigned at BirthNot on fileLegal CsqFzivgn05/06/2015 11:22 AM EDT Gender IdentityNot on fileSexual OrientationNot on file Last Filed Vital Signs Vital SignReadingTime TakenCommentsBlood Jxwsqfno597/6809 1:38 PM EDT Gsvzc680304/05/2025 1:38 PM FEHCbeefsshjxw07.2 ??C (97.2 ??F)04/05/2025 1:38 PM EDTRespiratory Ohyr599104/05/2025 1:38 PM EDTOxygen Ndbauhebsf24%04/05/2025 1:38 PM EDTInhaled Oxygen Concentration--Mxkpcl39.2 kg (203 lb 3.2 oz)04/05/2025 1:38 PM GMUCeqgrl693.4 cm (5')04/05/2025 1:38 PM EDTBody Mass Index39.68004/05/2025 1:38 PM EDT Plan of Treatment DateTypeDepartmentCare Team (Latest Contact Info)Luntfffuopl87/02/2026 2:00 PM ESTOffice Visit [facility] [address] [place] [phone] Ej Barry, [address] [place], [facility] [place], [place] [phone] 10/31/2025 1:30 PM EDTOffice Visit [facility] [address] [place] [address] Aleida Campuzano MD [address] [place] [address] Health MaintenanceDue DateLast DoneCommentsMedicare Annual Wellness Visit 1937Zoster (Shingles) Vaccine (2 of 3)Influenza Qyjozhy56/, 05/08/2023, 06/07/2022, Additional history exists Depression Ojlrtqvmh50Fall Risk Hfehyjlqu49 Tobacco Rctglbknz02DTaP,Tdap and Td Vaccines (3 - Td or Tdap) 5003/24/2025, 12/26/2014COVID-19 RjlmpxbUaaalzcqaolo36/05/2023, 08/25/2020, 08/22/2020, Additional history existsRSV ( or age 60+ yrs) Wihkoytyi74/11/2025 Goals GoalPatient Goal TypeAssociated ProblemsRecent ProgressPatient-Stated?Author Home Kaylan Prather LSW Note: Evaluation of progress towards goal: Home with family support and [facility] with possible new O2 order. Medical Devices Not on file Procedures Procedure NamePriorityDate/TimeAssociated DiagnosisCommentsPOCT HEMOGLOBIN A1C Qmlityt4204/05/2025 2:27 PM EDT Type 2 diabetes mellitus with stage 4 chronic kidney disease, without long-term current use of insulin ([facility]) POCT ZIAHwmykmd47/15/2025 Permanent atrial fibrillation ([facility]) from Last 3 Months Results * (ABNORMAL) POCT Hemoglobin A1c (04/05/2025 2:27 PM EDT)ComponentValueRef Range Test MethodAnalysis TimePerformed AtPathologist SignatureExternal Poct Hgb A1C 7.9(A)4 - 7 %MANUALLY TRANSCRIBED RESULTSSpecimen (Source)Anatomical Location / LateralityCollection Method / VolumeCollection TimeReceived TimeBlood 04/05/2025 2:27 PM EDT Narrative Authorizing ProviderResult TypeResult StatusDenapril G Furlong DOPOINT OF CARE TEST ORDERABLESFinal ResultPerforming OrganizationAddressCity/State/ZIP Code Phone Number MANUALLY TRANSCRIBED RESULTS * POCT EKG (03/21/2025)Specimen (Source)Anatomical Location / Laterality Collection Method / VolumeCollection TimeReceived Time03/21/2025 Narrative Authorizing ProviderResult TypeResult StatusMansoor Toro MDECG ORDERABLESFinal ResultPerforming OrganizationAddressCity/State/ZIP CodePhone Number MANUALLY TRANSCRIBED RESULTS from Last 3 Months Insurance Advance Directives * Full Code (Latest Code Status on File) Date ActivatedDate InactivatedComments10/05/2022 12:29 PM10/08/2022 8:27 PM * Full Code Date ActivatedDate InactivatedComments09/28/2020 11:03 AM10/12/2020 7:47 PM * Full Code Date ActivatedDate InactivatedComments09/26/2020 3:13 PM09/28/2020 10:16 AM Care Teams Team MemberRelationshipSpecialtyStart DateEnd Date Ej Barry DO [address] [facility], [place] [address] [facility]
--- OUTSIDE RECORDS SUMMARY | 2025-06-05 11:24 | XMS_ITS | Clinical Summary ---
Author Organization [facility] Address [address] [place] [id number] Care Team Providers Care Chef Passenger Vessel Name Role Phone Ej Barry DO Primary Care Provider Ankush Ashby(Historical) Unavailable Un available Kellie Johns MD Unavailable [phone] Allergies Active AllergyReactionsCriticalityNoted HfkmIkqmiplkPxapknHwbefidFjmm00/09/2021 Not allergy, want limited use due to CKD 3 PenicillinsHives,Ryxazkqx44/09/4813Qrnjfzg-Iju-Thb Reductase InhibitorsMyalgia 03/15/2021 Medications MedicationSigDispense QuantityRefillsLast FilledStart DateEnd DateStatus allopurinol (ZYLOPRIM) 100 mg tablet Take 100 mg by mouth once daily.03/08/2021ctive PACERONE 200 mg tablet Take 200 mg by mouth once daily.02/23/2021ctive apixaban (ELIQUIS) 2.5 mg tab tab(s) Take 2.5 mg by mouth twice daily.02/14/2021ctive Ascorbic Acid 250 mg chew Take 250 mg by mouth once daily.Active bumetanide (BUMEX) 2 mg tablet Take 4 mg by mouth twice daily.02/07/2021ctive Cholecalciferol, Vitamin D3, 50 mcg (2,000 unit) cap Take 2,000 Units by mouth once daily.Active dapagliflozin (FARXIGA) 10 mg tablet Take 10 mg by mouth once daily.Active ezetimibe (ZETIA) 10 mg tablet Take 10 mg by mouth once daily.07/24/2020ctive metoprolol succinate ER (TOPROL XL) 25 mg 24 hr tablet Take 25 mg by mouth once daily.02/06/2021ctive Multivitamin capsule Take 1 tablet by mouth once daily.Active potassium chloride ER (K-DUR, KLOR-CON) 20 mEq tablet Take 20 mEq by mouth once daily.09/28/2020ctive coQ10, ubiquinol, 100 mg cap Take 1 capsule by mouth once daily.Active zinc sulfate 220 (50) mg capsule Take 220 mg by mouth once daily.Active vit C,S-Vv-wwgwe-lutein-zeaxan (PRESERVISION AREDS-2) 250-90-40-1 mg Take 1 capsule by mouth once daily.Active bempedoic acid (NEXLETOL) 180 mg tablet Take 180 mg by mouth once daily.Active acetaminophen/diphenhydramine (TYLENOL PM ORAL) Take 2 tablets by mouth as needed.Active Acidophilus-Pectin, Young 25 million cell -100 mg tab Take 1 tablet by mouth once daily.Active fish oil/borage/flax/om3,6,9 1 (OMEGA 3-6-9 ORAL) Take 1 capsule by mouth once daily.Active sour horner extract (TART HORNER EXTRACT ORAL) Take 1 tablet by mouth once daily.Active clindamycin (CLEOCIN) 300 mg capsule Take 2 capsules (600 mg) 30-60 minutes prior to dental/GI/ procedures 2 capsule ctive Active Problems ProblemNoted DateDiagnosed DateIRB#[id number] CLASP IID Pbvxyif88/08/2021Mitral valve huycvupamckyz96/07/2021 Family History Medical HistoryRelationCommentsliver cirrhosisBrother 1CancerFatherHeart Attack FatherHypertensionFatherCancerMotherHypertensionMotherCancerSister 1Hypertension Sister 1COPDSister 2HypertensionSister 2RelationStatusCommentsBrother 1Deceased Brother 2DeceasedFatherDeceasedMotherDeceasedSister 1DeceasedSister 2Alive Social History Tobacco UseTypesPacks/DayYears UsedDateSmoking Tobacco: NeverSmokeless Tobacco: NeverAlcohol UseStandard Drinks/WeekCommentsNot Currently0 (1 standard drink = 0.6 oz pure alcohol)Area Deprivation IndexAnswerDate RecordedNational Score (1- 100), lower number is lower riskNot on file03/15/2021tate Score (1-10), lower number is lower riskNot on file1Data from: https://www.neighborhoodatlas.medicine.[facility].edu/. Last address used for calculationNot on file03/15/2021CommentsUnknownSex and Gender InformationValueDate RecordedSex Assigned at BirthNot on fileLegal SexFemale 01/17/2021 12:25 PM EDTGender IdentityNot on fileSexual OrientationNot on file Last Filed Vital Signs Vital SignReadingTime TakenCommentsBlood Drerullx656/7505/14/2021 2:06 PM EST Icvpl53655/08/2021 2:06 PM ZJJUbxwumnjwiu44.2 ??C (98.9 ??F)05/14/2021 1:16 PM ESTRespiratory Ucoy487107/14/2020 2:06 PM ESTOxygen Cjiotgpvjb55%05/14/2021 2:06 PM ESTInhaled Oxygen Concentration--Hsztvt525.8 kg (233 lb 4.8 oz)05/14/2021 1:16 PM LJNIvyccs773.4 cm (4' 11.21 )03/20/2021 12:00 PM EDTBody Mass Index46.78 03/20/2021 12:00 PM EDT Plan of Treatment Health MaintenanceDue DateLast DoneCommentsAnxiety Amsiirilp79/06/1956Depression Lbypvkayz88/06/1956Bone Density Vzlwbubue07/06/2003Shingrix Vaccine (2 of 3) RSV Vaccine (1 - 1-dose 75+ series)2012Diabetes Fqpeywahs10/02/2021, 03/20/2021, 03/15/2021, Additional history exists Advance Directive Bqvxoxtgpn33/01/2025DTaP,Tdap,Td Vaccine (2 - Td or Tdap) /Covid-19 Vaccine (3 - 2024- season)/, 08/01/2020Influenza Vaccine (#1)/, 04/23/2019, 04/07/2019, Additional history existsPneumococcal Vaccine: 50+Xmzzqcywh75/30/2015, 01/29/2005 Procedures Procedure NamePriorityDate/TimeAssociated DiagnosisCommentsCOMPREHENSIVE METABOLIC SIHJGMxxnpba18/08/2021 4:01 PM EST Nonrheumatic mitral valve regurgitation Examination of participant in clinical trial from Last 3 Months or Most Recently Relevant to Health Maintenance Results * (ABNORMAL) COMP METABOLIC PANEL (05/14/2021 4:01 PM EST)ComponentValueRef RangeTest MethodAnalysis TimePerformed AtPathologist SignatureProtein, Total 7.16.3 - 8.0 g/dL05/14/2021 6:54 PM ESTOhio[facility] Centervel[facility] LaboratoriesAlbumin3.9 3.9 - 4.9 g/dL05/14/2021 6:54 PM [facility] LaboratoriesCalcium9.88.5 - 10.2 mg/dL05/14/2021 6:54 PM [facility] LaboratoriesBilirubin, Total0.30.2 - 1.3 mg/dL05/14/2021 6:54 PM [facility] Alkaline Vlukxtiuwhe6995 - 123 U/L107/14/2020 6:54 PM [facility] JlozolehbtvpSMV7695 - 35 U/L107/14/2020 6:54 PM [facility] ZlpkwfhjkmyrOawvort759(H)74 - 99 mg/dL05/14/2021 6:54 PM [facility] LaboratoriesComment: The [place] Diabetes Association (ADA) provides guidance for cutoff [...] Standards of Medical Care in Diabetes 2016, [place] Diabetes Association. Diabetes Care. 2016.39(Suppl 1). BUN22(H)7 - 21 mg/dL05/14/2021 6:54 PM [facility] Creatinine1.59(H)0.58 - 0.96 mg/dL05/14/2021 6:54 PM [facility] SoahszgtjortVakbjb673814 - 144 mmol/L107/14/2020 6:54 PM [facility] LaboratoriesPotassium4.33.7 - 5.1 mmol/L107/14/2020 6:54 PM [facility] JcukbadcewglVnlbzslz89610 - 105 mmol/L107/14/2020 6:54 PM [facility] HzyknqpienvvOR945(H)22 - 30 mmol/L107/14/2020 6:54 PM [facility] LaboratoriesAnion Gap99 - 18 mmol/L107/14/2020 6:54 PM [facility] OvgnadqasgdgTVM467 - 38 U/L107/14/2020 6:54 PM [facility] eGFR- Yijqdpag3189/08/2021 6:54 PM [facility]GFR- All Other Races31.05/14/2021 6:54 PM [facility] CenterComment: eGFR (Estimated GFR) Units of measure: mL/min/1.73 [...] eGFR may not accurately reflect actual GFR. Specimen (Source)Anatomical Location / LateralityCollection Method / Volume Collection TimeReceived TimeBloodOTHER / Whjtync3305/14/2021 4:01 PM EST05/14/2021 4:03 PM EST Narrative Authorizing ProviderResult TypeResult StatusSamidave Shepherd MDLABORATORYFinal ResultPerforming OrganizationAddressCity/State/ZIP CodePhone Number [facility] [address] [place] [address] [facility] [address] [place] [address] from Last 3 Months or Most Recently Relevant to Health Maintenance Insurance Care Teams Team MemberRelationshipSpecialtyStart DateEnd Date Ej Barry DO [address] [place] [phone] PCP - GeneralFamily Medicine03/15/21 Ankush Ashby(Historical)MD [address] [place] [address] PhysicianCardiology03/15/21 Kellie Johns MD [address] [place] [address] Primary Staff PhysicianCardiology03/15/21
--- OUTSIDE RECORDS SUMMARY | 2025-06-05 11:24 | XMS_ITS | Encounter Summary ---
Author Organization [employer] [facility] tem Address [id number] [address] [place] [address] Care Team Providers Care Clearing Inspector Name Role Phone ElizabethEj betancur Primary Care Provider [phone] Encounter Details DateTypeDepartmentCare Team (Latest Contact Info)Jgsxufkgcpg55/21/2025Telephone N [facility] [address] [place] [address] External, Scanning Provider Social History Tobacco UseTypesPacks/DayYears UsedDateSmoking Tobacco: NeverSmokeless Tobacco: NeverAlcohol UseStandard Drinks/WeekCommentsNo0 (1 standard drink = 0.6 oz pure alcohol)[facility] UtilitiesAnswerDate RecordedIn the past 12 months has the [place], gas, oil, or water eGistics threatened to shut off services in your home?No 04/05/2025Social Connection and Isolation PanelAnswerDate RecordedIn a typical week, how many times do you talk on the phone with family, friends, or neighbors?Three times a week04/05/2025How often do you get together with friends or relatives?Three times a week04/05/2025How often do you attend bahai or anabaptist services?More than 4 times per year04/05/2025Do you belong to any clubs or organizations such as bahai groups, unions, fraternal or athletic slade ups, or school groups?No04/05/2025How often do you attend meetings of the clubs or organizations you belong to?Never04/05/2025re you , , , , never , or living with a partner?Xsrylxa1704/05/2025 AUDIT-CAnswerDate RecordedQ1: How often do you have [...] care, and heating?Not very hard 04/05/2025PHQ-2AnswerDate RecordedTotal Wevio028[facility]hr[facility] [place] of Occupational Health - Occupational Stress QuestionnaireAnswerDate [...] part of a household?No04/05/2025hildcareAnswerDate RecordedDo problems 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 Ball about a medication, Xarelto, which my family doctor suggested putting me on, instead of Eliquis. I just wanted his opinion on that, because I don't believe Xarelto is good for the kidneys. And I don't think it's any less expensive. I would appreciate a call back. Thank you so much. Radhika. I need to talk to someone about a change in medications from my family doctor. And I need to talk to someone soon, if I can, please. Thank you very much. * Telephone Encounter - Michael Ball MD - 05/27/2025 6:50 AM EST Xarelto is not kidney toxic. The dose of Xarelto is adjusted in patients with chronic kidney disease since the drug is cleared by the kidneys. Eliquis has also safe and effective in patients with chronic kidney disease. Adjustments to the dose are made depending on EGFR and patient age. I would discuss further with her primary care physician. Michael Ball MD PhD FACP * Telephone Encounter - Jessy Zepeda LPN - 05/27/2025 6:50 AM EST Pt notified documented in this encounter Plan of Treatment DateTypeDepartmentCare Team (Latest Contact Info)Ryjtfytygey69/02/2026 2:00 PM ESTOffice Visit [facility] [address] [place] [address] Ej Barry DO [address], [place] [address] 10/31/2025 1:30 PM EDTOffice Visit [facility] [address] [place] [phone] Aleida Campuzano MD [address] [place], [place] [id number] documented as of this encounter Goals GoalPatient Goal TypeAssociated ProblemsRecent ProgressPatient-Stated?Author Home Kaylan Prather LSW Note: Evaluation of progress towards goal: Home with family support and [facility] with possible new O2 order. documented as of this encounter Visit Diagnoses Not on filedocumented in this encounter Additional Health Concerns AssessmentNoted TimePHQ-9 Depression Total Score: 1:37 PM EDT documented as of this encounter Care Teams Team MemberRelationshipSpecialtyStart DateEnd Date Ej Barry DO [address], [facility] [place] [address] PCP - GeneralFamily Medicine10/04/22documented as of this encounter
[2025-06-05] MEDS: MORPHINE SULFATE 2 MG/ML SYRINGE IV (11:44)
[2025-06-05] MEDS: ORPHENADRINE 60 MG/2 ML VIAL IV (11:44)
[2025-06-05] MEDS: HYDRALAZINE HCL 20 MG/ML VIAL 10 MG IVP (12:11)
[2025-06-05] MEDS: MORPHINE SULFATE 4 MG/ML VIAL IV (12:35)
== END 2025-06-05 15:10 | disposition home or self-care (01) ==
PROVIDERS: Emergency Provider Emergency Medicine; PCP Family Medicine
DX: M47.812 Spondylosis without myelopathy or radiculopathy, cervical region (principal); M54.2 Cervicalgia
CPT/HCPCS: 72125; 76376; 80048; 93005; 96374; 96375; 96376; 99285; J0360; J2270; J2360; J2405